=== PATIENT | female | born 1940 ===

== ENCOUNTER 2016-09-21 06:27 | Day surgery (SDC) | payer MEDICARE ==
[2016-09-20 13:59] VITALS: BMI 34.3
--- NOTE | 2016-09-21 07:13 | CP.PCM.PN ---
Subjective - Date & Time of Evaluation Date of Evaluation: 09/21/16 Time of Evaluation: 07:11 - Subjective Subjective: 75 year old female patient was seen and evaluated at bedside in [facility] this morning for left foot buion and hammertoe repair. She admits to a callus under her 2nd metatarsal head. Patient has been having a lot of pain on her left foot and has exhausted conservative treatment and now opts for surgical intervention She reports no other complaints at this time. NPO status confirmed. She admits she is allergic to shrimp. She denies any F/C/N/V/SOB at this time. Objective - Vital Signs/Intake and Output Vital Signs (last 24 hours): Temp Pulse Resp BP Pulse Ox 98.1 F 66 20 152/72 H 97 09/21/16 06:53 09/21/16 06:59 09/21/16 06:53 09/21/16 06:53 09/21/16 06:53 - Constitutional Appears: Well, Non-toxic, No Acute Distress - Respiratory Exam Respiratory Exam: NORMAL BREATHING PATTERN. absent: Rales, Rhonchi, Wheezes - Cardiovascular Exam Cardiovascular Exam: REGULAR RHYTHM, +S1, +S2 - GI/Abdominal Exam GI & Abdominal Exam: Soft, Normal Bowel Sounds. absent: Tenderness - Extremities Exam Additional comments: Vasc: DP and PT pulses palpable 2/4 b/l. Skin temperature warm to warm from proximal to distal b/l. Varicosites noted to the dorsum of foot and ankle b/l. Neuro:Gross sensation intact b/l. Derm:No open lesions noted. Webspaces clean, dry, intact. Toenails 1-5 b/l are WNL with thickness and length. Ortho/Biomech:Ankle dorsiflexion range of motion to 90 degrees on the left and right. Plantarflexion ROM to 30 degrees bilaterally. Negative crepitus with ROM b/l. Prominent metatarsal heads on the left foot, specifically the plantar second metatarsal head. STJ ROM is limited b/l, right: 12 degrees inversion, 7 degrees eversion, left 10 degrees inversion, 8 degrees eversion. First MTPJ ROM on the left is to 10 degrees of dorsiflexion, 10 degrees of plantarflexion. There is severe hammering of the lesser digits 2-5 b/l with rigid deformity. There is b/l hallux abductovalugs deformity with tracking hallux. Upon gait examination, she is noted to have extensor substitution, early heel off, and antalgic gait on the left due hyperkeratotic lesion sub 2nd metatarsal head, and increased angle and base of gait. Plan: Conservative treatment was attempted-offloading pad and wider toe box. Patient for surgery for painful left bunion-chevron osteotomy with screw fixation, hammertoes arthroplasties PIPJ 2-5 left - Neurological Exam Neurological Exam: Alert, Awake, Oriented x3 - Psychiatric Exam Psychiatric exam: Normal Affect, Normal Mood Assessment and Plan - Assessment and Plan (Free Text) Assessment: 75 year old female who presents to [facility] for left foot pain due to left foot- bunion, elongated second metatarsal and hammertoes 2-5 Plan: Pt was seen and examined in [facility] Pt NPO status was confirmed All Pre-op testing and clearance was in the chart Pt has exhausted all conservative treatment at this time and is opting for surgical intervention Pt was explained procedure and post-operative course All pt's questions were answered to satisfaction No guarantees were made Pt understands all risks, benefits and complications of procedure Pt will follow-up with Dr. Alberts
--- NOTE | 2016-09-21 07:15 | CP.SDSHP ---
Same Day Surgery H & P - History Proposed Procedure: left foot buionectomy, second metatarsal osteotomy, and hammer toe correction 2-5 Pre-Op Diagnosis: left foot bunion deformity, left foot elongated second metatarsals, left foot hammertoe digits 2-5 - Previous Medical/Surgical History Pain: 8.Very Severe Previous Surgical History: appendectomy, breast reduction, right leg vein stripping, hemorrhoidectomy, cyst removal on head - Allergies Allergies: Allergies shrimp Allergy (Verified 03/18/16 18:33) RASH - Physical Exam Vital Signs: Vital Signs 09/21/16 09/21/16 09/21/16 06:52 06:53 06:59 Temperature 98.1 F 98.1 F Pulse Rate 66 66 66 Respiratory 18 20 Rate Blood Pressure 152/72 H 152/72 H O2 Sat by Pulse 97 97 Oximetry Mental Status: Alert & Oriented x3 Neuro: WNL Heart: WNL Lungs: WNL - {Optional Preform as Required} Integument: WNL Ortho: Other (pain on palpation to left 2nd plantar metatarsal head, contracted digits 2-4 on the left) - Impression Impression: Pt was seen and examined in [facility]. Pt NPO status was confirmed. All Pre-op testing and clearance was in the chart. Pt has exhausted all conservative treatment at this time and is opting for surgical intervention. Pt was explained procedure and post-operative course. All pt's questions were answered to satisfaction. No guarantees were made. Pt understands all risks, benefits and complications of procedure. Pt will follow-up with Dr. Alberts Pt. Evaluated Today:Candidate for Anesthesia & Procedure: Yes - Date & Time Date: 09/21/16 Time: 07:15 Short Stay Discharge - Short Stay Discharge Admitting Diagnosis/Reason for Visit: M20.12 M21.6 Q66.89 M20.42 Disposition: HOME/ ROUTINE Referrals: Aric Cazares MD [Primary Care Provider] - Additional Instructions (Diet, Activity): Please keep dressing clean, dry, & intact to surgical site, do not get dressing wet. use plastic bag over bandage for showering, wear post op shoe at all times when ambulating, call office if you see signs of infection (redness, swelling, malodor), please make an appointment to see Dr. Alberts in office within 1 week for post-op check. Take medication as prescribed by Dr. Alberts Progress Note/Discharge Note with Instructions: - Patient evaluated bedside at bedside in [facility] s/p surgical procedure. - After surgical procedure patient in NAD - (+) Void, (+) Appetite - Capillary refill time <3s and NVSI intact. - Patient denies complaints at this time - Post operative instructions and plan of care explained to patient at length. - Pt. acknowledges understanding. - Patient stable for DC per podiatric surgery
[2016-09-21] MEDS ORDERED: Bupivacaine 0.5% 50 ML IJ ONE (07:16)
[2016-09-21] MEDS ORDERED: ceFAZolin 1 GM in Sodium Chloride 0.9% 100 ML IVPB STA (07:16)
[2016-09-21] MEDS ORDERED: Lidocaine 1% Inj (20ml) IJ ONE ×2 (07:16→08:10)
[2016-09-21] MEDS ORDERED: Midazolam 2 MG/2 ML VIAL ONE (07:40)
[2016-09-21] MEDS ORDERED: Propofol 10 mg/ml Inj (20 ML) ONE (07:40)
[2016-09-21] MEDS ORDERED: Lactated Ringer's 1,000 ML IV ONE (07:45)
[2016-09-21] MEDS ORDERED: Dexamethasone 4 mg/1 ml ONE (07:54)
[2016-09-21] MEDS ORDERED: Lidocaine 1% Inj (20ml) ONE (07:55)
[2016-09-21] MEDS ORDERED: Bupivacaine 0.5% Inj(30mL) ONE (07:55)
[2016-09-21] MEDS ORDERED: Bupivacaine 0.5% Inj(30mL) IJ ONE ×2 (08:10→10:47)
[2016-09-21] MEDS ORDERED: Lactated Ringer's 500 ML IV ONE (09:30)
[2016-09-21] MEDS ORDERED: Liquid Adhesive TOP ONE (10:39)
[2016-09-21] MEDS ORDERED: Dexamethasone 4 mg/1 ml IM ONE ×2 (10:53)
[2016-09-21] MEDS ORDERED: Oxycodone/Acetaminophen 5/325 mg Tab PO PRN ×2 (11:11)
--- NOTE | 2016-09-21 11:12 | PCM.SURG1 ---
Surgeon's Initial Post Op Note - Surgeon's Notes Surgeon: Dr. Alberts [employer] Craftsman: Sonal Iglesias PGY-2, Raiza Martinez PGY-1 Type of Anesthesia: General LMA Anesthesia Administered By: Dr. Candelaria Pre-Operative Diagnosis: Left foot bunion, elongated second metatarsal, hammertoes digits 2-5 Operative Findings: See dictation Post-Operative Diagnosis: Same Operation Performed: Left foot bunionectomy, second metatarsal head resection, PIPJ arthroplasty 3,4,5, extensor tenotomy 2,3,4,5 Specimen/Specimens Removed: bone left shoe Estimated Blood Loss: EBL {In ML}: 10 Blood Products Given: N/A Drains Used: No Drains Post-Op Condition: Good Date of Surgery/Procedure: 09/21/16 Time of Surgery/Procedure: 08:00
[2016-09-21] MEDS ORDERED: DiphenhydrAMINE 50 mg/ml Inj IVP PRN (11:17)
[2016-09-21] MEDS: HYDROmorphone 0.5 mg/0.5 ml ISec IVP PRN ×3 (12:06→12:50)
[2016-09-21 14:00] VITALS: RESP 18
[2016-09-21 17:45] VITALS: BP 120/80; PULSE 68; TEMP 98.6; O2SAT 96
--- NOTE | 2016-09-23 08:06 | OP ---
PROCEDURE DATE: 09/21/2016 SURGEON: Dr. My Alberts. PHYSICIAN/INTERNIST: Sonal Iglesias, PGY-2. POSTOPERATIVE DIAGNOSES: 1. Left foot bunion deformity. 2. Plantarflexed second metatarsal. 3. Hammertoe deformity with metatarsophalangeal joint contracture of the left foot third digit 4. Hammertoe deformity with metatarsophalangeal joint contracture of fourth digit. 5. Hammertoe deformity with metatarsophalangeal joint contracture of fifth digit. POSTOPERATIVE DIAGNOSES: 1. Left foot bunion deformity. 2. Plantarflexed second metatarsal with dislocated MTPJ 3. Hammertoe deformity with metatarsophalangeal joint contracture of the left foot third digit 4. Hammertoe deformity with metatarsophalangeal joint contracture of fourth digit. 5. Hammertoe deformity with metatarsophalangeal joint contracture of fifth digit. NAME OF PROCEDURES: 1. Left foot bunionectomy. 2. Left foot second partial metatarsal head resection 3. Proximal interphalangeal joint arthroplasty with extensor tenotomy of the third digit, left foot. 4. Proximal interphalangeal joint arthroplasty with extensor tenotomy of the fourth digit, left foot. 5. Proximal interphalangeal joint arthroplasty with extensor tenotomy of fifth digit, left foot. ANESTHESIA: IV sedation with local anesthesia. ANESTHESIOLOGIST: Dr. Candelaria. INDICATIONS: The patient is a 75-year-old female with the above-mentioned diagnoses. The patient has exhausted conservative treatment at this time and is now requesting surgical intervention. The patient signed a consent after careful explanation of risks, benefits, complications and alternatives for surgical procedure. No guarantees were given nor implied. 2 g of Ancef IV were given to patient prior to the procedure. NPO status was confirmed prior to taking the patient to the operating room. PREPARATION: The patient was brought into the operating room and placed on the operating room table in supine position. A well-padded pneumatic ankle tourniquet was placed to the patient's left ankle in a supramalleolar position. After induction of IV sedation, a total of 20 mL of a 1:1 mixture of 0.5% Marcaine and 1% lidocaine plain were injected in local block fashion to the left foot. The foot was then prepped and draped in the usual sterile manner and the procedure began. PROCEDURE #1: LEFT FOOT BUNIONECTOMY: Attention was directed to the dorsal aspect of the first metatarsal head of the left foot where an approximately 6 cm linear longitudinal incision was made medial and parallel to the tendon of the extensor hallucis longus and involving the contour of the deformity. The incision was deepened through the subcutaneous tissue using sharp and blunt dissection. Care was taken to identify and retract all vital neurovascular structures. All bleeders were cauterized and ligated as necessary. Attention was then directed to the first interspace via the original incision where the tendon of the extensor hallucis brevis was identified and tenectomized. Dissection was continued deep using blunt dissection down to the level of the fibular sesamoid which was freed of its soft tissue attachments proximally, laterally, and distally. The conjoined tendon of the adductor hallucis muscle was then identified and transected at its attachment to the base of the proximal phalanx of the hallux. At this time, the lateral contracture present on the hallux was noted to reduce and the sesamoid apparatus was noted to float in a more corrected medial position. At this time, an inverted L-type capsulotomy was performed over the dorsal aspect of the first metatarsophalangeal joint. The periosteal and capsular structures were then carefully dissected free of their osseous attachments and reflected medially and laterally, thus exposing the head of the first metatarsal into the operative site. Next, utilizing a sagittal bone saw, the dorsal and medial prominences were resected and passed from the operative field. All rough edges were smoothed down. At this time, the hip was externally rotated and the knee was flexed to bring the medial surface of the foot superior to allow for better visualization of the medial aspect of the first metatarsal head for the osteotomy cuts. Attention was then redirected to the medial aspect of the first metatarsal head where a through and through V-type osteotomy was created in the metaphyseal region of the bone utilizing an oscillating bone saw. The apex of the osteotomy pointed distally with the arms pointing proximal plantarly and proximal dorsal. The dorsal arm was made longer to accommodate internal fixation. Upon completion of the osteotomy, the capital fragment was distracted and shifted laterally into a more corrected position and impacted upon the first metatarsal shaft. At this time, two 0.045 inch K-wires were driven from dorsal to plantar across the osteotomy site to serve as temporary fixation. An additional K-wire was then driven from dorsal to plantar as a guide hole. Following sequential removal of the K-wires and following standard AO principles and techniques, one 2.0 x 16 mm and one 2.0 x 18 mm cortical screw were inserted across the osteotomy site with excellent compression noted. Attention was then directed to the remaining medial bone shelf which was resected utilizing the sagittal bone saw and was passed from the operative site. The correction of the deformity was assessed at this time and noted to be excellent. It was noted that the extensor tendon was still contracted and in a lateral position, therefore a tendon lengthening was performed and the tendon was repaired with 3-0 vicryl. The wound was then flushed with copious amounts of normal sterile saline. Periosteal and capsular structures were reapproximated and coapted using 2-0 and 3-0 Vicryl. Redundant capsular tissues were resected as necessary. The subcuticular tissues were reapproximated and coapted using 4-0 Vicryl. The skin was reapproximated and coapted using 4-0 Monocryl in running subcuticular fashion. PROCEDURE #2: PARTIAL METATARSAL HEAD RESECTION OF LEFT FOOT SECOND DIGIT. Attention was directed to the dorsal aspect of the second metatarsophalangeal joint where an approximately 3 cm linear longitudinal incision was created overlying the metatarsophalangeal joint. Dissection was carried down to the subcutaneous tissues with care being taken to identify and retract all vital neurovascular structures. All bleeders were cauterized and ligated as necessary. The extensor tendon was identified and was retracted laterally. At this time, it was noted that the second digit was severely dislocated dorsally with the base of the proximal phalanx resting completely dorsal to the second metatarsal head. The toe was not reducible. The proximal phalanx was unable to the distracted over the end of the metatarsal head. Therefore, a partial metatarsal head resection was necessary. At this time, a linear longitudinal periosteal incision was created over the head of the metatarsal. The periosteal and capsular structures were reflected medially and laterally, thus exposing the head of the second metatarsal into the operative site. Utilizing the sagittal bone saw, the distal portion of the metatarsal head was resected from dorsal to plantar. A phalangeal clamp was used to remove the metatarsal head from the operative field. The bone quality was noted to be very poor and the bone was very soft. The bone at the base of the proximal phalanx was also noted to be of poor quality. The wound was copiously irrigated with normal sterile saline. Following the osteotomy, the extensor tendon was noted to be very contracted and pulling the toe dorsally. Therefore, an extensor tenotomy was performed. The wound was copiously irrigated with normal sterile saline. The periosteal and capsular tissues were reapproximated and coapted using 4-0 Vicryl. Subcuticular closure was done using 4-0 Vicryl, and skin was closed using 4-0 Monocryl in running subcuticular fashion. PROCEDURE #3: PROXIMAL INTERPHALANGEAL JOINT ARTHROPLASTY OF THE LEFT FOOT THIRD DIGIT: Attention was directed to the third digit of the left foot where a horizontal elliptical incision was created overlying the apex of the deformity at the proximal interphalangeal joint. The central portion of the skin was ellipsed out using a #15 blade. The incision was carried down through the subcutaneous tissues with care being taken to identify and retract all vital neurovascular structures. All bleeders were cauterized and ligated as necessary. At this time, a transverse tenotomy and capsulotomy was performed to the proximal interphalangeal joint of the third digit right foot. The head of the proximal phalanx was then freed of its capsular and ligamentous attachments. The bone was noted to be of very poor quality and was very soft. Utilizing the sagittal bone saw, the head of the proximal phalanx was resected and passed from the operative site. Next, the cartilage on the base of the middle phalanx was removed. Next, a 0.045 inch K-wire was drive from the base of the middle phalanx exiting the distal aspect of the second digit. The K- wire was then retrograded proximally into the remaining aspect of the proximal phalanx. The K-wire was unable to be retrograded into the metatarsal head because of the poor bone stock which would not allow the K-wire to hold. The wound was copiously irrigated with normal sterile saline. The subcuticular closure was done using 4-0 Vicryl and skin was closed using 4-0 nylon. PROCEDURE #4: PROXIMAL INTERPHALANGEAL JOINT ARTHROPLASTY OF THE FOURTH DIGIT, LEFT FOOT: Attention was directed to the dorsal aspect of the fourth digit of the left foot where a horizontal elliptical incision was made overlying the apex of the deformity at the proximal interphalangeal joint. The incision was deepened through the subcutaneous tissue with care being taken to identify and retract all vital neurovascular structures. All bleeders were cauterized and ligated as necessary. At this time, a transverse tenotomy and capsulotomy was performed to the proximal interphalangeal joint of the fourth digit left foot. The head of the proximal phalanx was freed of its capsular and ligamentous attachments. Once again, the bone was noted to be of poor quality. Utilizing the sagittal bone saw, the head of the proximal phalanx was resected and passed from the operative site. The cartilage on the base of the middle phalanx was also removed. The wound was flushed with copious amounts of normal sterile saline. Next, a 0.045 inch K-wire was driven from the base of the middle phalanx exiting the distal aspect of the fourth digit. The K-wire was then retrograded proximally into the remaining aspect of the proximal phalanx. The wound was copiously irrigated with normal sterile saline. Subcuticular closure was done using 4-0 Vicryl and skin was closed using 4-0 nylon. PROCEDURE #5: LEFT FOOT PROXIMAL INTERPHALANGEAL JOINT ARTHROPLASTY OF THE FIFTH DIGIT: Attention was directed to the dorsal aspect of the fifth digit of the left foot where an elliptical incision was made overlying the apex of the deformity at the interphalangeal joint of the fifth digit. The incision was deepened through the subcutaneous tissues with care being taken to identify and retract all vital neurovascular structures. All bleeders were cauterized and ligated as necessary. At this time, a transverse tenotomy and capsulotomy was performed to the proximal interphalangeal joint of the fifth digit. The head of the proximal phalanx was then freed of its capsular and ligamentous attachments. Again the bone quality was noted to be poor. Utilizing a sagittal bone saw, the head of the proximal phalanx was resected and passed from the operative site. The wound was flushed with copious amounts of normal sterile saline and the cartilage was removed from the base of the middle phalanx. Next, a 0.045 inch K-wire was driven from the base of the middle phalanx, exiting the distal aspect of the digit. The wound was copiously irrigated with normal sterile saline. Subcuticular closure was done using 4-0 Vicryl. The skin was closed using 4-0 nylon. POSTOPERATIVE CONDITION: The patient tolerated the anesthesia and procedure well and was escorted to the recovery room with vital signs stable and neurovascular status intact to the left foot. The patient will follow up with Dr. Alberts in her office next week. Sonal Iglesias DPM My Alberts DPM cc: [id number] TT: 09/23/2016 07:42:21 mn 09/23/2016 07:05:43 MTDD
== END 2016-09-21 18:00 | disposition home or self-care (01) ==
LOC: H.OPSURG 06:27
PROVIDERS: ATTEND Podiatrist Foot & Ankle Surgery
DX: M20.12 Hallux valgus (acquired), left foot (principal); Q66.89 Other specified congenital deformities of feet; M20.42 Other hammer toe(s) (acquired), left foot; K21.9 Gastro-esophageal reflux disease without esophagitis; E78.5 Hyperlipidemia, unspecified
CPT/HCPCS: 28296; 88307; 97161; C1713; G8978; G8979; G8980; J0690; J1100; J1170; J2001; J2250; J2704; J2765; J3010; J7030; J7120

== ENCOUNTER 2016-12-05 13:26 | Observation (INO) | payer MEDICARE ==
[2016-12-05 13:27] VITALS: BMI 34.3
[2016-12-05] MEDS ORDERED: Sodium Chloride 0.9% 1,000 ML IV STA (14:09)
--- NOTE | 2016-12-05 14:13 | ED PDOC ---
HPI:Nausea, Vomiting, Diarrhea Time Seen by Provider: 12/05/16 13:41 Chief Complaint (Nursing): Dizziness/Lightheaded Chief Complaint (Provider): nausea and vomiting History Per: Patient History/Exam Limitations: no limitations Onset/Duration Of Symptoms: Days (5), Intermittent Episodes Current Symptoms Are (Timing): Still Present Quality Of Discomfort: Aching, "Pain", Other (epigastric to chest) Associated Symptoms: Nausea, Vomiting, Loss Of Appetite, Chest Pain (burning), Urinary Symptoms (dysuria and frequency), Other (Headache). denies: Diarrhea, Constipation Exacerbating Factors: Food, Walking Alleviating Factors: None Additional Complaint(s): Also reports vertiginous dizziness. Leona like she would fall down today when she walked. Reports similar pain in the past in her stomach but milder Reports similar headache in the past, but not as severe Past Medical History Reviewed: Historical Data, Nursing Documentation, Vital Signs Vital Signs: Last Vital Signs Temp 98.6 F 12/05/16 13:30 Pulse 98 H 12/05/16 13:30 Resp 20 12/05/16 13:30 BP 158/99 H 12/05/16 13:30 Pulse Ox 98 12/05/16 13:30 - Medical History PMH: Arthritis, Bronchitis, HTN (no meds), Hypercholesterolemia, Pancreatitis Denies: Chronic Kidney Disease - Surgical History Surgical History: Appendectomy Other surgeries: LEFT foot 5 digit reconstruction - Family History Family History: States: Hypertension - Social History Current smoker - smoking cessation education provided: No Alcohol: None - Home Medications Home Medications: Ambulatory Orders Medication Instructions Recorded Omeprazole [Prilosec] 40 mg PO DAILY 11/20/15 Oxycodone HCl/Acetaminophen 1 tab PO Q6H PRN 11/20/15 [Percocet 5-325 mg Tablet] Ibuprofen [Motrin Tab] 200 mg PO Q6H PRN 12/05/16 Promethazine HCl/Codeine 10 ml PO Q4H PRN 12/05/16 [Prometh-Codein 6.25-10 mg/5 ml] - Allergies Allergies/Adverse Reactions: Allergies Allergy/AdvReac Type Severity Reaction Status Date / Time shrimp Allergy RASH Verified 03/18/16 18:33 Review of Systems ROS Statement: Except As Marked, All Systems Reviewed And Found Negative Constitutional: Positive for: Chills, Weakness, Malaise Cardiovascular: Positive for: Chest Pain, Light Headedness Respiratory: Negative for: Cough, Shortness of Breath Gastrointestinal: Positive for: Nausea, Vomiting, Abdominal Pain. Negative for : Diarrhea, Constipation, Melena, Hematochezia, Hematemesis Genitourinary Female: Positive for: Dysuria, Frequency. Negative for: Hematuria Musculoskeletal: Positive for: Neck Pain, Foot Pain (LEFT foot (surgery 3 months ago, chronic)) Neurological: Positive for: Headache, Dizziness. Negative for: Weakness, Numbness, Confusion, Seizures Physical Exam - Reviewed Nursing Documentation Reviewed: Yes Vital Signs Reviewed: Yes - Physical Exam Appears: Positive for: Non-toxic, In Acute Distress Head Exam: Positive for: ATRAUMATIC, NORMOCEPHALIC Skin: Positive for: Warm, Dry Eye Exam: Positive for: EOMI, PERRL ENT: Positive for: Other (tacky mucus membranes). Negative for: Pharyngeal Erythema, Tonsillar Exudate Neck: Positive for: Painless ROM, Supple Cardiovascular/Chest: Positive for: Regular Rate, Rhythm. Negative for: Murmur Respiratory: Positive for: Normal Breath Sounds. Negative for: Respiratory Distress Gastrointestinal/Abdominal: Positive for: Bowel Sounds, Soft, Tenderness ( epigastric mild). Negative for: Mass, Distended, Guarding, Rebound Back: Positive for: Normal Inspection. Negative for: Vertebral Tenderness Extremity: Positive for: Normal ROM, Other (LEFT foot: well-healed post surgical wound dorsum forefoot). 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 Negative for: Motor/Sensory Deficits, Aphasia, Facial Droop - Laboratory Results Result Diagrams: 12/05/16 14:00 12/05/16 14:00 - ECG O2 Sat by Pulse Oximetry: 98 - Progress ED Course And Treament: Accession No. : [id number] Patient Name / ID : FEDERICA CASTAÑEDA / [id number] Exam Date : 12/05/2016 15:24:27 ( Approved ) Study Comment : Sex / Age : F / 75Y Creator : Charles Austin MD Dictator : Charles Austin MD Temporary Receptionist : Software Development Analyst : Charles Austin MD Approver2 : Report Date : 12/05/2016 15:46:56 My Comment : PROCEDURE: CT HEAD WITHOUT CONTRAST. HISTORY: nausea dizziness COMPARISON: None available. TECHNIQUE: Axial computed tomography images were obtained through the head/brain without intravenous contrast. Radiation dose: Total exam DLP = 766.83 mGy-cm. This CT exam was performed using one or more of the following dose reduction techniques: Automated exposure control, adjustment of the mA and/or kV according to patient size, and/or use of iterative reconstruction technique. FINDINGS: HEMORRHAGE: No acute parenchymal, subarachnoid or extra-axial hemorrhage. BRAIN: Mild chronic periventricular white matter ischemic changes on. There also appear to be a few scattered chronic bilateral basal nuclei lacunar type infarcts. Note that the possibility of a hyperacute infarct may not be seen on initial CT imaging. Clinical correlation recommended. Mild generalized volume loss. VENTRICLES: No obstructive type hydrocephalus CALVARIUM: There are no acute calvarial fractures. PARANASAL SINUSES: Visualized paranasal sinuses are well-developed and currently well-aerated. No fluid levels seen to suggest acute sinusitis. MASTOID AIR CELLS: Unremarkable as visualized. No inflammatory changes. OTHER FINDINGS: None. IMPRESSION: No evidence of acute intracranial hemorrhage. Mild chronic white matter ischemic changes with a few scattered chronic bilateral basal nuclei lacunar type infarcts. ED OBSERVATION - Observation admission statement Patient is being placed in observation because:: Time intensive ER workup and need for serial abdominal exams over prolonged course of time - Goals of Observation Goals of observation are:: Completion of diagnostics, improve symptoms, and start definitive treatment for final impression - Progress Note Progress Note: 1600 Pt stable. Tolerated PO Omnipaque. Comfortable. Accession No. : [id number] Patient Name / ID : FEDERICA CASTAÑEDA / [id number] Exam Date : 12/05/2016 16:32:12 ( Approved ) Study Comment : Sex / Age : F / 75Y Creator : Carmen Julian MD Dictator : Carmen Julian MD Temporary Receptionist : Software Development Analyst : DR. Maxwell, Carmen Sandoval MD Approver2 : Report Date : 12/05/2016 17:04:40 My Comment : This report is currently processing and HAS NOT BEEN OFFICIALLY SIGNED BY THE PHYSICIAN - ESTIMATED TIME OF APPROVAL IS 12/05/2016 17:09. PROCEDURE: CT Abdomen and Pelvis with oral and IV contrast. HISTORY: LUQ/LLQ abd pain and vomiting COMPARISON: CT abdomen and pelvis performed 01/20/15 TECHNIQUE: Contiguous axial images of the abdomen and pelvis. Oral and IV contrast was administered. Coronal and Sagittal reformats generated and reviewed. Contrast dose: 90 mL Omnipaque 300 Radiation dose: Total exam DLP = 993.02 mGy-cm. This CT exam was performed using one or more of the following dose reduction techniques: Automated exposure control, adjustment of the mA and/or kV according to patient size, and/or use of iterative reconstruction technique. FINDINGS: LOWER THORAX: No visible consolidation, pleural effusion, or pneumothorax. Small hiatal hernia and evidence of gastroesophageal reflux. LIVER: Hypoattenuation of the liver compatible with hepatic steatosis. GALLBLADDER AND BILE DUCTS: Unremarkable. PANCREAS: Unremarkable. SPLEEN: Unremarkable. ADRENALS: Unremarkable. KIDNEYS AND URETERS: The kidneys enhance symmetrically. No hydronephrosis or obstructing renal calculus. Tiny too small to characterize left renal hypodensity; statistically likely a cyst. BLADDER: The urinary bladder appears unremarkable. REPRODUCTIVE: Uterus is not identified, presumably due to hysterectomy. APPENDIX: No secondary signs of acute appendicitis. BOWEL: The stomach is nondistended. The bowel loops appear within normal limits of caliber without evidence of intestinal obstruction. Segmental regions of marked wall thickening involving a relatively short segment of the right colon (approximately 6.3 cm), portions of the transverse colon and lesser involvement of the left colon. Correlate clinically for colitis (i.e. Infectious, inflammatory, ischemic). Scattered diverticulosis without definite CT evidence for acute diverticulitis. PERITONEUM: No significant free fluid. No definite free air. LYMPH NODES: No bulky lymphadenopathy identified. VASCULATURE: Atherosclerotic calcifications of the aorta. No aortic aneurysm. BONES: No acute osseous abnormality is detected. OTHER FINDINGS: 1.7 cm (transverse) fat containing ventral hernia. IMPRESSION: Findings as above concerning for colitis (i.e. Infectious, inflammatory, ischemic). Underlying neoplasm cannot be excluded. Correlate clinically. If clinically indicated, suggest follow-up with colonoscopy. Scattered diverticulosis without CT evidence of acute diverticulitis. Additional findings as above. On reeval, pt still comfortable. Labs unremarkable. DW pt findings. DW Dr Cazares PMD. Pt will be given trial of PO antibiotics in ER and if tolerates can be discharge to f/u in office. 1900 Pt feels nauseaous w abdominal pain. Hospitalize for colitis and intractable pain. Disposition - Clinical Impression Clinical Impression: Colitis, Abdominal pain Counseled Patient/Family Regarding: Studies Performed, Diagnosis - Disposition Disposition Time: 14:00 Condition: STABLE - Pt Status Changed To: Hospital Disposition Of: Observation - POA Present On Arrival: None
[2016-12-05 14:21] LABS: ALB/GLOB RATIO 1.3 (1.0-2.1); ALBUMIN 4.6 g/dL (3.5-5.0); ALT/SGPT 31 U/L (9-52); AST/SGOT 30 U/L (14-36); BLOOD UREA NITROGEN 11 mg/dl (7-17); CALCIUM 9.3 mg/dL (8.4-10.2); GFR AFRICAN-AMERICAN > 60; GFR NON-AFRICAN AMERICAN > 60
[2016-12-05] MEDS ORDERED: Iohexol 240 (50 ml) PO ONE (14:21)
[2016-12-05 14:23] LABS: BASO % 0.6 % (0.0-2.0); EOS # 0.2 K/uL (0.0-0.7); LYMPH # 1.6 K/uL (1.0-4.3); LYMPH % 24.9 % (20.0-40.0); MEAN CELL VOLUME 90.4 fl (81.0-99.0); MEAN CORPUSCULAR HEMOGLOBIN 29.7 pg (27.0-31.0); MEAN CORPUSCULAR HGB CONC 32.8 g/dL (33.0-37.0); MEAN PLATELET VOLUME 8.8 fl (7.2-11.7); MONO # 0.4 K/uL (0.0-0.8); MONO % 6.4 % (0.0-10.0); NEUT # 4.1 K/uL (1.8-7.0); NEUT % 65.1 % (50.0-75.0); NRBC % 0.1 % (0.0-0.0); RBC 5.07 Mil/uL (3.80-5.20); RED CELL DISTRIBUTION WIDTH 14.9 % (11.5-14.5); WHITE BLOOD COUNT 6.3 K/uL (4.8-10.8)
[2016-12-05 15:00] LABS: LIPASE 64 U/L (23-300)
[2016-12-05] MEDS ORDERED: DiphenhydrAMINE 50 mg/ml Inj IVP ONE (15:00)
[2016-12-05 15:09] LABS: PARTIAL THROMBOPLASTIN TIME 35.7 Seconds (25.6-37.1); PROTHROMBIN TIME 10.8 Seconds (9.8-13.1)
[2016-12-05] MEDS ORDERED: DiphenhydrAMINE 50 mg/ml Inj ONE (15:45)
--- NOTE | 2016-12-05 15:48 | CT ---
PROCEDURE: CT HEAD WITHOUT CONTRAST. HISTORY: nausea dizziness COMPARISON: None available. TECHNIQUE: Axial computed tomography images were obtained through the head/brain without intravenous contrast. Radiation dose: Total exam DLP = 766.83 mGy-cm. This CT exam was performed using one or more of the following dose reduction techniques: Automated exposure control, adjustment of the mA and/or kV according to patient size, and/or use of iterative reconstruction technique. FINDINGS: HEMORRHAGE: No acute parenchymal, subarachnoid or extra-axial hemorrhage. BRAIN: Mild chronic periventricular white matter ischemic changes on. There also appear to be a few scattered chronic bilateral basal nuclei lacunar type infarcts. Note that the possibility of a hyperacute infarct may not be seen on initial CT imaging. Clinical correlation recommended. Mild generalized volume loss. VENTRICLES: No obstructive type hydrocephalus CALVARIUM: There are no acute calvarial fractures. PARANASAL SINUSES: Visualized paranasal sinuses are well-developed and currently well-aerated. No fluid levels seen to suggest acute sinusitis. MASTOID AIR CELLS: Unremarkable as visualized. No inflammatory changes. OTHER FINDINGS: None. IMPRESSION: No evidence of acute intracranial hemorrhage. Mild chronic white matter ischemic changes with a few scattered chronic bilateral basal nuclei lacunar type infarcts.
[2016-12-05] MEDS ORDERED: Iohexol 300 100 ML IJ ONE (16:07)
[2016-12-05] MEDS ORDERED: Sodium Chloride 0.9% 50 ML IV ONE (16:07)
[2016-12-05 16:13] LABS: SQUAMOUS EPITHIAL 5 /hpf (0-5); URINE BILIRUBIN NEGATIVE (NEGATIVE); URINE BLOOD NEGATIVE (NEGATIVE); URINE CLARITY SLIGHTY-CLOUDY (Clear); URINE COLOR YELLOW (YELLOW); URINE GLUCOSE (UA) NEG (Normal); URINE LEUKOCYTE ESTERASE NEG Leu/uL (Negative); URINE NITRATE NEGATIVE (NEGATIVE); URINE PROTEIN 30 mg/dL (NEGATIVE); URINE UROBILINOGEN 0.2-1.0 mg/dL (0.2-1.0)
--- NOTE | 2016-12-05 17:06 | CT ---
PROCEDURE: CT Abdomen and Pelvis with oral and IV contrast. HISTORY: LUQ/LLQ abd pain and vomiting COMPARISON: CT abdomen and pelvis performed 01/20/15 TECHNIQUE: Contiguous axial images of the abdomen and pelvis. Oral and IV contrast was administered. Coronal and Sagittal reformats generated and reviewed. Contrast dose: 90 mL Omnipaque 300 Radiation dose: Total exam DLP = 993.02 mGy-cm. This CT exam was performed using one or more of the following dose reduction techniques: Automated exposure control, adjustment of the mA and/or kV according to patient size, and/or use of iterative reconstruction technique. FINDINGS: LOWER THORAX: No visible consolidation, pleural effusion, or pneumothorax. Small hiatal hernia and evidence of gastroesophageal reflux. LIVER: Hypoattenuation of the liver compatible with hepatic steatosis. GALLBLADDER AND BILE DUCTS: Unremarkable. PANCREAS: Unremarkable. SPLEEN: Unremarkable. ADRENALS: Unremarkable. KIDNEYS AND URETERS: The kidneys enhance symmetrically. No hydronephrosis or obstructing renal calculus. Tiny too small to characterize left renal hypodensity; statistically likely a cyst. BLADDER: The urinary bladder appears unremarkable. REPRODUCTIVE: Uterus is not identified, presumably due to hysterectomy. APPENDIX: No secondary signs of acute appendicitis. BOWEL: The stomach is nondistended. The bowel loops appear within normal limits of caliber without evidence of intestinal obstruction. Segmental regions of marked wall thickening involving a relatively short segment of the right colon (approximately 6.3 cm), portions of the transverse colon and lesser involvement of the left colon. Correlate clinically for colitis (i.e. Infectious, inflammatory, ischemic). Scattered diverticulosis without definite CT evidence for acute diverticulitis. PERITONEUM: No significant free fluid. No definite free air. LYMPH NODES: No bulky lymphadenopathy identified. VASCULATURE: Atherosclerotic calcifications of the aorta. No aortic aneurysm. BONES: No acute osseous abnormality is detected. OTHER FINDINGS: 1.7 cm (transverse) fat containing ventral hernia. IMPRESSION: Findings as above concerning for colitis (i.e. Infectious, inflammatory, ischemic). Underlying neoplasm cannot be excluded. Correlate clinically. If clinically indicated, suggest follow-up with colonoscopy. Scattered diverticulosis without CT evidence of acute diverticulitis. Additional findings as above.
[2016-12-05] MEDS ORDERED: metroNIDAZOLE 500mg/100ml NS 100 ML IV STA (17:10)
[2016-12-05] MEDS ORDERED: Ciprofloxacin 400mg/200ml D5W 200 ML IV STA (17:10)
[2016-12-05] MEDS ORDERED: Ciprofloxacin 400mg/200ml D5W 400 MG/200 ML BAG IVPB ONE (18:45)
[2016-12-05] MEDS: Ciprofloxacin 400mg/200ml D5W 400 MG/200 ML BAG IV SCH (18:56)
--- NOTE | 2016-12-05 23:42 | CARD ---
APPROVED REPORT EKG Measurement Heart [id number] <Conclusion> Normal sinus rhythm Low voltage QRS Cannot rule out Inferior infarct, age undetermined Cannot rule out Anterior infarct, age undetermined Abnormal ECG
[2016-12-06] MEDS: metroNIDAZOLE 500mg/100ml NS 100 ML IV SCH ×3 (01:13→16:46)
[2016-12-06] MEDS ORDERED: Dextrose 5%/0.45% NS 1,000 ML IV SCH (02:30)
[2016-12-06 04:13] LABS: SQUAMOUS EPITHIAL 2 /hpf (0-5); URINE BILIRUBIN NEGATIVE (NEGATIVE); URINE BLOOD NEGATIVE (NEGATIVE); URINE CLARITY CLEAR (Clear); URINE COLOR YELLOW (YELLOW); URINE GLUCOSE (UA) NEG (Normal); URINE LEUKOCYTE ESTERASE NEG Leu/uL (Negative); URINE NITRATE NEGATIVE (NEGATIVE); URINE PROTEIN NEGATIVE (NEGATIVE); URINE UROBILINOGEN 0.2-1.0 mg/dL (0.2-1.0)
[2016-12-06 08:00] LABS: HEMOGLOBIN 14.1 g/dL (12.0-16.0); MEAN CELL VOLUME 90.3 fl (81.0-99.0); MEAN CORPUSCULAR HEMOGLOBIN 29.6 pg (27.0-31.0); MEAN CORPUSCULAR HGB CONC 32.7 g/dL (33.0-37.0); RBC 4.76 Mil/uL (3.80-5.20); RED CELL DISTRIBUTION WIDTH 14.9 % (11.5-14.5); WHITE BLOOD COUNT 5.7 K/uL (4.8-10.8)
[2016-12-06 08:07] LABS: ALB/GLOB RATIO 1.3 (1.0-2.1); ALBUMIN 3.9 g/dL (3.5-5.0); ALT/SGPT 35 U/L (9-52); AST/SGOT 25 U/L (14-36); BLOOD UREA NITROGEN 9 mg/dl (7-17); CALCIUM 9.1 mg/dL (8.4-10.2); GFR AFRICAN-AMERICAN > 60; GFR NON-AFRICAN AMERICAN 54; HDL CHOLESTEROL 36 MG/DL (30-70)
[2016-12-06 08:18] LABS: LDL CHOLESTEROL 144 mg/dL (0-129)
[2016-12-06 08:23] LABS: T4 5.78 ug/dl (5.5-11.0)
[2016-12-06] MEDS ORDERED: Pneumococcal 23-Valent Vaccine IM ONE (09:00)
[2016-12-06] MEDS ORDERED: Ciprofloxacin 400mg/200ml D5W 200 ML IV SCH (09:00)
[2016-12-06] MEDS: Ciprofloxacin 400mg/200ml D5W 400 MG/200 ML BAG IV SCH ×2 (09:33→16:45)
--- NOTE | 2016-12-06 16:36 | CP.PCM.HP ---
History of Present Illness - History of Present Illness History of Present Illness: CC: Abdominal pain. 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 Pt c/o of abdominal pain epigastric are, moderate intensity 4-5:10 for 4 days, aching pain, associated to nausea, vomiting, dysuria with burning sensation. Pt denied diarrhea. Worsening symptoms; Malaise, weaknesses, dizziness, vertigo, lightheadedness, urinary frequency. Aggravated factor: Loss of appetite. 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 PMHx: HTN (no taking medications), Hypercholesterolemia, O/A, Bronchitis, Pancreatitis. EKG shows: Normal sinus rhythm, cannot rule out anterior and inferior infarct, ages undetermined. Head CT: No evidence of acute intracranial hemorrhage. Abdomen/Pelvis CT: Colitis. Scattered Diverticulosis, no CT evidence for Diverticulitis. Underlying neoplasm cannot be excluded. Present on Admission - Present on Admission Any Indicators Present on Admission: No Review of Systems - Constitutional Constitutional: Malaise, Weakness - EENT Eyes: Requires Corrective Lenses Ears: Other (negative) Nose/Mouth/Throat: Other (negative) - Cardiovascular Cardiovascular: Lightheadedness - Respiratory Respiratory: Other (negative) - Gastrointestinal Gastrointestinal: Abdominal Pain, Nausea, Vomiting - Genitourinary Genitourinary: Dysuria, Urinary Frequency, Other - Musculoskeletal Musculoskeletal: Arthralgias - Integumentary Integumentary: Other (negative) - Neurological Neurological: Dizziness, Vertigo, Weakness - Psychiatric Psychiatric: Other (negative) - Endocrine Endocrine: Other (negative) - Hematologic/Lymphatic Hematologic: Other (negative) Past Patient History - Infectious Disease Hx of Infectious Diseases: None - Past Medical History & Family History Past Medical History?: Yes Pertinent Family History: HTN - Past Social History Smoking Status: Never Smoked Alcohol: None Drugs: Denies Home Situation {Lives}: With Family - CARDIAC Hx Cardiac Disorders: Yes Hx Hypercholesterolemia: Yes Hx Hypertension: Yes (no meds) - PULMONARY Hx Respiratory Disorders: Yes Hx Bronchitis: Yes - NEUROLOGICAL Hx Neurological Disorder: No - HEENT Hx HEENT Problems: No - RENAL Hx Chronic Kidney Disease: No - ENDOCRINE/METABOLIC Hx Endocrine Disorders: No - HEMATOLOGICAL/ONCOLOGICAL Hx Blood Disorders: No - INTEGUMENTARY Hx Dermatological Problems: No - MUSCULOSKELETAL/RHEUMATOLOGICAL Hx Falls: Yes - GASTROINTESTINAL Hx Gastrointestinal Disorders: Yes Hx Pancreatitis: Yes - GENITOURINARY/GYNECOLOGICAL Hx Genitourinary Disorders: No - PSYCHIATRIC Hx Anxiety: No Hx Substance Use: No - SURGICAL HISTORY Hx Surgeries: Yes Hx Appendectomy: Yes - ANESTHESIA Hx Anesthesia: Yes Hx Anesthesia Reactions: No Hx Malignant Hyperthermia: No Meds Allergies/Adverse Reactions: Allergies Allergy/AdvReac Type Severity Reaction Status Date / Time shrimp Allergy RASH Verified 03/18/16 18:33 Physical Exam - Constitutional Appears: No Acute Distress - Head Exam Head Exam: NORMAL INSPECTION - Eye Exam Eye Exam: PERRL - ENT Exam ENT Exam: Normal Oropharynx - Neck Exam Neck exam: Positive for: Normal Inspection - Respiratory Exam Respiratory Exam: NORMAL BREATHING PATTERN - Cardiovascular Exam Cardiovascular Exam: REGULAR RHYTHM - GI/Abdominal Exam GI & Abdominal Exam: Normal Bowel Sounds, Soft, Tenderness (Epigastric area) - Extremities Exam Extremities exam: Positive for: normal inspection - Back Exam Back exam: NORMAL INSPECTION - Neurological Exam Neurological exam: Alert, Oriented x3 Additional comments: No motor sensory deficit. - Psychiatric Exam Psychiatric exam: Normal Affect, Normal Mood - Skin Skin Exam: Warm Results - Vital Signs Recent Vital Signs: Last Vital Signs Temp 98.3 F 12/06/16 16:32 Pulse 71 12/06/16 16:32 Resp 18 12/06/16 16:32 BP 117/69 12/06/16 16:32 Pulse Ox 94 L 12/06/16 16:32 reviewed J.P. - Labs Result Diagrams: 12/06/16 07:25 12/06/16 07:25 Labs: reviewed J.P. - EKG Data EKG comments: reviewed J.P. - Imaging and Cardiology CT scan - head Status: Report reviewed by me (Cindy) CT scan - abdomen Status: Report reviewed by me (Cindy) CT scan - pelvis Status: Report reviewed by me (Cindy) Assessment & Plan (1) Colitis Status: Acute Priority: High (2) Abdominal pain Status: Acute Priority: High (3) HTN (hypertension) Status: Chronic Priority: Medium - Assessment and Plan (Free Text) Plan: Blood C-S, Urine C-S. Continue with clear fluid, Cipro, Flagyl, f/u GI consult. - Date & Time Date: 12/06/16 Time: 10:10
--- NOTE | 2016-12-06 20:27 | CON ---
DATE: 12/06/2016 REFERRING PHYSICIAN: Dr. Cazares. REASON FOR CONSULTATION: Abdominal pain, diarrhea. HISTORY OF PRESENT ILLNESS: This is a sierra 75-year-old female who essentially had abdominal pain a nd discomfort and some fullness. She had some diarrhea as well. She has a history of arthritis, bro nchitis, hypertension, hypercholesterolemia, who feels at this point the pain is moderately imp roved with . PAST MEDICAL HISTORY: As above. PAST SURGICAL HISTORY: As above. MEDICATIONS: Have been reviewed. REVIEW OF SYSTEMS: All systems have been reviewed and are negative except for those positive in the HPI. PHYSICAL EXAMINATION: VITAL SIGNS: Here in the hospital are grossly unremarkable. GENERAL: This is a pleasant, elderly-appearing female lying in bed, comfortable, in no apparent dist ress. HEAD: Normocephalic, atraumatic. EYES: Pupils equally reactive to light bilaterally. No conjunctival pallor or icterus. NECK: Supple, normal range of motion. No lymphadenopathy appreciated. LUNGS: Coarse breath sounds bilaterally. HEART: S1, S2. Regular rate and rhythm. No murmurs appreciated. ABDOMEN: Soft, nontender. Bowel sounds present. Some discomfort in all quadrants. No rebound, no guarding. RECTAL: Deferred. EXTREMITIES: Pulses present bilaterally. SKIN: Warm, dry and intact. NEUROLOGIC: Alert and oriented x 3. LABORATORY DATA: Labs reviewed. WBC is 5.7, hemoglobin of 14.1. CAT scan essentially shows pancoli tis primarily in the right colon as well as the transverse and less involvement in the left colon. ASSESSMENT AND PLAN: This is a 75-year-old female with rectal bleeding, abdominal pain, diarrhea and colitis. Antibiotics for now. Will need a colonoscopy as an outpatient no later than 4 weeks from now to rule out pathology. Stool C. difficile is pending. Thank you for the consult. Tha Sharp MD, PhD cc: [id number] TT: 12/06/2016 20:26:27 Confirmation # [id number] Dictation # [id number] casi
[2016-12-07] MEDS: metroNIDAZOLE 500mg/100ml NS 100 ML IV SCH ×3 (09:37→17:08)
[2016-12-07] MEDS: Ciprofloxacin 400mg/200ml D5W 400 MG/200 ML BAG IV SCH ×2 (09:37→17:08)
--- NOTE | 2016-12-07 16:17 | CP.PCM.PN ---
Subjective - Date & Time of Evaluation Date of Evaluation: 12/07/16 Time of Evaluation: 12:20 - Subjective Subjective: F/U Colitis. Pt c/o of abdominal pain, epigastric, had nausea, vomited clear fluid. Objective - Vital Signs/Intake and Output Vital Signs (last 24 hours): Temp Pulse Resp BP Pulse Ox 98.3 F 65 18 125/74 97 12/07/16 07:45 12/07/16 07:45 12/07/16 07:45 12/07/16 07:45 12/07/16 07:45 - Medications Medications: Current Medications Metronidazole (Flagyl 500mg/100ml Ns) 100 mls @ 100 mls/hr IV Q8 [facility] Last Admin: 12/07/16 09:37 Dose: 100 mls/hr Ciprofloxacin (Cipro 400mg/200ml Dsw) 400 mg in 200 mls @ 200 mls/hr IV BID [facility] Last Admin: 12/07/16 09:37 Dose: 200 mls/hr Morphine Sulfate (Morphine) 2 mg IVP Q4 PRN PRN Reason: Pain, severe (8-10) Ondansetron HCl (Zofran Inj) 4 mg IVP Q4 PRN PRN Reason: Nausea/Vomiting Last Admin: 12/07/16 07:14 Dose: 4 mg Pantoprazole Sodium (Protonix Inj) 40 mg IVP DAILY [facility] Last Admin: 12/07/16 09:37 Dose: 40 mg - Labs Labs: PT 10.8 Seconds (9.8-13.1) 12/05/16 14:20 INR 1.0 (0.9-1.2) 12/05/16 14:20 APTT 35.7 Seconds (25.6-37.1) 12/05/16 14:20 - Constitutional Appears: No Acute Distress - Head Exam Head Exam: NORMAL INSPECTION - Eye Exam Eye Exam: PERRL - ENT Exam ENT Exam: Normal Oropharynx - Neck Exam Neck Exam: Normal Inspection - Respiratory Exam Respiratory Exam: Decreased Breath Sounds - Cardiovascular Exam Cardiovascular Exam: REGULAR RHYTHM - GI/Abdominal Exam GI & Abdominal Exam: Soft, Tenderness (Epigastric and supraumbilical.), Normal Bowel Sounds - Extremities Exam Extremities Exam: Normal Inspection - Back Exam Back Exam: NORMAL INSPECTION - Neurological Exam Neurological Exam: Alert, Oriented x3. absent: Motor Sensory Deficit - Psychiatric Exam Psychiatric exam: Normal Affect, Normal Mood - Skin Skin Exam: Warm Assessment and Plan (1) Colitis Status: Acute (2) Abdominal pain Status: Acute (3) HTN (hypertension) Status: Chronic - Assessment and Plan (Free Text) Plan: Continue Dilaudid for pain, Cipro, Flagyl and rest of Tx.
--- NOTE | 2016-12-07 16:43 | RAD ---
HISTORY: dr echavarria COMPARISON: CT abdomen and pelvis 12/05/2016. That exam did reported findings concerning for a colitis. Scattered diverticulosis without CT evidence of diverticulitis was also reported FINDINGS: BOWEL: There is left and right colonic contrast from the preceding CT . No dilated small bowel loops are noted. The transverse colon is redundant. Most of the descending and sigmoid colonic loops are nearly collapse with minimal residual contrast here. BONES: Lumbar spondylosis and facet arthrosis OTHER FINDINGS: Psoas margins are intact IMPRESSION: Residual colonic contrast with transverse and splenic flexure redundancy. No progressive colonic distension seen on these views. . Arthrosis inferior lumbar spine
--- NOTE | 2016-12-07 21:36 | CP.PCM.PN ---
Subjective - Date & Time of Evaluation Date of Evaluation: 12/07/16 Time of Evaluation: 15:30 - Subjective Subjective: c/o nausea Objective - Vital Signs/Intake and Output Vital Signs (last 24 hours): Temp Pulse Resp BP Pulse Ox 97.9 F 77 20 158/82 H 95 12/07/16 16:18 12/07/16 16:18 12/07/16 16:18 12/07/16 16:18 12/07/16 16:18 - Medications Medications: Current Medications Metronidazole (Flagyl 500mg/100ml Ns) 100 mls @ 100 mls/hr IV Q8 [facility] Last Admin: 12/07/16 17:08 Dose: 100 mls/hr Ciprofloxacin (Cipro 400mg/200ml Dsw) 400 mg in 200 mls @ 200 mls/hr IV BID [facility] Last Admin: 12/07/16 17:08 Dose: 200 mls/hr Morphine Sulfate (Morphine) 2 mg IVP Q4 PRN PRN Reason: Pain, severe (8-10) Ondansetron HCl (Zofran Inj) 4 mg IVP Q4 PRN PRN Reason: Nausea/Vomiting Last Admin: 12/07/16 16:30 Dose: 4 mg Pantoprazole Sodium (Protonix Inj) 40 mg IVP DAILY [facility] Last Admin: 12/07/16 09:37 Dose: 40 mg - Labs Labs: PT 10.8 Seconds (9.8-13.1) 12/05/16 14:20 INR 1.0 (0.9-1.2) 12/05/16 14:20 APTT 35.7 Seconds (25.6-37.1) 12/05/16 14:20 - GI/Abdominal Exam GI & Abdominal Exam: Soft, Tenderness, Normal Bowel Sounds Assessment and Plan - Assessment and Plan (Free Text) Assessment: 76 yo female with pancolitis abx dc dilaudid add bentyl
[2016-12-08] MEDS: metroNIDAZOLE 500mg/100ml NS 100 ML IV SCH ×3 (00:58→18:13)
[2016-12-08] MEDS: Enoxaparin 40 mg Syringe SC SCH (09:00)
[2016-12-08] MEDS: Ciprofloxacin 400mg/200ml D5W 400 MG/200 ML BAG IV SCH ×2 (09:12→18:13)
[2016-12-08] MEDS: Dextrose 5%/0.45% NS 1,000 ML IV SCH ×2 (09:16→20:35)
--- NOTE | 2016-12-08 10:04 | CP.PCM.PN ---
Subjective - Date & Time of Evaluation Date of Evaluation: 12/08/16 Time of Evaluation: 10:00 - Subjective Subjective: feels better Objective - Vital Signs/Intake and Output Vital Signs (last 24 hours): Temp Pulse Resp BP Pulse Ox 98.2 F 74 18 135/82 97 12/08/16 07:37 12/08/16 07:37 12/08/16 07:37 12/08/16 07:37 12/08/16 07:37 - Medications Medications: Current Medications Enoxaparin Sodium (Lovenox) 40 mg SC DAILY [facility] PRN Reason: Protocol Metronidazole (Flagyl 500mg/100ml Ns) 100 mls @ 100 mls/hr IV Q8 [facility] Last Admin: 12/08/16 09:12 Dose: 100 mls/hr Ciprofloxacin (Cipro 400mg/200ml Dsw) 400 mg in 200 mls @ 200 mls/hr IV BID [facility] Last Admin: 12/08/16 09:12 Dose: 200 mls/hr Dextrose/Sodium Chloride (Dextrose 5%/0.45% Ns 1000 Ml) 1,000 mls @ 90 mls/hr IV .Q11H7M [facility] Stop: 12/09/16 09:02 Last Admin: 12/08/16 09:16 Dose: 90 mls/hr Morphine Sulfate (Morphine) 2 mg IVP Q4 PRN PRN Reason: Pain, severe (8-10) Ondansetron HCl (Zofran Inj) 4 mg IVP Q4 PRN PRN Reason: Nausea/Vomiting Last Admin: 12/07/16 16:30 Dose: 4 mg Pantoprazole Sodium (Protonix Inj) 40 mg IVP DAILY [facility] Last Admin: 12/07/16 09:37 Dose: 40 mg - Labs Labs: PT 10.8 Seconds (9.8-13.1) 12/05/16 14:20 INR 1.0 (0.9-1.2) 12/05/16 14:20 APTT 35.7 Seconds (25.6-37.1) 12/05/16 14:20 - GI/Abdominal Exam GI & Abdominal Exam: Soft, Normal Bowel Sounds Assessment and Plan - Assessment and Plan (Free Text) Assessment: 76 yo female with colitis doing better abx advance diet dc planning
[2016-12-08 10:19] LABS: HEMOGLOBIN 13.8 g/dL (12.0-16.0); MEAN CELL VOLUME 89.7 fl (81.0-99.0); MEAN CORPUSCULAR HEMOGLOBIN 30.1 pg (27.0-31.0); MEAN CORPUSCULAR HGB CONC 33.5 g/dL (33.0-37.0); RBC 4.6 Mil/uL (3.80-5.20); WHITE BLOOD COUNT 6.7 K/uL (4.8-10.8)
[2016-12-08 10:35] LABS: BLOOD UREA NITROGEN 7 mg/dl (7-17); CALCIUM 9.2 mg/dL (8.4-10.2); GFR AFRICAN-AMERICAN > 60; GFR NON-AFRICAN AMERICAN > 60
[2016-12-08] MEDS ORDERED: Albuterol-Ipratrop 3 mg / 0.5 (3 ml) UD INH PRN (17:02)
--- NOTE | 2016-12-08 18:30 | CP.PCM.PN ---
Subjective - Date & Time of Evaluation Date of Evaluation: 12/08/16 Time of Evaluation: 16:30 - Subjective Subjective: F/U Colitis. Pt c/o of epigastric discomfort, with sensation of reflux, occasional productive cough. Objective - Vital Signs/Intake and Output Vital Signs (last 24 hours): Temp Pulse Resp BP Pulse Ox 98.4 F 75 18 102/67 96 12/08/16 16:03 12/08/16 16:03 12/08/16 16:03 12/08/16 16:03 12/08/16 16:03 - Medications Medications: Current Medications Albuterol/Ipratropium (Duoneb 3 Mg/0.5 Mg (3 Ml) Ud) 3 ml INH RQ6 PRN PRN Reason: Shortness of Breath Enoxaparin Sodium (Lovenox) 40 mg SC DAILY [facility] PRN Reason: Protocol Last Admin: 12/08/16 09:00 Dose: 40 mg Metronidazole (Flagyl 500mg/100ml Ns) 100 mls @ 100 mls/hr IV Q8 [facility] Last Admin: 12/08/16 18:13 Dose: 100 mls/hr Ciprofloxacin (Cipro 400mg/200ml Dsw) 400 mg in 200 mls @ 200 mls/hr IV BID [facility] Last Admin: 12/08/16 18:13 Dose: 200 mls/hr Dextrose/Sodium Chloride (Dextrose 5%/0.45% Ns 1000 Ml) 1,000 mls @ 90 mls/hr IV .Q11H7M [facility] Stop: 12/09/16 09:02 Last Admin: 12/08/16 09:16 Dose: 90 mls/hr Morphine Sulfate (Morphine) 2 mg IVP Q4 PRN PRN Reason: Pain, severe (8-10) Ondansetron HCl (Zofran Inj) 4 mg IVP Q4 PRN PRN Reason: Nausea/Vomiting Last Admin: 12/07/16 16:30 Dose: 4 mg Pantoprazole Sodium (Protonix Inj) 40 mg IVP DAILY [facility] Last Admin: 12/08/16 09:00 Dose: 40 mg - Labs Labs: 12/08/16 09:55 12/08/16 09:55 PT 10.8 Seconds (9.8-13.1) 12/05/16 14:20 INR 1.0 (0.9-1.2) 12/05/16 14:20 APTT 35.7 Seconds (25.6-37.1) 12/05/16 14:20 - Constitutional Appears: No Acute Distress - Head Exam Head Exam: NORMAL INSPECTION - Eye Exam Eye Exam: PERRL - ENT Exam ENT Exam: Normal Oropharynx - Neck Exam Neck Exam: Normal Inspection - Respiratory Exam Respiratory Exam: Decreased Breath Sounds, Rhonchi (scattered) - Cardiovascular Exam Cardiovascular Exam: REGULAR RHYTHM - GI/Abdominal Exam GI & Abdominal Exam: Soft, Tenderness (mild epigastric), Normal Bowel Sounds - Extremities Exam Extremities Exam: Normal Inspection - Back Exam Back Exam: NORMAL INSPECTION - Neurological Exam Neurological Exam: Alert, Oriented x3. absent: Motor Sensory Deficit - Psychiatric Exam Psychiatric exam: Normal Affect, Normal Mood - Skin Skin Exam: Warm Assessment and Plan (1) Colitis Status: Acute (2) Abdominal pain Status: Acute (3) HTN (hypertension) Status: Chronic - Assessment and Plan (Free Text) Plan: Add Duoneb, f/u tolerance to bland diet, continue Cipro, Flagyl and rest of tx.
[2016-12-09 00:17] VITALS: O2SAT 95
[2016-12-09] MEDS: metroNIDAZOLE 500mg/100ml NS 100 ML IV SCH ×2 (01:04→08:56)
[2016-12-09] MEDS: Ciprofloxacin 400mg/200ml D5W 400 MG/200 ML BAG IV SCH (08:56)
[2016-12-09] MEDS: Dextrose 5%/0.45% NS 1,000 ML IV SCH (08:59)
[2016-12-09 09:42] VITALS: BP 135/80; PULSE 67; RESP 20; TEMP 98.8
[2016-12-09] MEDS: Enoxaparin 40 mg Syringe SC SCH (09:50)
--- NOTE | 2016-12-09 15:01 | CP.PCM.PN ---
Subjective - Date & Time of Evaluation Date of Evaluation: 12/09/16 - Subjective Subjective: F/U Colitis. Pt eating well, no abdominal pain. Objective - Vital Signs/Intake and Output Vital Signs (last 24 hours): Temp Pulse Resp BP Pulse Ox 98.8 F 67 20 135/80 95 12/09/16 09:00 12/09/16 09:00 12/09/16 09:00 12/09/16 09:00 12/09/16 09:00 - Medications Medications: Current Medications Albuterol/Ipratropium (Duoneb 3 Mg/0.5 Mg (3 Ml) Ud) 3 ml INH RQ6 PRN PRN Reason: Shortness of Breath Enoxaparin Sodium (Lovenox) 40 mg SC DAILY [facility] PRN Reason: Protocol Last Admin: 12/09/16 09:50 Dose: 40 mg Metronidazole (Flagyl 500mg/100ml Ns) 100 mls @ 100 mls/hr IV Q8 [facility] Last Admin: 12/09/16 08:56 Dose: 100 mls/hr Ciprofloxacin (Cipro 400mg/200ml Dsw) 400 mg in 200 mls @ 200 mls/hr IV BID [facility] Last Admin: 12/09/16 08:56 Dose: 200 mls/hr Morphine Sulfate (Morphine) 2 mg IVP Q4 PRN PRN Reason: Pain, severe (8-10) Ondansetron HCl (Zofran Inj) 4 mg IVP Q4 PRN PRN Reason: Nausea/Vomiting Last Admin: 12/07/16 16:30 Dose: 4 mg Pantoprazole Sodium (Protonix Inj) 40 mg IVP DAILY [facility] Last Admin: 12/09/16 08:58 Dose: 40 mg - Labs Labs: 12/08/16 09:55 12/08/16 09:55 PT 10.8 Seconds (9.8-13.1) 12/05/16 14:20 INR 1.0 (0.9-1.2) 12/05/16 14:20 APTT 35.7 Seconds (25.6-37.1) 12/05/16 14:20 - Constitutional Appears: No Acute Distress - Head Exam Head Exam: NORMAL INSPECTION - Eye Exam Eye Exam: PERRL - ENT Exam ENT Exam: Normal Oropharynx - Neck Exam Neck Exam: Normal Inspection - Respiratory Exam Respiratory Exam: Decreased Breath Sounds, Rhonchi (scattered) - Cardiovascular Exam Cardiovascular Exam: REGULAR RHYTHM - GI/Abdominal Exam GI & Abdominal Exam: Soft, Normal Bowel Sounds. absent: Guarding, Tenderness - Extremities Exam Extremities Exam: Normal Inspection - Back Exam Back Exam: NORMAL INSPECTION - Neurological Exam Neurological Exam: Alert, Oriented x3. absent: Motor Sensory Deficit - Psychiatric Exam Psychiatric exam: Normal Affect, Normal Mood - Skin Skin Exam: Warm Assessment and Plan (1) Colitis Status: Resolved (2) Abdominal pain Status: Resolved (3) HTN (hypertension) Status: Chronic - Assessment and Plan (Free Text) Plan: Pt improved and stable to be discharged, see instruction medication sheet, f/u in my office in a week.
== END 2016-12-09 15:10 | disposition home or self-care (01) ==
LOC: H.ER 13:26 → H.EROBSV 14:21 → H.ERHOLD 18:05 → H.MEDSURG1 21:27 → OBSVTOIN 12-06 13:53 → INTOOBSV 12-06 13:53
PROVIDERS: ADMIT Internal Medicine Pulmonary Disease; ATTEND Internal Medicine Pulmonary Disease
DX: K52.9 Noninfective gastroenteritis and colitis, unspecified (principal); I10 Essential (primary) hypertension; E78.00 Pure hypercholesterolemia, unspecified; M19.90 Unspecified osteoarthritis, unspecified site; Z23 Encounter for immunization; Z91.013 Allergy to seafood
CPT/HCPCS: 36415; 70450; 74000; 74177; 80048; 80053; 80061; 81003; 82550; 83690; 84436; 84443; 84484; 85025; 85027; 85610; 85730; 87045; 87086; 87177; 87209; 87230; 89055; 90732; 93005; 96365; 96366; 96372; 96375; 96376; 99284; C9113; G0009; G0328; G0378; J0744; J1170; J1200; J1650; J2405; J7040; J7042; Q9966; Q9967

== ENCOUNTER 2016-12-27 20:25 | Observation (INO) | payer MEDICARE ==
[2016-12-27 20:25] VITALS: BMI 34.3
[2016-12-27 21:04] VITALS: RESP 16
[2016-12-27] MEDS ORDERED: Iohexol 240 (50 ml) PO ONE (21:54)
[2016-12-27] MEDS ORDERED: Iohexol 240 (50 ml) ONE (22:10)
--- NOTE | 2016-12-27 22:22 | ED PDOC ---
HPI: General Adult Time Seen by Provider: 12/27/16 21:11 Chief Complaint (Nursing): Abdominal Pain History Per: Patient, Family History/Exam Limitations: no limitations Onset/Duration Of Symptoms: Days Have you had recent travel within the past 21 days to any of the following countries: [place], [place], [place] or [place]?: No Current Symptoms Are (Timing): Still Present Additional Complaint(s): Patient brought in by son for evaluation of sore throat, abdominal pain, headache. Symptoms started 3 days ago with fever and sore throat, progressed to generalized throbbing headache, abdominal pain, and nausea but no vomiting. MENA is nonthunderclap, gradual onset, no neck stiffness, visual changes, numbness , tingling, lateralizing weakness. Abd pain is cramping and patient and son relate this is chronic but recently worsened due to concomitant illness. Pt. was prescribed azithromycin by Dr. Cazares today. PMD: Dr. Cazares Past Medical History Reviewed: Nursing Documentation, Vital Signs Vital Signs: Last Vital Signs Temp 99.8 F H 12/27/16 20:54 Pulse 110 H 12/27/16 21:52 Resp 16 12/27/16 21:52 BP 163/79 H 12/27/16 20:54 Pulse Ox 96 12/27/16 22:23 - Medical History PMH: Arthritis, Bronchitis, HTN (no meds), Hypercholesterolemia, Pancreatitis Denies: Anxiety, Chronic Kidney Disease - Surgical History Surgical History: Appendectomy - Family History Family History: States: Unknown Family Hx, Hypertension - Home Medications Home Medications: Ambulatory Orders Medication Instructions Recorded Omeprazole [Prilosec] 40 mg PO DAILY 11/20/15 Oxycodone HCl/Acetaminophen 1 tab PO Q6H PRN 11/20/15 [Percocet 5-325 mg Tablet] Ibuprofen [Motrin Tab] 200 mg PO Q6H PRN 12/05/16 Promethazine HCl/Codeine 10 ml PO Q4H PRN 12/05/16 [Prometh-Codein 6.25-10 mg/5 ml] Ciprofloxacin [Cipro] 500 mg PO BID #14 tab 12/08/16 Metronidazole [Flagyl] 500 mg PO TID #21 tablet 12/08/16 Ibuprofen [Motrin Tab] 600 mg PO Q6 #30 tab 07/12/17 Ondansetron [Zofran] 4 mg PO Q8H #12 tab 12/28/16 - Allergies Allergies/Adverse Reactions: Allergies Allergy/AdvReac Type Severity Reaction Status Date / Time shrimp Allergy RASH Verified 03/18/16 18:33 Review of Systems ROS Statement: Except As Marked, All Systems Reviewed And Found Negative Constitutional: Positive for: Fever ENT: Positive for: Throat Pain Gastrointestinal: Positive for: Nausea, Abdominal Pain Physical Exam - Reviewed Nursing Documentation Reviewed: Yes Vital Signs Reviewed: Yes - Physical Exam Appears: Positive for: Well, Non-toxic, No Acute Distress Head Exam: Positive for: ATRAUMATIC, NORMAL INSPECTION, NORMOCEPHALIC Skin: Positive for: Normal Color, Warm, DRY Eye Exam: Positive for: EOMI, Normal appearance, PERRL ENT: Positive for: Normal ENT Inspection Neck: Positive for: Normal, Painless ROM Cardiovascular/Chest: Positive for: Regular Rate, Rhythm Respiratory: Positive for: CNT, Normal Breath Sounds Gastrointestinal/Abdominal: Positive for: Bowel Sounds, Soft. Negative for: Tenderness (minimal TTP of L mid/ LLQ) Back: Positive for: Normal Inspection Extremity: Positive for: Normal ROM Neurologic/Psych: Positive for: Alert, Oriented - Laboratory Results Result Diagrams: 12/27/16 22:28 12/27/16 22:28 - ECG O2 Sat by Pulse Oximetry: 96 Medical Decision Making Medical Decision Making: Pt. c/o of MENA, fever, abd pain. 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 CT abd/pelvis to r/o diverticulitis/colitis/other intra abdominal pathology. Fluids, toradol, reglan Pt. feeling much better, tolerating PO. Informed of diagnosis, referred patinet to Dr. Cazares, copies of CT given, return precautions given including worsening pain, fevers, chills, or other concerning symptoms. Disposition - Clinical Impression Clinical Impression: Abdominal pain, Headache - Disposition Disposition: Routine/Home Disposition Time: 03:29 Condition: STABLE
[2016-12-27 22:32] LABS: BASO % 0.3 % (0.0-2.0); EOS % 0.1 % (0.0-4.0); HEMOGLOBIN 14.8 g/dL (12.0-16.0); LYMPH # 0.7 K/uL (1.0-4.3); LYMPH % 6.8 % (20.0-40.0); MEAN CELL VOLUME 89.2 fl (81.0-99.0); MEAN CORPUSCULAR HEMOGLOBIN 29.8 pg (27.0-31.0); MEAN CORPUSCULAR HGB CONC 33.4 g/dL (33.0-37.0); MEAN PLATELET VOLUME 8.4 fl (7.2-11.7); MONO # 0.7 K/uL (0.0-0.8); MONO % 6.9 % (0.0-10.0); NEUT # 8.8 K/uL (1.8-7.0); NEUT % 85.9 % (50.0-75.0); PLATELET COUNT 199 K/uL (130-400); RBC 4.98 Mil/uL (3.80-5.20); RED CELL DISTRIBUTION WIDTH 14.6 % (11.5-14.5); WHITE BLOOD COUNT 10.2 K/uL (4.8-10.8)
[2016-12-27 22:43] LABS: ALB/GLOB RATIO 1.3 (1.0-2.1); ALBUMIN 4.5 g/dL (3.5-5.0); ALT/SGPT 36 U/L (9-52); AST/SGOT 27 U/L (14-36); BLOOD UREA NITROGEN 6 mg/dl (7-17); CALCIUM 9.2 mg/dL (8.4-10.2); GFR AFRICAN-AMERICAN > 60; GFR NON-AFRICAN AMERICAN > 60; LIPASE 57 U/L (23-300)
[2016-12-27 22:44] LABS: SQUAMOUS EPITHIAL 8 /hpf (0-5); URINE BACTERIA RARE (<OCC); URINE BILIRUBIN NEGATIVE (NEGATIVE); URINE BLOOD MODERATE (NEGATIVE); URINE CLARITY SLIGHTY-CLOUDY (Clear); URINE COLOR YELLOW (YELLOW); URINE GLUCOSE (UA) NEG (Normal); URINE LEUKOCYTE ESTERASE TRACE Leu/uL (Negative); URINE NITRATE NEGATIVE (NEGATIVE); URINE PROTEIN 30 mg/dL (NEGATIVE); URINE UROBILINOGEN 0.2-1.0 mg/dL (0.2-1.0)
[2016-12-27] MEDS ORDERED: DiphenhydrAMINE 50 mg/ml Inj ONE (23:14)
[2016-12-27 23:46] LABS: BANDS 3 % (0-2); LYMPHOCYTE 1 % (20-50); MONOCYTE 6 % (0-10); NEUTROPHIL 86 % (42-75); PLATELET ESTIMATE NORMAL (NORMAL); REACTIVE LYMPHOCYTES 4 % (0-0); TOTAL CELLS COUNTED 100
[2016-12-27] MEDS ORDERED: DiphenhydrAMINE 50 mg/ml Inj IVP STA (23:50)
[2016-12-27] MEDS ORDERED: Promethazine 25 MG in Sodium Chloride 0.9% 50 ML IVPB ONE (23:50)
[2016-12-27 23:54] LABS: ACANTHOCYTES SLIGHT; ANISOCYTOSIS SLIGHT; HYPOCHROMIC SLIGHT
[2016-12-27 23:55] LABS: LARGE PLATELETS PRESENT
[2016-12-28] MEDS ORDERED: Iohexol 300 100 ML IJ ONE (00:27)
[2016-12-28] MEDS ORDERED: Sodium Chloride 0.9% 50 ML IV ONE (00:27)
--- NOTE | 2016-12-28 01:29 | CT ---
EXAM: CT Head Without Intravenous Contrast CLINICAL HISTORY: 76 years old, female; Pain; Headache; Additional info: HX of "tumor" C/O of MENA TECHNIQUE: Axial computed tomography images of the head/brain without intravenous contrast. This CT exam was performed using one or more of the following dose reduction techniques: automated exposure control, adjustment of the mA and/or kV according to patient size, and/or use of iterative reconstruction technique. Coronal and sagittal reformatted images were created and reviewed. COMPARISON: CT - HEAD W/O CONTRAST 12/05/2016 3:24:27 PM FINDINGS: Brain: No acute intracranial hemorrhage. Age-appropriate periventricular white matter disease. No edema. Ventricles: Age-appropriate ventriculomegaly. Bones: No acute displaced fracture. Sinuses: Unremarkable as visualized. No acute sinusitis. Mastoid air cells: Unremarkable as visualized. No mastoid effusion. IMPRESSION: No acute intracranial hemorrhage, or suspicious mass effect.
--- NOTE | 2016-12-28 01:34 | CT ---
EXAM: CT Abdomen and Pelvis With Intravenous Contrast CLINICAL HISTORY: 76 years old, female; Pain; Abdominal pain; Localized; Left; Prior surgery; Surgery date: 6+ months; Surgery type: Appendectomy; Additional info: L sided abd pain TECHNIQUE: Axial computed tomography images of the abdomen and pelvis with intravenous contrast. This CT exam was performed using one or more of the following dose reduction techniques: automated exposure control, adjustment of the mA and/or kV according to patient size, and/or use of iterative reconstruction technique. Coronal and sagittal reformatted images were created and reviewed. CONTRAST: 90 mL of [id number] administered intravenously. COMPARISON: CT - ABD PELVIS PO IV CONTRAST 12/05/2016 4:32:12 PM FINDINGS: Lower thorax: The bilateral lung bases are clear. ABDOMEN: Liver: No acute findings. Gallbladder and bile ducts: The gallbladder is decompressed. No calcified stones. No significant intra- or extrahepatic biliary ductal dilation. Pancreas: Enhances homogeneously. No ductal dilation. No discrete mass. Spleen: No acute findings. Adrenals: No acute findings. Kidneys and ureters: No acute findings. No hydronephrosis or renal calculi. No discrete solid mass. PELVIS: Bladder: No acute findings. Reproductive: No acute findings. Appendix: The appendix is surgically absent. ABDOMEN and PELVIS: Stomach and bowel: A large fat (and likely omentum) umbilical hernia is identified, extending to the left of midline. Oral contrast extends to the level of the colon, without obstruction. No mucosal thickening. Peritoneum: No significant fluid collection. No free air. Lymph nodes: No pathologically enlarged lymph nodes. Vasculature: Calcified atherosclerotic disease. Bones: No acute fracture. IMPRESSION: A large fat and likely omentum containing umbilical hernia extending to the left of midline, as detailed above.
[2016-12-28 03:35] VITALS: BP 135/80; PULSE 85; TEMP 98.5; O2SAT 98
--- NOTE | 2016-12-28 07:27 | CARD ---
APPROVED REPORT EKG Measurement Heart [id number] <Conclusion> Sinus tachycardia Inferior infarct, age undetermined Abnormal ECG
== END 2016-12-28 02:50 | disposition home or self-care (01) ==
LOC: H.ER 20:25 → H.EROBSV 21:56
PROVIDERS: ADMIT Emergency Medicine; ATTEND Emergency Medicine
DX: R10.9 Unspecified abdominal pain (principal); I10 Essential (primary) hypertension; M19.90 Unspecified osteoarthritis, unspecified site; K42.9 Umbilical hernia without obstruction or gangrene; D49.6 Neoplasm of unspecified behavior of brain; J02.9 Acute pharyngitis, unspecified; R11.0 Nausea; R51 Headache
CPT/HCPCS: 36415; 70450; 74177; 80053; 81003; 83690; 85025; 87040; 87086; 93005; 96374; 99283; G0378; J1200; J1885; J2550; J2765; Q9966; Q9967

== ENCOUNTER 2017-04-30 01:46 | Inpatient (IN) | payer MEDICARE ==
[2017-04-30 02:04] VITALS: BMI 27.4
[2017-04-30] MEDS ORDERED: Sodium Chloride 0.9% 1,000 ML IV STA (02:11)
[2017-04-30 02:55] LABS: BASO % 0.5 % (0.0-2.0); EOS # 0.2 K/uL (0.0-0.7); EOS % 2.5 % (0.0-4.0); HEMATOCRIT 42.7 % (34.0-47.0); LYMPH % 12.8 % (20.0-40.0); MEAN CELL VOLUME 88.8 fl (81.0-99.0); MEAN CORPUSCULAR HGB CONC 33.8 g/dL (33.0-37.0); MEAN PLATELET VOLUME 8.9 fl (7.2-11.7); MONO # 0.5 K/uL (0.0-0.8); MONO % 5.8 % (0.0-10.0); NEUT # 6.2 K/uL (1.8-7.0); NEUT % 78.4 % (50.0-75.0); NRBC % 0.1 % (0.0-0.0); RED CELL DISTRIBUTION WIDTH 14.4 % (11.5-14.5); WHITE BLOOD COUNT 7.9 K/uL (4.8-10.8)
--- NOTE | 2017-04-30 03:04 | ED PDOC ---
HPI:Nausea, Vomiting, Diarrhea Time Seen by Provider: 04/30/17 02:11 Chief Complaint (Nursing): Abdominal Pain Chief Complaint (Provider): Nausea, Vomiting, Diarrhea History Per: Patient History/Exam Limitations: no limitations Onset/Duration Of Symptoms: Hrs Associated Symptoms: Nausea, Vomiting, Diarrhea Additional Complaint(s): Rhonda is a 76 y/o female with a history of hypertension and gastritis who presents to the ED with acute onset nausea, vomiting, and diarrhea after her evening meal. She reports vomiting multiple times and 2-3 episodes of loose , watery diarrhea, as well as dizziness and abdominal cramps. Patient states she had similar symptoms in November 2016 and was admitted with gastritis. PMD: Aric Cazares Past Medical History Reviewed: Historical Data, Nursing Documentation, Vital Signs Vital Signs: Last Vital Signs Temp 97.8 F 04/30/17 02:05 Pulse 89 04/30/17 02:05 Resp 18 04/30/17 02:05 BP 147/78 04/30/17 02:05 Pulse Ox 98 04/30/17 02:05 - Medical History PMH: Arthritis, Bronchitis, Gastritis, HTN (no meds), Hypercholesterolemia, Pancreatitis Denies: Anxiety, Chronic Kidney Disease - Surgical History Surgical History: Appendectomy Other surgeries: Left foot surgery - Family History Family History: States: Unknown Family Hx, Hypertension - Social History Current smoker - smoking cessation education provided: No Ex-Smoker (has not smoked in the last 12 months): No Alcohol: None Drugs: Denies - Home Medications Home Medications: Ambulatory Orders Medication Instructions Recorded No Known Home Med 04/30/17 - Allergies Allergies/Adverse Reactions: Allergies Allergy/AdvReac Type Severity Reaction Status Date / Time shrimp Allergy RASH Verified 04/30/17 02:04 Review of Systems ROS Statement: Except As Marked, All Systems Reviewed And Found Negative Gastrointestinal: Positive for: Nausea, Vomiting, Abdominal Pain, Diarrhea Neurological: Positive for: Dizziness Physical Exam - Reviewed Nursing Documentation Reviewed: Yes Vital Signs Reviewed: Yes - Physical Exam Appears: Positive for: Non-toxic, No Acute Distress, Uncomfortable Head Exam: Positive for: ATRAUMATIC, NORMAL INSPECTION, NORMOCEPHALIC Skin: Positive for: Normal Color, Warm, Dry Eye Exam: Positive for: Normal appearance, EOMI, PERRL. Negative for: Nystagmus ENT: Positive for: Other (dry mucous membranes) Neck: Positive for: Normal, Painless ROM, Supple Cardiovascular/Chest: Positive for: Regular Rate, Rhythm. Negative for: Murmur Respiratory: Positive for: Normal Breath Sounds. Negative for: Respiratory Distress Gastrointestinal/Abdominal: Positive for: Normal Exam, Bowel Sounds, Soft, Tenderness (epigastric) Back: Positive for: Normal Inspection Extremity: Positive for: Normal ROM. Negative for: Pedal Edema, Deformity Neurologic/Psych: Positive for: Alert, Oriented. Negative for: Motor/Sensory Deficits - Laboratory Results Result Diagrams: 04/30/17 02:49 04/30/17 02:49 - ECG ECG: Positive for: Interpreted By Me, Viewed By Me ECG Rhythm: Positive for: Atrial Fibrillation Interpretation Of Abn EKG: AFIB with rapid ventricular response Rate: 114 (bpm) O2 Sat by Pulse Oximetry: 98 (RA) Pulse Ox Interpretation: Normal - Critical Care Total Time (In Min): 30 Medical Decision Making Medical Decision Making: Time: 2:11 Initial Impression: 76 y/o female with abdominal pain nausea, vomiting, diarrhea after eating meal Initial Plan: --EKG --CMP --Lipase --Urine Dipstick --CBC --Bentyl --Pepcid --Zofran --Urinalysis Time: 2:41 EKG AFIB with rapid ventricular response 114 bpm Time: 3:58 --Labs were viewed and show no clinically significant abnormalities --Patient will be admitted for further treatment of AFIB with rapid ventricular rate --Dr. Cazares was referred --TSH --Troponin I --CXr --Cardene --Cardizem --Lovenox --Pepcid --Zofran Condition: Fair Scribe Attestation: Documented by Rickey Almanza, acting as a scribe for Elbert Benton MD Provider Scribe Attestation: All medical record entries made by the Scribe were at my direction and personally dictated by me. I have reviewed the chart and agree that the record accurately reflects my personal performance of the history, physical exam, medical decision making, and the department course for this patient. I have also personally directed, reviewed, and agree with the discharge instructions and disposition. Disposition - Clinical Impression Clinical Impression: Gastroenteritis, Atrial fibrillation with rapid ventricular response - Patient ED Disposition Is Patient to be Admitted: Yes Discussed With : Aric Cazares Doctor Will See Patient In The: Hospital Counseled Patient/Family Regarding: Studies Performed, Diagnosis, Need For Followup, Rx Given - Disposition Disposition Time: 03:58 Condition: FAIR - Pt Status Changed To: Hospital Disposition Of: Inpatient - Admit Certification Admit to Inpatient:: After my assessment, the patient will require hospitalization for at least two midnights. This is because of the severity of symptoms shown, intensity of services needed, and/or the medical risk in this patient being treated as an outpatient.
[2017-04-30 03:07] LABS: ALB/GLOB RATIO 1.3 (1.0-2.1); ALKALINE PHOSPHATASE 112 U/L (38-126); ALT/SGPT 43 U/L (9-52); AST/SGOT 31 U/L (14-36); BILIRUBIN,TOTAL 0.6 mg/dl (0.2-1.3); BLOOD UREA NITROGEN 16 mg/dl (7-17); CALCIUM 9.1 mg/dL (8.4-10.2); CARBON DIOXIDE 24 mmol/L (22-30); CHLORIDE 104 mmol/L (98-107); GFR AFRICAN-AMERICAN > 60; GLUCOSE,RANDOM 165 mg/dL (65-105); LIPASE 108 U/L (23-300); POTASSIUM 4.1 MMOL/L (3.6-5.0); SODIUM 143 mmol/l (132-148); TOTAL PROTEIN 7.9 G/DL (6.3-8.2)
[2017-04-30] MEDS ORDERED: Enoxaparin 80 mg Syringe SC STA (03:57)
[2017-04-30] MEDS: Sodium Chloride 0.9% 1,000 ML IV SCH ×3 (04:14→21:51)
[2017-04-30 04:49] LABS: THYROID STIMULATING HORMONE 3.01 mIU/ML (0.46-4.68)
[2017-04-30] MEDS ORDERED: Enoxaparin 80 mg Syringe SC SCH (09:00)
--- NOTE | 2017-04-30 10:58 | RAD ---
HISTORY: admit COMPARISON: Comparison chest 08/03/2016 FINDINGS: LUNGS: No active pulmonary disease. PLEURA: No significant pleural effusion identified, no pneumothorax apparent. CARDIOVASCULAR: Normal. OSSEOUS STRUCTURES: Minor multilevel degenerative spondylosis of the thoracic spine. Mild degenerative changes both shoulder girdles. VISUALIZED UPPER ABDOMEN: Normal. OTHER FINDINGS: None. IMPRESSION: No focal consolidation.
[2017-04-30 11:00] LABS: BASO % 0.6 % (0.0-2.0); EOS # 0.1 K/uL (0.0-0.7); LYMPH # 1.6 K/uL (1.0-4.3); LYMPH % 23.7 % (20.0-40.0); MEAN CELL VOLUME 88.4 fl (81.0-99.0); MEAN CORPUSCULAR HEMOGLOBIN 29.8 pg (27.0-31.0); MEAN CORPUSCULAR HGB CONC 33.7 g/dL (33.0-37.0); MEAN PLATELET VOLUME 8.4 fl (7.2-11.7); MONO # 0.5 K/uL (0.0-0.8); MONO % 7.5 % (0.0-10.0); NEUT # 4.5 K/uL (1.8-7.0); NEUT % 66.2 % (50.0-75.0); NRBC % 0.1 % (0.0-0.0); RED CELL DISTRIBUTION WIDTH 14.2 % (11.5-14.5); WHITE BLOOD COUNT 6.8 K/uL (4.8-10.8)
[2017-04-30 11:20] LABS: ALB/GLOB RATIO 1.3 (1.0-2.1); ALKALINE PHOSPHATASE 82 U/L (38-126); ALT/SGPT 34 U/L (9-52); AST/SGOT 27 U/L (14-36); BILIRUBIN,TOTAL 0.5 mg/dl (0.2-1.3); BLOOD UREA NITROGEN 12 mg/dl (7-17); CALCIUM 8.6 mg/dL (8.4-10.2); CARBON DIOXIDE 28 mmol/L (22-30); CHLORIDE 105 mmol/L (98-107); GFR AFRICAN-AMERICAN > 60; GLUCOSE,RANDOM 109 mg/dL (65-105); POTASSIUM 4.1 MMOL/L (3.6-5.0); SODIUM 142 mmol/l (132-148); TOTAL PROTEIN 7.3 G/DL (6.3-8.2)
[2017-04-30] MEDS ORDERED: Iohexol 240 (50 ml) PO ONE (11:27)
[2017-04-30 11:52] LABS: RBC URINE 4 /hpf (0-3); URINE BACTERIA RARE (<OCC); URINE BILIRUBIN NEGATIVE (NEGATIVE); URINE BLOOD SMALL (NEGATIVE); URINE COLOR YELLOW (YELLOW); URINE GLUCOSE (UA) NEG (Normal); URINE KETONE TRACE mg/dL (NEGATIVE); URINE LEUKOCYTE ESTERASE NEG Leu/uL (Negative); URINE PROTEIN 30 mg/dL (NEGATIVE); URINE UROBILINOGEN 0.2-1.0 mg/dL (0.2-1.0); WBC URINE 2 /hpf (0-5)
[2017-04-30 11:55] LABS: THYROID STIMULATING HORMONE 2.51 mIU/ML (0.46-4.68)
--- NOTE | 2017-04-30 14:55 | CP.PCM.HP ---
History of Present Illness - History of Present Illness History of Present Illness: CC: Abdominal pain. 76 y/o F, brought to ER [facility] by family to be evaluated for abdominal pain epigastric area, that began last Monday04/26/17 after having dinner with no relief. Pain gradually increased up to 6 pm day [employer], moderate to severe intensity 7:10, intermittent, cramping, associated to marked nausea, vomiting and watery diarrhea. Worsening symptoms: Marked Dizziness, found with A Fib with RVR. ( In ER PT had Cardizem with relief), Hx Pancreatitis. Aggravated factor: Worsening pain when eating, Hx of HTN not taking medications. Pt denied: Fever, chills, urinary symptoms, CP, SOB, hematuria, rectal bleeding , syncope, numbness, sick contact, recent travel out of [facility]. Present on Admission - Present on Admission Any Indicators Present on Admission: No Review of Systems - Constitutional Constitutional: Weakness - EENT Eyes: Other (negative) Ears: Other (negative) Nose/Mouth/Throat: Other (negative) - Cardiovascular Cardiovascular: Irregular Heart Rhythm - Respiratory Respiratory: Other (negative) - Gastrointestinal Gastrointestinal: Abdominal Pain, Diarrhea, Nausea, Vomiting - Genitourinary Genitourinary: Other (negative) - Musculoskeletal Musculoskeletal: Arthralgias, Other (knees pain, L foot pain from previous surgery.) - Integumentary Integumentary: Other (negative) - Neurological Neurological: Dizziness - Psychiatric Psychiatric: Other (negative) - Endocrine Endocrine: Other (negative) - Hematologic/Lymphatic Hematologic: Other (negative) Past Patient History - Infectious Disease Hx of Infectious Diseases: None - Past Medical History & Family History Past Medical History?: Yes Pertinent Family History: Unknown - Past Social History Smoking Status: Never Smoked Alcohol: None Drugs: Denies Home Situation {Lives}: With Family - CARDIAC Hx Cardiac Disorders: Yes (HTN, hypercholesterolemia) Hx Hypercholesterolemia: Yes Hx Hypertension: Yes - PULMONARY Hx Respiratory Disorders: Yes (Bronchitis) Hx Bronchitis: Yes - NEUROLOGICAL Hx Neurological Disorder: No - HEENT Hx HEENT Problems: No - RENAL Hx Chronic Kidney Disease: No - ENDOCRINE/METABOLIC Hx Endocrine Disorders: No - HEMATOLOGICAL/ONCOLOGICAL Hx Blood Disorders: No Hx AIDS: No Hx Human Immunodeficiency Virus (HIV): No - INTEGUMENTARY Hx Dermatological Problems: No - MUSCULOSKELETAL/RHEUMATOLOGICAL Hx Musculoskeletal Disorders: Yes (Arthritis) Hx Arthritis: Yes Hx Falls: No - GASTROINTESTINAL Hx Gastrointestinal Disorders: Yes Hx Gastritis: Yes Hx Pancreatitis: Yes - GENITOURINARY/GYNECOLOGICAL Hx Genitourinary Disorders: (Gastritis, Pancreatitis) - PSYCHIATRIC Hx Psychophysiologic Disorder: Yes Hx Anxiety: Yes Hx Substance Use: No - SURGICAL HISTORY Hx Surgeries: Yes Hx Appendectomy: Yes Hx Orthopedic Surgery: Yes (L Foot.) - ANESTHESIA Hx Anesthesia: Yes Hx Anesthesia Reactions: No Hx Malignant Hyperthermia: No Has any member of the family had a problem w/ anesthesia?: No Meds Allergies/Adverse Reactions: Allergies Allergy/AdvReac Type Severity Reaction Status Date / Time shrimp Allergy RASH Verified 04/30/17 02:04 Physical Exam - Constitutional Appears: No Acute Distress - Head Exam Head Exam: NORMAL INSPECTION - Eye Exam Eye Exam: PERRL - ENT Exam ENT Exam: Normal Exam - Neck Exam Neck exam: Positive for: Normal Inspection - Respiratory Exam Respiratory Exam: NORMAL BREATHING PATTERN - Cardiovascular Exam Cardiovascular Exam: REGULAR RHYTHM - GI/Abdominal Exam GI & Abdominal Exam: Normal Bowel Sounds, Soft, Tenderness (mild epigastric area ). absent: Distended, Guarding, Rebound - Extremities Exam Extremities exam: Positive for: tenderness (R-L knee, L foot) - Back Exam Back exam: NORMAL INSPECTION - Neurological Exam Neurological exam: Alert, Oriented x3 Additional comments: No motor sensory deficit. - Psychiatric Exam Psychiatric exam: Normal Mood - Skin Skin Exam: Normal Color, Warm Results - Vital Signs Recent Vital Signs: Last Vital Signs Temp 97.9 F 04/30/17 12:47 Pulse 64 04/30/17 12:47 Resp 18 04/30/17 12:47 BP 128/64 04/30/17 12:47 Pulse Ox 96 04/30/17 12:47 reviewed Cindy - Labs Result Diagrams: 05/01/17 05:00 05/01/17 05:00 Labs: Laboratory Results - last 24 hr 04/30/17 04/30/17 04/30/17 02:49 02:49 04:04 WBC 7.9 RBC 4.82 Hgb 14.4 Hct 42.7 MCV 88.8 MCH 30.0 MCHC 33.8 RDW 14.4 Plt Count 212 MPV 8.9 Neut % (Auto) 78.4 H Lymph % (Auto) 12.8 L [place] % (Auto) 5.8 Eos % (Auto) 2.5 Baso % (Auto) 0.5 Neut # 6.2 Lymph # 1.0 [place] # 0.5 Eos # 0.2 Baso # 0.0 Sodium 143 Potassium 4.1 Chloride 104 Carbon Dioxide 24 Anion Gap 18 BUN 16 Creatinine 0.8 Est GFR ( Amer) > 60 Est GFR (Non-Af Amer) > 60 Random Glucose 165 H Calcium 9.1 Total Bilirubin 0.6 AST 31 ALT 43 Alkaline Phosphatase 112 Troponin I < 0.0120 Total Protein 7.9 Albumin 4.5 Globulin 3.5 Albumin/Globulin Ratio 1.3 Lipase 108 TSH 3rd Generation 3.01 Urine Color Urine Clarity Urine pH Ur Specific [place] Urine Protein Urine Glucose (UA) Urine Ketones Urine Blood Urine Nitrate Urine Bilirubin Urine Urobilinogen Ur Leukocyte Esterase Urine RBC (Auto) Urine Microscopic WBC Ur Squamous Epith Cells Urine Bacteria 04/30/17 04/30/17 04/30/17 10:50 10:50 11:00 WBC 6.8 RBC 4.75 Hgb 14.2 Hct 42.0 MCV 88.4 MCH 29.8 MCHC 33.7 RDW 14.2 Plt Count 227 MPV 8.4 Neut % (Auto) 66.2 Lymph % (Auto) 23.7 [place] % (Auto) 7.5 Eos % (Auto) 2.0 Baso % (Auto) 0.6 Neut # 4.5 Lymph # 1.6 [place] # 0.5 Eos # 0.1 Baso # 0.0 Sodium 142 Potassium 4.1 Chloride 105 Carbon Dioxide 28 Anion Gap 14 BUN 12 Creatinine 0.8 Est GFR ( Amer) > 60 Est GFR (Non-Af Amer) > 60 Random Glucose 109 H Calcium 8.6 Total Bilirubin 0.5 AST 27 ALT 34 Alkaline Phosphatase 82 Troponin I Total Protein 7.3 Albumin 4.1 Globulin 3.2 Albumin/Globulin Ratio 1.3 Lipase TSH 3rd Generation 2.51 Urine Color Yellow Urine Clarity Slighty-cloudy Urine pH 6.0 Ur Specific [place] 1.016 Urine Protein 30 Urine Glucose (UA) Neg Urine Ketones Trace Urine Blood Small Urine Nitrate Negative Urine Bilirubin Negative Urine Urobilinogen 0.2-1.0 Ur Leukocyte Esterase Neg Urine RBC (Auto) 4 H Urine Microscopic WBC 2 Ur Squamous Epith Cells 4 Urine Bacteria Rare reviewed J.P. - EKG Data EKG comments: reviewed J.P. - Imaging and Cardiology Chest x-ray Status: Report reviewed by me (Cindy) Assessment & Plan (1) Abdominal pain Status: Resolved Priority: High (2) Atrial fibrillation with rapid ventricular response Status: Acute Priority: High Comment: New onset (3) History of hypertension Status: Acute (4) OA (osteoarthritis) Status: Chronic Priority: Medium - Assessment and Plan (Free Text) Plan: Carotid U-S, Abd/Pelv CT, Echo, Bentyl, Pepcid, Lovenox, Zofran, liquid diet, Cardiology, GI consult, PT, OT eval. - Date & Time Date: 04/30/17 Time: 13:10
[2017-04-30] MEDS: Enoxaparin 80 mg Syringe SC SCH (17:51)
--- NOTE | 2017-04-30 18:04 | US ---
PROCEDURE: Duplex ultrasound of the carotid and vertebral arteries. HISTORY: Atrial fibrillation COMPARISON: No prior TECHNIQUE: Grayscale and duplex Doppler evaluation of the cervical carotid and vertebral arteries were performed. The common carotid, carotid bifurcations and cervical ICA and proximal ECA were evaluated. The vertebral arteries were evaluated for gross patency and direction. . FINDINGS: RIGHT CAROTID ARTERIES: Significant atherosclerotic plaque seen in the right carotid bifurcation extending proximally into the right internal carotid artery. The there is mild intimal thickening in the right common carotid artery Maximal right ICA velocity = 86.0 cm/S Maximal right CCA velocity = 50.7 cm/S ICA/CCA Ratio: 1.8. Findings suggest between 60-70 % diameter stenosis LEFT CAROTID ARTERIES: There is mild intimal thickening seen within the proximal left common carotid artery which becomes somewhat more prominent distally. Maximal left ICA velocity = 73.7 cm/S Maximal left CCA velocity = 74.2 cm/S ICA/CCA Ratio: 1.0 VERTEBRAL ARTERIES: Right Vertebral Artery: Patent. Antegrade flow. Left Vertebral Artery: Patent. Antegrade flow. OTHER FINDINGS: None. IMPRESSION: Significant atherosclerotic plaque seen in the right carotid bifurcation and proximal internal carotid artery. Based on velocity ratio findings suggest severe between 60-79 % diameter stenosis
--- NOTE | 2017-04-30 20:12 | CP.PCM.CON ---
History of Present Illness - History of Present Illness History of Present Illness: Consultation for chest pain and afib HPI: Past Patient History - Infectious Disease Hx of Infectious Diseases: None - Past Medical History & Family History Past Medical History?: Yes - Past Social History Smoking Status: Never Smoked - CARDIAC Hx Cardiac Disorders: Yes (HTN, hypercholesterolemia) Hx Hypercholesterolemia: Yes Hx Hypertension: Yes - PULMONARY Hx Respiratory Disorders: Yes (Bronchitis) Hx Bronchitis: Yes - NEUROLOGICAL Hx Neurological Disorder: No - HEENT Hx HEENT Problems: No - RENAL Hx Chronic Kidney Disease: No - ENDOCRINE/METABOLIC Hx Endocrine Disorders: No - HEMATOLOGICAL/ONCOLOGICAL Hx Blood Disorders: No Hx AIDS: No Hx Human Immunodeficiency Virus (HIV): No - INTEGUMENTARY Hx Dermatological Problems: No - MUSCULOSKELETAL/RHEUMATOLOGICAL Hx Musculoskeletal Disorders: Yes (Arthritis) Hx Arthritis: Yes Hx Falls: No - GASTROINTESTINAL Hx Gastrointestinal Disorders: Yes Hx Gastritis: Yes Hx Pancreatitis: Yes - GENITOURINARY/GYNECOLOGICAL Hx Genitourinary Disorders: (Gastritis, Pancreatitis) - PSYCHIATRIC Hx Psychophysiologic Disorder: Yes Hx Anxiety: Yes Hx Substance Use: No - SURGICAL HISTORY Hx Surgeries: Yes Hx Appendectomy: Yes - ANESTHESIA Hx Anesthesia: Yes Hx Anesthesia Reactions: No Hx Malignant Hyperthermia: No Has any member of the family had a problem w/ anesthesia?: No Meds Allergies/Adverse Reactions: Allergies Allergy/AdvReac Type Severity Reaction Status Date / Time shrimp Allergy RASH Verified 04/30/17 02:04 - Medications Medications: Current Medications Dicyclomine HCl (Bentyl) 20 mg PO QID PRN PRN Reason: Pain, moderate (4-7) Enoxaparin Sodium (Lovenox) 70 mg SC Q12@0600,1800 [facility] PRN Reason: Protocol Last Admin: 04/30/17 17:51 Dose: 70 mg Famotidine (Pepcid) 20 mg IV Q12 [facility] Last Admin: 04/30/17 09:28 Dose: 20 mg Sodium Chloride (Sodium Chloride 0.9%) 1,000 mls @ 125 mls/hr IV .Q8H [facility] Stop: 05/01/17 03:55 Last Admin: 04/30/17 12:47 Dose: 125 mls/hr Ondansetron HCl (Zofran Inj) 4 mg IV Q6 PRN PRN Reason: Nausea/Vomiting Results - Vital Signs Recent Vital Signs: Last Vital Signs Temp 97.8 F 04/30/17 20:00 Pulse 64 04/30/17 20:00 Resp 19 04/30/17 20:00 BP 134/77 04/30/17 20:00 Pulse Ox 96 04/30/17 20:00 - Labs Result Diagrams: 04/30/17 10:50 04/30/17 10:50 Labs: Laboratory Results - last 24 hr 04/30/17 04/30/17 04/30/17 02:49 02:49 04:04 WBC 7.9 RBC 4.82 Hgb 14.4 Hct 42.7 MCV 88.8 MCH 30.0 MCHC 33.8 RDW 14.4 Plt Count 212 MPV 8.9 Neut % (Auto) 78.4 H Lymph % (Auto) 12.8 L [place] % (Auto) 5.8 Eos % (Auto) 2.5 Baso % (Auto) 0.5 Neut # 6.2 Lymph # 1.0 [place] # 0.5 Eos # 0.2 Baso # 0.0 Sodium 143 Potassium 4.1 Chloride 104 Carbon Dioxide 24 Anion Gap 18 BUN 16 Creatinine 0.8 Est GFR ( Amer) > 60 Est GFR (Non-Af Amer) > 60 Random Glucose 165 H Calcium 9.1 Total Bilirubin 0.6 AST 31 ALT 43 Alkaline Phosphatase 112 Troponin I < 0.0120 Total Protein 7.9 Albumin 4.5 Globulin 3.5 Albumin/Globulin Ratio 1.3 Lipase 108 TSH 3rd Generation 3.01 Urine Color Urine Clarity Urine pH Ur Specific [place] Urine Protein Urine Glucose (UA) Urine Ketones Urine Blood Urine Nitrate Urine Bilirubin Urine Urobilinogen Ur Leukocyte Esterase Urine RBC (Auto) Urine Microscopic WBC Ur Squamous Epith Cells Urine Bacteria 04/30/17 04/30/17 04/30/17 10:50 10:50 11:00 WBC 6.8 RBC 4.75 Hgb 14.2 Hct 42.0 MCV 88.4 MCH 29.8 MCHC 33.7 RDW 14.2 Plt Count 227 MPV 8.4 Neut % (Auto) 66.2 Lymph % (Auto) 23.7 [place] % (Auto) 7.5 Eos % (Auto) 2.0 Baso % (Auto) 0.6 Neut # 4.5 Lymph # 1.6 [place] # 0.5 Eos # 0.1 Baso # 0.0 Sodium 142 Potassium 4.1 Chloride 105 Carbon Dioxide 28 Anion Gap 14 BUN 12 Creatinine 0.8 Est GFR ( Amer) > 60 Est GFR (Non-Af Amer) > 60 Random Glucose 109 H Calcium 8.6 Total Bilirubin 0.5 AST 27 ALT 34 Alkaline Phosphatase 82 Troponin I Total Protein 7.3 Albumin 4.1 Globulin 3.2 Albumin/Globulin Ratio 1.3 Lipase TSH 3rd Generation 2.51 Urine Color Yellow Urine Clarity Slighty-cloudy Urine pH 6.0 Ur Specific [place] 1.016 Urine Protein 30 Urine Glucose (UA) Neg Urine Ketones Trace Urine Blood Small Urine Nitrate Negative Urine Bilirubin Negative Urine Urobilinogen 0.2-1.0 Ur Leukocyte Esterase Neg Urine RBC (Auto) 4 H Urine Microscopic WBC 2 Ur Squamous Epith Cells 4 Urine Bacteria Rare 04/30/17 17:00 WBC RBC Hgb Hct MCV MCH MCHC RDW Plt Count MPV Neut % (Auto) Lymph % (Auto) [place] % (Auto) Eos % (Auto) Baso % (Auto) Neut # Lymph # [place] # Eos # Baso # Sodium Potassium Chloride Carbon Dioxide Anion Gap BUN Creatinine Est GFR ( Amer) Est GFR (Non-Af Amer) Random Glucose Calcium Total Bilirubin AST ALT Alkaline Phosphatase Troponin I 0.0180 Total Protein Albumin Globulin Albumin/Globulin Ratio Lipase TSH 3rd Generation Urine Color Urine Clarity Urine pH Ur Specific [place] Urine Protein Urine Glucose (UA) Urine Ketones Urine Blood Urine Nitrate Urine Bilirubin Urine Urobilinogen Ur Leukocyte Esterase Urine RBC (Auto) Urine Microscopic WBC Ur Squamous Epith Cells Urine Bacteria Assessment & Plan (1) Atrial fibrillation with rapid ventricular response Status: Acute (2) Abdominal pain Status: Acute
--- NOTE | 2017-04-30 21:11 | CARD ---
APPROVED REPORT EKG Measurement Heart [id number] <Conclusion> Atrial fibrillation with rapid ventricular response PVCs vs aberrancy Inferior infarct, age undetermined Abnormal ECG
--- NOTE | 2017-04-30 23:38 | CON ---
DATE: 04/30/2017 REFERRING PHYSICIAN: Dr. Cazares. REASON FOR CONSULTATION: Diarrhea and abdominal pain. HISTORY OF PRESENT ILLNESS: This is a 76 years old female with history of hypertension, diarrhea and gastritis, who basically had the same issues in November when she was sent home with now comes in with some diarrhea after eating salami and eggs and rice and meats, and all kinds of other foods. The diarrhea has improved. The nausea and vomiting has improved. She tolerated full liquids at this point. The patient is lying in bed comfortably, in no apparent distress. PAST MEDICAL HISTORY: As above. PAST SURGICAL HISTORY: As above. MEDICATIONS: Has been reviewed. REVIEW OF SYSTEMS: All other systems have been reviewed and negative apart from the HPI. PHYSICAL EXAMINATION: VITAL SIGNS: Here in the hospital, grossly unremarkable. GENERAL: This is a pleasant elderly-appearing female lying in bed comfortably, in no apparent distress. HEENT: Head: Normocephalic, atraumatic. Eyes: Pupils equal, round and reactive to light bilaterally. No conjunctival pallor or icterus. NECK: Supple. Normal range of motion. No lymphadenopathy appreciated. LUNGS: Coarse breath sounds bilaterally. HEART: S1, S2, regular rate and rhythm. No murmurs appreciated. ABDOMEN: Soft, nontender. Bowel sounds present. No rebound. No guarding. RECTAL: Deferred. EXTREMITIES: Pulses felt bilaterally. SKIN: Warm, dry and intact. NEUROLOGIC: A and O x3. LABORATORY DATA: All labs and relevant radiology have been reviewed. Labs are all essentially unremarkable. ASSESSMENT AND PLAN: This is a 76-year-old female with what appears to be gastritis plus/minus irritable bowel syndrome. From Gastrointestinal standpoint, proton pump inhibitor once a day. Advance diet as tolerated. Thank you for the consult. We will follow up as an outpatient endoscopy and colonoscopy. Tha Sharp MD/ PhD cc: Aric Cazares MD
[2017-05-01 06:02] LABS: HEMATOCRIT 40.7 % (34.0-47.0); MEAN CELL VOLUME 89.8 fl (81.0-99.0); MEAN CORPUSCULAR HEMOGLOBIN 29.5 pg (27.0-31.0); MEAN CORPUSCULAR HGB CONC 32.9 g/dL (33.0-37.0); RED CELL DISTRIBUTION WIDTH 14.3 % (11.5-14.5)
[2017-05-01] MEDS: Enoxaparin 80 mg Syringe SC SCH ×2 (06:08→17:48)
[2017-05-01 06:11] LABS: ALB/GLOB RATIO 1.1 (1.0-2.1); ALKALINE PHOSPHATASE 73 U/L (38-126); ALT/SGPT 37 U/L (9-52); AMYLASE 68 U/L (30-110); AST/SGOT 24 U/L (14-36); BILIRUBIN,TOTAL 0.4 mg/dl (0.2-1.3); BLOOD UREA NITROGEN 8 mg/dl (7-17); CALCIUM 8.5 mg/dL (8.4-10.2); CARBON DIOXIDE 24 mmol/L (22-30); CHLORIDE 110 mmol/L (98-107); GFR AFRICAN-AMERICAN > 60; GLUCOSE,RANDOM 100 mg/dL (65-105); LIPASE 56 U/L (23-300); POTASSIUM 3.9 MMOL/L (3.6-5.0); SODIUM 142 mmol/l (132-148); TOTAL PROTEIN 6.5 G/DL (6.3-8.2)
[2017-05-01 06:26] LABS: T4 5.26 ug/dl (5.5-11.0)
[2017-05-01 06:40] LABS: THYROID STIMULATING HORMONE 2.06 mIU/ML (0.46-4.68)
--- NOTE | 2017-05-01 08:43 | CT ---
PROCEDURE: CT Abdomen and Pelvis with contrast HISTORY: Abdominal pain COMPARISON: None. TECHNIQUE: Helical CT of the abdomen and pelvis was performed following oral contrast administration. Intravenous contrast was not administered as per referring physician request. Contrast dose: None Radiation dose: Total exam DLP = 965.65 mGy-cm. This CT exam was performed using one or more of the following dose reduction techniques: Automated exposure control, adjustment of the mA and/or kV according to patient size, and/or use of iterative reconstruction technique. FINDINGS: LOWER THORAX: Cardiomegaly is noted. There is no pleural or pericardial effusion or definite infiltrate. LIVER: Unremarkable. No gross lesion or ductal dilatation. GALLBLADDER AND BILE DUCTS: Unremarkable. PANCREAS: Unremarkable. No gross lesion or ductal dilatation. SPLEEN: Unremarkable. ADRENALS: Unremarkable. No mass. KIDNEYS AND URETERS: Unremarkable. No hydronephrosis. No solid mass. VASCULATURE: Unremarkable. No aortic aneurysm. BOWEL: No bowel obstruction measure edema or gross mural thickening is appreciable. Sigmoid diverticulosis is moderate above without acute reactive changes related. Limited retained fecal material scattered throughout various large-bowel segments. Small likely umbilical hernia is again appreciate with the neck measuring 1.7 cm containing a small amount of Mesentery but no bowel. APPENDIX: Not identified. No CT evidence of appendicitis. PERITONEUM: Unremarkable. No free fluid. No free air. LYMPH NODES: Unremarkable. No enlarged lymph nodes. BLADDER: Unremarkable. REPRODUCTIVE: Prior hysterectomy again suggested. BONES: No acute fracture. OTHER FINDINGS: None. IMPRESSION: 1. No acute abdominal or pelvic findings. 2. Stable nonacute sigmoid diverticulosis. 3. Stable small ventral abdominal hernia likely umbilical containing only Mesentery and no bowel at this time once again. 4. Stable CT abdomen pelvis without contrast compared to 04/30/2017.
[2017-05-01] MEDS ORDERED: Perflutren Lipid Microsphere 1.5 ML SUS IV ONE (11:33)
[2017-05-01] MEDS ORDERED: Aminophylline 25 mg/ml Inj ONE (12:57)
--- NOTE | 2017-05-01 16:29 | CP.PCM.PN ---
Subjective - Date & Time of Evaluation Date of Evaluation: 05/01/17 Time of Evaluation: 13:20 - Subjective Subjective: F/U Abdominal pain. Pt with no A/D, no abdominal pain, no n/v/d, no c/o. Objective - Vital Signs/Intake and Output Vital Signs (last 24 hours): Temp Pulse Resp BP Pulse Ox 98.3 F 79 20 145/76 94 L 05/01/17 15:54 05/01/17 15:54 05/01/17 15:54 05/01/17 15:54 05/01/17 15:54 - Medications Medications: Current Medications Dicyclomine HCl (Bentyl) 20 mg PO QID PRN PRN Reason: Pain, moderate (4-7) Last Admin: 04/30/17 21:51 Dose: 20 mg Enoxaparin Sodium (Lovenox) 70 mg SC Q12@0600,1800 [facility] PRN Reason: Protocol Last Admin: 05/01/17 06:08 Dose: 70 mg Famotidine (Pepcid) 20 mg IV Q12 [facility] Last Admin: 05/01/17 09:40 Dose: 20 mg Ondansetron HCl (Zofran Inj) 4 mg IV Q6 PRN PRN Reason: Nausea/Vomiting - Labs Labs: 05/01/17 05:00 05/01/17 05:00 PT 11.7 Seconds (9.8-13.1) 05/01/17 05:00 INR 1.0 (0.9-1.2) 05/01/17 05:00 - Constitutional Appears: No Acute Distress - Head Exam Head Exam: NORMAL INSPECTION - Eye Exam Eye Exam: PERRL - ENT Exam ENT Exam: Normal Exam - Neck Exam Neck Exam: Normal Inspection - Respiratory Exam Respiratory Exam: NORMAL BREATHING PATTERN - Cardiovascular Exam Cardiovascular Exam: REGULAR RHYTHM - GI/Abdominal Exam GI & Abdominal Exam: Soft, Tenderness (mild epigastric area), Normal Bowel Sounds. absent: Guarding, Rebound - Extremities Exam Extremities Exam: Tenderness (R-L knee, L foot.) - Back Exam Back Exam: NORMAL INSPECTION - Neurological Exam Neurological Exam: Alert, Oriented x3. absent: Motor Sensory Deficit - Psychiatric Exam Psychiatric exam: Normal Mood - Skin Skin Exam: Warm Assessment and Plan (1) Abdominal pain Status: Resolved (2) Atrial fibrillation with rapid ventricular response Status: Acute (3) History of hypertension Status: Acute (4) OA (osteoarthritis) Status: Chronic - Assessment and Plan (Free Text) Plan: For STT today. Continue Rohan Griffin Pepcid. Cardiology consult appreciated
[2017-05-02] MEDS: Enoxaparin 80 mg Syringe SC SCH (05:59)
[2017-05-02 08:06] VITALS: RESP 18
--- NOTE | 2017-05-02 10:59 | CARD ---
APPROVED REPORT EXAM: Two-dimensional and M-mode echocardiogram with Doppler, color Doppler with contrast. Other Information Quality : AverageRhythm : NSR INDICATION Abnormal EKG/Arrhythmia Atrial Fibrillation Echo Enhancing Agent Indication: Endocardial border delineation Agent/Amount Used: Definity 2D DIMENSIONS IVSd0.87 (0.7-1.1cm)LVDd3.57 (3.9-5.9cm) LVOT Diameter2.71 (1.8-2.4cm)PWd0.69 (0.7-1.1cm) IVSs1.32 (0.8-1.2cm)LVDs2.05 (2.5-4.0cm) FS (%) 42.5 %PWs1.02 (0.8-1.2cm) M-Mode DIMENSIONS Left Atrium (MM)4.44 (2.5-4.0cm)IVSd0.50 (0.7-1.1cm) Aortic Root3.06 (2.2-3.7cm)LVDd6.50 (4.0-5.6cm) Aortic Cusp Exc.1.91 (1.5-2.0cm)PWd0.81 (0.7-1.1cm) IVSs1.00 cmFS (%) 25 % LVDs4.88 (2.0-3.8cm)PWs1.06 cm Mitral Valve MV E Rrvdswwu71.7cm/sMV DECEL [id number] A Hkytusnz614.7cm/s MV BCV64snI/A ratio0.8MVA (PHT)2.95cm2 TDI Lateral E' Peak V9.37cm/sMedial E' Peak V6.27cm/sE/Lateral E'8.3 E/Medial E'12.4 Pulmonary Valve PV Peak Tynqnnom00.5cm/s Tricuspid Valve TR Peak Sekhdtie161ja/sRAP [id number] Peak Gr.16mmHg [id number] LEFT VENTRICLE The left ventricle is normal size. There is normal left ventricular wall thickness. The left ventricular function is normal. The left ventricular ejection fraction is 60-65% There is normal LV segmental wall motion. Transmitral Doppler flow pattern is Grade I-abnormal relaxation pattern. No left ventricle thrombus noted on this study. There is no ventricular septal defect visualized. There is no left ventricular aneurysm. There is no mass noted in the left ventricle. RIGHT VENTRICLE The right ventricle is normal size. There is normal right ventricular wall thickness. The right ventricular systolic function is normal. ATRIA The left atrium size is normal. The right atrium size is normal. The interatrial septum is intact with no evidence for an atrial septal defect. AORTIC VALVE The aortic valve is mildly to moderately sclerotic. There is mild aortic regurgitation. There is no aortic valvular stenosis. There is no aortic valvular vegetation. MITRAL VALVE The mitral valve is normal in structure. There is no evidence of mitral valve prolapse. There is no mitral valve stenosis. Mitral regurgitation is trace to mild. TRICUSPID VALVE The tricuspid valve is normal in structure. There is no tricuspid valve regurgitation noted. There is no tricuspid valve prolapse or vegetation. There is no tricuspid valve stenosis. PULMONIC VALVE The pulmonary valve is normal in structure. There is no pulmonic valvular regurgitation. There is no pulmonic valvular stenosis. GREAT VESSELS The aortic root is normal in size. The ascending aorta is normal in size. The IVC is normal in size and collapses >50% with inspiration. PERICARDIAL EFFUSION The pericardium appears normal. There is no pleural effusion. <Conclusion> Normal LV Systolic Function Aortic Valve Sclerosis Trace to Mild Mitral Regurgitation Mild Aortic Insufficiency Impaired Diastolic Relaxation
--- NOTE | 2017-05-02 16:03 | CP.PCM.PN ---
Subjective - Date & Time of Evaluation Date of Evaluation: 05/02/17 Time of Evaluation: 09:20 - Subjective Subjective: F/U Abdominal pain. Pt with no A/D, eating regular diet, no SOB, no CP. Objective - Vital Signs/Intake and Output Vital Signs (last 24 hours): Temp Pulse Resp BP Pulse Ox 98.3 F 62 18 137/80 94 L 05/02/17 13:00 05/02/17 13:00 05/02/17 13:00 05/02/17 13:00 05/02/17 13:00 - Medications Medications: Current Medications Dicyclomine HCl (Bentyl) 20 mg PO QID PRN PRN Reason: Pain, moderate (4-7) Last Admin: 04/30/17 21:51 Dose: 20 mg Enoxaparin Sodium (Lovenox) 70 mg SC Q12@0600,1800 YOJANA PRN Reason: Protocol Last Admin: 05/02/17 05:59 Dose: 70 mg Famotidine (Pepcid) 20 mg IV Q12 [facility] Last Admin: 05/02/17 09:10 Dose: 20 mg Ondansetron HCl (Zofran Inj) 4 mg IV Q6 PRN PRN Reason: Nausea/Vomiting - Labs Labs: 05/01/17 05:00 05/01/17 05:00 PT 11.7 Seconds (9.8-13.1) 05/01/17 05:00 INR 1.0 (0.9-1.2) 05/01/17 05:00 - Constitutional Appears: No Acute Distress - Head Exam Head Exam: NORMAL INSPECTION - Eye Exam Eye Exam: PERRL - ENT Exam ENT Exam: Normal Exam - Neck Exam Neck Exam: Normal Inspection - Respiratory Exam Respiratory Exam: NORMAL BREATHING PATTERN - Cardiovascular Exam Cardiovascular Exam: REGULAR RHYTHM - GI/Abdominal Exam GI & Abdominal Exam: Soft, Normal Bowel Sounds. absent: Guarding, Rebound Additional comments: Mild discomfort epigastric area. - Extremities Exam Extremities Exam: Tenderness (R-L knee, L foot.) - Back Exam Back Exam: NORMAL INSPECTION - Neurological Exam Neurological Exam: Alert, Oriented x3. absent: Motor Sensory Deficit - Psychiatric Exam Psychiatric exam: Normal Mood - Skin Skin Exam: Normal Color, Warm Assessment and Plan (1) Abdominal pain Status: Resolved (2) Atrial fibrillation with rapid ventricular response Status: Acute (3) History of hypertension Status: Acute (4) OA (osteoarthritis) Status: Chronic - Assessment and Plan (Free Text) Plan: Awaiting for Stress test reading of Cardiology Dr Duncan, also Pt to be referred to a GI as out Pt.
[2017-05-02 16:10] VITALS: BP 165/84; PULSE 73; TEMP 98.2; O2SAT 96
--- NOTE | 2017-05-02 16:37 | CP.PCM.PN ---
Subjective - Date & Time of Evaluation Date of Evaluation: 05/02/17 Time of Evaluation: 13:00 - Subjective Subjective: doing well Objective - Vital Signs/Intake and Output Vital Signs (last 24 hours): Temp Pulse Resp BP Pulse Ox 98.2 F 73 18 165/84 H 96 05/02/17 16:09 05/02/17 16:09 05/02/17 16:09 05/02/17 16:09 05/02/17 16:09 - Medications Medications: Current Medications Dicyclomine HCl (Bentyl) 20 mg PO QID PRN PRN Reason: Pain, moderate (4-7) Last Admin: 04/30/17 21:51 Dose: 20 mg Enoxaparin Sodium (Lovenox) 70 mg SC Q12@0600,1800 YOJANA PRN Reason: Protocol Last Admin: 05/02/17 05:59 Dose: 70 mg Famotidine (Pepcid) 20 mg IV Q12 [facility] Last Admin: 05/02/17 09:10 Dose: 20 mg Ondansetron HCl (Zofran Inj) 4 mg IV Q6 PRN PRN Reason: Nausea/Vomiting - Labs Labs: 05/01/17 05:00 05/01/17 05:00 PT 11.7 Seconds (9.8-13.1) 05/01/17 05:00 INR 1.0 (0.9-1.2) 05/01/17 05:00 - Head Exam Head Exam: NORMAL INSPECTION - Eye Exam Pupil Exam: NORMAL ACCOMODATION - Cardiovascular Exam Cardiovascular Exam: REGULAR RHYTHM - GI/Abdominal Exam GI & Abdominal Exam: Soft, Normal Bowel Sounds
--- NOTE | 2017-05-10 15:18 | CARD ---
APPROVED REPORT Protocol: LEXISCAN Test Type: Stress Nuclear Medications: Enoxaparin 70 mg, Pepcid 20mg, Ondansetron 4mg, Medical History: Hypercholesterolemia, Hypertension, Brochitis, Arthritis, Gastritis, Pancreatitis, Anxiety, Appendectomy, Afib Target HR: 145 bpm Resting ECG: normal Resting Heart Rate: 69 bpm Resting Blood Pressure: 149/104mmHg submaximum (85%): 123 bpm PROCEDURE Pharmacologic stress testing was performed using 0.4mg per 5ml of regadenoson given intravenously over 7-10 seconds. POST EXERCISE Reason for Termination: protocol completed Target HR: No Max HR: 84 bpm 69% of Maximum Predicted HR: 145 bpm Exercise duration: 00:47 min:sec, 0 Stage Exercise capacity: 1.0METs Max Blood Pressure: 187/93mmHg Blood Pressure response to exercise: normal resting BP - appropriate response Heart Rate response to exercise: appropriate Chest Pain: Yes, non-limiting Angina index: 0 Arrhythmia: No, none ST Change: No, none Deviation: 0 mm EXAM: Myocardial Perfusion REST/STRESS Image QualityGood Imaging Protocol The imaging protocol used to acquire images was Stress Tc-99m/rest Tc-99m 1 day Rest Spect myocardial perfusion imaging was performed in supine position 70 minutes following the injection of 10 mCi of Tc-99 Myoview. Time of rest injection: 14:10 Time of rest imagin:15 At peak stress, the patient was injected intravenously with 10mCi of Tc-99 tetrofosmin after an infusion time of minutes and seconds. Time of stress injection: 9:41 Time of stress imagin:45 Gated Rest Spect was performed 70 minutes after intravenous Tc-99 Myoview injection. The images were gated to evaluate regional wall motion and calculate ventricular ejection fraction. NUCLEAR IMAGE INTERPRETATION Study quality was good. Left Ventricular size was Normal at Rest and Stress. Lung uptake was Normal. Left Ventricular ejection fraction is 77%. The rest and stress images show normal perfusion, normal contraction and thickening. LV Perfusion 1 Perfusion Defect Location: apex Perfusion Defect Size: Small (1-2 segments) Perfusion Defect Severity: Mild Type of Perfusion Defect: Mixed CONCLUSION 1. - Small sized mild intensity apical defect 2. - Low probability for significant obstructive coronary artery diseaese 3. - Normal LVEF Recommendation - Aggressive medical management and risk factor modification
--- NOTE | 2017-05-23 13:02 | CP.PCM.DIS ---
Provider - Provider Date of Admission: 04/30/17 03:55 Attending physician: Aric Cazares MD Consults: Gastroenterology and Cardiology. Time Spent in preparation of Discharge (in minutes): 25 Diagnosis - Discharge Diagnosis (1) Abdominal pain Status: Resolved Priority: High (2) Atrial fibrillation with rapid ventricular response Status: Acute Priority: High (3) History of hypertension Status: Acute (4) OA (osteoarthritis) Status: Chronic Priority: Medium Hospital Course - Lab Results Lab Results: Most Recent Lab Values WBC 5.0 K/uL (4.8-10.8) 05/01/17 05:00 RBC 4.53 Mil/uL (3.80-5.20) 05/01/17 05:00 Hgb 13.4 g/dL (12.0-16.0) 05/01/17 05:00 Hct 40.7 % (34.0-47.0) 05/01/17 05:00 MCV 89.8 fl (81.0-99.0) 05/01/17 05:00 MCH 29.5 pg (27.0-31.0) 05/01/17 05:00 MCHC 32.9 g/dL (33.0-37.0) L 05/01/17 05:00 RDW 14.3 % (11.5-14.5) 05/01/17 05:00 Plt Count 206 K/uL (130-400) 05/01/17 05:00 MPV 8.4 fl (7.2-11.7) 04/30/17 10:50 Neut % (Auto) 66.2 % (50.0-75.0) 04/30/17 10:50 Lymph % (Auto) 23.7 % (20.0-40.0) 04/30/17 10:50 [place] % (Auto) 7.5 % (0.0-10.0) 04/30/17 10:50 Eos % (Auto) 2.0 % (0.0-4.0) 04/30/17 10:50 Baso % (Auto) 0.6 % (0.0-2.0) 04/30/17 10:50 Neut # 4.5 K/uL (1.8-7.0) 04/30/17 10:50 Lymph # 1.6 K/uL (1.0-4.3) 04/30/17 10:50 [place] # 0.5 K/uL (0.0-0.8) 04/30/17 10:50 Eos # 0.1 K/uL (0.0-0.7) 04/30/17 10:50 Baso # 0.0 K/uL (0.0-0.2) 04/30/17 10:50 PT 11.7 Seconds (9.8-13.1) 05/01/17 05:00 INR 1.0 (0.9-1.2) 05/01/17 05:00 Sodium 142 mmol/l (132-148) 05/01/17 05:00 Potassium 3.9 MMOL/L (3.6-5.0) 05/01/17 05:00 Chloride 110 mmol/L (98-107) H 05/01/17 05:00 Carbon Dioxide 24 mmol/L (22-30) 05/01/17 05:00 Anion Gap 12 (10-20) 05/01/17 05:00 BUN 8 mg/dl (7-17) 05/01/17 05:00 Creatinine 0.8 mg/dL (0.7-1.2) 05/01/17 05:00 Est GFR ( Amer) > 60 05/01/17 05:00 Est GFR (Non-Af Amer) > 60 05/01/17 05:00 Random Glucose 100 mg/dL (65-105) 05/01/17 05:00 Calcium 8.5 mg/dL (8.4-10.2) 05/01/17 05:00 Total Bilirubin 0.4 mg/dl (0.2-1.3) 05/01/17 05:00 AST 24 U/L (14-36) 05/01/17 05:00 ALT 37 U/L (9-52) 05/01/17 05:00 Alkaline Phosphatase 73 U/L (38-126) 05/01/17 05:00 Troponin I 0.0140 ng/mL (0.00-0.120) 05/01/17 01:00 Total Protein 6.5 G/DL (6.3-8.2) 05/01/17 05:00 Albumin 3.5 g/dL (3.5-5.0) 05/01/17 05:00 Globulin 3.0 gm/dL (2.2-3.9) 05/01/17 05:00 Albumin/Globulin Ratio 1.1 (1.0-2.1) 05/01/17 05:00 Amylase 68 U/L (30-110) 05/01/17 05:00 Lipase 56 U/L (23-300) 05/01/17 05:00 Thyroxine (T4) 5.26 ug/dl (5.5-11.0) L 05/01/17 05:00 TSH 3rd Generation 2.06 mIU/ML (0.46-4.68) 05/01/17 05:00 Urine Color Yellow (YELLOW) 04/30/17 11:00 Urine Clarity Slighty-cloudy (Clear) 04/30/17 11:00 Urine pH 6.0 (5.0-8.0) 04/30/17 11:00 Ur Specific [place] 1.016 (1.003-1.030) 04/30/17 11:00 Urine Protein 30 mg/dL (NEGATIVE) 04/30/17 11:00 Urine Glucose (UA) Neg mg/dL (Normal) 04/30/17 11:00 Urine Ketones Trace mg/dL (NEGATIVE) 04/30/17 11:00 Urine Blood Small (NEGATIVE) 04/30/17 11:00 Urine Nitrate Negative (NEGATIVE) 04/30/17 11:00 Urine Bilirubin Negative (NEGATIVE) 04/30/17 11:00 Urine Urobilinogen 0.2-1.0 mg/dL (0.2-1.0) 04/30/17 11:00 Ur Leukocyte Esterase Neg Shiela/uL (Negative) 04/30/17 11:00 Urine RBC (Auto) 4 /hpf (0-3) H 04/30/17 11:00 Urine Microscopic WBC 2 /hpf (0-5) 04/30/17 11:00 Ur Squamous Epith Cells 4 /hpf (0-5) 04/30/17 11:00 Urine Bacteria Rare (<OCC) 04/30/17 11:00 - Date & Time of H&P Date of H&P: 04/30/17 Time of H&P: 13:10 Discharge Exam - Head Exam Head Exam: NORMAL INSPECTION Discharge Plan - Discharge Medications Prescriptions: Aspirin 325 mg PO DAILY #30 tab Rosuvastatin Calcium [Crestor] 40 mg PO DAILY #30 Isosorbide Mononitrate [Imdur] 30 mg PO DAILY #30 tab Famotidine [Pepcid] 40 mg PO DAILY #30 tablet Metoprolol Succinate [Toprol XL] 50 mg PO DAILY #30 tab - Follow Up Plan Condition: FAIR Disposition: HOME/ ROUTINE Patient education suggested?: Yes Additional Instructions: Follow up the PMD in one week.
== END 2017-05-02 17:18 | disposition home or self-care (01) | DRG 310 ==
LOC: H.ER 01:46 → H.ERHOLD 03:55 → H.TEL 10:42
PROVIDERS: ADMIT Internal Medicine Pulmonary Disease; ATTEND Internal Medicine Pulmonary Disease
DX: I48.91 Unspecified atrial fibrillation (principal); E78.00 Pure hypercholesterolemia, unspecified; I10 Essential (primary) hypertension; R10.9 Unspecified abdominal pain; Z91.013 Allergy to seafood; K29.70 Gastritis, unspecified, without bleeding; M19.90 Unspecified osteoarthritis, unspecified site; R19.7 Diarrhea, unspecified

== ENCOUNTER 2017-05-28 15:56 | Inpatient (IN) | payer MEDICARE ==
[2017-05-28 15:56] VITALS: BMI 27.4
--- NOTE | 2017-05-28 16:10 | ED PDOC ---
HPI: CCC, URI, Sore Throat Time Seen by Provider: 05/28/17 16:09 Chief Complaint (Nursing): Cough, Cold, Congestion Chief Complaint (Provider): cough History Per: Patient Additional Complaint(s): 76-year-old female presents with persistent cough for the past 5 days. Patient was seen last week by primary doctor and started on prednisone and Levaquin. She states the cough is only slightly better prompting ED visit today. Patient has chest pain secondary to excessive coughing. She denies any fever or chills. Patient has been taking a cough syrup but she does not know the name of the med. Past Medical History Reviewed: Historical Data, Nursing Documentation, Vital Signs Vital Signs: Last Vital Signs Temp 98.0 F 05/28/17 16:00 Pulse 89 05/28/17 16:00 Resp 16 05/28/17 16:00 BP 156/84 H 05/28/17 16:00 Pulse Ox 98 05/28/17 17:27 - Medical History PMH: Anxiety, Arthritis, COPD, Gastritis, HTN, Hypercholesterolemia - Surgical History Surgical History: Appendectomy Other surgeries: left leg surgery - Family History Family History: States: Hypertension - Living Arrangements Living Arrangements: With Family - Social History Current smoker - smoking cessation education provided: No Alcohol: None Drugs: Denies - Home Medications Home Medications: Ambulatory Orders Medication Instructions Recorded Aspirin 325 mg PO DAILY #30 tab 05/02/17 Famotidine [Pepcid] 40 mg PO DAILY #30 tablet 05/02/17 Isosorbide Mononitrate [Imdur] 30 mg PO DAILY #30 tab 05/02/17 Metoprolol Succinate [Toprol XL] 50 mg PO DAILY #30 tab 05/02/17 Rosuvastatin Calcium [Crestor] 40 mg PO DAILY #30 05/02/17 - Allergies Allergies/Adverse Reactions: Allergies Allergy/AdvReac Type Severity Reaction Status Date / Time shrimp Allergy RASH Verified 04/30/17 02:04 Curb-65 Severity Score - CURB-65 Severity Score Confusion: No Respiratory Rate greater than/equal to 30: No Systolic BP <90 or Diastolic BP less than/equal 60mmHg: No Age >64: No Curb-65 Score: 0 Percentage 30-day mortality: 0.6% Review of Systems ROS Statement: Except As Marked, All Systems Reviewed And Found Negative Constitutional: Negative for: Fever Cardiovascular: Positive for: Chest Pain (from cough) Respiratory: Positive for: Cough Gastrointestinal: Negative for: Vomiting Physical Exam - Reviewed Nursing Documentation Reviewed: Yes Vital Signs Reviewed: Yes - Physical Exam Appears: Positive for: Well, Non-toxic, No Acute Distress Skin: Negative for: Rash Eye Exam: Positive for: Normal appearance Cardiovascular/Chest: Positive for: Regular Rate, Rhythm Respiratory: Positive for: Decreased Breath Sounds, Rhonchi. Negative for: Accessory Muscle Use, Wheezing Back: Positive for: Normal Inspection Extremity: Positive for: Normal ROM Neurologic/Psych: Positive for: Alert, Oriented - Laboratory Results Result Diagrams: 05/28/17 16:45 05/28/17 16:45 - ECG Interpretation Of ECG: NSR 80 bpm, no acute finding, reviewed by PA and ED attending O2 Sat by Pulse Oximetry: 98 Pulse Ox Interpretation: Normal - Other Rad CXR X-Ray: Interpreted by Me, Viewed By Me X-Ray Interpretation: no consolidation Nebulizer Treatments/Peak Flow - Duonebs Number of Bronchodilator Doses given?: 1 (duoneb) - Steroid Treatment Steroid: IV (solumedrol) - Clinical Response Clinical Response: Unchanged Medical Decision Making Medical Decision Makin76 year old with cough Plan: CBC CMP Flu swab EKG CXR IV solumedrol Duoneb x 1 Case was d/w PMD Dr. Cazares. Patient has persistent cough and chest congestion despite taking Levaquin and prednisone for the past few days at home. As per Dr. Cazares, patient will be admitted for COPD exacerbation. Patient is aware of and agrees with admission. Disposition - Clinical Impression Clinical Impression: COPD exacerbation - Patient ED Disposition Is Patient to be Admitted: Yes - Disposition Disposition Time: 17:41 Condition: FAIR Forms: [employer] (Vietnamese) - Pt Status Changed To: Hospital Disposition Of: Observation - POA Present On Arrival: None Results - Lab Results Lab Results: 05/28/17 05/28/17 05/28/17 16:45 16:45 16:45 WBC 10.6 D RBC 4.93 Hgb 14.8 Hct 43.7 MCV 88.6 MCH 30.0 MCHC 33.9 RDW 13.9 Plt Count 254 MPV 8.6 Neut % (Auto) 79.5 H Lymph % (Auto) 12.1 L [place] % (Auto) 7.5 Eos % (Auto) 0.4 Baso % (Auto) 0.5 Neut # 8.4 H Lymph # 1.3 [place] # 0.8 Eos # 0.0 Baso # 0.1 Sodium 140 Potassium 3.9 Chloride 105 Carbon Dioxide 22 Anion Gap 17 BUN 16 Creatinine 0.8 Est GFR ( Amer) > 60 Est GFR (Non-Af Amer) > 60 Random Glucose 158 H Calcium 9.3 Total Bilirubin 0.4 AST 27 ALT 40 Alkaline Phosphatase 80 Troponin I < 0.0120 Total Protein 7.7 Albumin 4.3 Globulin 3.4 Albumin/Globulin Ratio 1.3 Influenza Typ A,B (EIA) Negative for flu a/b
[2017-05-28] MEDS ORDERED: Albuterol-Ipratrop 3 mg / 0.5 (3 ml) UD INH STA (16:29)
[2017-05-28] MEDS ORDERED: Albuterol-Ipratrop 3 mg / 0.5 (3 ml) UD ONE (16:46)
[2017-05-28 17:02] LABS: BASO # 0.1 K/uL (0.0-0.2); BASO % 0.5 % (0.0-2.0); EOS % 0.4 % (0.0-4.0); HEMATOCRIT 43.7 % (34.0-47.0); LYMPH # 1.3 K/uL (1.0-4.3); LYMPH % 12.1 % (20.0-40.0); MEAN CELL VOLUME 88.6 fl (81.0-99.0); MEAN CORPUSCULAR HGB CONC 33.9 g/dL (33.0-37.0); MEAN PLATELET VOLUME 8.6 fl (7.2-11.7); MONO # 0.8 K/uL (0.0-0.8); MONO % 7.5 % (0.0-10.0); NEUT # 8.4 K/uL (1.8-7.0); NEUT % 79.5 % (50.0-75.0); NRBC % 0.1 % (0.0-0.0); RED CELL DISTRIBUTION WIDTH 13.9 % (11.5-14.5); WHITE BLOOD COUNT 10.6 K/uL (4.8-10.8)
[2017-05-28 17:22] LABS: ALB/GLOB RATIO 1.3 (1.0-2.1); ALKALINE PHOSPHATASE 80 U/L (38-126); ALT/SGPT 40 U/L (9-52); AST/SGOT 27 U/L (14-36); BILIRUBIN,TOTAL 0.4 mg/dl (0.2-1.3); BLOOD UREA NITROGEN 16 mg/dl (7-17); CALCIUM 9.3 mg/dL (8.4-10.2); CARBON DIOXIDE 22 mmol/L (22-30); CHLORIDE 105 mmol/L (98-107); GFR AFRICAN-AMERICAN > 60; GLUCOSE,RANDOM 158 mg/dL (65-105); POTASSIUM 3.9 MMOL/L (3.6-5.0); SODIUM 140 mmol/l (132-148); TOTAL PROTEIN 7.7 G/DL (6.3-8.2)
--- NOTE | 2017-05-28 17:32 | RAD ---
HISTORY: cough COMPARISON: No prior. FINDINGS: LUNGS: No active pulmonary disease. PLEURA: No significant pleural effusion identified, no pneumothorax apparent. CARDIOVASCULAR: Normal. OSSEOUS STRUCTURES: No significant abnormalities. VISUALIZED UPPER ABDOMEN: Normal. OTHER FINDINGS: None. IMPRESSION: No active disease.
[2017-05-28] MEDS: Albuterol-Ipratrop 3 mg / 0.5 (3 ml) UD INH SCH (19:45)
[2017-05-28] MEDS: Promethazine/Cod 6.25mg-10mg/5ml Syr UD PO PRN (20:44)
[2017-05-29] MEDS: MethylPREDNISolone 40 mg Vial IVP SCH ×3 (00:19→16:48)
[2017-05-29] MEDS ORDERED: methylPREDNISolone 40 MG in Sodium Chloride 0.9% 50 ML IVPB SCH (01:00)
[2017-05-29] MEDS: Albuterol-Ipratrop 3 mg / 0.5 (3 ml) UD INH SCH ×4 (01:09→19:49)
[2017-05-29 05:56] LABS: HEMATOCRIT 46.6 % (34.0-47.0); MEAN CELL VOLUME 89.7 fl (81.0-99.0); MEAN CORPUSCULAR HEMOGLOBIN 29.4 pg (27.0-31.0); MEAN CORPUSCULAR HGB CONC 32.8 g/dL (33.0-37.0); WHITE BLOOD COUNT 6.9 K/uL (4.8-10.8)
[2017-05-29 06:09] LABS: ALB/GLOB RATIO 1.3 (1.0-2.1); ALKALINE PHOSPHATASE 83 U/L (38-126); ALT/SGPT 36 U/L (9-52); AST/SGOT 24 U/L (14-36); BILIRUBIN,TOTAL 0.4 mg/dl (0.2-1.3); BLOOD UREA NITROGEN 16 mg/dl (7-17); CALCIUM 9.4 mg/dL (8.4-10.2); CARBON DIOXIDE 26 mmol/L (22-30); CHLORIDE 103 mmol/L (98-107); CHOLESTEROL 229 mg/dL (0-199); GFR AFRICAN-AMERICAN > 60; GLUCOSE,RANDOM 190 mg/dL (65-105); PARTIAL THROMBOPLASTIN TIME 32.2 Seconds (25.6-37.1); POTASSIUM 4.3 MMOL/L (3.6-5.0); SODIUM 141 mmol/l (132-148); TOTAL PROTEIN 7.7 G/DL (6.3-8.2)
[2017-05-29 06:25] LABS: T4 6.09 ug/dl (5.5-11.0)
[2017-05-29 06:38] LABS: THYROID STIMULATING HORMONE 0.77 mIU/ML (0.46-4.68)
[2017-05-29] MEDS: Metoprolol Succinate 50 mg XL Tab PO SCH (08:34)
[2017-05-29] MEDS: Promethazine/Cod 6.25mg-10mg/5ml Syr UD PO PRN ×2 (08:41→15:16)
[2017-05-29 12:23] LABS: URINE BILIRUBIN NEGATIVE (NEGATIVE); URINE BLOOD SMALL (NEGATIVE); URINE COLOR YELLOW (YELLOW); URINE GLUCOSE (UA) >=500 mg/dL (Normal); URINE KETONE NEGATIVE (NEGATIVE); URINE LEUKOCYTE ESTERASE NEG Leu/uL (Negative); URINE PROTEIN NEGATIVE (NEGATIVE); URINE UROBILINOGEN 0.2-1.0 mg/dL (0.2-1.0); WBC URINE < 1 /hpf (0-5)
[2017-05-29 12:32] LABS: RBC URINE 5 /hpf (0-3)
[2017-05-29] MEDS: Enoxaparin 40 mg Syringe SC SCH (16:08)
--- NOTE | 2017-05-29 17:38 | CP.PCM.HP ---
History of Present Illness - History of Present Illness History of Present Illness: CC: Intractable Cough. 76 y/o F, came into the ER [facility] to be evaluated for intractable cough, onset 2 weeks [employer]. Pt appear c/o of continue moderate cough, at times with productive whitish thin phlegms associated to chest congestion, Pt was seen by me in my office on 05/24 and was Rx Levaquin and Prednisone po with mild relief of symptoms but there after, they gradually increased again 5 days [employer]. Worsening symptoms: Hx COPD. Aggravated factor: Pain when coughing. Pt denied: Fever, chills, bloody cough, n/v/d, abdominal pain, urinary symptoms , CP, dizziness, syncope, weakness, sick contact, recent travel out of [place]. CXR shows no active disease. Present on Admission - Present on Admission Any Indicators Present on Admission: No Review of Systems - Constitutional Constitutional: Other (negative) - EENT Eyes: Requires Corrective Lenses Ears: Other (negative) Nose/Mouth/Throat: Other (negative) - Cardiovascular Cardiovascular: Other (negative) - Respiratory Respiratory: Cough, Chest Congestion, Pain with Coughing - Gastrointestinal Gastrointestinal: Other (negative) - Genitourinary Genitourinary: Other (negative) - Musculoskeletal Musculoskeletal: Arthralgias, Other (Knees pain) - Integumentary Integumentary: Other (negative) - Neurological Neurological: Other (negative) - Psychiatric Psychiatric: Other (negative) - Endocrine Endocrine: Other (negative) - Hematologic/Lymphatic Hematologic: Other (negative) Past Patient History - Infectious Disease Hx of Infectious Diseases: None - Past Medical History & Family History Past Medical History?: Yes Pertinent Family History: Unknown - Past Social History Smoking Status: Never Smoked Alcohol: None Drugs: Denies Home Situation {Lives}: With Family - CARDIAC Hx Cardiac Disorders: Yes Hx Hypercholesterolemia: Yes Hx Hypertension: Yes - PULMONARY Hx Respiratory Disorders: Yes Hx Chronic Obstructive Pulmonary Disease (COPD): Yes - NEUROLOGICAL Hx Neurological Disorder: No - HEENT Hx HEENT Problems: No - RENAL Hx Chronic Kidney Disease: No - ENDOCRINE/METABOLIC Hx Endocrine Disorders: No - HEMATOLOGICAL/ONCOLOGICAL Hx Blood Disorders: No Hx Human Immunodeficiency Virus (HIV): No - INTEGUMENTARY Hx Dermatological Problems: No - MUSCULOSKELETAL/RHEUMATOLOGICAL Hx Musculoskeletal Disorders: Yes Hx Arthritis: Yes Hx Back Pain: Yes Hx Falls: Yes - GASTROINTESTINAL Hx Gastrointestinal Disorders: Yes Hx Gastritis: Yes Hx Hemorrhoids: Yes Hx Pancreatitis: Yes - GENITOURINARY/GYNECOLOGICAL Hx Genitourinary Disorders: Yes - PSYCHIATRIC Hx Psychophysiologic Disorder: No Hx Substance Use: No - SURGICAL HISTORY Hx Surgeries: Yes Hx Appendectomy: Yes Other/Comment: Left foot sx September 2016. Sx to scalp/head - cyst- 2015. Hemorrhoid sx 21 years ago. Breast reduction 5 yrs ago - ANESTHESIA Hx Anesthesia: Yes Hx Anesthesia Reactions: No Hx Malignant Hyperthermia: No Has any member of the family had a problem w/ anesthesia?: No Meds Allergies/Adverse Reactions: Allergies Allergy/AdvReac Type Severity Reaction Status Date / Time shrimp Allergy RASH Verified 04/30/17 02:04 Physical Exam - Constitutional Appears: No Acute Distress - Head Exam Head Exam: NORMAL INSPECTION - Eye Exam Eye Exam: PERRL - ENT Exam ENT Exam: Normal Exam - Neck Exam Neck exam: Positive for: Normal Inspection - Respiratory Exam Respiratory Exam: Decreased Breath Sounds (b/l) - Cardiovascular Exam Cardiovascular Exam: REGULAR RHYTHM - GI/Abdominal Exam GI & Abdominal Exam: Normal Bowel Sounds, Soft - Extremities Exam Extremities exam: Positive for: normal inspection - Back Exam Back exam: NORMAL INSPECTION - Neurological Exam Neurological exam: Alert, Oriented x3 Additional comments: No motor sensory deficit. - Psychiatric Exam Psychiatric exam: Normal Mood - Skin Skin Exam: Warm Results - Vital Signs Recent Vital Signs: Last Vital Signs Temp 98.6 F 05/29/17 16:03 Pulse 87 05/29/17 16:03 Resp 20 05/29/17 16:03 BP 117/66 05/29/17 16:03 Pulse Ox 94 L 05/29/17 16:03 reviewed Cindy - Labs Result Diagrams: 05/29/17 05:45 05/29/17 05:45 Labs: Laboratory Results - last 24 hr 05/29/17 05/29/17 05/29/17 05:45 05:45 05:45 WBC 6.9 RBC 5.20 Hgb 15.3 Hct 46.6 MCV 89.7 MCH 29.4 MCHC 32.8 L RDW 14.0 Plt Count 256 PT 11.2 INR 1.0 APTT 32.2 Sodium 141 Potassium 4.3 Chloride 103 Carbon Dioxide 26 Anion Gap 16 BUN 16 Creatinine 0.9 Est GFR ( Amer) > 60 Est GFR (Non-Af Amer) > 60 Random Glucose 190 H Calcium 9.4 Total Bilirubin 0.4 AST 24 ALT 36 Alkaline Phosphatase 83 Total Protein 7.7 Albumin 4.3 Globulin 3.4 Albumin/Globulin Ratio 1.3 Triglycerides 99 D Cholesterol 229 H LDL Cholesterol Direct 148 H HDL Cholesterol 60 Thyroxine (T4) 6.09 TSH 3rd Generation 0.77 Urine Color Urine Clarity Urine pH Ur Specific [place] Urine Protein Urine Glucose (UA) Urine Ketones Urine Blood Urine Nitrate Urine Bilirubin Urine Urobilinogen Ur Leukocyte Esterase Urine RBC (Auto) Urine Microscopic WBC Ur Squamous Epith Cells 05/29/17 12:10 WBC RBC Hgb Hct MCV MCH MCHC RDW Plt Count PT INR APTT Sodium Potassium Chloride Carbon Dioxide Anion Gap BUN Creatinine Est GFR ( Amer) Est GFR (Non-Af Amer) Random Glucose Calcium Total Bilirubin AST ALT Alkaline Phosphatase Total Protein Albumin Globulin Albumin/Globulin Ratio Triglycerides Cholesterol LDL Cholesterol Direct HDL Cholesterol Thyroxine (T4) TSH 3rd Generation Urine Color Yellow Urine Clarity Clear Urine pH 6.0 Ur Specific [place] 1.030 Urine Protein Negative Urine Glucose (UA) >=500 Urine Ketones Negative Urine Blood Small Urine Nitrate Negative Urine Bilirubin Negative Urine Urobilinogen 0.2-1.0 Ur Leukocyte Esterase Neg Urine RBC (Auto) 5 H Urine Microscopic WBC < 1 Ur Squamous Epith Cells 1 reviewed J.P. - Imaging and Cardiology Chest x-ray Status: Report reviewed by me (J.P.) Assessment & Plan (1) COPD exacerbation Status: Acute Priority: High (2) History of hypertension Status: Acute Priority: Medium (3) OA (osteoarthritis) Status: Chronic Priority: Medium (4) History of atrial fibrillation Status: Chronic Priority: Medium - Assessment and Plan (Free Text) Plan: Sputum C-S, f/u EKG, Metropolol, Duoneb, Prednisone IV, Phenergan with Co, ASA and rest of Tx, PT, OT. - Date & Time Date: 05/29/17 Time: 09:00
--- NOTE | 2017-05-30 00:35 | CARD ---
APPROVED REPORT EKG Measurement Heart [id number] <Conclusion> Normal sinus rhythm Possible Inferior infarct, age undetermined Cannot rule out Anterior infarct, age undetermined Abnormal ECG
[2017-05-30] MEDS: MethylPREDNISolone 40 mg Vial IVP SCH ×3 (00:50→16:04)
[2017-05-30] MEDS: Albuterol-Ipratrop 3 mg / 0.5 (3 ml) UD INH SCH ×4 (01:03→19:20)
[2017-05-30] MEDS: Enoxaparin 40 mg Syringe SC SCH (08:19)
[2017-05-30] MEDS: Metoprolol Succinate 50 mg XL Tab PO SCH (08:23)
[2017-05-30] MEDS: Azithromycin 500 MG in Sodium Chloride 0.9% 250 ML IVPB SCH (11:58)
[2017-05-30] MEDS: guaiFENesin-DM 600-30 mg ER Tab PO SCH ×2 (11:58→21:16)
--- NOTE | 2017-05-30 15:24 | CP.PCM.PN ---
Subjective - Date & Time of Evaluation Date of Evaluation: 05/30/17 Time of Evaluation: 13:00 - Subjective Subjective: F/U COPD Exacerbation. Pt awake, no A/D, no SOB, less chest congestion. Objective - Vital Signs/Intake and Output Vital Signs (last 24 hours): Temp Pulse Resp BP Pulse Ox 98.2 F 64 20 149/76 96 05/30/17 07:42 05/30/17 07:42 05/30/17 07:42 05/30/17 07:42 05/30/17 07:42 - Medications Medications: Current Medications Acetaminophen (Tylenol 325mg Tab) 650 mg PO Q6 PRN PRN Reason: Pain, moderate (4-7) Last Admin: 05/30/17 10:13 Dose: 650 mg Acetaminophen (Tylenol 325mg Tab) 325 mg PO Q6 PRN PRN Reason: Fever >100.4 F Albuterol/Ipratropium (Duoneb 3 Mg/0.5 Mg (3 Ml) Ud) 3 ml INH RQ6 [facility] Last Admin: 05/30/17 13:55 Dose: 3 ml Aspirin (Aspirin) 325 mg PO DAILY [facility] Last Admin: 05/30/17 08:22 Dose: 325 mg Enoxaparin Sodium (Lovenox) 40 mg SC DAILY [facility] PRN Reason: Protocol Last Admin: 05/30/17 08:19 Dose: 40 mg Famotidine (Pepcid) 40 mg PO DAILY [facility] Last Admin: 05/30/17 08:23 Dose: 40 mg Guaifenesin/Dextromethorphan (Mucinex-Dm 600-30 Mg) 1 tab PO Q12 [facility] Last Admin: 05/30/17 11:58 Dose: 1 tab Azithromycin 500 mg/ Sodium (Chloride) 250 mls @ 250 mls/hr IVPB DAILY [facility] PRN Reason: Protocol Last Admin: 05/30/17 11:58 Dose: 250 mls/hr Isosorbide Mononitrate (Imdur Er) 30 mg PO DAILY [facility] Last Admin: 05/30/17 08:23 Dose: 30 mg Methylprednisolone (Solu-Medrol) 40 mg IVP Q8 [facility] Last Admin: 05/30/17 08:18 Dose: 40 mg Metoprolol Succinate (Toprol Xl) 50 mg PO DAILY [facility] Last Admin: 05/30/17 08:23 Dose: 50 mg Promethazine HCl/Codeine (Phenergan/Codeine Oral Syrup) 10 ml PO Q6 PRN PRN Reason: Cough Last Admin: 05/29/17 15:16 Dose: 10 ml - Labs Labs: 05/29/17 05:45 05/29/17 05:45 PT 11.2 Seconds (9.8-13.1) 05/29/17 05:45 INR 1.0 (0.9-1.2) 05/29/17 05:45 APTT 32.2 Seconds (25.6-37.1) 05/29/17 05:45 - Constitutional Appears: No Acute Distress - Head Exam Head Exam: NORMAL INSPECTION - Eye Exam Eye Exam: PERRL - ENT Exam ENT Exam: Normal Exam - Neck Exam Neck Exam: Normal Inspection - Respiratory Exam Respiratory Exam: Decreased Breath Sounds (b/) - Cardiovascular Exam Cardiovascular Exam: REGULAR RHYTHM - GI/Abdominal Exam GI & Abdominal Exam: Soft, Normal Bowel Sounds - Extremities Exam Extremities Exam: Normal Inspection - Back Exam Back Exam: NORMAL INSPECTION - Neurological Exam Neurological Exam: Alert, Oriented x3. absent: Motor Sensory Deficit - Psychiatric Exam Psychiatric exam: Normal Mood - Skin Skin Exam: Warm Assessment and Plan (1) COPD exacerbation Status: Acute (2) History of hypertension Status: Acute (3) OA (osteoarthritis) Status: Chronic (4) History of atrial fibrillation Status: Chronic - Assessment and Plan (Free Text) Plan: Continue Zithromax, Duoneb, Prednisone and rest of tx.
[2017-05-30] MEDS: Promethazine/Cod 6.25mg-10mg/5ml Syr UD PO PRN ×2 (16:07→22:39)
[2017-05-31] MEDS: Albuterol-Ipratrop 3 mg / 0.5 (3 ml) UD INH SCH ×4 (01:02→19:46)
[2017-05-31] MEDS: MethylPREDNISolone 40 mg Vial IVP SCH ×2 (01:32→08:26)
[2017-05-31] MEDS: guaiFENesin-DM 600-30 mg ER Tab PO SCH ×2 (08:26→21:42)
[2017-05-31] MEDS: Metoprolol Succinate 50 mg XL Tab PO SCH (08:26)
[2017-05-31] MEDS: Enoxaparin 40 mg Syringe SC SCH (08:27)
[2017-05-31] MEDS ORDERED: methylPREDNISolone 75 MG in Sodium Chloride 0.9% 50 ML IVPB ONE (13:31)
--- NOTE | 2017-05-31 16:09 | CP.PCM.PN ---
Subjective - Date & Time of Evaluation Date of Evaluation: 05/31/17 Time of Evaluation: 09:35 - Subjective Subjective: F/U COPD Exacerbation. Pt c/o of dry cough, chest congestion improved, difficulty to bring up phlegms. Objective - Vital Signs/Intake and Output Vital Signs (last 24 hours): Temp Pulse Resp BP Pulse Ox 97.7 F 77 20 153/71 H 94 L 05/31/17 07:41 05/31/17 07:41 05/31/17 07:41 05/31/17 08:26 05/31/17 07:41 - Medications Medications: Current Medications Acetaminophen (Tylenol 325mg Tab) 650 mg PO Q6 PRN PRN Reason: Pain, moderate (4-7) Last Admin: 05/30/17 10:13 Dose: 650 mg Acetaminophen (Tylenol 325mg Tab) 325 mg PO Q6 PRN PRN Reason: Fever >100.4 F Albuterol/Ipratropium (Duoneb 3 Mg/0.5 Mg (3 Ml) Ud) 3 ml INH RQ6 [facility] Last Admin: 05/31/17 14:00 Dose: 3 ml Aspirin (Aspirin) 325 mg PO DAILY [facility] Last Admin: 05/31/17 08:26 Dose: 325 mg Azithromycin (Zithromax) 500 mg PO DAILY [facility] PRN Reason: Protocol Last Admin: 05/31/17 14:11 Dose: 500 mg Enoxaparin Sodium (Lovenox) 40 mg SC DAILY [facility] PRN Reason: Protocol Last Admin: 05/31/17 08:27 Dose: 40 mg Famotidine (Pepcid) 40 mg PO DAILY [facility] Last Admin: 05/31/17 08:26 Dose: 40 mg Guaifenesin/Dextromethorphan (Mucinex-Dm 600-30 Mg) 1 tab PO Q12 [facility] Last Admin: 05/31/17 08:26 Dose: 1 tab Isosorbide Mononitrate (Imdur Er) 30 mg PO DAILY [facility] Last Admin: 05/31/17 08:26 Dose: 30 mg Metoprolol Succinate (Toprol Xl) 50 mg PO DAILY [facility] Last Admin: 05/31/17 08:26 Dose: 50 mg Prednisone (Prednisone Tab) 30 mg PO DAILY [facility] Last Admin: 05/31/17 11:22 Dose: 30 mg Promethazine HCl/Codeine (Phenergan/Codeine Oral Syrup) 10 ml PO Q6 PRN PRN Reason: Cough Last Admin: 05/30/17 22:39 Dose: 10 ml - Labs Labs: 05/29/17 05:45 05/29/17 05:45 PT 11.2 Seconds (9.8-13.1) 05/29/17 05:45 INR 1.0 (0.9-1.2) 05/29/17 05:45 APTT 32.2 Seconds (25.6-37.1) 05/29/17 05:45 - Constitutional Appears: No Acute Distress - Head Exam Head Exam: NORMAL INSPECTION - Eye Exam Eye Exam: PERRL - ENT Exam ENT Exam: Normal Exam - Neck Exam Neck Exam: Normal Inspection - Respiratory Exam Respiratory Exam: Decreased Breath Sounds (b/l) - Cardiovascular Exam Cardiovascular Exam: REGULAR RHYTHM - GI/Abdominal Exam GI & Abdominal Exam: Soft, Normal Bowel Sounds - Extremities Exam Extremities Exam: Normal Inspection - Back Exam Back Exam: NORMAL INSPECTION - Neurological Exam Neurological Exam: Alert, Oriented x3. absent: Motor Sensory Deficit - Psychiatric Exam Psychiatric exam: Normal Mood - Skin Skin Exam: Warm Assessment and Plan (1) COPD exacerbation Status: Acute (2) History of hypertension Status: Acute (3) OA (osteoarthritis) Status: Chronic (4) History of atrial fibrillation Status: Chronic - Assessment and Plan (Free Text) Plan: Continue Zithromax, Prednisone, Duoneb, Phenergan with Co and rest of Tx.
[2017-05-31] MEDS: Azithromycin 500 MG in Sodium Chloride 0.9% 250 ML IVPB SCH (17:45)
[2017-05-31] MEDS ORDERED: MethylPREDNISolone 40 mg Vial IVP SCH (20:00)
[2017-05-31] MEDS: Promethazine/Cod 6.25mg-10mg/5ml Syr UD PO PRN (21:45)
[2017-06-01] MEDS: Albuterol-Ipratrop 3 mg / 0.5 (3 ml) UD INH SCH ×3 (01:03→13:27)
[2017-06-01 07:31] VITALS: RESP 17
[2017-06-01] MEDS: guaiFENesin-DM 600-30 mg ER Tab PO SCH (08:26)
[2017-06-01] MEDS: Metoprolol Succinate 50 mg XL Tab PO SCH (08:26)
[2017-06-01] MEDS: Enoxaparin 40 mg Syringe SC SCH (08:28)
--- NOTE | 2017-06-01 14:59 | CP.PCM.PN ---
Subjective - Date & Time of Evaluation Date of Evaluation: 06/01/17 Time of Evaluation: 13:00 - Subjective Subjective: F/U COPD Exacerbation. No A/D, no SOB, no chest congestion, occasional cough. Objective - Vital Signs/Intake and Output Vital Signs (last 24 hours): Temp Pulse Resp BP Pulse Ox 97.8 F 78 17 144/67 96 06/01/17 07:31 06/01/17 07:31 06/01/17 07:31 06/01/17 07:31 06/01/17 07:31 - Medications Medications: Current Medications Acetaminophen (Tylenol 325mg Tab) 650 mg PO Q6 PRN PRN Reason: Pain, moderate (4-7) Last Admin: 05/30/17 10:13 Dose: 650 mg Acetaminophen (Tylenol 325mg Tab) 325 mg PO Q6 PRN PRN Reason: Fever >100.4 F Albuterol/Ipratropium (Duoneb 3 Mg/0.5 Mg (3 Ml) Ud) 3 ml INH RQ6 [facility] Last Admin: 06/01/17 13:27 Dose: 3 ml Aspirin (Aspirin) 325 mg PO DAILY [facility] Last Admin: 06/01/17 08:30 Dose: 325 mg Azithromycin (Zithromax) 500 mg PO DAILY [facility] PRN Reason: Protocol Last Admin: 06/01/17 08:27 Dose: 500 mg Enoxaparin Sodium (Lovenox) 40 mg SC DAILY [facility] PRN Reason: Protocol Last Admin: 06/01/17 08:28 Dose: 40 mg Famotidine (Pepcid) 40 mg PO DAILY [facility] Last Admin: 06/01/17 08:27 Dose: 40 mg Guaifenesin/Dextromethorphan (Mucinex-Dm 600-30 Mg) 1 tab PO Q12 [facility] Last Admin: 06/01/17 08:26 Dose: 1 tab Isosorbide Mononitrate (Imdur Er) 30 mg PO DAILY [facility] Last Admin: 06/01/17 08:28 Dose: 30 mg Metoprolol Succinate (Toprol Xl) 50 mg PO DAILY [facility] Last Admin: 06/01/17 08:26 Dose: 50 mg Prednisone (Prednisone Tab) 30 mg PO DAILY [facility] Last Admin: 06/01/17 08:27 Dose: 30 mg Promethazine HCl/Codeine (Phenergan/Codeine Oral Syrup) 10 ml PO Q6 PR[facility] PRN Reason: Cough Last Admin: 05/31/17 21:45 Dose: 10 ml - Labs Labs: 05/29/17 05:45 05/29/17 05:45 PT 11.2 Seconds (9.8-13.1) 05/29/17 05:45 INR 1.0 (0.9-1.2) 05/29/17 05:45 APTT 32.2 Seconds (25.6-37.1) 05/29/17 05:45 - Constitutional Appears: No Acute Distress - Head Exam Head Exam: NORMAL INSPECTION - Eye Exam Eye Exam: PERRL - ENT Exam ENT Exam: Normal Exam - Neck Exam Neck Exam: Normal Inspection - Respiratory Exam Respiratory Exam: Decreased Breath Sounds (b/l) - Cardiovascular Exam Cardiovascular Exam: REGULAR RHYTHM - GI/Abdominal Exam GI & Abdominal Exam: Soft, Normal Bowel Sounds - Extremities Exam Extremities Exam: Normal Inspection - Back Exam Back Exam: NORMAL INSPECTION - Neurological Exam Neurological Exam: Alert, Oriented x3. absent: Motor Sensory Deficit - Psychiatric Exam Psychiatric exam: Normal Mood - Skin Skin Exam: Warm Assessment and Plan (1) COPD exacerbation Status: Acute (2) History of hypertension Status: Acute (3) OA (osteoarthritis) Status: Chronic (4) History of atrial fibrillation Status: Chronic - Assessment and Plan (Free Text) Plan: Pt improved and stable to be discharged home, see instruction medication list, f /u in my office in a week.
[2017-06-01 15:29] VITALS: BP 128/64; PULSE 89; TEMP 99; O2SAT 95
== END 2017-06-01 18:32 | disposition home or self-care (01) | DRG 192 ==
LOC: H.ER 15:56 → H.ERHOLD 17:40 → H.MEDSURG1 18:37
PROVIDERS: ADMIT Internal Medicine Pulmonary Disease; ATTEND Internal Medicine Pulmonary Disease
DX: J44.1 Chronic obstructive pulmonary disease with (acute) exacerbation (principal); I48.2 Chronic atrial fibrillation; E78.00 Pure hypercholesterolemia, unspecified; K29.70 Gastritis, unspecified, without bleeding; I10 Essential (primary) hypertension; M19.90 Unspecified osteoarthritis, unspecified site; F41.9 Anxiety disorder, unspecified; Z91.013 Allergy to seafood

== ENCOUNTER 2017-07-29 16:57 | Emergency (ER) | payer MEDICARE ==
[2017-07-29 16:57] VITALS: BMI 27.4
[2017-07-29 17:36] VITALS: BP 133/82; PULSE 104; RESP 16; O2SAT 100
[2017-07-29] MEDS ORDERED: Oseltamivir 6 MG/ML PO STA (19:00)
[2017-07-29 19:24] VITALS: TEMP 99.5
[2017-07-29 19:26] LABS: BASO % 0.5 % (0.0-2.0); EOS # 0.2 K/uL (0.0-0.7); EOS % 3.2 % (0.0-4.0); HEMOGLOBIN 14.2 g/dL (12.0-16.0); LYMPH # 0.7 K/uL (1.0-4.3); MEAN CELL VOLUME 87.8 fl (81.0-99.0); MEAN CORPUSCULAR HEMOGLOBIN 29.2 pg (27.0-31.0); MEAN CORPUSCULAR HGB CONC 33.3 g/dL (33.0-37.0); MEAN PLATELET VOLUME 8.4 fl (7.2-11.7); MONO # 0.6 K/uL (0.0-0.8); MONO % 9.7 % (0.0-10.0); NEUT # 4.2 K/uL (1.8-7.0); NEUT % 73.6 % (50.0-75.0); NRBC % 0.2 % (0.0-0.0); RBC 4.87 Mil/uL (3.80-5.20); RED CELL DISTRIBUTION WIDTH 14.5 % (11.5-14.5); WHITE BLOOD COUNT 5.8 K/uL (4.8-10.8)
[2017-07-29 19:42] LABS: PROTHROMBIN TIME 10.8 Seconds (9.8-13.1)
[2017-07-29 19:43] LABS: PARTIAL THROMBOPLASTIN TIME 39.9 Seconds (25.6-37.1)
[2017-07-29 19:49] LABS: B-TYPE NATRIURETIC PEPTIDE 104 pg/ml (0-900)
[2017-07-29 19:56] LABS: ALB/GLOB RATIO 1.4 (1.0-2.1); ALBUMIN 4.1 g/dL (3.5-5.0); ALT/SGPT 32 U/L (9-52); AST/SGOT 38 U/L (14-36); BLOOD UREA NITROGEN 10 mg/dl (7-17); CALCIUM 8.8 mg/dL (8.4-10.2); GFR AFRICAN-AMERICAN > 60; GFR NON-AFRICAN AMERICAN > 60; MAGNESIUM 2.1 MG/DL (1.6-2.3)
--- NOTE | 2017-07-29 20:38 | ED PDOC ---
HPI: CCC, URI, Sore Throat Time Seen by Provider: 07/29/17 18:20 Chief Complaint (Nursing): Flu-like Symptoms Chief Complaint (Provider): Fever, Body Aches and Cough History Per: Patient History/Exam Limitations: no limitations Onset/Duration Of Symptoms: Days (x4) Location Of Pain: None Associated Symptoms: Fever, Cough, Vomiting, Diarrhea Ear Symptoms: Bilateral: None Pain Scale Rating Of: 8 Additional Complaint(s): 76 year old female with a past medical history of hypertension, COPD and diabetes presents to the ED complaining of subjective fever, cough productive of white sputum, body aches x4 days. She reports that yesterday she developed vomiting (non bloody; non bilious) and diarrhea (watery; non bloody). Patient also notes some abdominal discomfort. Patient has had known sick contacts stating that her also has flu like symptoms as well as several of her grandchildren. PMD: Aric Bolton Past Medical History Reviewed: Historical Data, Nursing Documentation, Vital Signs Vital Signs: Last Vital Signs Temp 99.5 F 07/29/17 19:24 Pulse 104 H 07/29/17 17:31 Resp 16 07/29/17 17:31 BP 133/82 07/29/17 17:31 Pulse Ox 100 07/29/17 20:47 - Medical History PMH: Anxiety, Arthritis, Bronchitis, COPD, Gastritis, HTN, Hypercholesterolemia , Pancreatitis Denies: HIV, Chronic Kidney Disease - Surgical History Surgical History: Appendectomy - Family History Family History: States: Hypertension - Social History Current smoker - smoking cessation education provided: No Ex-Smoker (has not smoked in the last 12 months): No Alcohol: None Drugs: Denies - Home Medications Home Medications: Ambulatory Orders Medication Instructions Recorded Aspirin 325 mg PO DAILY #30 tab 05/02/17 Famotidine [Pepcid] 40 mg PO DAILY #30 tablet 05/02/17 Isosorbide Mononitrate [Imdur] 30 mg PO DAILY #30 tab 05/02/17 Metoprolol Succinate [Toprol XL] 50 mg PO DAILY #30 tab 05/02/17 Rosuvastatin Calcium [Crestor] 40 mg PO DAILY #30 05/02/17 Azithromycin [Zithromax] 500 mg PO DAILY #5 tab 06/01/17 guaiFENesin/Dextromethorphan 1 tab PO Q12 #10 tab 06/01/17 [Mucinex-DM 600-30 mg] guaiFENesin/Dextromethorphan 5 ml PO Q6 PRN #1 ml 06/01/17 [Q-Tussin Dm 10 MG/5 Ml-100 MG/5 Ml 120 Ml] predniSONE [predniSONE Tab] 30 mg PO DAILY tab 06/01/17 Azithromycin [Zithromax] 250 mg PO DAILY #6 dose 07/29/17 Oseltamivir [Tamiflu] 75 mg PO BID #10 cap 07/29/17 Promethazine HCl/Codeine 10 ml PO Q6 PRN #120 ml 07/29/17 [Prometh-Codein 6.25-10 mg/5 ml] - Allergies Allergies/Adverse Reactions: Allergies Allergy/AdvReac Type Severity Reaction Status Date / Time shrimp Allergy RASH Verified 07/29/17 17:31 seafood Allergy RASH Uncoded 07/29/17 17:31 Review of Systems ROS Statement: Except As Marked, All Systems Reviewed And Found Negative Constitutional: Positive for: Fever (subjective), Other (body aches) Respiratory: Positive for: Cough (productive of white sputum) Gastrointestinal: Positive for: Vomiting (non bloody; non bilious), Diarrhea ( watery; non bloody). Negative for: Abdominal Pain (abdominal discomfort) Physical Exam - Reviewed Nursing Documentation Reviewed: Yes Vital Signs Reviewed: Yes - Laboratory Results Result Diagrams: 07/29/17 19:19 07/29/17 19:19 - ECG O2 Sat by Pulse Oximetry: 100 (RA) Pulse Ox Interpretation: Normal Medical Decision Making Medical Decision Makin Initial Impression 76 y/o female presenting with viral illness Differential: Influenza, COPD exacerbation, Gastroenteritis, Pneumonia, Dehydration Initial Plan: * B-type Natruretic * CMP * Magnesium * Phosphorous t * Troponin * Udip * CBC * Partial thromboplastin * Prothrombin Time * CXR * Tamiflu Cap 75mg PO * Toradol 15mg IVP * Tylenol 975mg PO * Zofran 8mg IV * Blood Culture * Influenza A B * Reevaluation ____ Documented by Adriana Soto acting as a scribe for Gela Bobby MD. All medical record entries made by the Scribe were at my direction and personally dictated by me. I have reviewed the chart and agree that the record accurately reflects my personal performance of the history, physical exam, medical decision making, and the department course for this patient. I have also personally directed, reviewed, and agree with the discharge instructions and disposition. Disposition - Clinical Impression Clinical Impression: Influenza-like symptoms, Bronchitis Counseled Patient/Family Regarding: Studies Performed, Diagnosis - Disposition Referrals: Aric Cazares MD [Family Provider] - 07/30/17 Disposition: Routine/Home Disposition Time: 21:23 Condition: GOOD Prescriptions: Azithromycin [Zithromax] 250 mg PO DAILY #6 dose Oseltamivir [Tamiflu] 75 mg PO BID #10 cap Promethazine HCl/Codeine [Prometh-Codein 6.25-10 mg/5 ml] 10 ml PO Q6 PRN #120 ml PRN Reason: SEVERE COUGH ONLY Instructions: Acute Bronchitis (ED) Print Language: SYRIAN
[2017-07-29] MEDS ORDERED: Albuterol-Ipratrop 3 mg / 0.5 (3 ml) UD INH STA (21:22)
--- NOTE | 2017-07-30 15:03 | RAD ---
HISTORY: cough fever COMPARISON: 05/28/2017 TECHNIQUE: Chest PA and lateral FINDINGS: LUNGS: No active pulmonary disease. PLEURA: No significant pleural effusion identified. No pneumothorax apparent. CARDIOVASCULAR: Normal. OSSEOUS STRUCTURES: No significant abnormalities. VISUALIZED UPPER ABDOMEN: Normal. OTHER FINDINGS: None. IMPRESSION: No active disease.
== END 2017-07-29 21:38 | disposition home or self-care (01) ==
LOC: H.ER 16:57
DX: J20.9 Acute bronchitis, unspecified (principal); E78.00 Pure hypercholesterolemia, unspecified; F41.9 Anxiety disorder, unspecified; I10 Essential (primary) hypertension
CPT/HCPCS: 71046; 80053; 83735; 83880; 84100; 84484; 85025; 85610; 85730; 87040; 87804; 96374; 99282; J1885; J2405

== ENCOUNTER 2017-09-04 13:54 | Inpatient (IN) | payer MEDICARE ==
[2017-09-04 13:54] VITALS: BMI 27.4
[2017-09-04] MEDS ORDERED: Morphine 4 MG/ML VIAL IVP STA (14:55)
[2017-09-04] MEDS ORDERED: Sodium Chloride 0.9% 1,000 ML IV STA (14:56)
[2017-09-04 15:11] LABS: BASO % 0.3 % (0.0-2.0); EOS % 0.2 % (0.0-4.0); HEMOGLOBIN 14.8 g/dL (12.0-16.0); LYMPH # 0.3 K/uL (1.0-4.3); LYMPH % 3.9 % (20.0-40.0); MEAN CELL VOLUME 89.2 fl (81.0-99.0); MEAN CORPUSCULAR HEMOGLOBIN 30.3 pg (27.0-31.0); MEAN PLATELET VOLUME 8.3 fl (7.2-11.7); MONO # 0.3 K/uL (0.0-0.8); MONO % 3.4 % (0.0-10.0); NEUT # 7.6 K/uL (1.8-7.0); NEUT % 92.2 % (50.0-75.0); NRBC % 0.4 % (0.0-0.0); PLATELET COUNT 258 K/uL (130-400); RED CELL DISTRIBUTION WIDTH 14.4 % (11.5-14.5); WHITE BLOOD COUNT 8.3 K/uL (4.8-10.8)
[2017-09-04] MEDS ORDERED: Morphine 4 MG/ML VIAL ONE (15:27)
[2017-09-04 15:29] LABS: VENOUS BLOOD GAS BASE EXCESS 0.8 mmol/L (0.0-2.0); VENOUS BLOOD GAS PCO2 39 mmHg (40-60); VENOUS BLOOD GAS PO2 30 mm/Hg (30-55); VENOUS BLOOD PH 7.42 (7.32-7.43)
--- NOTE | 2017-09-04 15:34 | ED PDOC ---
HPI: Abdomen Time Seen by Provider: 09/04/17 14:36 Chief Complaint (Nursing): Abdominal Pain Chief Complaint (Provider): Abdominal Pain History Per: Patient History/Exam Limitations: no limitations Onset/Duration Of Symptoms: Days (x3) Current Symptoms Are (Timing): Still Present Additional Complaint(s): 76 year old female with medical history of hypertension and peptic ulcers, presents to the emergency department with a complaint of continous, severe upper abdominal pain associate with nonbloody, nonbilious vomiting, watery diarrhea, fever and a mild cough ongoing for 3 days. She denied any radiation of pain, bloody vomiting, bloody stools, chest pain, shortness of breath or taking medication for relief. PMD: Aric Cazares MD Past Medical History Reviewed: Historical Data, Nursing Documentation, Vital Signs Vital Signs: Last Vital Signs Temp 98.2 F 09/05/17 15:54 Pulse 76 09/05/17 15:54 Resp 18 09/05/17 15:54 BP 144/72 09/05/17 15:54 Pulse Ox 95 09/05/17 15:54 - Medical History PMH: Anxiety, Arthritis, Bronchitis, COPD, Gastritis, Gastrointestinal Ulcer, HTN, Hypercholesterolemia, Pancreatitis Denies: HIV, Chronic Kidney Disease - Surgical History Surgical History: Appendectomy, Hernia Repair - Family History Family History: States: Unknown Family Hx, Hypertension - Social History Current smoker - smoking cessation education provided: No Alcohol: None Drugs: Denies - Home Medications Home Medications: Ambulatory Orders Medication Instructions Recorded Aspirin 325 mg PO DAILY #30 tab 05/02/17 Isosorbide Mononitrate [Imdur] 30 mg PO DAILY #30 tab 05/02/17 Metoprolol Succinate [Toprol XL] 50 mg PO DAILY #30 tab 05/02/17 Rosuvastatin Calcium [Crestor] 40 mg PO DAILY #30 05/02/17 guaiFENesin/Dextromethorphan 5 ml PO Q6 PRN #1 ml 06/01/17 [Q-Tussin Dm 10 MG/5 Ml-100 MG/5 Ml 120 Ml] predniSONE [predniSONE Tab] 30 mg PO DAILY tab 06/01/17 Promethazine HCl/Codeine 10 ml PO Q6 PRN #120 ml 07/29/17 [Prometh-Codein 6.25-10 mg/5 ml] - Allergies Allergies/Adverse Reactions: Allergies Allergy/AdvReac Type Severity Reaction Status Date / Time Iodinated Contrast- Oral and Allergy SHORTNESS Verified 09/04/17 20:44 IV Dye OF BREATH shrimp Allergy RASH Verified 09/04/17 13:58 seafood Allergy RASH Uncoded 07/29/17 17:31 Review of Systems ROS Statement: Except As Marked, All Systems Reviewed And Found Negative Constitutional: Positive for: Fever Cardiovascular: Negative for: Chest Pain Respiratory: Positive for: Cough (mild). Negative for: Shortness of Breath Gastrointestinal: Positive for: Vomiting (NBNB), Abdominal Pain (upper), Diarrhea (watery). Negative for: Hematochezia, Hematemesis Physical Exam - Reviewed Nursing Documentation Reviewed: Yes Vital Signs Reviewed: Yes - Physical Exam Appears: Positive for: Non-toxic, Uncomfortable Head Exam: Positive for: ATRAUMATIC, NORMAL INSPECTION, NORMOCEPHALIC Skin: Positive for: Normal Color Eye Exam: Positive for: Normal appearance, EOMI, PERRL ENT: Positive for: Normal ENT Inspection, Pharynx Is (within normal limits), TM Is/Are (clear bilaterally). Negative for: Pharyngeal Erythema Neck: Positive for: Normal, Supple Cardiovascular/Chest: Positive for: Chest Non Tender, Tachycardia, Other ( regular rate). Negative for: Regular Rate, Rhythm, Murmur Respiratory: Positive for: Normal Breath Sounds. Negative for: Decreased Breath Sounds, Respiratory Distress Gastrointestinal/Abdominal: Positive for: Soft, Tenderness (epigastric). Negative for: Distended Back: Positive for: Normal Inspection. Negative for: L CVA Tenderness, R CVA Tenderness Extremity: Positive for: Normal ROM (upper/lower). Negative for: Pedal Edema ( bilateral) Neurologic/Psych: Positive for: Alert (x3), Oriented - Laboratory Results Result Diagrams: 09/05/17 05:25 09/05/17 05:25 - ECG O2 Sat by Pulse Oximetry: 95 (RA) Pulse Ox Interpretation: Normal Medical Decision Making Medical Decision Making: Initial Impression: Abdominal pain with vomiting and diarrhea Differential Diagnosis: Acute gastroenteritis; Peptic ulcer disease; Pancreatitis; Colitis; Diverticulitis; Sepsis; Biliary disease Initial Plan: * VBG shock panel * CT ABD/pelvis with IV contrast * CMP * Lipase * Urine dipstick * CBC * CXR * Morphine 4mg IVP * NS 1,000ml IV per 1,000mls/hr * Pepcid 20mg IVP * Tylenol 650mg PO * Zofran 8mg PO * Blood culture * Influenza A B * US ABD Time: 1700 Patient to be signed out to Dr. Gandara pending labs, US abdomen, and CT studies. Scribe Attestation: Documented by Maru Jones, acting as a scribe for Sierra Taylor MD Provider Scribe Attestation: All medical record entries made by the Scribe were at my direction and personally dictated by me. I have reviewed the chart and agree that the record accurately reflects my personal performance of the history, physical exam, medical decision making, and the department course for this patient. I have also personally directed, reviewed, and agree with the discharge instructions and disposition. Disposition - Clinical Impression Clinical Impression: Abdominal pain in female, Vomiting and diarrhea - Patient ED Disposition Is Patient to be Admitted: Transfer of Care - Disposition Disposition: Transfer of Care Disposition Time: 17:00 Condition: STABLE Patient Signed Over To: Tha Gandara III Handoff Comments: pending labs, US abdomen, and CT studies.
--- NOTE | 2017-09-04 16:01 | RAD ---
HISTORY: Fever and cough. COMPARISON: Comparison made with chest radiograph 07/29/2017 FINDINGS: LUNGS: Suspect minor bibasilar atelectasis PLEURA: No significant pleural effusion identified, no pneumothorax apparent. CARDIOVASCULAR: Heart size is upper limits of normal/ borderline enlarged. OSSEOUS STRUCTURES: No significant abnormalities. VISUALIZED UPPER ABDOMEN: Normal. OTHER FINDINGS: None. IMPRESSION: Suspect minor bibasilar atelectasis.
[2017-09-04 16:14] LABS: LYMPHOCYTE 2 % (20-50); MONOCYTE 6 % (0-10); NEUTROPHIL 92 % (42-75); PLATELET ESTIMATE NORMAL (NORMAL); TOTAL CELLS COUNTED 100
[2017-09-04] MEDS ORDERED: Iohexol 300 100 ML IJ ONE (16:17)
[2017-09-04 16:22] LABS: ALB/GLOB RATIO 1.2 (1.0-2.1); ALBUMIN 4.1 g/dL (3.5-5.0); ALT/SGPT 28 U/L (9-52); AST/SGOT 35 U/L (14-36); BLOOD UREA NITROGEN 9 mg/dl (7-17); CALCIUM 9.2 mg/dL (8.4-10.2); GFR AFRICAN-AMERICAN > 60; GFR NON-AFRICAN AMERICAN > 60; LIPASE 61 U/L (23-300)
--- NOTE | 2017-09-04 17:26 | CT ---
PROCEDURE: CT scan abdomen 09/04/2017 HISTORY: Epigastric pain vomiting fever COMPARISON: Comparison made with CT scan abdomen pelvis dated 04/30/2017 TECHNIQUE: Contiguous axial images of the abdomen and pelvis performed of following intravenous injection of approximately 90 cc Omnipaque 300 contrast material. Jarocho. Coronal and Sagittal reformats generated. Radiation dose: Total exam DLP = . This CT exam was performed using one or more of the following dose reduction techniques: Automated exposure control, adjustment of the mA and/or kV according to patient size, and/or use of iterative reconstruction technique. FINDINGS: LOWER THORAX: Mild passive atelectasis both lower lung zones. No focal consolidation. No effusion or basilar pneumothorax. There is a small hiatal hernia. Heart size is within range of normal. No significant pericardial effusion. LIVER: Liver is upper limits of normal also measuring nearly 19 cm in CC dimension. Very minor diffuse fatty hepatic infiltration. No obvious hepatic mass collection or calcification. . GALLBLADDER AND BILE DUCTS: The gallbladder is physiologically distended. No obvious intraluminal gallbladder calculi. PANCREAS: The pancreas appears somewhat atrophic and fatty replaced. No obvious pancreatic mass collection calcification or significant ductal dilatation. SPLEEN: The spleen exhibits normal size and attenuation pattern without mass collection or calcification. ADRENALS: There are no adrenal lesions KIDNEYS AND URETERS: . Kidneys demonstrate symmetric nephrograms. No evidence of nephrolithiasis or hydronephrosis. There are several small low-attenuation foci seen scattered about the upper, mid and lower pole of the left kidney too small to characterize though the statistically likely representing small cysts. Followup renal ultrasound could be performed for further evaluation and confirmation if necessary. BLADDER: Urinary bladder is incompletely which in part account for thick-walled appearance REPRODUCTIVE: Resected changes of hysterectomy again noted. APPENDIX: Unremarkable. BOWEL: Evaluation of the bowel is limited due to the lack of oral contrast material. Stomach is incompletely distended which in part accounts for thick-walled appearance. Possibility of a gastritis not excluded. Visualized loops of small bowel exhibit normal contour and caliber. No evidence of acute mechanical small bowel obstruction. There appears to be liquid stool throughout most of the colon. Rule out diarrheal illness. No definitive abnormal mural wall thickening. There does appear to be scattered colonic diverticula the bulk of which arise from the sigmoid and distal descending colon. No radiographic evidence of acute diverticulitis. PERITONEUM: Unremarkable. No fluid collection. No free air. Medium sized fat containing umbilical hernia. There are also small fat containing bilateral inguinal hernias. LYMPH NODES: Unremarkable. No enlarged lymph nodes. VASCULATURE: Unremarkable. No aortic aneurysm. BONES: Mild multilevel degenerative spondylosis of the lower thoracic and lumbar spine. Degenerative osteoarthritis both hip joints OTHER FINDINGS: None. IMPRESSION: Liquid stool seen throughout most of the colon suggesting at ascending some of the transverse and proximal descending colon suggesting a diarrheal illness. Clinical correlation recommended. Diverticulosis without radiographic evidence of acute diverticulitis. There are fat containing inguinal and umbilical hernias as outlined above. Multiple low-attenuation foci left kidney too small to characterize though likely representing small left renal cyst. Mild fatty hepatic infiltration. See above discussion for additional findings and details.
[2017-09-04] MEDS ORDERED: DiphenhydrAMINE 50 mg/ml Inj IV STA (17:44)
[2017-09-04] MEDS ORDERED: MethylPREDNISolone 40 mg Vial ONE (17:46)
--- NOTE | 2017-09-04 19:02 | ED PDOC ---
- Laboratory Results Result Diagrams: 09/06/17 05:40 09/06/17 05:40 - ECG O2 Sat by Pulse Oximetry: 96 Medical Decision Making Medical Decision Making: recd 5pm pending imaging approx 20min following CT scan w IV contrast patient became pruritic with some sensation of throat closing and chest tightness. Benadryl and Solumedrol ordered On exam airway patent, lungs clear, minimal diffuse erythematous rash Accession No. : [id number] Patient Name / ID : FEDERICA CASTAÑEDA / [id number] Exam Date : 09/04/2017 16:42:17 ( Approved ) Study Comment : Sex / Age : F / 76Y Creator : Charles Aggarwal MD Dictator : Wood Hacker : Field Machinist : Charles Aggarwal MD Approver2 : Report Date : 09/04/2017 17:25:20 My Comment : PROCEDURE: CT scan abdomen 09/04/2017 HISTORY: Epigastric pain vomiting fever COMPARISON: Comparison made with CT scan abdomen pelvis dated 04/30/2017 TECHNIQUE: Contiguous axial images of the abdomen and pelvis performed of following intravenous injection of approximately 90 cc Omnipaque 300 contrast material. Jarocho. Coronal and Sagittal reformats generated. Radiation dose: Total exam DLP = . This CT exam was performed using one or more of the following dose reduction techniques: Automated exposure control, adjustment of the mA and/or kV according to patient size, and/or use of iterative reconstruction technique. FINDINGS: LOWER THORAX: Mild passive atelectasis both lower lung zones. No focal consolidation. No effusion or basilar pneumothorax. There is a small hiatal hernia. Heart size is within range of normal. No significant pericardial effusion. LIVER: Liver is upper limits of normal also measuring nearly 19 cm in CC dimension. Very minor diffuse fatty hepatic infiltration. No obvious hepatic mass collection or calcification. . GALLBLADDER AND BILE DUCTS: The gallbladder is physiologically distended. No obvious intraluminal gallbladder calculi. PANCREAS: The pancreas appears somewhat atrophic and fatty replaced. No obvious pancreatic mass collection calcification or significant ductal dilatation. SPLEEN: The spleen exhibits normal size and attenuation pattern without mass collection or calcification. ADRENALS: There are no adrenal lesions KIDNEYS AND URETERS: . Kidneys demonstrate symmetric nephrograms. No evidence of nephrolithiasis or hydronephrosis. There are several small low-attenuation foci seen scattered about the upper, mid and lower pole of the left kidney too small to characterize though the statistically likely representing small cysts. Followup renal ultrasound could be performed for further evaluation and confirmation if necessary. BLADDER: Urinary bladder is incompletely which in part account for thick-walled appearance REPRODUCTIVE: Resected changes of hysterectomy again noted. APPENDIX: Unremarkable. BOWEL: Evaluation of the bowel is limited due to the lack of oral contrast material. Stomach is incompletely distended which in part accounts for thick-walled appearance. Possibility of a gastritis not excluded. Visualized loops of small bowel exhibit normal contour and caliber. No evidence of acute mechanical small bowel obstruction. There appears to be liquid stool throughout most of the colon. Rule out diarrheal illness. No definitive abnormal mural wall thickening. There does appear to be scattered colonic diverticula the bulk of which arise from the sigmoid and distal descending colon. No radiographic evidence of acute diverticulitis. PERITONEUM: Unremarkable. No fluid collection. No free air. Medium sized fat containing umbilical hernia. There are also small fat containing bilateral inguinal hernias. LYMPH NODES: Unremarkable. No enlarged lymph nodes. VASCULATURE: Unremarkable. No aortic aneurysm. BONES: Mild multilevel degenerative spondylosis of the lower thoracic and lumbar spine. Degenerative osteoarthritis both hip joints OTHER FINDINGS: None. IMPRESSION: Liquid stool seen throughout most of the colon suggesting at ascending some of the transverse and proximal descending colon suggesting a diarrheal illness. Clinical correlation recommended. Diverticulosis without radiographic evidence of acute diverticulitis. There are fat containing inguinal and umbilical hernias as outlined above. Multiple low-attenuation foci left kidney too small to characterize though likely representing small left renal cyst. Mild fatty hepatic infiltration. See above discussion for additional findings and details. awaiting US abdomen, admit Obs Dr Cazares given fever, GI symptoms, elderly, and reaction to IV contrast dye endorse US abdomen to Dr Benton Disposition - Clinical Impression Clinical Impression: Abdominal pain in female, Vomiting and diarrhea - POA Present On Arrival: None - Disposition Disposition: Transfer of Care Disposition Time: 19:10 Condition: STABLE
[2017-09-04] MEDS ORDERED: methylPREDNISolone 20 MG in Sodium Chloride 0.9% 50 ML IV SCH (23:30)
[2017-09-04] MEDS ORDERED: MethylPREDNISolone 40 mg Vial IVP ONE (23:30)
[2017-09-04] MEDS: Dextrose 5%/0.45% NS 1,000 ML IV SCH (23:31)
[2017-09-04] MEDS: Ciprofloxacin 400mg/200ml D5W 400 MG/200 ML BAG IVPB SCH (23:50)
[2017-09-05] MEDS ORDERED: Nitroglycerin 2% Ointment Foilpak UD TOP SCH
[2017-09-05] MEDS ORDERED: PROMETHAZINE HCL PO PRN (00:17)
[2017-09-05] MEDS ORDERED: CODEINE PO PRN (00:17)
[2017-09-05] MEDS: Nitroglycerin 2% Ointment Foilpak UD TOP SCH ×3 (00:53→12:30)
[2017-09-05] MEDS: metroNIDAZOLE 500mg/100ml NS 100 ML IVPB SCH ×3 (01:49→18:28)
[2017-09-05 06:47] LABS: HEMOGLOBIN 13.8 g/dL (12.0-16.0); MEAN CELL VOLUME 87.9 fl (81.0-99.0); MEAN CORPUSCULAR HEMOGLOBIN 29.8 pg (27.0-31.0); MEAN CORPUSCULAR HGB CONC 33.9 g/dL (33.0-37.0); RBC 4.64 Mil/uL (3.80-5.20); RED CELL DISTRIBUTION WIDTH 14.3 % (11.5-14.5); WHITE BLOOD COUNT 4.9 K/uL (4.8-10.8)
[2017-09-05 06:56] LABS: LDL CHOLESTEROL 126 mg/dL (0-129)
[2017-09-05 06:58] LABS: ALB/GLOB RATIO 1.1 (1.0-2.1); ALBUMIN 3.6 g/dL (3.5-5.0); ALT/SGPT 24 U/L (9-52); AST/SGOT 23 U/L (14-36); BLOOD UREA NITROGEN 9 mg/dl (7-17); CALCIUM 8.9 mg/dL (8.4-10.2); GFR AFRICAN-AMERICAN > 60; GFR NON-AFRICAN AMERICAN > 60; HDL CHOLESTEROL 35 MG/DL (30-70)
[2017-09-05 06:59] LABS: T4 5.56 ug/dl (5.5-11.0)
[2017-09-05 07:00] LABS: PROTHROMBIN TIME 11.6 Seconds (9.8-13.1)
[2017-09-05] MEDS: Metoprolol Succinate 50 mg XL Tab PO SCH (08:50)
[2017-09-05] MEDS: Ciprofloxacin 400mg/200ml D5W 400 MG/200 ML BAG IVPB SCH ×2 (08:52→21:28)
[2017-09-05] MEDS ORDERED: methylPREDNISolone 20 MG in Sodium Chloride 0.9% 50 ML IV SCH (09:00)
--- NOTE | 2017-09-05 09:49 | CARD ---
APPROVED REPORT EKG Measurement Heart [id number] <Conclusion> Normal sinus rhythm Low voltage QRS Inferior infarct, age undetermined Abnormal ECG
--- NOTE | 2017-09-05 09:56 | CARD ---
APPROVED REPORT EKG Measurement Heart [id number] <Conclusion> Sinus tachycardia Left anterior fascicular block Possible inferior infarct, age undetermined Possible Anterolateral infarct, age undetermined Abnormal ECG
--- NOTE | 2017-09-05 10:20 | US ---
HISTORY: epigastric pain COMPARISON: Limited abdomen ultrasound exam 01/20/2015 and abdomen and pelvis [address] exam 09/04/2017. TECHNIQUE: Sonographic evaluation of the right upper quadrant of the abdomen. FINDINGS: LIVER: Measures 14.5 cm in length. Normal echogenicity of the liver parenchyma. Subtle fatty liver pattern is more appreciated in the CT noted above from 09/04/2017 and current ultrasound images No mass. No intrahepatic bile duct dilatation. GALLBLADDER: Unremarkable. No gallstones. COMMON BILE DUCT: Measures 4.7 mm. No stones. No dilatation. PANCREAS: The body of pancreas appears unremarkable with the remainder obscured by overlying bowel. RIGHT KIDNEY: Measures 10.0 cm in length. Normal echogenicity. No calculus, mass, or hydronephrosis. AORTA: The visualized abdominal aorta appears normal in caliber and is patent. IVC: The visualized inferior vena cava appears patent OTHER FINDINGS: None . IMPRESSION: Partial imaging of the pancreas. Otherwise, unremarkable limited abdomen ultrasound examination as discussed above. Possible diminished hepatic steatosis compared prior abdomen ultrasound exam 01/20/2015.
[2017-09-05] MEDS: MethylPREDNISolone 40 mg Vial IVP SCH (10:33)
[2017-09-05] MEDS: Enoxaparin 40 mg Syringe SC SCH (10:35)
--- NOTE | 2017-09-05 14:14 | CP.PCM.HP ---
History of Present Illness - History of Present Illness History of Present Illness: CC: Abdominal pain. 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 Pt c/o of abdominal pain, epigastric area, pain is constant, severe intensity 10 :10, non radiated, associated to vomiting, non bloody, non bilious, watery diarrhea and and fever, in ER 100.4F. Worsening symptoms: Weaknesses, dry cough, back pain, Hx Peptic Ulcer Disease, Pancreatitis. Aggravated factor: Food. Pt denied: SOB, bloody cough, CP, palpitations, syncope, dizziness, numbness, urinary symptoms, bloody stool, sick contact, recent travel out of [facility]. CXR: Suspected minor bibasilar atelectasis. EKG on 09/05/17: NSR, inferior infarct, age undetermined. Abb/Pelv. CT: Liquid stool seen thought most of the colon suggesting at ascending some of the transverse and proximal descending colon suggesting a diarrheal illness. Diverticulosis without evidence of acute Diverticulitis. There are fat containing inguinal and umbilical hernia. Mild fatty hepatic infiltration Present on Admission - Present on Admission Any Indicators Present on Admission: No Review of Systems - Constitutional Constitutional: Weakness - EENT Eyes: Requires Corrective Lenses Ears: Other (negative) Nose/Mouth/Throat: Other (negative) - Cardiovascular Cardiovascular: Other (negative) - Respiratory Respiratory: Cough - Gastrointestinal Gastrointestinal: Abdominal Pain, Diarrhea, Vomiting - Genitourinary Genitourinary: Other (negative) - Musculoskeletal Musculoskeletal: Arthralgias, Back Pain - Integumentary Integumentary: Other (negative) - Neurological Neurological: Other (negative) - Psychiatric Psychiatric: Other (negative) - Endocrine Endocrine: Other (negative) - Hematologic/Lymphatic Hematologic: Other (negative) Past Patient History - Infectious Disease Hx of Infectious Diseases: None - Past Medical History & Family History Past Medical History?: Yes Pertinent Family History: Unknown - Past Social History Smoking Status: Never Smoked Alcohol: None Drugs: Denies Home Situation {Lives}: With Family - CARDIAC Hx Cardiac Disorders: Yes Hx Hypercholesterolemia: Yes Hx Hypertension: Yes - PULMONARY Hx Respiratory Disorders: Yes Hx Bronchitis: Yes Hx Chronic Obstructive Pulmonary Disease (COPD): Yes - NEUROLOGICAL Hx Neurological Disorder: No - HEENT Hx HEENT Problems: Yes Other/Comment: Use Eyeglasses - RENAL Hx Chronic Kidney Disease: No - ENDOCRINE/METABOLIC Hx Endocrine Disorders: No - HEMATOLOGICAL/ONCOLOGICAL Hx Blood Disorders: No Hx Human Immunodeficiency Virus (HIV): No - INTEGUMENTARY Hx Dermatological Problems: No - MUSCULOSKELETAL/RHEUMATOLOGICAL Hx Musculoskeletal Disorders: Yes Hx Arthritis: Yes Hx Falls: Yes - GASTROINTESTINAL Hx Gastrointestinal Disorders: Yes Hx Gastritis: Yes Hx Pancreatitis: Yes - GENITOURINARY/GYNECOLOGICAL Hx Genitourinary Disorders: Yes - PSYCHIATRIC Hx Psychophysiologic Disorder: Yes Hx Anxiety: Yes Hx Substance Use: No - SURGICAL HISTORY Hx Surgeries: Yes Hx Appendectomy: Yes - ANESTHESIA Hx Anesthesia: Yes Hx Anesthesia Reactions: No Hx Malignant Hyperthermia: No Has any member of the family had a problem w/ anesthesia?: No Meds Allergies/Adverse Reactions: Allergies Allergy/AdvReac Type Severity Reaction Status Date / Time Iodinated Contrast- Oral and Allergy SHORTNESS Verified 09/04/17 20:44 IV Dye OF BREATH shrimp Allergy RASH Verified 09/04/17 13:58 seafood Allergy RASH Uncoded 07/29/17 17:31 Physical Exam - Constitutional Appears: No Acute Distress - Head Exam Head Exam: NORMAL INSPECTION - Eye Exam Eye Exam: PERRL - ENT Exam ENT Exam: Normal Exam - Neck Exam Neck exam: Positive for: Normal Inspection - Respiratory Exam Respiratory Exam: Decreased Breath Sounds (at bases) - Cardiovascular Exam Cardiovascular Exam: REGULAR RHYTHM - GI/Abdominal Exam GI & Abdominal Exam: Normal Bowel Sounds, Soft, Tenderness (epigastric area). absent: Distended, Guarding, Rebound - Extremities Exam Extremities exam: Positive for: normal inspection - Back Exam Back exam: NORMAL INSPECTION - Neurological Exam Neurological exam: Alert, Oriented x3 Additional comments: No motor sensory deficit. - Psychiatric Exam Psychiatric exam: Normal Mood - Skin Skin Exam: Warm Results - Vital Signs Recent Vital Signs: Last Vital Signs Temp 98.0 F 09/05/17 07:38 Pulse 96 H 09/05/17 08:50 Resp 18 09/05/17 07:38 BP 133/76 09/05/17 08:50 Pulse Ox 98 09/05/17 07:38 reviewed Cindy - Labs Result Diagrams: 09/06/17 05:40 09/06/17 05:40 Labs: Laboratory Results - last 24 hr 09/04/17 09/04/17 09/04/17 15:03 15:03 15:26 WBC 8.3 RBC 4.90 Hgb 14.8 Hct 43.7 MCV 89.2 MCH 30.3 MCHC 34.0 RDW 14.4 Plt Count 258 MPV 8.3 Neut % (Auto) 92.2 H Lymph % (Auto) 3.9 L [place] % (Auto) 3.4 Eos % (Auto) 0.2 Baso % (Auto) 0.3 Neut # (Auto) 7.6 H Lymph # (Auto) 0.3 L [place] # (Auto) 0.3 Eos # (Auto) 0.0 Baso # (Auto) 0.0 Neutrophils % (Manual) 92 H Lymphocytes % (Manual) 2 L Monocytes % (Manual) 6 Platelet Estimate Normal RBC Morphology Normal PT INR APTT pO2 30 VBG pH 7.42 VBG pCO2 39 L VBG HCO3 24.5 VBG Total CO2 26.5 VBG O2 Sat (Calc) 66.6 H VBG Base Excess 0.8 VBG Potassium 4.0 Glucose 122 H Lactate 1.2 FiO2 21.0 Sodium 139 136.0 Potassium 4.0 Chloride 102 102.0 Carbon Dioxide 24 Anion Gap 17 BUN 9 Creatinine 0.7 Est GFR ( Amer) > 60 Est GFR (Non-Af Amer) > 60 Random Glucose 123 H Calcium 9.2 Total Bilirubin 0.5 AST 35 ALT 28 Alkaline Phosphatase 91 Troponin I Total Protein 7.7 Albumin 4.1 Globulin 3.6 Albumin/Globulin Ratio 1.2 Triglycerides Cholesterol LDL Cholesterol Direct HDL Cholesterol Lipase 61 Thyroxine (T4) TSH 3rd Generation Venous Blood Potassium 4.0 Influenza Typ A,B (EIA) 09/04/17 09/05/17 09/05/17 15:45 00:04 05:25 WBC 4.9 RBC 4.64 Hgb 13.8 Hct 40.8 MCV 87.9 MCH 29.8 MCHC 33.9 RDW 14.3 Plt Count 276 MPV Neut % (Auto) Lymph % (Auto) [place] % (Auto) Eos % (Auto) Baso % (Auto) Neut # (Auto) Lymph # (Auto) [place] # (Auto) Eos # (Auto) Baso # (Auto) Neutrophils % (Manual) Lymphocytes % (Manual) Monocytes % (Manual) Platelet Estimate RBC Morphology PT INR APTT pO2 VBG pH VBG pCO2 VBG HCO3 VBG Total CO2 VBG O2 Sat (Calc) VBG Base Excess VBG Potassium Glucose Lactate FiO2 Sodium Potassium Chloride Carbon Dioxide Anion Gap BUN Creatinine Est GFR ( Amer) Est GFR (Non-Af Amer) Random Glucose Calcium Total Bilirubin AST ALT Alkaline Phosphatase Troponin I < 0.0120 Total Protein Albumin Globulin Albumin/Globulin Ratio Triglycerides Cholesterol LDL Cholesterol Direct HDL Cholesterol Lipase Thyroxine (T4) TSH 3rd Generation Venous Blood Potassium Influenza Typ A,B (EIA) Negative for flu a/b 09/05/17 09/05/17 09/05/17 05:25 05:25 10:36 WBC RBC Hgb Hct MCV MCH MCHC RDW Plt Count MPV Neut % (Auto) Lymph % (Auto) [place] % (Auto) Eos % (Auto) Baso % (Auto) Neut # (Auto) Lymph # (Auto) [place] # (Auto) Eos # (Auto) Baso # (Auto) Neutrophils % (Manual) Lymphocytes % (Manual) Monocytes % (Manual) Platelet Estimate RBC Morphology PT 11.6 INR 1.0 APTT 38.0 H pO2 VBG pH VBG pCO2 VBG HCO3 VBG Total CO2 VBG O2 Sat (Calc) VBG Base Excess VBG Potassium Glucose Lactate FiO2 Sodium 140 Potassium 3.9 Chloride 104 Carbon Dioxide 25 Anion Gap 15 BUN 9 Creatinine 0.7 Est GFR ( Amer) > 60 Est GFR (Non-Af Amer) > 60 Random Glucose 212 H Calcium 8.9 Total Bilirubin 0.3 AST 23 ALT 24 Alkaline Phosphatase 79 Troponin I < 0.0120 Total Protein 6.9 Albumin 3.6 Globulin 3.2 Albumin/Globulin Ratio 1.1 Triglycerides 60 D Cholesterol 178 LDL Cholesterol Direct 126 HDL Cholesterol 35 Lipase Thyroxine (T4) 5.56 TSH 3rd Generation 0.77 Venous Blood Potassium Influenza Typ A,B (EIA) reviewed J.P. - EKG Data EKG comments: reviewed J.P. - Imaging and Cardiology Chest x-ray Status: Report reviewed by me (J.P.) CT scan - abdomen Status: Report reviewed by me (J.P.) CT scan - pelvis Status: Report reviewed by me (J.P.) US - abdomen Status: Report reviewed by me (J.P.) Assessment & Plan (1) Abdominal pain Status: Acute Priority: High (2) HTN (hypertension) Status: Chronic Priority: Medium (3) COPD (chronic obstructive pulmonary disease) Status: Chronic Priority: Medium (4) Allergic to IV contrast Priority: High - Assessment and Plan (Free Text) Plan: Continue with Cipro, Flagyl, Protonix IV, Duoneb,Solumedrol, Phenergan with Co. , Lovenox, Metropolol, NPO diet, GI consult. with Co, - Date & Time Date: 09/05/17 Time: 12:00
[2017-09-05] MEDS: Albuterol-Ipratrop 3 mg / 0.5 (3 ml) UD INH SCH ×2 (15:29→19:26)
[2017-09-05] MEDS: Promethazine/Cod 6.25mg-10mg/5ml Syr UD PO PRN (18:28)
[2017-09-06] MEDS: metroNIDAZOLE 500mg/100ml NS 100 ML IVPB SCH ×3 (00:14→17:33)
[2017-09-06] MEDS: Promethazine/Cod 6.25mg-10mg/5ml Syr UD PO PRN ×4 (00:14→23:32)
[2017-09-06 06:32] LABS: HEMOGLOBIN 13.3 g/dL (12.0-16.0); MEAN CELL VOLUME 88.5 fl (81.0-99.0); MEAN CORPUSCULAR HEMOGLOBIN 29.8 pg (27.0-31.0); MEAN CORPUSCULAR HGB CONC 33.6 g/dL (33.0-37.0); RBC 4.45 Mil/uL (3.80-5.20); RED CELL DISTRIBUTION WIDTH 14.5 % (11.5-14.5); WHITE BLOOD COUNT 6.4 K/uL (4.8-10.8)
[2017-09-06 07:09] LABS: BLOOD UREA NITROGEN 9 mg/dl (7-17); CALCIUM 9.1 mg/dL (8.4-10.2); GFR AFRICAN-AMERICAN > 60; GFR NON-AFRICAN AMERICAN > 60
[2017-09-06] MEDS: Albuterol-Ipratrop 3 mg / 0.5 (3 ml) UD INH SCH ×4 (07:47→19:02)
[2017-09-06] MEDS: Dextrose 5%/0.45% NS 1,000 ML IV SCH (09:06)
[2017-09-06] MEDS: Metoprolol Succinate 50 mg XL Tab PO SCH (09:08)
[2017-09-06] MEDS: Enoxaparin 40 mg Syringe SC SCH (09:08)
[2017-09-06] MEDS: Ciprofloxacin 400mg/200ml D5W 400 MG/200 ML BAG IVPB SCH ×2 (09:09→21:03)
[2017-09-06] MEDS: MethylPREDNISolone 40 mg Vial IVP SCH (09:18)
--- NOTE | 2017-09-06 12:48 | CON ---
DATE: 09/05/2017 REFERRING DOCTOR: Aric Cazares MD REASON FOR CONSULTATION: Diarrhea. HISTORY OF PRESENT ILLNESS: This is a 76-year-old female with a history of hypertension who also comes in for abdominal pain, discomfort and vomiting and watery diarrhea experienced for the past 2 to 3 days. Diarrhea is slightly improved, but still persists, the pain is there but improving, the nausea is gone. Currently, the patient is lying in bed comfortable, in no apparent distress. PAST MEDICAL HISTORY: As above. PAST SURGICAL HISTORY: As above. MEDICATIONS: Reviewed. REVIEW OF SYSTEMS: All other systems have been reviewed, negative apart from the HPI. PHYSICAL EXAMINATION: VITAL SIGNS: During the hospital, grossly unremarkable. GENERAL: This is a pleasant elderly-appearing female, lying comfortably in bed. HEENT: Head is normocephalic and atraumatic. Eyes: Pupils are equally round and reactive to light bilaterally. No conjunctival pallor or icterus. NECK: Supple. Normal range of motion. No lymphadenopathy appreciated. LUNGS: Coarse breath sounds bilaterally. HEART: S1 and S2, regular rate and rhythm. No murmurs appreciated. ABDOMEN: Soft, some discomfort. No rebound. No guarding. RECTAL: Deferred. EXTREMITIES: Pulses present bilaterally. SKIN: Warm, dry and intact NEUROLOGIC: A&O x3. LABORATORY DATA: Labs have been reviewed. WBC is 4.9, hemoglobin 13.9, and hematocrit 40.8. LFTs are essentially remarkable. CAT scan of the abdomen and pelvis demonstrates colon suggesting diarrheal illness, inguinal hernia is present. ASSESSMENT AND PLAN: This is a 76-year-old female with colitis/gastroenteritis. Advance diet as tolerated. Stool studies pending. We will follow up the patient with you. Thank you for this consult. Tha Sharp MD/ PhD cc: Aric Cazares MD
--- NOTE | 2017-09-06 15:18 | CP.PCM.PN ---
Subjective - Date & Time of Evaluation Date of Evaluation: 09/06/17 Time of Evaluation: 11:00 - Subjective Subjective: F/U Abdominal pain. Pt with no diarrhea from yesterday, no BM today, having dry cough, requesting cough medication. Objective - Vital Signs/Intake and Output Vital Signs (last 24 hours): Temp Pulse Resp BP Pulse Ox 98.0 F 64 18 132/77 96 09/06/17 07:44 09/06/17 09:08 09/06/17 07:44 09/06/17 09:08 09/06/17 14:43 - Medications Medications: Current Medications Acetaminophen (Tylenol 325mg Tab) 650 mg PO Q6 PRN PRN Reason: Headache Last Admin: 09/05/17 09:35 Dose: 650 mg Albuterol/Ipratropium (Duoneb 3 Mg/0.5 Mg (3 Ml) Ud) 3 ml INH RQID [facility] Last Admin: 09/06/17 11:33 Dose: 3 ml Enoxaparin Sodium (Lovenox) 40 mg SC DAILY YOJANA PRN Reason: Protocol Last Admin: 09/06/17 09:08 Dose: 40 mg Ciprofloxacin (Cipro 400mg/200ml Dsw) 400 mg in 200 mls @ 200 mls/hr IVPB Q12 YOJANA PRN Reason: Protocol Last Admin: 09/06/17 09:09 Dose: 200 mls/hr Metronidazole (Flagyl 500mg/100ml Ns) 100 mls @ 100 mls/hr IVPB Q8 [facility]OJANA PRN Reason: Protocol Last Admin: 09/06/17 09:07 Dose: 100 mls/hr Methylprednisolone (Solu-Medrol) 20 mg IVP DAILY [facility] Last Admin: 09/06/17 09:18 Dose: 20 mg Metoprolol Succinate (Toprol Xl) 50 mg PO DAILY [facility] Last Admin: 09/06/17 09:08 Dose: 50 mg Pantoprazole Sodium (Protonix Inj) 40 mg IVP DAILY [facility] Last Admin: 09/06/17 09:08 Dose: 40 mg Promethazine HCl/Codeine (Phenergan/Codeine Oral Syrup) 10 ml PO Q6 PRN PRN Reason: SEVERE COUGH ONLY Last Admin: 09/06/17 09:06 Dose: 10 ml - Labs Labs: 09/06/17 05:40 09/06/17 05:40 PT 11.6 Seconds (9.8-13.1) 09/05/17 05:25 INR 1.0 (0.9-1.2) 09/05/17 05:25 APTT 38.0 Seconds (25.6-37.1) H 09/05/17 05:25 - Constitutional Appears: No Acute Distress - Head Exam Head Exam: NORMAL INSPECTION - Eye Exam Eye Exam: PERRL - ENT Exam ENT Exam: Normal Exam - Neck Exam Neck Exam: Normal Inspection - Respiratory Exam Respiratory Exam: Decreased Breath Sounds (at bases), Rhonchi (few) - Cardiovascular Exam Cardiovascular Exam: REGULAR RHYTHM - GI/Abdominal Exam GI & Abdominal Exam: Soft, Normal Bowel Sounds. absent: Tenderness - Extremities Exam Extremities Exam: Normal Inspection - Back Exam Back Exam: NORMAL INSPECTION - Neurological Exam Neurological Exam: Alert, Oriented x3. absent: Motor Sensory Deficit - Psychiatric Exam Psychiatric exam: Normal Mood - Skin Skin Exam: Warm Assessment and Plan (1) Abdominal pain Status: Acute (2) HTN (hypertension) Status: Chronic (3) COPD (chronic obstructive pulmonary disease) Status: Chronic - Assessment and Plan (Free Text) Plan: Trial of regular diet today, continue current Tx.
[2017-09-07] MEDS: metroNIDAZOLE 500mg/100ml NS 100 ML IVPB SCH ×3 (00:24→16:54)
[2017-09-07] MEDS: Albuterol-Ipratrop 3 mg / 0.5 (3 ml) UD INH SCH ×4 (07:26→19:36)
[2017-09-07 08:12] VITALS: RESP 20
[2017-09-07] MEDS: Ciprofloxacin 400mg/200ml D5W 400 MG/200 ML BAG IVPB SCH ×2 (08:49→21:21)
[2017-09-07] MEDS: Enoxaparin 40 mg Syringe SC SCH (08:50)
[2017-09-07] MEDS: MethylPREDNISolone 40 mg Vial IVP SCH (09:04)
[2017-09-07] MEDS: Metoprolol Succinate 50 mg XL Tab PO SCH (09:08)
[2017-09-07 16:03] VITALS: BP 141/77; PULSE 88; TEMP 97.7; O2SAT 98
--- NOTE | 2017-09-07 17:22 | CP.PCM.PN ---
Subjective - Date & Time of Evaluation Date of Evaluation: 09/07/17 Time of Evaluation: 10:00 - Subjective Subjective: pt reports constipation Objective - Vital Signs/Intake and Output Vital Signs (last 24 hours): Temp Pulse Resp BP Pulse Ox 97.7 F 88 20 141/77 98 09/07/17 16:03 09/07/17 16:03 09/07/17 16:03 09/07/17 16:03 09/07/17 16:03 - Medications Medications: Current Medications Acetaminophen (Tylenol 325mg Tab) 650 mg PO Q6 PRN PRN Reason: Headache Last Admin: 09/05/17 09:35 Dose: 650 mg Albuterol/Ipratropium (Duoneb 3 Mg/0.5 Mg (3 Ml) Ud) 3 ml INH RQID [facility] Last Admin: 09/07/17 15:26 Dose: 3 ml Enoxaparin Sodium (Lovenox) 40 mg SC DAILY YOJANA PRN Reason: Protocol Last Admin: 09/07/17 08:50 Dose: 40 mg Ciprofloxacin (Cipro 400mg/200ml Dsw) 400 mg in 200 mls @ 200 mls/hr IVPB Q12 [facility] PRN Reason: Protocol Last Admin: 09/07/17 08:49 Dose: 200 mls/hr Metronidazole (Flagyl 500mg/100ml Ns) 100 mls @ 100 mls/hr IVPB Q8 [facility] PRN Reason: Protocol Last Admin: 09/07/17 16:54 Dose: 100 mls/hr Lactulose (Enulose) 20 gm PO DAILY [facility] Last Admin: 09/07/17 10:56 Dose: 20 gm Methylprednisolone (Solu-Medrol) 20 mg IVP DAILY [facility] Last Admin: 09/07/17 09:04 Dose: 20 mg Metoprolol Succinate (Toprol Xl) 50 mg PO DAILY [facility] Last Admin: 09/07/17 09:08 Dose: 50 mg Pantoprazole Sodium (Protonix Inj) 40 mg IVP DAILY [facility] Last Admin: 09/07/17 09:03 Dose: 40 mg Promethazine HCl/Codeine (Phenergan/Codeine Oral Syrup) 10 ml PO Q6 PRN PRN Reason: SEVERE COUGH ONLY Last Admin: 09/06/17 23:32 Dose: 10 ml - Labs Labs: 09/06/17 05:40 09/06/17 05:40 PT 11.6 Seconds (9.8-13.1) 09/05/17 05:25 INR 1.0 (0.9-1.2) 09/05/17 05:25 APTT 38.0 Seconds (25.6-37.1) H 09/05/17 05:25 - Head Exam Head Exam: NORMOCEPHALIC - Neck Exam Neck Exam: Normal Inspection - Respiratory Exam Respiratory Exam: Clear to Ausculation Bilateral, NORMAL BREATHING PATTERN - Cardiovascular Exam Cardiovascular Exam: REGULAR RHYTHM - GI/Abdominal Exam GI & Abdominal Exam: Soft, Normal Bowel Sounds Assessment and Plan - Assessment and Plan (Free Text) Assessment: 76 yo female with colitis doing well now constipated, trial of laxatives dc planning outpt f/u
--- NOTE | 2017-09-07 17:49 | CP.PCM.DIS ---
Provider - Provider Date of Admission: 09/06/17 11:24 Attending physician: Aric Cazares MD Consults: Gastroenterology. Time Spent in preparation of Discharge (in minutes): 35 Diagnosis - Discharge Diagnosis (1) Abdominal pain Status: Acute Priority: High (2) HTN (hypertension) Status: Chronic Priority: Medium (3) COPD (chronic obstructive pulmonary disease) Status: Chronic Priority: Medium (4) Allergic to IV contrast Priority: High Hospital Course - Lab Results Lab Results: Micro Results 09/06/17 18:00 Sputum Gram Stain - Final 09/06/17 18:00 Sputum Sputum Culture - Final 09/04/17 15:05 Blood-Venous Blood Culture - Preliminary NO GROWTH AFTER 48 HOURS Most Recent Lab Values WBC 6.4 K/uL (4.8-10.8) 09/06/17 05:40 RBC 4.45 Mil/uL (3.80-5.20) 09/06/17 05:40 Hgb 13.3 g/dL (12.0-16.0) 09/06/17 05:40 Hct 39.4 % (34.0-47.0) 09/06/17 05:40 MCV 88.5 fl (81.0-99.0) 09/06/17 05:40 MCH 29.8 pg (27.0-31.0) 09/06/17 05:40 MCHC 33.6 g/dL (33.0-37.0) 09/06/17 05:40 RDW 14.5 % (11.5-14.5) 09/06/17 05:40 Plt Count 259 K/uL (130-400) 09/06/17 05:40 MPV 8.3 fl (7.2-11.7) 09/04/17 15:03 Neut % (Auto) 92.2 % (50.0-75.0) H 09/04/17 15:03 Lymph % (Auto) 3.9 % (20.0-40.0) L 09/04/17 15:03 Boyd % (Auto) 3.4 % (0.0-10.0) 09/04/17 15:03 Eos % (Auto) 0.2 % (0.0-4.0) 09/04/17 15:03 Baso % (Auto) 0.3 % (0.0-2.0) 09/04/17 15:03 Neut # (Auto) 7.6 K/uL (1.8-7.0) H 09/04/17 15:03 Lymph # (Auto) 0.3 K/uL (1.0-4.3) L 09/04/17 15:03 Boyd # (Auto) 0.3 K/uL (0.0-0.8) 09/04/17 15:03 Eos # (Auto) 0.0 K/uL (0.0-0.7) 09/04/17 15:03 Baso # (Auto) 0.0 K/uL (0.0-0.2) 09/04/17 15:03 Neutrophils % (Manual) 92 % (42-75) H 09/04/17 15:03 Lymphocytes % (Manual) 2 % (20-50) L 09/04/17 15:03 Monocytes % (Manual) 6 % (0-10) 09/04/17 15:03 Platelet Estimate Normal (NORMAL) 09/04/17 15:03 RBC Morphology Normal (NORMAL) 09/04/17 15:03 PT 11.6 Seconds (9.8-13.1) 09/05/17 05:25 INR 1.0 (0.9-1.2) 09/05/17 05:25 APTT 38.0 Seconds (25.6-37.1) H 09/05/17 05:25 pO2 30 mm/Hg (30-55) 09/04/17 15:26 VBG pH 7.42 (7.32-7.43) 09/04/17 15:26 VBG pCO2 39 mmHg (40-60) L 09/04/17 15:26 VBG HCO3 24.5 mmol/L 09/04/17 15:26 VBG Total CO2 26.5 mmol/L (22-28) 09/04/17 15:26 VBG O2 Sat (Calc) 66.6 % (40-65) H 09/04/17 15:26 VBG Base Excess 0.8 mmol/L (0.0-2.0) 09/04/17 15:26 VBG Potassium 4.0 mmol/L (3.6-5.2) 09/04/17 15:26 Sodium 136.0 mmol/L (132-148) 09/04/17 15:26 Chloride 102.0 mmol/L (98-107) 09/04/17 15:26 Glucose 122 mg/dL (65-105) H 09/04/17 15:26 Lactate 1.2 mmol/L (0.7-2.1) 09/04/17 15:26 FiO2 21.0 % 09/04/17 15:26 Sodium 144 mmol/l (132-148) 09/06/17 05:40 Potassium 3.8 MMOL/L (3.6-5.0) 09/06/17 05:40 Chloride 107 mmol/L (98-107) 09/06/17 05:40 Carbon Dioxide 24 mmol/L (22-30) 09/06/17 05:40 Anion Gap 17 (10-20) 09/06/17 05:40 BUN 9 mg/dl (7-17) 09/06/17 05:40 Creatinine 0.8 mg/dl (0.7-1.2) 09/06/17 05:40 Est GFR ( Amer) > 60 09/06/17 05:40 Est GFR (Non-Af Amer) > 60 09/06/17 05:40 Random Glucose 118 mg/dL (65-105) H 09/06/17 05:40 Calcium 9.1 mg/dL (8.4-10.2) 09/06/17 05:40 Total Bilirubin 0.3 mg/dl (0.2-1.3) 09/05/17 05:25 AST 23 U/L (14-36) 09/05/17 05:25 ALT 24 U/L (9-52) 09/05/17 05:25 Alkaline Phosphatase 79 U/L (38-126) 09/05/17 05:25 Troponin I < 0.0120 ng/mL (0.00-0.120) 09/05/17 16:10 Total Protein 6.9 G/DL (6.3-8.2) 09/05/17 05:25 Albumin 3.6 g/dL (3.5-5.0) 09/05/17 05:25 Globulin 3.2 gm/dL (2.2-3.9) 09/05/17 05:25 Albumin/Globulin Ratio 1.1 (1.0-2.1) 09/05/17 05:25 Triglycerides 60 mg/DL (0-149) D 09/05/17 05:25 Cholesterol 178 mg/dL (0-199) 09/05/17 05:25 LDL Cholesterol Direct 126 mg/dL (0-129) 09/05/17 05:25 HDL Cholesterol 35 MG/DL (30-70) 09/05/17 05:25 Lipase 61 U/L (23-300) 09/04/17 15:03 Thyroxine (T4) 5.56 ug/dl (5.5-11.0) 09/05/17 05:25 TSH 3rd Generation 0.77 mIU/ML (0.46-4.68) 09/05/17 05:25 Venous Blood Potassium 4.0 mmol/L (3.6-5.2) 09/04/17 15:26 Influenza Typ A,B (EIA) Negative for flu a/b (NEGATIVE) 09/04/17 15:45 - Date & Time of H&P Date of H&P: 09/05/17 Time of H&P: 12:00 Discharge Exam - Head Exam Head Exam: NORMOCEPHALIC - Eye Exam Eye Exam: PERRL - ENT Exam ENT Exam: Normal Exam - Neck Exam Neck exam: Normal Inspection - Respiratory Exam Respiratory Exam: Decreased Breath Sounds (at bases), Rhonchi (few) - Cardiovascular Exam Cardiovascular Exam: REGULAR RHYTHM - GI/Abdominal Exam GI & Abdominal Exam: Normal Bowel Sounds, Soft. absent: Tenderness - Extremities Exam Extremities exam: normal inspection - Back Exam Back exam: NORMAL INSPECTION - Neurological Exam Neurological exam: Alert, Oriented x3 Additional comments: No motor sensory deficit. - Psychiatric Exam Psychiatric exam: Normal Mood - Skin Skin Exam: Warm Discharge Plan - Discharge Medications Prescriptions: Lactulose [Enulose] 20 gm PO DAILY #5 udc - Follow Up Plan Condition: STABLE Disposition: HOME/ ROUTINE Patient education suggested?: Yes Instructions: Acute Abdomen (Belly Pain), Adult (DC), Nausea and Vomiting, Adult (DC), Viral Gastroenteritis, Adult (DC) Additional Instructions: hacer nixon con dobbins dr Cazares en 1 semana Referrals: Aric Cazares MD [Staff Provider] -
== END 2017-09-07 22:15 | disposition home or self-care (01) | DRG 392 ==
LOC: H.ER 13:54 → H.ERHOLD 19:18 → H.MEDSURG1 20:58 → OBSVTOIN 09-06 11:24
PROVIDERS: ADMIT Internal Medicine Pulmonary Disease; ATTEND Internal Medicine Pulmonary Disease
DX: K52.9 Noninfective gastroenteritis and colitis, unspecified (principal); J44.9 Chronic obstructive pulmonary disease, unspecified; E78.00 Pure hypercholesterolemia, unspecified; K59.00 Constipation, unspecified; I10 Essential (primary) hypertension; K29.70 Gastritis, unspecified, without bleeding; F41.9 Anxiety disorder, unspecified; Z91.041 Radiographic dye allergy status; Z91.013 Allergy to seafood

== ENCOUNTER 2017-10-02 09:01 | Emergency (ER) | payer MEDICARE ==
[2017-10-02 09:01] VITALS: BMI 27.4
--- NOTE | 2017-10-02 10:30 | ED PDOC ---
HPI: General Adult Time Seen by Provider: 10/02/17 10:21 Chief Complaint (Nursing): Chest Pain Chief Complaint (Provider): Throat Pain History Per: Patient History/Exam Limitations: no limitations Onset/Duration Of Symptoms: Days (x 5) Current Symptoms Are (Timing): Still Present Additional Complaint(s): 76-year-old female presents to ED complaining of throat pain for 5 days. Reports white phlegm production. Patient reports subjective fever 2 days ago. Denies any allergies to medications. PMD: Aric Cazares Past Medical History Reviewed: Historical Data, Nursing Documentation, Vital Signs Vital Signs: Last Vital Signs Temp 98 F 10/02/17 14:26 Pulse 78 10/02/17 14:26 Resp 19 10/02/17 14:26 BP 128/78 10/02/17 14:26 Pulse Ox 98 10/02/17 14:26 - Medical History PMH: Anxiety, Arthritis, Bronchitis, COPD, Gastritis, Gastrointestinal Ulcer, HTN, Hypercholesterolemia, Pancreatitis Denies: HIV, Chronic Kidney Disease - Surgical History Surgical History: Appendectomy, Hernia Repair - Family History Family History: States: Unknown Family Hx, Hypertension - Social History Current smoker - smoking cessation education provided: No Alcohol: None Drugs: Denies - Home Medications Home Medications: Ambulatory Orders Medication Instructions Recorded Aspirin 325 mg PO DAILY #30 tab 05/02/17 Isosorbide Mononitrate [Imdur] 30 mg PO DAILY #30 tab 05/02/17 Metoprolol Succinate [Toprol XL] 50 mg PO DAILY #30 tab 05/02/17 Rosuvastatin Calcium [Crestor] 40 mg PO DAILY #30 05/02/17 guaiFENesin/Dextromethorphan 5 ml PO Q6 PRN #1 ml 06/01/17 [Robitussin DM] predniSONE [predniSONE Tab] 30 mg PO DAILY tab 06/01/17 Promethazine HCl/Codeine 10 ml PO Q6 PRN #120 ml 07/29/17 [Prometh-Codein 6.25-10 mg/5 ml] Lactulose [Enulose] 20 gm PO DAILY #5 udc 09/07/17 Azithromycin [Zithromax] 250 mg PO DAILY #4 tab 10/02/17 Ibuprofen [Motrin] 600 mg PO Q6H PRN #20 tab 10/02/17 - Allergies Allergies/Adverse Reactions: Allergies Allergy/AdvReac Type Severity Reaction Status Date / Time Iodinated Contrast- Oral and Allergy SHORTNESS Verified 09/04/17 20:44 IV Dye OF BREATH shrimp Allergy RASH Verified 09/04/17 13:58 seafood Allergy RASH Uncoded 07/29/17 17:31 Review of Systems ROS Statement: Except As Marked, All Systems Reviewed And Found Negative Constitutional: Positive for: Fever (Subjective) Respiratory: Positive for: Sputum (White) Physical Exam - Reviewed Nursing Documentation Reviewed: Yes Vital Signs Reviewed: Yes - Physical Exam Appears: Positive for: No Acute Distress Skin: Positive for: Normal Color, Warm, Dry Eye Exam: Positive for: Normal appearance ENT: Positive for: Pharynx Is (Clear, no drooling), Other (Uvula is midline). Negative for: Sinus Pain/Drainage, Nasal Congestion, Pharyngeal Erythema, Tonsillar Exudate, Tonsillar Swelling Neck: Positive for: Normal, Painless ROM Cardiovascular/Chest: Positive for: Regular Rate, Rhythm Respiratory: Positive for: Normal Breath Sounds. Negative for: Respiratory Distress Back: Positive for: Other (1 left cerivcal lymphadenopathy noted) Lymphatic: Positive for: Adenopathy (L cervical) Neurologic/Psych: Positive for: Alert, Oriented (x 3), Other (Speaking full sentences) - Laboratory Results Result Diagrams: 10/02/17 10:37 10/02/17 10:37 - ECG O2 Sat by Pulse Oximetry: 96 (RA) Pulse Ox Interpretation: Normal Medical Decision Making Medical Decision Making: Time: 10:27 Plan: - CMP - CBC - Chest x-ray - Influenza A/B - Rapid Strep Group A Antigen (-) influenza a/b (-) Group A Beta Strep Ag Time: 10:52 - EKG - Troponin I Time: 12:07 Chest X-Ray FINDINGS: LUNGS: Hyperinflation, manifestations of COPD. No active pulmonary disease. PLEURA: No significant pleural effusion identified. No pneumothorax apparent. CARDIOVASCULAR: No radiographic findings to suggest acute or significant cardiovascular disease. OSSEOUS STRUCTURES: No significant abnormalities. VISUALIZED UPPER ABDOMEN: Normal. OTHER FINDINGS: None. IMPRESSION: No active disease. No significant interval change compared to the prior examination(s). Time: 12:43 Plan: - Zithromax 500 mg PO Time: 13:15 Percocet 5/325 mg tab 13:[address] Cazares, agrees with discharge home. Upon provider evaluation patient is medically stable, and requires no further treatment in the ED at this time. Patient will be discharged with Rx for Zithromax and Motrin. Counseling was provided and all questions were answered regarding diagnosis and need for follow up with PMD. There is agreement to discharge plan. Return if symptoms persist or worsen. Scribe Attestation: Documented by Jonathan Marr, acting as a scribe for Karrie Menjivar MD Provider Scribe Attestation: All medical record entries made by the Scribe were at my direction and personally dictated by me. I have reviewed the chart and agree that the record accurately reflects my personal performance of the history, physical exam, medical decision making, and the department course for this patient. I have also personally directed, reviewed, and agree with the discharge instructions and disposition. Disposition - Clinical Impression Clinical Impression: URI (upper respiratory infection) - Patient ED Disposition Is Patient to be Admitted: No - Disposition Referrals: Carolyn Barrera [Outside] Aric Cazares MD [Family Provider] - Disposition: Routine/Home Disposition Time: 13:15 Condition: STABLE Prescriptions: Azithromycin [Zithromax] 250 mg PO DAILY #4 tab Ibuprofen [Motrin] 600 mg PO Q6H PRN #20 tab PRN Reason: Pain, Moderate (4-7) Instructions: Bacterial Upper Respiratory Infection, Adult Forms: [employer] (Tajik) Print Language: CROATIAN
[2017-10-02 10:59] LABS: ALB/GLOB RATIO 1.1 (1.0-2.1); ALT/SGPT 36 U/L (9-52); AST/SGOT 30 U/L (14-36); BLOOD UREA NITROGEN 7 mg/dl (7-17); CALCIUM 9.1 mg/dL (8.4-10.2); GFR AFRICAN-AMERICAN > 60; GFR NON-AFRICAN AMERICAN > 60
[2017-10-02 11:01] LABS: BASO # 0.1 K/uL (0.0-0.2); BASO % 0.5 % (0.0-2.0); EOS # 0.2 K/uL (0.0-0.7); EOS % 1.9 % (0.0-4.0); HEMOGLOBIN 13.3 g/dL (12.0-16.0); LYMPH # 1.1 K/uL (1.0-4.3); LYMPH % 9.7 % (20.0-40.0); MEAN CELL VOLUME 89.1 fl (81.0-99.0); MEAN CORPUSCULAR HEMOGLOBIN 29.3 pg (27.0-31.0); MEAN CORPUSCULAR HGB CONC 32.9 g/dL (33.0-37.0); MEAN PLATELET VOLUME 8.9 fl (7.2-11.7); MONO # 0.8 K/uL (0.0-0.8); MONO % 7.1 % (0.0-10.0); NEUT # 8.8 K/uL (1.8-7.0); NEUT % 80.8 % (50.0-75.0); NRBC % 0.1 % (0.0-0.0); PLATELET COUNT 302 K/uL (130-400); RBC 4.55 Mil/uL (3.80-5.20); RED CELL DISTRIBUTION WIDTH 14.2 % (11.5-14.5); WHITE BLOOD COUNT 10.9 K/uL (4.8-10.8)
--- NOTE | 2017-10-02 11:36 | CARD ---
APPROVED REPORT EKG Measurement Heart [id number] <Conclusion> Normal sinus rhythm Inferior infarct, age undetermined Abnormal ECG
[2017-10-02 12:02] LABS: EOSINOPHIL 4 % (0-7); LYMPHOCYTE 9 % (20-50); MONOCYTE 4 % (0-10); NEUTROPHIL 83 % (42-75); TOTAL CELLS COUNTED 100
[2017-10-02 12:03] LABS: PLATELET ESTIMATE NORMAL (NORMAL)
--- NOTE | 2017-10-02 12:09 | RAD ---
HISTORY: Cough. COMPARISON: 09/04/2017 TECHNIQUE: Chest PA and lateral FINDINGS: LUNGS: Hyperinflation, manifestations of COPD. No active pulmonary disease. PLEURA: No significant pleural effusion identified. No pneumothorax apparent. CARDIOVASCULAR: No radiographic findings to suggest acute or significant cardiovascular disease. OSSEOUS STRUCTURES: No significant abnormalities. VISUALIZED UPPER ABDOMEN: Normal. OTHER FINDINGS: None. IMPRESSION: No active disease. No significant interval change compared to the prior examination(s).
[2017-10-02] MEDS ORDERED: Oxycodone/Acetaminophen 5/325 mg Tab PO STA (13:15)
[2017-10-02] MEDS ORDERED: Oxycodone/Acetaminophen 5/325 mg Tab ONE (13:45)
[2017-10-02 14:27] VITALS: BP 128/78; PULSE 78; RESP 19; TEMP 98
[2017-10-04 14:42] VITALS: O2SAT 96
== END 2017-10-02 14:27 | disposition home or self-care (01) ==
LOC: H.ER 09:01
DX: J06.9 Acute upper respiratory infection, unspecified (principal); E78.00 Pure hypercholesterolemia, unspecified; F41.9 Anxiety disorder, unspecified; I10 Essential (primary) hypertension; J44.9 Chronic obstructive pulmonary disease, unspecified; K85.90 Acute pancreatitis without necrosis or infection, unspecified; Z79.82 Long term (current) use of aspirin

== ENCOUNTER 2017-10-28 18:22 | Inpatient (IN) | payer MEDICARE ==
[2017-10-28 18:23] VITALS: BMI 27.4
[2017-10-28] MEDS ORDERED: Albuterol-Ipratrop 3 mg / 0.5 (3 ml) UD INH STA (19:00)
--- NOTE | 2017-10-28 19:13 | ED PDOC ---
HPI: CCC, URI, Sore Throat Time Seen by Provider: 10/28/17 18:45 Chief Complaint (Nursing): Flu-like Symptoms Chief Complaint (Provider): Cough History Per: Patient History/Exam Limitations: no limitations Onset/Duration Of Symptoms: Other (2 weeks) Current Symptoms Are (Timing): Still Present Associated Symptoms: denies: Fever Additional Complaint(s): 76 year old female, with past medical history of COPD, presented to ED with ongoing cough with onset of 2 weeks. Patient reports body aches, some rhinorrhea, throat irritation, chills, SOB, chest tightness and productive clear sputum similar to previous exacerbated copd episodes but no hemoptysis. Patient went to PCP and was prescribed levaquin and felt better but symptoms eventually came back. She also took COPD medications but to no relief. She indicates associated symptoms of right sided headache which was described as throbbing and pressure-like which was worse when coughing. Denied fever like symptoms. PCP: Aric Bolton Past Medical History Reviewed: Historical Data, Nursing Documentation, Vital Signs Vital Signs: Last Vital Signs Temp 97.9 F 10/29/17 09:00 Pulse 75 10/29/17 09:00 Resp 18 10/29/17 09:00 BP 136/75 10/29/17 09:00 Pulse Ox 97 10/29/17 09:00 - Medical History PMH: Anxiety, Arthritis, Bronchitis, COPD, Gastritis, Gastrointestinal Ulcer, HTN, Hypercholesterolemia, Pancreatitis Denies: HIV, Chronic Kidney Disease - Surgical History Surgical History: Appendectomy, Hernia Repair - Family History Family History: States: Unknown Family Hx, Hypertension - Home Medications Home Medications: Ambulatory Orders Medication Instructions Recorded Ibuprofen [Motrin] 600 mg PO Q6H PRN #20 tab 10/02/17 - Allergies Allergies/Adverse Reactions: Allergies Allergy/AdvReac Type Severity Reaction Status Date / Time Iodinated Contrast- Oral and Allergy SHORTNESS Verified 09/04/17 20:44 IV Dye OF BREATH shrimp Allergy RASH Verified 09/04/17 13:58 seafood Allergy RASH Uncoded 07/29/17 17:31 Review of Systems ROS Statement: Except As Marked, All Systems Reviewed And Found Negative Constitutional: Positive for: Chills. Negative for: Fever ENT: Positive for: Throat Pain (irritation), Other (some rhinorrhea) Cardiovascular: Positive for: Other (Chest tightness) Respiratory: Positive for: Shortness of Breath. Negative for: Hemoptysis Neurological: Positive for: Headache (right sided) Physical Exam - Reviewed Nursing Documentation Reviewed: Yes Vital Signs Reviewed: Yes - Physical Exam Appears: Positive for: Non-toxic. Negative for: No Acute Distress (mild respiratory distress), Uncomfortable Head Exam: Positive for: ATRAUMATIC, NORMOCEPHALIC Skin: Positive for: Warm, Dry Eye Exam: Positive for: EOMI, PERRL ENT: Negative for: Pharyngeal Erythema, Tonsillar Exudate Neck: Positive for: Painless ROM, Supple Cardiovascular/Chest: Positive for: Regular Rate, Rhythm. Negative for: JVD, Murmur Respiratory: Positive for: Rhonchi (faint ronchi), Other (good air movement). Negative for: Wheezing, Respiratory Distress Gastrointestinal/Abdominal: Positive for: Soft. Negative for: Tenderness Back: Positive for: Normal Inspection. Negative for: Decreased ROM Extremity: Positive for: Other (no accessory musle use) Lymphatic: Negative for: Adenopathy Neurologic/Psych: Positive for: Alert. Negative for: Motor/Sensory Deficits - Laboratory Results Result Diagrams: 10/28/17 19:34 10/28/17 19:34 - ECG ECG Rhythm: Positive for: Sinus Rhythm, Nonspecific Changes O2 Sat by Pulse Oximetry: 96 (RA) Pulse Ox Interpretation: Normal - Radiology X-Ray: Interpreted by Tx X-Ray Interpretation: No Acute Disease Medical Decision Making Medical Decision Making: Initial Impression: COPD exacerbation Differentials include but not limited to allergic bronchitis, viral bronchitis, pneumonia Initial Plan: Head CT ECG B-type natriuretic CMP Lact Acid Troponin CBC Chest x-ray Glucose Albuterol 9mL INH Methylprednisolon 125mg IV Blood culture Peak flow pre/post treatment Influenza A B stat 21:[address] x ray showed no infiltrate or effusion. Upon reevaluation, patient continues to feel SOB and chest tightness. Patient will be hospitalized with COPD exacerbation. Discussed case with Dr. Cazares. Patient will be placed in his service. Scribe Attestation: Documented by Rosendo Mane acting as a scribe for Gela Bobby MD. Provider Scribe Attestation: All medical record entries made by the Scribe were at my direction and personally dictated by me. I have reviewed the chart and agree that the record accurately reflects my personal performance of the history, physical exam, medical decision making, and the department course for this patient. I have also personally directed, reviewed, and agree with the discharge instructions and disposition. Disposition - Clinical Impression Clinical Impression: COPD exacerbation Counseled Patient/Family Regarding: Studies Performed, Diagnosis - Disposition Disposition Time: 21:00 Condition: FAIR - Pt Status Changed To: Hospital Disposition Of: Observation - POA Present On Arrival: None
[2017-10-28] MEDS ORDERED: Albuterol-Ipratrop 3 mg / 0.5 (3 ml) UD ONE (19:20)
[2017-10-28 19:52] LABS: BASO # 0.1 K/uL (0.0-0.2); BASO % 0.7 % (0.0-2.0); EOS # 0.5 K/uL (0.0-0.7); HEMOGLOBIN 13.9 g/dL (12.0-16.0); LYMPH # 1.3 K/uL (1.0-4.3); LYMPH % 13.2 % (20.0-40.0); MEAN CELL VOLUME 86.6 fl (81.0-99.0); MEAN CORPUSCULAR HEMOGLOBIN 28.9 pg (27.0-31.0); MEAN CORPUSCULAR HGB CONC 33.4 g/dL (33.0-37.0); MEAN PLATELET VOLUME 8.4 fl (7.2-11.7); MONO # 0.8 K/uL (0.0-0.8); MONO % 7.6 % (0.0-10.0); NEUT # 7.3 K/uL (1.8-7.0); NEUT % 73.5 % (50.0-75.0); RBC 4.8 Mil/uL (3.80-5.20); RED CELL DISTRIBUTION WIDTH 13.8 % (11.5-14.5); WHITE BLOOD COUNT 9.9 K/uL (4.8-10.8)
[2017-10-28 19:57] LABS: ALT/SGPT 30 U/L (9-52); AST/SGOT 30 U/L (14-36); BLOOD UREA NITROGEN 8 mg/dl (7-17); CALCIUM 9.4 mg/dL (8.4-10.2); GFR AFRICAN-AMERICAN > 60; GFR NON-AFRICAN AMERICAN > 60
--- NOTE | 2017-10-28 21:02 | CT ---
EXAM: CT Head Without Intravenous Contrast CLINICAL HISTORY: 76 years old, female; Pain; Headache and other: Cough TECHNIQUE: Axial computed tomography images of the head/brain without intravenous contrast. All CT scans at this facility use one or more dose reduction techniques, viz.: automated exposure control; ma/kV adjustment per patient size (including targeted exams where dose is matched to indication; i.e. head); or iterative reconstruction technique. Coronal and sagittal reformatted images were created and reviewed. COMPARISON: CT - HEAD W/O CONTRAST 2016-12-28 00:36 FINDINGS: Brain: Mild atrophy. No intracranial hemorrhage. No mass. Minimal decreased attenuation within periventricular white matter. No definite edema. Ventricles: No hydrocephalus. Bones/joints: No acute fracture. Soft tissues: Unremarkable. Sinuses: Scattered minimal mucosal thickening of ethmoid sinuses. Mastoid air cells: No mastoid effusion. Orbits: Unremarkable as visualized. IMPRESSION: 1. Nonspecific white matter changes. Acute infarction may be CT occult within first 24 hours. If a focal deficit persists, consider followup CT or MRI for further evaluation. 2. Incidental/non-acute findings are described above.
[2017-10-28] MEDS ORDERED: Promethazine DM 12.5 mg-30 mg/10 ml Syrup PO STA (21:53)
[2017-10-28] MEDS ORDERED: Promethazine DM 6.25 mg-15 mg/5 ml Syrup PO STA (22:06)
[2017-10-29] MEDS ORDERED: Iohexol 240 (50 ml) ONE (00:54)
[2017-10-29] MEDS ORDERED: Albuterol-Ipratrop 3 mg / 0.5 (3 ml) UD INH PRN (01:35)
[2017-10-29] MEDS ORDERED: Sodium Chloride 3% for Inhalation 4 ML VIAL.NEB IH PRN (01:41)
[2017-10-29] MEDS ORDERED: methylPREDNISolone 30 MG in Sodium Chloride 0.9% 50 ML IV SCH (01:45)
[2017-10-29] MEDS: MethylPREDNISolone 40 mg Vial IVP SCH ×3 (02:21→16:17)
[2017-10-29] MEDS: Albuterol-Ipratrop 3 mg / 0.5 (3 ml) UD INH SCH ×4 (03:19→18:59)
[2017-10-29] MEDS: Acetaminophen/Codeine elixir 120-12mg/5ml PO PRN ×4 (07:45→23:24)
--- NOTE | 2017-10-29 07:54 | RAD ---
HISTORY: sob COMPARISON: No prior. FINDINGS: LUNGS: No active pulmonary disease. PLEURA: No significant pleural effusion identified, no pneumothorax apparent. CARDIOVASCULAR: Normal. OSSEOUS STRUCTURES: No significant abnormalities. VISUALIZED UPPER ABDOMEN: Normal. OTHER FINDINGS: None. IMPRESSION: No active disease.
[2017-10-29] MEDS: Pantoprazole 40 mg EC Tab PO SCH (08:15)
--- NOTE | 2017-10-29 16:24 | CP.PCM.HP ---
Past Patient History - Infectious Disease Hx of Infectious Diseases: None - Past Medical History & Family History Past Medical History?: Yes - Past Social History Smoking Status: Never Smoked - CARDIAC Hx Hypercholesterolemia: Yes Hx Hypertension: Yes - PULMONARY Hx Bronchitis: Yes Hx Chronic Obstructive Pulmonary Disease (COPD): Yes - NEUROLOGICAL Hx Neurological Disorder: No - HEENT Hx HEENT Problems: Yes Other/Comment: Use Eyeglasses - RENAL Hx Chronic Kidney Disease: No - ENDOCRINE/METABOLIC Hx Endocrine Disorders: No - HEMATOLOGICAL/ONCOLOGICAL Hx Human Immunodeficiency Virus (HIV): No - INTEGUMENTARY Hx Dermatological Problems: No - MUSCULOSKELETAL/RHEUMATOLOGICAL Hx Arthritis: Yes - GASTROINTESTINAL Hx Gastritis: Yes Hx Pancreatitis: Yes - GENITOURINARY/GYNECOLOGICAL Hx Genitourinary Disorders: Yes - PSYCHIATRIC Hx Anxiety: Yes - SURGICAL HISTORY Hx Appendectomy: Yes - ANESTHESIA Hx Anesthesia: Yes Hx Anesthesia Reactions: No Hx Malignant Hyperthermia: No Has any member of the family had a problem w/ anesthesia?: No Meds Allergies/Adverse Reactions: Allergies Allergy/AdvReac Type Severity Reaction Status Date / Time Iodinated Contrast- Oral and Allergy SHORTNESS Verified 09/04/17 20:44 IV Dye OF BREATH shrimp Allergy RASH Verified 09/04/17 13:58 seafood Allergy RASH Uncoded 07/29/17 17:31 Results - Vital Signs Recent Vital Signs: Last Vital Signs Temp 98.3 F 10/29/17 16:20 Pulse 103 H 10/29/17 16:20 Resp 20 10/29/17 16:20 BP 150/76 10/29/17 16:20 Pulse Ox 95 10/29/17 16:20 - Labs Result Diagrams: 10/28/17 19:34 10/28/17 19:34 Labs: Laboratory Results - last 24 hr 10/28/17 10/28/17 10/28/17 19:27 19:34 19:34 WBC 9.9 RBC 4.80 Hgb 13.9 Hct 41.6 MCV 86.6 D MCH 28.9 MCHC 33.4 RDW 13.8 Plt Count 329 MPV 8.4 Neut % (Auto) 73.5 Lymph % (Auto) 13.2 L Bent % (Auto) 7.6 Eos % (Auto) 5.0 H Baso % (Auto) 0.7 Neut # (Auto) 7.3 H Lymph # (Auto) 1.3 Bent # (Auto) 0.8 Eos # (Auto) 0.5 Baso # (Auto) 0.1 Sodium 143 Potassium 3.9 Chloride 101 Carbon Dioxide 28 Anion Gap 18 BUN 8 Creatinine 0.9 Est GFR ( Amer) > 60 Est GFR (Non-Af Amer) > 60 POC Glucose (mg/dL) 108 Random Glucose 113 H Lactic Acid Calcium 9.4 Total Bilirubin 0.4 AST 30 ALT 30 Alkaline Phosphatase 90 Troponin I < 0.0120 NT-Pro-B Natriuret Pep 86.0 Total Protein 7.8 Albumin 4.0 Globulin 3.8 Albumin/Globulin Ratio 1.0 Influenza Typ A,B (EIA) 10/28/17 10/28/17 19:34 19:34 WBC RBC Hgb Hct MCV MCH MCHC RDW Plt Count MPV Neut % (Auto) Lymph % (Auto) Bent % (Auto) Eos % (Auto) Baso % (Auto) Neut # (Auto) Lymph # (Auto) Bent # (Auto) Eos # (Auto) Baso # (Auto) Sodium Potassium Chloride Carbon Dioxide Anion Gap BUN Creatinine Est GFR ( Amer) Est GFR (Non-Af Amer) POC Glucose (mg/dL) Random Glucose Lactic Acid 1.2 Calcium Total Bilirubin AST ALT Alkaline Phosphatase Troponin I NT-Pro-B Natriuret Pep Total Protein Albumin Globulin Albumin/Globulin Ratio Influenza Typ A,B (EIA) Negative for flu a/b
[2017-10-30] MEDS: MethylPREDNISolone 40 mg Vial IVP SCH ×3 (00:32→17:03)
[2017-10-30] MEDS: Albuterol-Ipratrop 3 mg / 0.5 (3 ml) UD INH SCH ×4 (01:09→20:10)
[2017-10-30] MEDS: Acetaminophen/Codeine elixir 120-12mg/5ml PO PRN ×2 (03:10→21:17)
[2017-10-30 07:56] VITALS: TEMP 98.2
--- NOTE | 2017-10-30 09:02 | CT ---
PROCEDURE: CT HEAD WITHOUT CONTRAST. HISTORY: headache COMPARISON: CT head dated 10/28/2017 TECHNIQUE: Axial computed tomography images were obtained through the head/brain without intravenous contrast. Radiation dose: Total exam DLP = 792 mGy-cm. This CT exam was performed using one or more of the following dose reduction techniques: Automated exposure control, adjustment of the mA and/or kV according to patient size, and/or use of iterative reconstruction technique. FINDINGS: HEMORRHAGE: No intracranial hemorrhage. BRAIN: Stable age related diffuse cerebral volume loss and chronic microvascular ischemic disease. Punctate bilateral basal ganglia lacunar infarcts. VENTRICLES: Unremarkable. No hydrocephalus. CALVARIUM: Unremarkable. PARANASAL SINUSES: Unremarkable as visualized. No significant inflammatory changes. MASTOID AIR CELLS: Unremarkable as visualized. No inflammatory changes. OTHER FINDINGS: None. IMPRESSION: Stable age related diffuse cerebral volume loss and chronic microvascular ischemic disease. If there is persistent concern for acute ischemic change, consider further evaluation with MRI. These findings were preliminarily reported at 6:36 p.m. on 10/29/[address] Tha Dunn from [facility].
[2017-10-30] MEDS: Pantoprazole 40 mg EC Tab PO SCH (10:12)
[2017-10-30] MEDS: guaiFENesin DM 200 mg-20 mg/10 ml UD PO PRN ×2 (13:44→19:51)
--- NOTE | 2017-10-30 14:18 | CP.PCM.PN ---
Subjective - Date & Time of Evaluation Date of Evaluation: 10/30/17 Time of Evaluation: 11:55 - Subjective Subjective: F/U COPD Exacerbation. Occasional productive cough, no SOB, no MARION. Objective - Vital Signs/Intake and Output Vital Signs (last 24 hours): Temp Pulse Resp BP Pulse Ox 98.2 F 63 20 104/54 L 91 L 10/30/17 07:56 10/30/17 07:56 10/30/17 07:56 10/30/17 07:56 10/30/17 07:56 - Medications Medications: Current Medications Acetaminophen (Tylenol 325mg Tab) 650 mg PO Q4 PRN PRN Reason: Pain, Mild (1-3) Acetaminophen/Codeine Phosphate (Tylenol/Codeine Elixir) 10 ml PO Q4 PRN PRN Reason: cough Stop: 11/05/17 01:36 Last Admin: 10/30/17 03:10 Dose: 10 ml Albuterol/Ipratropium (Duoneb 3 Mg/0.5 Mg (3 Ml) Ud) 3 ml INH RQ6 [facility] Last Admin: 10/30/17 13:41 Dose: 3 ml Guaifenesin/Dextromethorphan (Robitussin Dm) 10 ml PO Q6 PRN PRN Reason: Cough Last Admin: 10/30/17 13:44 Dose: 10 ml Methylprednisolone (Solu-Medrol) 30 mg IVP Q8 [facility] Last Admin: 10/30/17 10:19 Dose: 30 mg Pantoprazole Sodium (Protonix Ec Tab) 40 mg PO DAILY [facility] Last Admin: 10/30/17 10:12 Dose: 40 mg - Labs Labs: 10/28/17 19:34 10/28/17 19:34 - Constitutional Appears: No Acute Distress - Head Exam Head Exam: NORMAL INSPECTION - Eye Exam Eye Exam: PERRL - ENT Exam ENT Exam: Normal Exam - Neck Exam Neck Exam: Normal Inspection - Respiratory Exam Respiratory Exam: Decreased Breath Sounds (at bases) - Cardiovascular Exam Cardiovascular Exam: REGULAR RHYTHM - GI/Abdominal Exam GI & Abdominal Exam: Soft, Normal Bowel Sounds - Extremities Exam Extremities Exam: Normal Inspection - Back Exam Back Exam: NORMAL INSPECTION - Neurological Exam Neurological Exam: Alert, Oriented x3. absent: Motor Sensory Deficit - Psychiatric Exam Psychiatric exam: Normal Mood - Skin Skin Exam: Warm Assessment and Plan (1) COPD exacerbation Assessment & Plan: Improved Status: Acute (2) Headache Status: Acute (3) Sore throat Status: Acute (4) OA (osteoarthritis) Status: Chronic (5) History of hypertension Status: Chronic - Assessment and Plan (Free Text) Plan: CT head negative continue Janeth Baez and rst of Tx.
--- NOTE | 2017-10-30 16:48 | CARD ---
APPROVED REPORT EKG Measurement Heart [id number] <Conclusion> Normal sinus rhythm Inferior infarct, age undetermined Poor R wave progression in the chest leads Abnormal ECG
--- NOTE | 2017-10-30 21:01 | CP.PCM.HP ---
History of Present Illness - History of Present Illness History of Present Illness: This HPI was done on 10/29/17 and accidentally deleted. 76 y/o F, multiple chronic medical conditions, including COPD, HTN, came to [facility], to be evaluated for persistent productive cough with clear thick phlegms for 2 weeks associated to chest tightness with moderate SOB, throat pain, Pt using Zithromax, Prednisone at home with no relief. Worsening symptoms: Body aches, chills, chest tightness with moderate intensity 5:10 when coughing. R sided headache that worsening with cough. Aggravated factor: Movements/exercise. Pt denied: Fever, n/v/d, abdominal pain, urinary symptoms, CP, palpitations, dizziness, syncope, sick contact, recent travel out of [facility]. CXR: No active disease. Head CT: Nonspecific white matter changes. Present on Admission - Present on Admission Any Indicators Present on Admission: No Review of Systems - Constitutional Constitutional: Chills, Headache - EENT Eyes: Requires Corrective Lenses Ears: Other (negative) Nose/Mouth/Throat: Throat Swelling - Cardiovascular Cardiovascular: Other (negative) - Respiratory Respiratory: Cough, Dyspnea, Wheezing, Pain with Coughing - Gastrointestinal Gastrointestinal: Other (negative) - Genitourinary Genitourinary: Other (negative) - Musculoskeletal Musculoskeletal: Arthralgias, Other (knees pain) - Integumentary Integumentary: Other (negative) - Neurological Neurological: Headaches, Other (negative) - Psychiatric Psychiatric: Other (negative) - Endocrine Endocrine: Other (negative) - Hematologic/Lymphatic Hematologic: Other (negative) Past Patient History - Infectious Disease Hx of Infectious Diseases: None - Past Medical History & Family History Past Medical History?: Yes Pertinent Family History: Unknown - Past Social History Smoking Status: Never Smoked Alcohol: None Drugs: Denies Home Situation {Lives}: With Family - CARDIAC Hx Cardiac Disorders: Yes Hx Hypercholesterolemia: Yes Hx Hypertension: Yes - PULMONARY Hx Respiratory Disorders: Yes Hx Bronchitis: Yes Hx Chronic Obstructive Pulmonary Disease (COPD): Yes - NEUROLOGICAL Hx Neurological Disorder: No - HEENT Hx HEENT Problems: Yes Other/Comment: Use Eyeglasses - RENAL Hx Chronic Kidney Disease: No - ENDOCRINE/METABOLIC Hx Endocrine Disorders: No - HEMATOLOGICAL/ONCOLOGICAL Hx Blood Disorders: No Hx Human Immunodeficiency Virus (HIV): No - INTEGUMENTARY Hx Dermatological Problems: No - MUSCULOSKELETAL/RHEUMATOLOGICAL Hx Musculoskeletal Disorders: Yes Hx Arthritis: Yes - GASTROINTESTINAL Hx Gastrointestinal Disorders: Yes Hx Gastritis: Yes Hx Pancreatitis: Yes - GENITOURINARY/GYNECOLOGICAL Hx Genitourinary Disorders: Yes - PSYCHIATRIC Hx Psychophysiologic Disorder: No - SURGICAL HISTORY Hx Surgeries: Yes Hx Appendectomy: Yes - ANESTHESIA Hx Anesthesia: Yes Hx Anesthesia Reactions: No Hx Malignant Hyperthermia: No Has any member of the family had a problem w/ anesthesia?: No Meds Home Medications: Home Medication List Medication Instructions Recorded Confirmed Type Azithromycin [Z-Jayy] 250 mg PO DAILY #6 tab 10/30/17 Rx Prednisone [Prednisone Intensol] 5 mg PO DAILY #42 oral.conc 10/30/17 Rx Promethazine DM [Phenergan DM 10 ml PO Q6 #120 ml 10/30/17 Rx Syrup] Allergies/Adverse Reactions: Allergies Allergy/AdvReac Type Severity Reaction Status Date / Time Iodinated Contrast- Oral and Allergy SHORTNESS Verified 09/04/17 20:44 IV Dye OF BREATH shrimp Allergy RASH Verified 09/04/17 13:58 seafood Allergy RASH Uncoded 07/29/17 17:31 Physical Exam - Constitutional Appears: No Acute Distress - Head Exam Head Exam: NORMAL INSPECTION - Eye Exam Eye Exam: PERRL - ENT Exam ENT Exam: Normal Exam - Neck Exam Neck exam: Positive for: Normal Inspection - Respiratory Exam Respiratory Exam: Decreased Breath Sounds, Wheezes - Cardiovascular Exam Cardiovascular Exam: REGULAR RHYTHM - GI/Abdominal Exam GI & Abdominal Exam: Normal Bowel Sounds, Soft - Extremities Exam Extremities exam: Positive for: normal inspection - Back Exam Back exam: NORMAL INSPECTION - Neurological Exam Neurological exam: Alert, Oriented x3 Additional comments: No motor sensory deficit - Psychiatric Exam Psychiatric exam: Normal Mood - Skin Skin Exam: Warm Results - Vital Signs Recent Vital Signs: Last Vital Signs Temp 98.2 F 10/30/17 16:12 Pulse 76 10/30/17 16:12 Resp 20 10/30/17 16:12 BP 135/69 10/30/17 16:12 Pulse Ox 94 L 10/30/17 16:12 reviewed J.P. - Labs Result Diagrams: 10/28/17 19:34 10/28/17 19:34 Labs: reviewed J.P. - Imaging and Cardiology Chest x-ray Status: Report reviewed by me (Cindy) CT scan - head Status: Report reviewed by me (Cindy) Assessment & Plan (1) COPD exacerbation Status: Acute Priority: High (2) Headache Status: Acute Priority: High (3) Sore throat Status: Acute Priority: High (4) OA (osteoarthritis) Status: Chronic Priority: Medium (5) History of hypertension Status: Chronic Priority: Medium - Assessment and Plan (Free Text) Plan: Continue NC 2 L/M, F/U Sputum C-S, Duoneb, Robitussin DM, Solu-Medrol IV, Tylenol with Co and rest of Tx. F/U EKG, repeat Head CT. - Date & Time Date: 10/29/17 Time: 12:20
[2017-10-31] MEDS: MethylPREDNISolone 40 mg Vial IVP SCH ×2 (00:27→10:41)
[2017-10-31] MEDS: Albuterol-Ipratrop 3 mg / 0.5 (3 ml) UD INH SCH ×3 (00:59→13:20)
[2017-10-31] MEDS: guaiFENesin DM 200 mg-20 mg/10 ml UD PO PRN ×2 (02:33→10:42)
[2017-10-31 08:23] VITALS: BP 142/64; PULSE 75; RESP 20; O2SAT 95
[2017-10-31] MEDS: Pantoprazole 40 mg EC Tab PO SCH (10:41)
--- NOTE | 2017-10-31 13:12 | CP.PCM.DIS ---
Provider - Provider Date of Admission: 10/30/17 16:56 Attending physician: Aric Cazares MD Primary care physician: Aric Cazares MD Diagnosis - Discharge Diagnosis (1) COPD exacerbation Status: Acute Priority: High (2) Headache Status: Acute Priority: High (3) Sore throat Status: Acute Priority: High (4) OA (osteoarthritis) Status: Chronic Priority: Medium (5) History of hypertension Status: Chronic Priority: Medium Hospital Course - Lab Results Lab Results: Micro Results 10/29/17 15:33 Sputum Gram Stain - Final 10/29/17 15:33 Sputum Sputum Culture - Final NORMAL ORAL AUNG 10/28/17 19:34 Blood-Venous Blood Culture - Preliminary NO GROWTH AFTER 48 HOURS 10/28/17 19:34 Blood-Venous Blood Culture - Preliminary NO GROWTH AFTER 48 HOURS Most Recent Lab Values WBC 9.9 K/uL (4.8-10.8) 10/28/17 19:34 RBC 4.80 Mil/uL (3.80-5.20) 10/28/17 19:34 Hgb 13.9 g/dL (12.0-16.0) 10/28/17 19:34 Hct 41.6 % (34.0-47.0) 10/28/17 19:34 MCV 86.6 fl (81.0-99.0) D 10/28/17 19:34 MCH 28.9 pg (27.0-31.0) 10/28/17 19:34 MCHC 33.4 g/dL (33.0-37.0) 10/28/17 19:34 RDW 13.8 % (11.5-14.5) 10/28/17 19:34 Plt Count 329 K/uL (130-400) 10/28/17 19:34 MPV 8.4 fl (7.2-11.7) 10/28/17 19:34 Neut % (Auto) 73.5 % (50.0-75.0) 10/28/17 19:34 Lymph % (Auto) 13.2 % (20.0-40.0) L 10/28/17 19:34 Stephenson % (Auto) 7.6 % (0.0-10.0) 10/28/17 19:34 Eos % (Auto) 5.0 % (0.0-4.0) H 10/28/17 19:34 Baso % (Auto) 0.7 % (0.0-2.0) 10/28/17 19:34 Neut # (Auto) 7.3 K/uL (1.8-7.0) H 10/28/17 19:34 Lymph # (Auto) 1.3 K/uL (1.0-4.3) 10/28/17 19:34 Stephenson # (Auto) 0.8 K/uL (0.0-0.8) 10/28/17 19:34 Eos # (Auto) 0.5 K/uL (0.0-0.7) 10/28/17 19:34 Baso # (Auto) 0.1 K/uL (0.0-0.2) 10/28/17 19:34 Sodium 143 mmol/l (132-148) 10/28/17 19:34 Potassium 3.9 MMOL/L (3.6-5.0) 10/28/17 19:34 Chloride 101 mmol/L (98-107) 10/28/17 19:34 Carbon Dioxide 28 mmol/L (22-30) 10/28/17 19:34 Anion Gap 18 (10-20) 10/28/17 19:34 BUN 8 mg/dl (7-17) 10/28/17 19:34 Creatinine 0.9 mg/dl (0.7-1.2) 10/28/17 19:34 Est GFR ( Amer) > 60 10/28/17 19:34 Est GFR (Non-Af Amer) > 60 10/28/17 19:34 POC Glucose (mg/dL) 108 mg/dL (65-110) 10/28/17 19:27 Random Glucose 113 mg/dL (65-105) H 10/28/17 19:34 Lactic Acid 1.2 MMOL/L (0.7-2.1) 10/28/17 19:34 Calcium 9.4 mg/dL (8.4-10.2) 10/28/17 19:34 Total Bilirubin 0.4 mg/dl (0.2-1.3) 10/28/17 19:34 AST 30 U/L (14-36) 10/28/17 19:34 ALT 30 U/L (9-52) 10/28/17 19:34 Alkaline Phosphatase 90 U/L (38-126) 10/28/17 19:34 Troponin I < 0.0120 ng/mL (0.00-0.120) 10/28/17 19:34 NT-Pro-B Natriuret Pep 86.0 pg/ml (0-900) 10/28/17 19:34 Total Protein 7.8 G/DL (6.3-8.2) 10/28/17 19:34 Albumin 4.0 g/dL (3.5-5.0) 10/28/17 19:34 Globulin 3.8 gm/dL (2.2-3.9) 10/28/17 19:34 Albumin/Globulin Ratio 1.0 (1.0-2.1) 10/28/17 19:34 Influenza Typ A,B (EIA) Negative for flu a/b (NEGATIVE) 10/28/17 19:34 Discharge Exam - Head Exam Head Exam: NORMAL INSPECTION Discharge Plan - Discharge Medications Prescriptions: Promethazine DM [Phenergan DM Syrup] 10 ml PO Q6 #120 ml Prednisone [Prednisone Intensol] 5 mg PO DAILY #42 oral.conc Azithromycin [Z-Jayy] 250 mg PO DAILY #6 tab - Follow Up Plan Condition: FAIR Disposition: HOME/ ROUTINE Instructions: Exacerbation of COPD (DC) Additional Instructions: hacer nixon con Dr. Debora lakhani de 1 semana Referrals: Aric Cazares MD [Primary Care Provider] -
== END 2017-10-31 16:00 | disposition home health service (06) | DRG 192 ==
LOC: H.ER 18:22 → H.ERHOLD 21:11 → INTOOBSV 21:11 → UNDOADMOB 21:11 → H.MEDSURG1 22:50 → H.ERHOLD 22:50 → H.MEDSURG1 10-29 14:31 → INTOOBSV 10-29 14:31 → OBSVTOIN 10-29 14:31 → INTOOBSV 10-30 16:56 → OBSVTOIN 10-30 16:56
PROVIDERS: ADMIT Internal Medicine Pulmonary Disease; ATTEND Internal Medicine Pulmonary Disease
PROC: 3E0F73Z Introduction of Anti-inflammatory into Respiratory Tract, Via Natural or Artificial Opening (ICD-10-PCS; principal; 2017-10-30)
DX: J44.1 Chronic obstructive pulmonary disease with (acute) exacerbation (principal); J02.9 Acute pharyngitis, unspecified; I10 Essential (primary) hypertension; E78.00 Pure hypercholesterolemia, unspecified; F41.9 Anxiety disorder, unspecified; M19.90 Unspecified osteoarthritis, unspecified site; K29.70 Gastritis, unspecified, without bleeding; Z87.11 Personal history of peptic ulcer disease; Z91.041 Radiographic dye allergy status; Z91.013 Allergy to seafood

== ENCOUNTER 2017-12-04 15:34 | Inpatient (IN) | payer MEDICARE ==
[2017-12-04 15:34] VITALS: BMI 27.4
[2017-12-04] MEDS ORDERED: Sodium Chloride 0.9% 1,000 ML IV STA (17:20)
[2017-12-04] MEDS ORDERED: Iohexol 240 (50 ml) PO ONE (17:20)
[2017-12-04] MEDS ORDERED: Iohexol 240 (50 ml) ONE (18:04)
--- NOTE | 2017-12-04 18:07 | ED PDOC ---
HPI: Headache Time Seen by Provider: 12/04/17 17:05 Chief Complaint (Nursing): Headache Chief Complaint (Provider): headache and abdominal pain History Per: Patient History/Exam Limitations: no limitations Onset/Duration Of Symptoms: Days (x1 month), Gradual Current Symptoms Are (Timing): Still Present Preceeding Symptoms: None Associated Symptoms: denies: Blurred Vision, Nausea, Vomiting, Extremity Weakness Additional Complaint(s): Rhonda Randall is a 76 year old female, with a past medical history of arthritis and hypertension, who presents to the emergency department complaining of a headache onset for x1 month associated with a right sided neck pain and a gradual onset pain to the center of the abdomen for the past couple of days. Patient reports she had a cyst removed from her head approximately x1 year ago. Patient states she had a cold about x1 month ago, she developed the headache after the cold resolved. Headache is not the worst in her life and is localized all over her head. Patient states she's had an umbilical hernia for x2 years but developed a worsening pain in the last couple of days. She denies any fever, chills, numbness or tingling, weakness, cough, congestion, chest pain , shortness of breath, dizziness, vision changes, nausea, vomit or diarrhea. No further medical complaints. PMD: Dr. Aric Cazares Past Medical History Reviewed: Historical Data, Nursing Documentation, Vital Signs Vital Signs: Last Vital Signs Temp 99.5 F 12/04/17 16:43 Pulse 102 H 12/04/17 16:43 Resp 20 12/04/17 16:43 BP 133/78 12/04/17 16:43 Pulse Ox 97 12/04/17 16:43 - Medical History PMH: Anxiety, Arthritis, Bronchitis, COPD, Gastritis, Gastrointestinal Ulcer, HTN, Hypercholesterolemia Denies: HIV, Chronic Kidney Disease - Surgical History Surgical History: Appendectomy, Hernia Repair - Family History Family History: States: Unknown Family Hx, Hypertension - Home Medications Home Medications: Ambulatory Orders Medication Instructions Recorded Ibuprofen [Motrin Tab] 600 mg PO Q6H PRN #20 tab 10/02/17 Azithromycin [Z-Jayy] 250 mg PO DAILY #6 tab 10/30/17 Prednisone [Prednisone Intensol] 5 mg PO DAILY #42 oral.conc 10/30/17 Promethazine DM [Phenergan DM 10 ml PO Q6 #120 ml 10/30/17 Syrup] - Allergies Allergies/Adverse Reactions: Allergies Allergy/AdvReac Type Severity Reaction Status Date / Time Iodinated Contrast- Oral and Allergy SHORTNESS Verified 12/04/17 16:43 IV Dye OF BREATH shrimp Allergy RASH Verified 12/04/17 16:43 seafood Allergy RASH Uncoded 12/04/17 16:43 Review of Systems ROS Statement: Except As Marked, All Systems Reviewed And Found Negative Constitutional: Negative for: Fever, Chills Eyes: Negative for: Vision Change ENT: Negative for: Nose Congestion Cardiovascular: Negative for: Chest Pain Respiratory: Negative for: Cough, Shortness of Breath Gastrointestinal: Positive for: Abdominal Pain. Negative for: Nausea, Vomiting , Diarrhea Neurological: Positive for: Headache. Negative for: Weakness, Numbness, Dizziness Physical Exam - Reviewed Nursing Documentation Reviewed: Yes Vital Signs Reviewed: Yes - Physical Exam Appears: Positive for: Non-toxic Head Exam: Positive for: ATRAUMATIC, NORMOCEPHALIC Skin: Positive for: Normal Color, Warm, Dry Eye Exam: Positive for: Normal appearance, EOMI, PERRL ENT: Positive for: Normal ENT Inspection. Negative for: Nasal Congestion, Pharyngeal Erythema Neck: Positive for: Normal, Painless ROM, Supple Cardiovascular/Chest: Positive for: Regular Rate, Rhythm. Negative for: Murmur Respiratory: Positive for: Normal Breath Sounds. Negative for: Respiratory Distress Gastrointestinal/Abdominal: Positive for: Tenderness, Hernia (umbilical hernia tenderness with mild ecchymosis, non-reducible) Back: Positive for: Normal Inspection. Negative for: L CVA Tenderness, R CVA Tenderness, Vertebral Tenderness Extremity: Positive for: Normal ROM (upper and lower extremities). Negative for : Tenderness, Deformity, Swelling Neurologic/Psych: Positive for: Alert, Oriented. Negative for: Motor/Sensory Deficits, Other (negative Kernig's and Brudzinski's sign) - Laboratory Results Result Diagrams: 12/04/17 18:04 12/04/17 18:04 Interpretation Of Abn Labs: no acute - ECG O2 Sat by Pulse Oximetry: 97 (RA) Pulse Ox Interpretation: Normal - Progress ED Course And Treament: 1800: Surgery here to see pt. for hernia. 1900: Dr. Mackenzie to fu on ct head and abd/pelvis. Re-eval. Medical Decision Making Medical Decision Making: Time: 17:05 Initial Impression: Umbilical hernia, headache Initial Plan: --Abd Pelvis PO & IV Contrast [CT] --Head w/o contrast [CT] --CMP --Urine dip --CBC w/ differential --PTT --PT --Omnipaque 240 50 ml PO --Reglan 10 mg IV --Sodium Chloride 1,000 ml IV 1,000 mls/hr --Reevaluation ----- Scribe Attestation: Documented by Damon West, acting as a scribe for Devan Noonan MD. Provider Scribe Attestation: All medical record entries made by the Scribe were at my direction and personally dictated by me. I have reviewed the chart and agree that the record accurately reflects my personal performance of the history, physical exam, medical decision making, and the department course for this patient. I have also personally directed, reviewed, and agree with the discharge instructions and disposition. Disposition - Clinical Impression Clinical Impression: Headache, Abdominal pain - Patient ED Disposition Is Patient to be Admitted: Transfer of Care - Disposition Disposition: Transfer of Care Disposition Time: 19:04 Condition: FAIR Patient Signed Over To: Yue Mackenzie
[2017-12-04 18:08] LABS: BASO # 0.1 K/uL (0.0-0.2); BASO % 0.9 % (0.0-2.0); EOS # 0.1 K/uL (0.0-0.7); EOS % 1.3 % (0.0-4.0); HEMOGLOBIN 12.7 g/dL (12.0-16.0); LYMPH # 1.6 K/uL (1.0-4.3); LYMPH % 14.5 % (20.0-40.0); MEAN CELL VOLUME 85.2 fl (81.0-99.0); MEAN CORPUSCULAR HEMOGLOBIN 27.9 pg (27.0-31.0); MEAN CORPUSCULAR HGB CONC 32.7 g/dL (33.0-37.0); MEAN PLATELET VOLUME 7.9 fl (7.2-11.7); MONO # 1.1 K/uL (0.0-0.8); MONO % 9.8 % (0.0-10.0); NEUT % 73.5 % (50.0-75.0); RBC 4.57 Mil/uL (3.80-5.20); WHITE BLOOD COUNT 10.8 K/uL (4.8-10.8)
[2017-12-04 18:24] LABS: ALBUMIN 3.8 g/dL (3.5-5.0); ALT/SGPT 25 U/L (9-52); AST/SGOT 34 U/L (14-36); BLOOD UREA NITROGEN 11 mg/dl (7-17); CALCIUM 9.4 mg/dL (8.4-10.2); GFR AFRICAN-AMERICAN > 60; GFR NON-AFRICAN AMERICAN > 60
[2017-12-04 18:43] LABS: PARTIAL THROMBOPLASTIN TIME 48.7 Seconds (25.6-37.1); PROTHROMBIN TIME 11.6 Seconds (9.8-13.1)
--- NOTE | 2017-12-04 19:13 | CP.PCM.CON ---
<Bill Argueta - Last Filed: 12/04/17 23:16> History of Present Illness - History of Present Illness History of Present Illness: Surgery Consult note. Dr. Fabian 76yo F with PMHx of Arthritis, HTN, Anxiety, COPD, Gastritis, HLD here with CC of right sided headache. Surgery consulted for abdominal pain. Patient states that she has had an umbilical hernia for the past 2 years. She notes that it has been increasing in pain over the past 2 weeks. She states that the main reason she came to the ER tonight is for her headache and states that the abdominal pain is not severe. She denies having any nausea, or vomiting. She states that the abdominal pain is mild and exacerbated with palpation. Last BM this morning and has been passing flatus regularly. Denies any urinary changes. Denies any CP/SOB. No F/C. PMD: Dr. Cazares PMHx: Arthritis, HTN, Anxiety, COPD, Gastritis, HLD PSHx: Open Appendectomy Family Hx: Non-contributory Social Hx: Denies tobacco, Denies ETOH, Denies illicit drugs Allergy: Iodine, Shrimp Review of Systems - Review of Systems All systems: reviewed and no additional remarkable complaints except - Constitutional Constitutional: Headache. absent: Chills, Fever - Cardiovascular Cardiovascular: absent: Chest Pain, Dyspnea - Respiratory Respiratory: absent: Cough, Dyspnea - Gastrointestinal Gastrointestinal: Abdominal Pain. absent: Constipation, Diarrhea, Hematemesis, Hematochezia, Nausea, Vomiting - Genitourinary Genitourinary: absent: Dysuria Past Patient History - Infectious Disease Hx of Infectious Diseases: None - Past Medical History & Family History Past Medical History?: Yes - Past Social History Smoking Status: Never Smoked Alcohol: None Drugs: Denies - CARDIAC Hx Hypercholesterolemia: Yes Hx Hypertension: Yes - PULMONARY Hx Bronchitis: Yes Hx Chronic Obstructive Pulmonary Disease (COPD): Yes - NEUROLOGICAL Hx Neurological Disorder: No - HEENT Hx HEENT Problems: Yes Other/Comment: Use Eyeglasses - RENAL Hx Chronic Kidney Disease: No - ENDOCRINE/METABOLIC Hx Endocrine Disorders: No - HEMATOLOGICAL/ONCOLOGICAL Hx Human Immunodeficiency Virus (HIV): No - INTEGUMENTARY Hx Dermatological Problems: No - MUSCULOSKELETAL/RHEUMATOLOGICAL Hx Arthritis: Yes - GASTROINTESTINAL Hx Gastritis: Yes - GENITOURINARY/GYNECOLOGICAL Hx Genitourinary Disorders: Yes - PSYCHIATRIC Hx Anxiety: Yes - SURGICAL HISTORY Hx Appendectomy: Yes - ANESTHESIA Hx Anesthesia: Yes Hx Anesthesia Reactions: No Hx Malignant Hyperthermia: No Meds Allergies/Adverse Reactions: Allergies Allergy/AdvReac Type Severity Reaction Status Date / Time Iodinated Contrast- Oral and Allergy SHORTNESS Verified 12/04/17 16:43 IV Dye OF BREATH shrimp Allergy RASH Verified 12/04/17 16:43 seafood Allergy RASH Uncoded 12/04/17 16:43 Physical Exam - Constitutional Appears: Non-toxic, No Acute Distress - Head Exam Head Exam: ATRAUMATIC, NORMAL INSPECTION, NORMOCEPHALIC - Eye Exam Eye Exam: EOMI, Normal appearance. absent: Scleral icterus - ENT Exam ENT Exam: Mucous Membranes Moist - Respiratory Exam Respiratory Exam: NORMAL BREATHING PATTERN. absent: Accessory Muscle Use, Respiratory Distress - Cardiovascular Exam Cardiovascular Exam: RRR. absent: JVD - GI/Abdominal Exam GI & Abdominal Exam: Soft. absent: Distended, Firm, Guarding, Rebound, Rigid Additional comments: small umbilical hernia noted. some skin changes noted at umbilical hernia site, ecchymosis. Tenderness to palpation. soft hernia, non-reducible. - Extremities Exam Extremities exam: Positive for: normal inspection. Negative for: calf tenderness - Back Exam Back exam: NORMAL INSPECTION - Neurological Exam Neurological exam: Alert, Oriented x3 - Skin Skin Exam: Dry, Intact, Warm Results - Vital Signs Recent Vital Signs: Last Vital Signs Temp 99.5 F 12/04/17 16:43 Pulse 102 H 12/04/17 16:43 Resp 20 12/04/17 16:43 BP 133/78 12/04/17 16:43 Pulse Ox 97 12/04/17 19:05 - Labs Result Diagrams: 12/04/17 18:04 12/04/17 18:04 Labs: Laboratory Results - last 24 hr 12/04/17 12/04/17 12/04/17 18:04 18:04 18:04 WBC 10.8 RBC 4.57 Hgb 12.7 Hct 38.9 MCV 85.2 MCH 27.9 MCHC 32.7 L RDW 15.0 H Plt Count 405 H MPV 7.9 Neut % (Auto) 73.5 Lymph % (Auto) 14.5 L Dawes % (Auto) 9.8 Eos % (Auto) 1.3 Baso % (Auto) 0.9 Neut # (Auto) 8.0 H Lymph # (Auto) 1.6 Dawes # (Auto) 1.1 H Eos # (Auto) 0.1 Baso # (Auto) 0.1 PT 11.6 INR 1.0 APTT 48.7 H Sodium 140 Potassium 4.0 Chloride 101 Carbon Dioxide 26 Anion Gap 17 BUN 11 Creatinine 0.8 Est GFR ( Amer) > 60 Est GFR (Non-Af Amer) > 60 Random Glucose 98 Calcium 9.4 Total Bilirubin 0.6 AST 34 ALT 25 Alkaline Phosphatase 91 Total Protein 7.8 Albumin 3.8 Globulin 4.0 H Albumin/Globulin Ratio 1.0 Assessment & Plan - Assessment and Plan (Free Text) Assessment: 76yo F with chronic incarcerated umbilical hernia containing fat. - CT Abd/Pelvis noted: fat containing umbilical hernia; bilateral inguinal hernia containing fat. Stable compared to CT in August 2017. No Signs of obstruction Plan: - NPO - Patient would need Cardiac, Neurology, and medical clearance for consideration for OR - Possible surgery for umbilical hernia, pending clearances - f/u AM labs - Acute medical management as per primary and neurology teams - We will follow Further recs as per Dr. Fabian <Homero Fabian - Last Filed: 12/05/17 16:37> History of Present Illness - History of Present Illness History of Present Illness: Patient was seen and examined at the bedside. Agree with resident's note above. Meds - Medications Medications: Current Medications Dextrose/Sodium Chloride (Dextrose 5%/0.45% Ns 1000 Ml) 1,000 mls @ 100 mls/hr IV .Q10H YOJANA Stop: 12/05/17 22:41 Last Admin: 12/05/17 10:38 Dose: 100 mls/hr Physical Exam - GI/Abdominal Exam Additional comments: soft, very mildly tender at the site of the umbilical hernia, ND, BS+, no rebound, no guarding, incarcerated umbilical hernia Results - Vital Signs Recent Vital Signs: Last Vital Signs Temp 97.9 F 12/05/17 16:09 Pulse 67 12/05/17 16:09 Resp 20 12/05/17 16:09 BP 132/69 12/05/17 16:09 Pulse Ox 98 12/05/17 16:09 - Labs Result Diagrams: 12/05/17 06:00 12/05/17 06:00 Labs: Laboratory Results - last 24 hr 12/04/17 12/04/17 12/04/17 18:04 18:04 18:04 WBC 10.8 RBC 4.57 Hgb 12.7 Hct 38.9 MCV 85.2 MCH 27.9 MCHC 32.7 L RDW 15.0 H Plt Count 405 H MPV 7.9 Neut % (Auto) 73.5 Lymph % (Auto) 14.5 L Dawes % (Auto) 9.8 Eos % (Auto) 1.3 Baso % (Auto) 0.9 Neut # (Auto) 8.0 H Lymph # (Auto) 1.6 Dawes # (Auto) 1.1 H Eos # (Auto) 0.1 Baso # (Auto) 0.1 Neutrophils % (Manual) Lymphocytes % (Manual) Monocytes % (Manual) Platelet Estimate Large Platelets Anisocytosis (manual) ESR PT 11.6 INR 1.0 APTT 48.7 H Sodium 140 Potassium 4.0 Chloride 101 Carbon Dioxide 26 Anion Gap 17 BUN 11 Creatinine 0.8 Est GFR ( Amer) > 60 Est GFR (Non-Af Amer) > 60 Random Glucose 98 Calcium 9.4 Total Bilirubin 0.6 AST 34 ALT 25 Alkaline Phosphatase 91 C-Reactive Protein Total Protein 7.8 Albumin 3.8 Globulin 4.0 H Albumin/Globulin Ratio 1.0 Blood Type Blood Type Confirm Antibody Screen BBK History Checked 12/04/17 12/04/17 12/04/17 21:15 23:16 23:16 WBC RBC Hgb Hct MCV MCH MCHC RDW Plt Count MPV Neut % (Auto) Lymph % (Auto) Dawes % (Auto) Eos % (Auto) Baso % (Auto) Neut # (Auto) Lymph # (Auto) Dawes # (Auto) Eos # (Auto) Baso # (Auto) Neutrophils % (Manual) Lymphocytes % (Manual) Monocytes % (Manual) Platelet Estimate Large Platelets Anisocytosis (manual) ESR 92 H PT 11.6 INR 1.0 APTT 43.5 H D Sodium Potassium Chloride Carbon Dioxide Anion Gap BUN Creatinine Est GFR ( Amer) Est GFR (Non-Af Amer) Random Glucose Calcium Total Bilirubin AST ALT Alkaline Phosphatase C-Reactive Protein 60.80 H Total Protein Albumin Globulin Albumin/Globulin Ratio Blood Type Blood Type Confirm Antibody Screen BBK History Checked 12/04/17 12/05/17 12/05/17 23:16 06:00 06:00 WBC 8.2 RBC 4.71 Hgb 13.4 Hct 39.5 MCV 83.9 MCH 28.5 MCHC 34.0 RDW 15.0 H Plt Count 426 H MPV 8.1 Neut % (Auto) 90.9 H Lymph % (Auto) 7.8 L Dawes % (Auto) 1.0 Eos % (Auto) 0.0 Baso % (Auto) 0.3 Neut # (Auto) 7.4 H Lymph # (Auto) 0.6 L Dawes # (Auto) 0.1 Eos # (Auto) 0.0 Baso # (Auto) 0.0 Neutrophils % (Manual) 88 H Lymphocytes % (Manual) 11 L Monocytes % (Manual) 1 Platelet Estimate Normal Large Platelets Present Anisocytosis (manual) Slight ESR PT 11.8 INR 1.1 APTT 44.6 H Sodium Potassium Chloride Carbon Dioxide Anion Gap BUN Creatinine Est GFR ( Amer) Est GFR (Non-Af Amer) Random Glucose Calcium Total Bilirubin AST ALT Alkaline Phosphatase C-Reactive Protein Total Protein Albumin Globulin Albumin/Globulin Ratio Blood Type O POSITIVE Blood Type Confirm Antibody Screen Negative BBK History Checked No verified bt 12/05/17 12/05/17 06:00 06:00 WBC RBC Hgb Hct MCV MCH MCHC RDW Plt Count MPV Neut % (Auto) Lymph % (Auto) Dawes % (Auto) Eos % (Auto) Baso % (Auto) Neut # (Auto) Lymph # (Auto) Dawes # (Auto) Eos # (Auto) Baso # (Auto) Neutrophils % (Manual) Lymphocytes % (Manual) Monocytes % (Manual) Platelet Estimate Large Platelets Anisocytosis (manual) ESR PT INR APTT Sodium 138 Potassium 4.4 Chloride 105 Carbon Dioxide 23 Anion Gap 14 BUN 11 Creatinine 0.7 Est GFR ( Amer) > 60 Est GFR (Non-Af Amer) > 60 Random Glucose 275 H Calcium 9.2 Total Bilirubin 0.6 AST 23 ALT 20 Alkaline Phosphatase 88 C-Reactive Protein Total Protein 7.6 Albumin 3.8 Globulin 3.8 Albumin/Globulin Ratio 1.0 Blood Type Blood Type Confirm O POSITIVE Antibody Screen BBK History Checked - Imaging and Cardiology CT scan - abdomen Status: Image reviewed by me, Report reviewed by me Assessment & Plan - Assessment and Plan (Free Text) Plan: - Start regular diet - Patient is still c/o headache, taking into account that patient had the hernia for the last [address] last CT scan from August of this year shows same hernia with fat no need for emergent general surgery intervention - Neurology consultation - Patient will follow up with me in the office to schedule elective umbilical hernia repair once her headaches resolve - General surgery will sign off - please re-consult as needed
--- NOTE | 2017-12-04 19:16 | ED PDOC ---
- Laboratory Results Result Diagrams: 12/05/17 06:00 12/05/17 06:00 - ECG O2 Sat by Pulse Oximetry: 97 (RA) Medical Decision Making Medical Decision Makin:00 -Patient endorsed to me by Dr. Noonan, pending work up and surgical evaluation. 20:15 -Discussed case with Dr. Cazares, ordered ESR. 20:[address] FINDINGS: Brain: There is mild diffuse cerebral atrophy present, consistent with this patient's age. Areas of decreased attenuation noted within the periventricular and subcortical white matter likely related to chronic microangiopathic ischemic changes given the patient's stated age. No hemorrhage. Ventricles: Unremarkable. No ventriculomegaly. Bones/joints: Unremarkable. No acute fracture. Soft tissues: Unremarkable. Sinuses: Unremarkable as visualized. No acute sinusitis. Mastoid air cells: Unremarkable as visualized. No mastoid effusion. IMPRESSION: No evidence of acute intracranial hemorrhage. 21:20 Abdomen/Pelvis CT FINDINGS: Lung bases: Unremarkable. No mass. No consolidation. Mediastinum: Small hiatal hernia. ABDOMEN: Liver: Lobular contour of the liver, correlate for chronic hepatic parenchymal disease. Gallbladder and bile ducts: Unremarkable. No calcified stones. No ductal dilation. Pancreas: Unremarkable. No ductal dilation. Spleen: Unremarkable. No splenomegaly. Adrenals: Left adrenal thickening Kidneys and ureters: There are renal hypodensities that cannot be accurately characterized on the current examination. No hydronephrosis. Stomach and bowel: Oral contrast reaches the rectum.Scattered diverticulosis of the colon. No evidence of diverticulitis. PELVIS: Appendix: Appendectomy. Bladder: Partially contracted. Reproductive: Unremarkable as visualized. ABDOMEN and PELVIS: Intraperitoneal space: Unremarkable. No free air. No drainable fluid collection. Bones/joints: Spondylosis. No dislocation. Soft tissues: Moderate fat-containing umbilical hernia. Neck of the hernial sac measures 8 mm. Vasculature: Atherosclerotic calcifications. No abdominal aortic aneurysm. Lymph nodes: Unremarkable. No enlarged lymph nodes. IMPRESSION: 1. Lobular contour of the liver, correlate for chronic hepatic parenchymal disease. 2. Moderate fat-containing umbilical hernia. Neck of the hernial sac measures 8 mm. 22:05 -ESR elevated. Discussed case with Dr. Cazares, he's at bedside as well and wants her to be admitted. Will consult neurologist. Disposition - Clinical Impression Clinical Impression: Headache, Abdominal pain - Disposition Condition: FAIR
[2017-12-04] MEDS ORDERED: Sodium Chloride 0.9% 50 ML IV ONE (20:12)
[2017-12-04] MEDS ORDERED: Iodixanol 320 MG/ML 100 ML BOTTLE IV ONE (20:12)
[2017-12-04] MEDS ORDERED: methylPREDNISolone 100 MG in Sodium Chloride 0.9% 50 ML IV STA (22:26)
[2017-12-04 23:46] LABS: PARTIAL THROMBOPLASTIN TIME 43.5 Seconds (25.6-37.1); PROTHROMBIN TIME 11.6 Seconds (9.8-13.1)
[2017-12-05] MEDS: Dextrose 5%/0.45% NS 1,000 ML IV SCH ×4 (00:44→19:37)
[2017-12-05 06:19] LABS: BASO % 0.3 % (0.0-2.0); HEMOGLOBIN 13.4 g/dL (12.0-16.0); LYMPH # 0.6 K/uL (1.0-4.3); LYMPH % 7.8 % (20.0-40.0); MEAN CELL VOLUME 83.9 fl (81.0-99.0); MEAN CORPUSCULAR HEMOGLOBIN 28.5 pg (27.0-31.0); MEAN PLATELET VOLUME 8.1 fl (7.2-11.7); MONO # 0.1 K/uL (0.0-0.8); NEUT # 7.4 K/uL (1.8-7.0); NEUT % 90.9 % (50.0-75.0); NRBC % 0.1 % (0.0-0.0); PLATELET COUNT 426 K/uL (130-400); RBC 4.71 Mil/uL (3.80-5.20); WHITE BLOOD COUNT 8.2 K/uL (4.8-10.8)
[2017-12-05 06:46] LABS: INR 1.1 (0.9-1.2); PARTIAL THROMBOPLASTIN TIME 44.6 Seconds (25.6-37.1); PROTHROMBIN TIME 11.8 Seconds (9.8-13.1)
[2017-12-05 06:48] LABS: ALBUMIN 3.8 g/dL (3.5-5.0); ALT/SGPT 20 U/L (9-52); AST/SGOT 23 U/L (14-36); BLOOD UREA NITROGEN 11 mg/dl (7-17); CALCIUM 9.2 mg/dL (8.4-10.2); GFR AFRICAN-AMERICAN > 60; GFR NON-AFRICAN AMERICAN > 60
[2017-12-05 09:33] LABS: LYMPHOCYTE 11 % (20-50); MONOCYTE 1 % (0-10); NEUTROPHIL 88 % (42-75); PLATELET ESTIMATE NORMAL (NORMAL); TOTAL CELLS COUNTED 100
[2017-12-05 09:34] LABS: ANISOCYTOSIS SLIGHT; LARGE PLATELETS PRESENT
--- NOTE | 2017-12-05 10:46 | CP.PCM.PN ---
<Acosta Khan - Last Filed: 12/05/17 10:43> Subjective - Date & Time of Evaluation Date of Evaluation: 12/05/17 Time of Evaluation: 07:30 - Subjective Subjective: Patient seen and examined. No acute events. Complaining of pain along umbilical hernia site. Denies n/v. Objective - Vital Signs/Intake and Output Vital Signs (last 24 hours): Temp Pulse Resp BP Pulse Ox 97.9 F 73 18 130/78 95 12/05/17 08:05 12/05/17 08:05 12/05/17 08:05 12/05/17 08:05 12/05/17 08:05 - Medications Medications: Current Medications Dextrose/Sodium Chloride (Dextrose 5%/0.45% Ns 1000 Ml) 1,000 mls @ 100 mls/hr IV .Q10H YOJANA Stop: 12/05/17 22:41 Last Admin: 12/05/17 10:38 Dose: 100 mls/hr - Labs Labs: 12/05/17 06:00 12/05/17 06:00 PT 11.8 Seconds (9.8-13.1) 12/05/17 06:00 INR 1.1 (0.9-1.2) 12/05/17 06:00 APTT 44.6 Seconds (25.6-37.1) H 12/05/17 06:00 - Constitutional Appears: No Acute Distress - Head Exam Head Exam: NORMOCEPHALIC - Eye Exam Eye Exam: Normal appearance - Cardiovascular Exam Cardiovascular Exam: REGULAR RHYTHM - GI/Abdominal Exam GI & Abdominal Exam: Hernia Additional comments: incarcerated umbilical hernia containing incarcerated fat - Neurological Exam Neurological Exam: Alert, Awake, Oriented x3 - Skin Skin Exam: Dry, Intact, Warm Assessment and Plan - Assessment and Plan (Free Text) Assessment: 76yo F with chronic incarcerated fat containing umbilical hernia Plan: - NPO -IVF -Analgesic prn -Need Cardiac, Neurology, and medical clearance prior to surgical intervention - Acute medical management as per primary and neurology teams - Will continue to follow Further recs as per Dr. Caren Bauer PGY2 <Homero Fabian - Last Filed: 12/05/17 16:46> Subjective - Date & Time of Evaluation Time of Evaluation: 16:00 - Subjective Subjective: Patient was seen and examined at the bedside. Agree with resident's note above. Objective - Vital Signs/Intake and Output Vital Signs (last 24 hours): Temp Pulse Resp BP Pulse Ox 97.9 F 67 20 132/69 98 12/05/17 16:09 12/05/17 16:09 12/05/17 16:09 12/05/17 16:09 12/05/17 16:09 - Medications Medications: Current Medications Dextrose/Sodium Chloride (Dextrose 5%/0.45% Ns 1000 Ml) 1,000 mls @ 100 mls/hr IV .Q10H YOJANA Stop: 12/05/17 22:41 Last Admin: 12/05/17 10:38 Dose: 100 mls/hr - Labs Labs: 12/05/17 06:00 12/05/17 06:00 PT 11.8 Seconds (9.8-13.1) 12/05/17 06:00 INR 1.1 (0.9-1.2) 12/05/17 06:00 APTT 44.6 Seconds (25.6-37.1) H 12/05/17 06:00 Assessment and Plan - Assessment and Plan (Free Text) Plan: - Start regular diet - Neurology consultation - Since patient is still having headache and this is the reason why she came to the hospital will hold off on any surgical intervention at present time. - Patient will follow up with me in the office to schedule elective Umbilical hernia repair - General surgery will sign off - Continue care as per medical team - Please re-consult as needed
--- NOTE | 2017-12-05 11:46 | CT ---
PROCEDURE: CT HEAD WITHOUT CONTRAST. HISTORY: headache COMPARISON: 10/29/2017 TECHNIQUE: Axial computed tomography images were obtained through the head/brain without intravenous contrast. Radiation dose: Total exam DLP = 809.68 mGy-cm. This CT exam was performed using one or more of the following dose reduction techniques: Automated exposure control, adjustment of the mA and/or kV according to patient size, and/or use of iterative reconstruction technique. FINDINGS: HEMORRHAGE: No intracranial hemorrhage. BRAIN: No mass effect or edema. Mild chronic periventricular white matter lucency consistent with microvascular ischemic change. 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 No evidence of acute infarct. VENTRICLES: Unremarkable. No hydrocephalus. CALVARIUM: Unremarkable. PARANASAL SINUSES: Unremarkable as visualized. No significant inflammatory changes. MASTOID AIR CELLS: Unremarkable as visualized. No inflammatory changes. OTHER FINDINGS: None. IMPRESSION: No intracranial mass, hemorrhage or evidence of acute infarct. Mild chronic white matter ischemic change. 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 Otherwise unremarkable.
--- NOTE | 2017-12-05 13:24 | CT ---
PROCEDURE: CT Abdomen and Pelvis with contrast HISTORY: abd pain COMPARISON: 09/04/2017. CT abdomen and pelvis. Macro TECHNIQUE: Contrast dose: 90 cc Visipaque 320 Radiation dose: Total exam DLP = mGy-cm. This CT exam was performed using one or more of the following dose reduction techniques: Automated exposure control, adjustment of the mA and/or kV according to patient size, and/or use of iterative reconstruction technique. FINDINGS: LOWER THORAX: Unremarkable. LIVER: Hepatic steatosis. No focal masses. No intrahepatic bile duct dilatation or perihepatic ascites. GALLBLADDER AND BILE DUCTS: Unremarkable. PANCREAS: Unremarkable. No gross lesion or ductal dilatation. SPLEEN: Unremarkable. ADRENALS: Unremarkable. No mass. KIDNEYS AND URETERS: Unremarkable. No hydronephrosis. No solid mass. VASCULATURE: Unremarkable. No aortic aneurysm. BOWEL: Unremarkable. No obstruction. No gross mural thickening. APPENDIX: Prior appendectomy PERITONEUM: Unremarkable. No free fluid. No free air. LYMPH NODES: Unremarkable. No enlarged lymph nodes. BLADDER: Unremarkable. REPRODUCTIVE: Prior hysterectomy BONES: No acute fracture. OTHER FINDINGS: Fat containing periumbilical hernia. IMPRESSION: No acute findings related to/accounting for the clinical presentation. Additional benign and/or incidental findings described above. No significant interval change compared to the prior examination(s).
--- NOTE | 2017-12-05 13:44 | CP.PCM.HP ---
History of Present Illness - History of Present Illness History of Present Illness: CC: Headache. 76 y/o F, Hx of COPD, HTN, O/A, came to [facility] on 12/[facility]/17 to be evaluated for Headache with no relief. Pt was c/o of R side headache increased for the last 2 days [employer], now described as aching, moderate to severe intensity 7:10 associated to dizziness, pain radiating down to back of her R side of neck. Pt states; She had a cyst removed from her head a year ago. Worsening symptoms: Also c/o of mild abdominal pain, umbilical hernia site. Worsening factor: Movements/exercise. Pt denied: Fever, chills, blurred vision, numbness, syncope, n/v/d, urinary symptoms, CP, palpitations, SOB, cough, sick contact, recent travel out of [facility]. Head CT: No intracranial mass, hemorrhage or evidence of acute infarct. 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 Abd/Pelv CT: No acute findings. Fat containing periumbilical hernia. Sed Rate 92 , CRP 60.80 Present on Admission - Present on Admission Any Indicators Present on Admission: No Review of Systems - Constitutional Constitutional: Headache - EENT Eyes: Requires Corrective Lenses Ears: Other (negative) Nose/Mouth/Throat: Other (negative) - Cardiovascular Cardiovascular: Other (negative) - Respiratory Respiratory: Other (negative) - Gastrointestinal Gastrointestinal: Abdominal Pain - Genitourinary Genitourinary: Other (negative) - Musculoskeletal Musculoskeletal: Arthralgias, Neck Pain - Integumentary Integumentary: Other (negative) - Neurological Neurological: Dizziness - Psychiatric Psychiatric: Other (negative) - Endocrine Endocrine: Other (negative) - Hematologic/Lymphatic Hematologic: Other (negative) Past Patient History - Infectious Disease Hx of Infectious Diseases: None - Past Medical History & Family History Past Medical History?: Yes Pertinent Family History: Unknown - Past Social History Smoking Status: Never Smoked Alcohol: None Drugs: Denies Home Situation {Lives}: With Family - CARDIAC Hx Cardiac Disorders: Yes Hx Hypercholesterolemia: Yes Hx Hypertension: Yes - PULMONARY Hx Respiratory Disorders: Yes Hx Bronchitis: Yes Hx Chronic Obstructive Pulmonary Disease (COPD): Yes - NEUROLOGICAL Hx Neurological Disorder: No - HEENT Hx HEENT Problems: Yes (eyeglasses) - RENAL Hx Chronic Kidney Disease: No - ENDOCRINE/METABOLIC Hx Endocrine Disorders: No - HEMATOLOGICAL/ONCOLOGICAL Hx Blood Disorders: No Hx AIDS: No Hx Human Immunodeficiency Virus (HIV): No - INTEGUMENTARY Hx Dermatological Problems: No - MUSCULOSKELETAL/RHEUMATOLOGICAL Hx Musculoskeletal Disorders: Yes Hx Arthritis: Yes Hx Falls: No - GASTROINTESTINAL Hx Gastrointestinal Disorders: Yes (Umbilical hernia-non reducible) Hx Gastritis: Yes - GENITOURINARY/GYNECOLOGICAL Hx Genitourinary Disorders: No - PSYCHIATRIC Hx Psychophysiologic Disorder: Yes Hx Anxiety: Yes Hx Substance Use: No - SURGICAL HISTORY Hx Surgeries: Yes Hx Appendectomy: Yes - ANESTHESIA Hx Anesthesia: Yes Hx Anesthesia Reactions: No Hx Malignant Hyperthermia: No Meds Allergies/Adverse Reactions: Allergies Allergy/AdvReac Type Severity Reaction Status Date / Time Iodinated Contrast- Oral and Allergy SHORTNESS Verified 12/04/17 16:43 IV Dye OF BREATH shrimp Allergy RASH Verified 12/04/17 16:43 seafood Allergy RASH Uncoded 12/04/17 16:43 Physical Exam - Constitutional Appears: No Acute Distress - Head Exam Head Exam: NORMAL INSPECTION Additional comments: tenderness R scalp - Eye Exam Eye Exam: PERRL - ENT Exam ENT Exam: Normal Exam - Neck Exam Neck exam: Positive for: Tenderness - Respiratory Exam Respiratory Exam: Decreased Breath Sounds (at bases) - Cardiovascular Exam Cardiovascular Exam: REGULAR RHYTHM - GI/Abdominal Exam GI & Abdominal Exam: Normal Bowel Sounds, Soft, Tenderness (to palpation umbilical hernia, nonreducible, ecchymosis.) Additional comments: umbilical hernia non reducible , mild tenderness - Extremities Exam Extremities exam: Positive for: normal inspection - Back Exam Back exam: NORMAL INSPECTION - Neurological Exam Neurological exam: Alert, Oriented x3 Additional comments: No motor/sensory deficit. - Psychiatric Exam Psychiatric exam: Normal Mood - Skin Skin Exam: Warm Results - Vital Signs Recent Vital Signs: Last Vital Signs Temp 97.9 F 12/05/17 08:05 Pulse 73 12/05/17 08:05 Resp 18 12/05/17 08:05 BP 130/78 12/05/17 08:05 Pulse Ox 95 12/05/17 08:05 audelia White - Labs Result Diagrams: 12/05/17 06:00 12/05/17 06:00 Labs: Laboratory Results - last 24 hr 12/04/17 12/04/17 12/04/17 18:04 18:04 18:04 WBC 10.8 RBC 4.57 Hgb 12.7 Hct 38.9 MCV 85.2 MCH 27.9 MCHC 32.7 L RDW 15.0 H Plt Count 405 H MPV 7.9 Neut % (Auto) 73.5 Lymph % (Auto) 14.5 L [place] % (Auto) 9.8 Eos % (Auto) 1.3 Baso % (Auto) 0.9 Neut # (Auto) 8.0 H Lymph # (Auto) 1.6 [place] # (Auto) 1.1 H Eos # (Auto) 0.1 Baso # (Auto) 0.1 Neutrophils % (Manual) Lymphocytes % (Manual) Monocytes % (Manual) Platelet Estimate Large Platelets Anisocytosis (manual) ESR PT 11.6 INR 1.0 APTT 48.7 H Sodium 140 Potassium 4.0 Chloride 101 Carbon Dioxide 26 Anion Gap 17 BUN 11 Creatinine 0.8 Est GFR ( Amer) > 60 Est GFR (Non-Af Amer) > 60 Random Glucose 98 Calcium 9.4 Total Bilirubin 0.6 AST 34 ALT 25 Alkaline Phosphatase 91 C-Reactive Protein Total Protein 7.8 Albumin 3.8 Globulin 4.0 H Albumin/Globulin Ratio 1.0 Blood Type Blood Type Confirm Antibody Screen BBK History Checked 12/04/17 12/04/17 12/04/17 21:15 23:16 23:16 WBC RBC Hgb Hct MCV MCH MCHC RDW Plt Count MPV Neut % (Auto) Lymph % (Auto) [place] % (Auto) Eos % (Auto) Baso % (Auto) Neut # (Auto) Lymph # (Auto) [place] # (Auto) Eos # (Auto) Baso # (Auto) Neutrophils % (Manual) Lymphocytes % (Manual) Monocytes % (Manual) Platelet Estimate Large Platelets Anisocytosis (manual) ESR 92 H PT 11.6 INR 1.0 APTT 43.5 H D Sodium Potassium Chloride Carbon Dioxide Anion Gap BUN Creatinine Est GFR ( Amer) Est GFR (Non-Af Amer) Random Glucose Calcium Total Bilirubin AST ALT Alkaline Phosphatase C-Reactive Protein 60.80 H Total Protein Albumin Globulin Albumin/Globulin Ratio Blood Type Blood Type Confirm Antibody Screen BBK History Checked 12/04/17 12/05/17 12/05/17 23:16 06:00 06:00 WBC 8.2 RBC 4.71 Hgb 13.4 Hct 39.5 MCV 83.9 MCH 28.5 MCHC 34.0 RDW 15.0 H Plt Count 426 H MPV 8.1 Neut % (Auto) 90.9 H Lymph % (Auto) 7.8 L [place] % (Auto) 1.0 Eos % (Auto) 0.0 Baso % (Auto) 0.3 Neut # (Auto) 7.4 H Lymph # (Auto) 0.6 L [place] # (Auto) 0.1 Eos # (Auto) 0.0 Baso # (Auto) 0.0 Neutrophils % (Manual) 88 H Lymphocytes % (Manual) 11 L Monocytes % (Manual) 1 Platelet Estimate Normal Large Platelets Present Anisocytosis (manual) Slight ESR PT 11.8 INR 1.1 APTT 44.6 H Sodium Potassium Chloride Carbon Dioxide Anion Gap BUN Creatinine Est GFR ( Amer) Est GFR (Non-Af Amer) Random Glucose Calcium Total Bilirubin AST ALT Alkaline Phosphatase C-Reactive Protein Total Protein Albumin Globulin Albumin/Globulin Ratio Blood Type O POSITIVE Blood Type Confirm Antibody Screen Negative BBK History Checked No verified bt 12/05/17 12/05/17 06:00 06:00 WBC RBC Hgb Hct MCV MCH MCHC RDW Plt Count MPV Neut % (Auto) Lymph % (Auto) [place] % (Auto) Eos % (Auto) Baso % (Auto) Neut # (Auto) Lymph # (Auto) [place] # (Auto) Eos # (Auto) Baso # (Auto) Neutrophils % (Manual) Lymphocytes % (Manual) Monocytes % (Manual) Platelet Estimate Large Platelets Anisocytosis (manual) ESR PT INR APTT Sodium 138 Potassium 4.4 Chloride 105 Carbon Dioxide 23 Anion Gap 14 BUN 11 Creatinine 0.7 Est GFR ( Amer) > 60 Est GFR (Non-Af Amer) > 60 Random Glucose 275 H Calcium 9.2 Total Bilirubin 0.6 AST 23 ALT 20 Alkaline Phosphatase 88 C-Reactive Protein Total Protein 7.6 Albumin 3.8 Globulin 3.8 Albumin/Globulin Ratio 1.0 Blood Type Blood Type Confirm O POSITIVE Antibody Screen BBK History Checked reviewed J.P. - Imaging and Cardiology CT scan - head Status: Report reviewed by me (GabrielP.) CT scan - abdomen Status: Report reviewed by me (JEdwardP.) CT scan - pelvis Status: Report reviewed by me (J.P.) Assessment & Plan (1) Temporal arteritis Status: Acute (2) Headache Status: Acute Priority: High (3) Abdominal pain Status: Acute Priority: High (4) Umbilical hernia Status: Chronic Priority: High Comment: Non-reducible. (5) COPD (chronic obstructive pulmonary disease) Status: Acute - Assessment and Plan (Free Text) Plan: Keep in NPO, f/u Brain MRI w/wo contrast, Echo, Fluid IV, PT,OT eval. Surgery consult appreciated. Patient had Solu Medrol in ER with R scalp temporal tenderness great improvement Neuro and Cardiology consult , Patient evaluated for R temporal artery Bx , and umbilical hernia surgery - Date & Time Date: 12/05/17 Time: 12:30
[2017-12-05 17:54] LABS: T4 6.58 ug/dl (5.5-11.0)
[2017-12-05] MEDS ORDERED: Gadodiamide 287 MG/ML VIAL (15ML) IV ONE (18:05)
[2017-12-05 18:08] LABS: T3 0.683 nmol/L (1.49-2.60)
--- NOTE | 2017-12-05 18:54 | CP.PCM.CON ---
History of Present Illness - History of Present Illness History of Present Illness: Consulation for preop evaluation HPI: Review of Systems - Review of Systems Systems not reviewed;Unavailable: Acuity of Condition - Constitutional Constitutional: As Per HPI - EENT Eyes: As Per HPI Ears: As Per HPI Nose/Mouth/Throat: As Per HPI - Breasts Breasts: As Per HPI - Cardiovascular Cardiovascular: As Per HPI - Respiratory Respiratory: As Per HPI - Gastrointestinal Gastrointestinal: As Per HPI - Genitourinary Genitourinary: As Per HPI - Reproductive: Female Reproductive:Female: As Per HPI - Menstruation Menstruation: As Per HPI - Musculoskeletal Musculoskeletal: As Per HPI - Integumentary Integumentary: As Per HPI - Neurological Neurological: As Per HPI - Psychiatric Psychiatric: As Per HPI - Endocrine Endocrine: As Per HPI - Hematologic/Lymphatic Hematologic: As Per HPI Past Patient History - Infectious Disease Hx of Infectious Diseases: None - Past Medical History & Family History Past Medical History?: Yes - Past Social History Smoking Status: Never Smoked - CARDIAC Hx Cardiac Disorders: Yes Hx Hypercholesterolemia: Yes Hx Hypertension: Yes - PULMONARY Hx Respiratory Disorders: Yes Hx Bronchitis: Yes Hx Chronic Obstructive Pulmonary Disease (COPD): Yes - NEUROLOGICAL Hx Neurological Disorder: No - HEENT Hx HEENT Problems: Yes (eyeglasses) - RENAL Hx Chronic Kidney Disease: No - ENDOCRINE/METABOLIC Hx Endocrine Disorders: No - HEMATOLOGICAL/ONCOLOGICAL Hx Blood Disorders: No Hx AIDS: No Hx Human Immunodeficiency Virus (HIV): No - INTEGUMENTARY Hx Dermatological Problems: No - MUSCULOSKELETAL/RHEUMATOLOGICAL Hx Musculoskeletal Disorders: Yes Hx Arthritis: Yes Hx Falls: No - GASTROINTESTINAL Hx Gastritis: Yes - GENITOURINARY/GYNECOLOGICAL Hx Genitourinary Disorders: No - PSYCHIATRIC Hx Psychophysiologic Disorder: Yes Hx Anxiety: Yes Hx Substance Use: No - SURGICAL HISTORY Hx Appendectomy: Yes - ANESTHESIA Hx Anesthesia: Yes Hx Anesthesia Reactions: No Hx Malignant Hyperthermia: No Meds Allergies/Adverse Reactions: Allergies Allergy/AdvReac Type Severity Reaction Status Date / Time Iodinated Contrast- Oral and Allergy SHORTNESS Verified 12/04/17 16:43 IV Dye OF BREATH shrimp Allergy RASH Verified 12/04/17 16:43 seafood Allergy RASH Uncoded 12/04/17 16:43 - Medications Medications: Current Medications Dextrose/Sodium Chloride (Dextrose 5%/0.45% Ns 1000 Ml) 1,000 mls @ 100 mls/hr IV .Q10H YOJANA Stop: 12/05/17 22:41 Last Admin: 12/05/17 10:38 Dose: 100 mls/hr Physical Exam - Constitutional Appears: Well - Head Exam Head Exam: ATRAUMATIC, NORMAL INSPECTION, NORMOCEPHALIC - Eye Exam Eye Exam: EOMI, Normal appearance, PERRL Pupil Exam: NORMAL ACCOMODATION, PERRL - ENT Exam ENT Exam: Mucous Membranes Moist, Normal Exam - Neck Exam Neck exam: Positive for: Normal Inspection - Respiratory Exam Respiratory Exam: Clear to Auscultation Bilateral, NORMAL BREATHING PATTERN - Cardiovascular Exam Cardiovascular Exam: REGULAR RHYTHM - GI/Abdominal Exam GI & Abdominal Exam: Normal Bowel Sounds, Soft. absent: Tenderness - Extremities Exam Extremities exam: Positive for: normal inspection - Back Exam Back exam: NORMAL INSPECTION - Neurological Exam Neurological exam: Alert, CN II-XII Intact, Normal Gait, Oriented x3, Reflexes Normal - Psychiatric Exam Psychiatric exam: Normal Affect, Normal Mood - Skin Skin Exam: Dry, Intact, Normal Color, Warm Results - Vital Signs Recent Vital Signs: Last Vital Signs Temp 97.9 F 12/05/17 16:09 Pulse 67 12/05/17 16:09 Resp 20 12/05/17 16:09 BP 132/69 12/05/17 16:09 Pulse Ox 98 12/05/17 16:09 - Labs Result Diagrams: 12/05/17 06:00 12/05/17 06:00 Labs: Laboratory Results - last 24 hr 12/04/17 12/04/17 12/04/17 21:15 23:16 23:16 WBC RBC Hgb Hct MCV MCH MCHC RDW Plt Count MPV Neut % (Auto) Lymph % (Auto) [place] % (Auto) Eos % (Auto) Baso % (Auto) Neut # (Auto) Lymph # (Auto) [place] # (Auto) Eos # (Auto) Baso # (Auto) Neutrophils % (Manual) Lymphocytes % (Manual) Monocytes % (Manual) Platelet Estimate Large Platelets Anisocytosis (manual) ESR 92 H PT 11.6 INR 1.0 APTT 43.5 H D Sodium Potassium Chloride Carbon Dioxide Anion Gap BUN Creatinine Est GFR ( Amer) Est GFR (Non-Af Amer) Random Glucose Calcium Total Bilirubin AST ALT Alkaline Phosphatase C-Reactive Protein 60.80 H Total Protein Albumin Globulin Albumin/Globulin Ratio Triglycerides Cholesterol LDL Cholesterol Direct HDL Cholesterol Thyroxine (T4) Total T3 TSH 3rd Generation Blood Type Blood Type Confirm Antibody Screen BBK History Checked 12/04/17 12/05/17 12/05/17 23:16 06:00 06:00 WBC 8.2 RBC 4.71 Hgb 13.4 Hct 39.5 MCV 83.9 MCH 28.5 MCHC 34.0 RDW 15.0 H Plt Count 426 H MPV 8.1 Neut % (Auto) 90.9 H Lymph % (Auto) 7.8 L [place] % (Auto) 1.0 Eos % (Auto) 0.0 Baso % (Auto) 0.3 Neut # (Auto) 7.4 H Lymph # (Auto) 0.6 L [place] # (Auto) 0.1 Eos # (Auto) 0.0 Baso # (Auto) 0.0 Neutrophils % (Manual) 88 H Lymphocytes % (Manual) 11 L Monocytes % (Manual) 1 Platelet Estimate Normal Large Platelets Present Anisocytosis (manual) Slight ESR PT 11.8 INR 1.1 APTT 44.6 H Sodium Potassium Chloride Carbon Dioxide Anion Gap BUN Creatinine Est GFR ( Amer) Est GFR (Non-Af Amer) Random Glucose Calcium Total Bilirubin AST ALT Alkaline Phosphatase C-Reactive Protein Total Protein Albumin Globulin Albumin/Globulin Ratio Triglycerides Cholesterol LDL Cholesterol Direct HDL Cholesterol Thyroxine (T4) Total T3 TSH 3rd Generation Blood Type O POSITIVE Blood Type Confirm Antibody Screen Negative BBK History Checked No verified bt 12/05/17 12/05/17 12/05/17 06:00 06:00 15:57 WBC RBC Hgb Hct MCV MCH MCHC RDW Plt Count MPV Neut % (Auto) Lymph % (Auto) [place] % (Auto) Eos % (Auto) Baso % (Auto) Neut # (Auto) Lymph # (Auto) [place] # (Auto) Eos # (Auto) Baso # (Auto) Neutrophils % (Manual) Lymphocytes % (Manual) Monocytes % (Manual) Platelet Estimate Large Platelets Anisocytosis (manual) ESR PT INR APTT Sodium 138 Potassium 4.4 Chloride 105 Carbon Dioxide 23 Anion Gap 14 BUN 11 Creatinine 0.7 Est GFR ( Amer) > 60 Est GFR (Non-Af Amer) > 60 Random Glucose 275 H Calcium 9.2 Total Bilirubin 0.6 AST 23 ALT 20 Alkaline Phosphatase 88 C-Reactive Protein Total Protein 7.6 Albumin 3.8 Globulin 3.8 Albumin/Globulin Ratio 1.0 Triglycerides 66 Cholesterol 169 LDL Cholesterol Direct 110 HDL Cholesterol 34 Thyroxine (T4) 6.58 Total T3 0.683 L TSH 3rd Generation 0.82 Blood Type Blood Type Confirm O POSITIVE Antibody Screen BBK History Checked Assessment & Plan (1) Preop cardiovascular exam Status: Acute (2) History of atrial fibrillation Status: Chronic Priority: Medium (3) History of hypertension Status: Chronic Priority: Medium (4) Abdominal pain Status: Resolved Priority: High
--- NOTE | 2017-12-05 19:16 | CP.PCM.CON ---
History of Present Illness - History of Present Illness History of Present Illness: 76 yr old male with pmh of htn, and arthritis, presenting to the ER for a one month duration headache with right side neck pain. Patient reports she had a cyst removed from her head approximately x1 year ago. Patient states she had a cold about x1 month ago, she developed the headache after the cold resolved. Headache is not the worst in her life and is localized all over her head. She denies any fever, chills, numbness or tingling, weakness, cough, congestion, chest pain, shortness of breath, dizziness, vision changes, nausea, vomit or diarrhea. No further medical complaints. PMD: Dr. Aric Cazares PMH/PSH: as above FH/SH : as per chart All: nkda: On exam: Normal neurological examination. Past Patient History - Infectious Disease Hx of Infectious Diseases: None - Past Medical History & Family History Past Medical History?: Yes - Past Social History Smoking Status: Never Smoked - CARDIAC Hx Cardiac Disorders: Yes Hx Hypercholesterolemia: Yes Hx Hypertension: Yes - PULMONARY Hx Respiratory Disorders: Yes Hx Bronchitis: Yes Hx Chronic Obstructive Pulmonary Disease (COPD): Yes - NEUROLOGICAL Hx Neurological Disorder: No - HEENT Hx HEENT Problems: Yes (eyeglasses) - RENAL Hx Chronic Kidney Disease: No - ENDOCRINE/METABOLIC Hx Endocrine Disorders: No - HEMATOLOGICAL/ONCOLOGICAL Hx Blood Disorders: No Hx AIDS: No Hx Human Immunodeficiency Virus (HIV): No - INTEGUMENTARY Hx Dermatological Problems: No - MUSCULOSKELETAL/RHEUMATOLOGICAL Hx Musculoskeletal Disorders: Yes Hx Arthritis: Yes Hx Falls: No - GASTROINTESTINAL Hx Gastritis: Yes - GENITOURINARY/GYNECOLOGICAL Hx Genitourinary Disorders: No - PSYCHIATRIC Hx Psychophysiologic Disorder: Yes Hx Anxiety: Yes Hx Substance Use: No - SURGICAL HISTORY Hx Appendectomy: Yes - ANESTHESIA Hx Anesthesia: Yes Hx Anesthesia Reactions: No Hx Malignant Hyperthermia: No Meds Allergies/Adverse Reactions: Allergies Allergy/AdvReac Type Severity Reaction Status Date / Time Iodinated Contrast- Oral and Allergy SHORTNESS Verified 12/04/17 16:43 IV Dye OF BREATH shrimp Allergy RASH Verified 12/04/17 16:43 seafood Allergy RASH Uncoded 12/04/17 16:43 - Medications Medications: Current Medications Dextrose/Sodium Chloride (Dextrose 5%/0.45% Ns 1000 Ml) 1,000 mls @ 100 mls/hr IV .Q10H YOJANA Stop: 12/05/17 22:41 Last Admin: 12/05/17 10:38 Dose: 100 mls/hr Results - Vital Signs Recent Vital Signs: Last Vital Signs Temp 97.9 F 12/05/17 16:09 Pulse 67 12/05/17 16:09 Resp 20 12/05/17 16:09 BP 132/69 12/05/17 16:09 Pulse Ox 98 12/05/17 16:09 - Labs Result Diagrams: 12/05/17 06:00 12/05/17 06:00 Labs: Laboratory Results - last 24 hr 12/04/17 12/04/17 12/04/17 21:15 23:16 23:16 WBC RBC Hgb Hct MCV MCH MCHC RDW Plt Count MPV Neut % (Auto) Lymph % (Auto) [place] % (Auto) Eos % (Auto) Baso % (Auto) Neut # (Auto) Lymph # (Auto) [place] # (Auto) Eos # (Auto) Baso # (Auto) Neutrophils % (Manual) Lymphocytes % (Manual) Monocytes % (Manual) Platelet Estimate Large Platelets Anisocytosis (manual) ESR 92 H PT 11.6 INR 1.0 APTT 43.5 H D Sodium Potassium Chloride Carbon Dioxide Anion Gap BUN Creatinine Est GFR ( Amer) Est GFR (Non-Af Amer) Random Glucose Calcium Total Bilirubin AST ALT Alkaline Phosphatase C-Reactive Protein 60.80 H Total Protein Albumin Globulin Albumin/Globulin Ratio Triglycerides Cholesterol LDL Cholesterol Direct HDL Cholesterol Thyroxine (T4) Total T3 TSH 3rd Generation Blood Type Blood Type Confirm Antibody Screen BBK History Checked 12/04/17 12/05/17 12/05/17 23:16 06:00 06:00 WBC 8.2 RBC 4.71 Hgb 13.4 Hct 39.5 MCV 83.9 MCH 28.5 MCHC 34.0 RDW 15.0 H Plt Count 426 H MPV 8.1 Neut % (Auto) 90.9 H Lymph % (Auto) 7.8 L [place] % (Auto) 1.0 Eos % (Auto) 0.0 Baso % (Auto) 0.3 Neut # (Auto) 7.4 H Lymph # (Auto) 0.6 L [place] # (Auto) 0.1 Eos # (Auto) 0.0 Baso # (Auto) 0.0 Neutrophils % (Manual) 88 H Lymphocytes % (Manual) 11 L Monocytes % (Manual) 1 Platelet Estimate Normal Large Platelets Present Anisocytosis (manual) Slight ESR PT 11.8 INR 1.1 APTT 44.6 H Sodium Potassium Chloride Carbon Dioxide Anion Gap BUN Creatinine Est GFR ( Amer) Est GFR (Non-Af Amer) Random Glucose Calcium Total Bilirubin AST ALT Alkaline Phosphatase C-Reactive Protein Total Protein Albumin Globulin Albumin/Globulin Ratio Triglycerides Cholesterol LDL Cholesterol Direct HDL Cholesterol Thyroxine (T4) Total T3 TSH 3rd Generation Blood Type O POSITIVE Blood Type Confirm Antibody Screen Negative BBK History Checked No verified bt 12/05/17 12/05/17 12/05/17 06:00 06:00 15:57 WBC RBC Hgb Hct MCV MCH MCHC RDW Plt Count MPV Neut % (Auto) Lymph % (Auto) [place] % (Auto) Eos % (Auto) Baso % (Auto) Neut # (Auto) Lymph # (Auto) [place] # (Auto) Eos # (Auto) Baso # (Auto) Neutrophils % (Manual) Lymphocytes % (Manual) Monocytes % (Manual) Platelet Estimate Large Platelets Anisocytosis (manual) ESR PT INR APTT Sodium 138 Potassium 4.4 Chloride 105 Carbon Dioxide 23 Anion Gap 14 BUN 11 Creatinine 0.7 Est GFR ( Amer) > 60 Est GFR (Non-Af Amer) > 60 Random Glucose 275 H Calcium 9.2 Total Bilirubin 0.6 AST 23 ALT 20 Alkaline Phosphatase 88 C-Reactive Protein Total Protein 7.6 Albumin 3.8 Globulin 3.8 Albumin/Globulin Ratio 1.0 Triglycerides 66 Cholesterol 169 LDL Cholesterol Direct 110 HDL Cholesterol 34 Thyroxine (T4) 6.58 Total T3 0.683 L TSH 3rd Generation 0.82 Blood Type Blood Type Confirm O POSITIVE Antibody Screen BBK History Checked - Imaging and Cardiology MRI - head Status: Image reviewed by me, Report reviewed by me (MRI brain shows only white matter disease in higher cortical regions. no strokes, no hemorrhages. ) Assessment & Plan - Assessment and Plan (Free Text) Assessment: 76 yr old woman with most likely temporal arteritis. Plan: 1. Continue steroids at 100 mg po daily with gi prophylaxis 2. FS ac and hs 3. Vascular surgery consult for biopsy of temporal artery Dr. Moody
--- NOTE | 2017-12-06 08:46 | CARD ---
APPROVED REPORT EXAM: Two-dimensional and M-mode echocardiogram with Doppler and color Doppler. Other Information Quality : Good[employer]hythm : NSR INDICATION Pre-Op 2D DIMENSIONS IVSd0.74 (0.7-1.1cm)LVDd4.34 (3.9-5.9cm) LVOT Diameter1.81 (1.8-2.4cm)PWd0.88 (0.7-1.1cm) IVSs1.02 (0.8-1.2cm)LVDs3.18 (2.5-4.0cm) FS (%) 26.7 %PWs0.92 (0.8-1.2cm) M-Mode DIMENSIONS Left Atrium (MM)3.59 (2.5-4.0cm)IVSd1.24 (0.7-1.1cm) Aortic Root3.35 (2.2-3.7cm)LVDd5.38 (4.0-5.6cm) Aortic Cusp Exc.2.18 (1.5-2.0cm)PWd1.12 (0.7-1.1cm) IVSs1.97 cmFS (%) 57 % LVDs2.32 (2.0-3.8cm)PWs1.50 cm Mitral Valve MV E Fjvegcze32.0cm/sMV DECEL [id number] A Xcfqmzav087.0cm/s MV NQV92ydK/A ratio0.8MVA (PHT)2.47cm2 TDI Lateral E' Peak V9.78cm/sMedial E' Peak V5.95cm/sE/Lateral E'8.1 E/Medial E'13.3 Tricuspid Valve TR Peak [id number]/sRAP [id number] Peak Gr.16mmHg [id number] LEFT VENTRICLE The left ventricle is normal size. There is normal left ventricular wall thickness. Left ventricle systolic function is normal. The Ejection Fraction is 65-70%. There is normal LV segmental wall motion. Transmitral Doppler flow pattern is Grade I-abnormal relaxation pattern. RIGHT VENTRICLE The right ventricle is normal size. There is normal right ventricular wall thickness. The right ventricular systolic function is normal. ATRIA The left atrium size is normal. The right atrium size is normal. AORTIC VALVE The aortic valve is mildly sclerotic. There is mild aortic regurgitation. There is no aortic valvular stenosis. MITRAL VALVE The mitral valve is normal in structure. There is no evidence of mitral valve prolapse. There is no mitral valve stenosis. There is no mitral valve regurgitation noted. TRICUSPID VALVE The tricuspid valve is normal in structure. There is trace to mild tricuspid regurgitation. Right ventricular systolic pressure is estimated at 26 mmHg. There is no pulmonary hypertension. PULMONIC VALVE The pulmonary valve is normal in structure. There is no pulmonic valvular regurgitation. GREAT VESSELS The aortic root is normal in size. The IVC is normal in size and collapses >50% with inspiration. PERICARDIAL EFFUSION The pericardium appears normal. <Conclusion> The left ventricle is normal size. There is normal left ventricular wall thickness. There is normal LV segmental wall motion. Left ventricle systolic function is normal. The Ejection Fraction is 65-70%. Transmitral Doppler flow pattern is Grade I-abnormal relaxation pattern.
[2017-12-06] MEDS: Pantoprazole 40 mg EC Tab PO SCH (10:38)
[2017-12-06] MEDS ORDERED: Insulin Regular 100 units/ml SC SCH (11:30)
[2017-12-06] MEDS: Albuterol-Ipratrop 3 mg / 0.5 (3 ml) UD INH SCH ×2 (13:45→19:15)
--- NOTE | 2017-12-06 14:32 | CP.PCM.PN ---
Subjective - Date & Time of Evaluation Date of Evaluation: 12/06/17 Time of Evaluation: 14:10 - Subjective Subjective: Patient was seen and examined at the bedside. Still c/o headache. Objective - Vital Signs/Intake and Output Vital Signs (last 24 hours): Temp Pulse Resp BP Pulse Ox 98.2 F 66 20 114/60 97 12/06/17 08:11 12/06/17 13:48 12/06/17 08:11 12/06/17 08:11 12/06/17 10:55 - Medications Medications: Current Medications Albuterol/Ipratropium (Duoneb 3 Mg/0.5 Mg (3 Ml) Ud) 3 ml INH RQ6 [facility] Last Admin: 12/06/17 13:45 Dose: 3 ml Pantoprazole Sodium (Protonix Ec Tab) 40 mg PO DAILY [facility] Last Admin: 12/06/17 10:38 Dose: 40 mg Prednisone (Prednisone Tab) 100 mg PO DAILY [facility] Last Admin: 12/06/17 10:38 Dose: 100 mg - Labs Labs: 12/05/17 06:00 12/05/17 06:00 PT 11.8 Seconds (9.8-13.1) 12/05/17 06:00 INR 1.1 (0.9-1.2) 12/05/17 06:00 APTT 44.6 Seconds (25.6-37.1) H 12/05/17 06:00 - Constitutional Appears: Well, Non-toxic, No Acute Distress - Head Exam Head Exam: ATRAUMATIC, NORMAL INSPECTION, NORMOCEPHALIC - Eye Exam Eye Exam: EOMI, Normal appearance, PERRL Pupil Exam: NORMAL ACCOMODATION, PERRL - ENT Exam ENT Exam: Mucous Membranes Moist, Normal Exam - Neck Exam Neck Exam: Full ROM, Normal Inspection - Respiratory Exam Respiratory Exam: Clear to Ausculation Bilateral, NORMAL BREATHING PATTERN - Cardiovascular Exam Cardiovascular Exam: REGULAR RHYTHM, +S1, +S2 - GI/Abdominal Exam GI & Abdominal Exam: Soft, Normal Bowel Sounds Additional comments: NT, mildly tender around umbilicus, no rebound, no guarding, incarcerated umbilical hernia - Rectal Exam Rectal Exam: Deferred - Extremities Exam Extremities Exam: Full ROM, Normal Inspection - Neurological Exam Neurological Exam: Alert, Awake, Oriented x3 - Psychiatric Exam Psychiatric exam: Normal Affect, Normal Mood - Skin Skin Exam: Dry, Intact, Normal Color, Warm Assessment and Plan - Assessment and Plan (Free Text) Assessment: 76 y.o. female with headache r/o temporal arteritis Plan: - Will plan for b/l temporal artery biopsy on 12/08/17 - Patient needs medical and cardiac clearance prior to surgery - Will follow
--- NOTE | 2017-12-06 15:46 | CP.PCM.PN ---
Subjective - Date & Time of Evaluation Date of Evaluation: 12/06/17 Time of Evaluation: 11:50 - Subjective Subjective: F/U Temporal Arteritis. pain R scalp , R religion less than yesterday Objective - Vital Signs/Intake and Output Vital Signs (last 24 hours): Temp Pulse Resp BP Pulse Ox 98.2 F 66 20 114/60 97 12/06/17 08:11 12/06/17 13:48 12/06/17 08:11 12/06/17 08:11 12/06/17 10:55 - Medications Medications: Current Medications Albuterol/Ipratropium (Duoneb 3 Mg/0.5 Mg (3 Ml) Ud) 3 ml INH RQ6 [facility] Last Admin: 12/06/17 13:45 Dose: 3 ml Pantoprazole Sodium (Protonix Ec Tab) 40 mg PO DAILY [facility] Last Admin: 12/06/17 10:38 Dose: 40 mg Prednisone (Prednisone Tab) 100 mg PO DAILY [facility] Last Admin: 12/06/17 10:38 Dose: 100 mg - Labs Labs: 12/05/17 06:00 12/05/17 06:00 PT 11.8 Seconds (9.8-13.1) 12/05/17 06:00 INR 1.1 (0.9-1.2) 12/05/17 06:00 APTT 44.6 Seconds (25.6-37.1) H 12/05/17 06:00 - Constitutional Appears: No Acute Distress - Head Exam Additional comments: tenderness R scalp , R temporal area - Eye Exam Eye Exam: PERRL - ENT Exam ENT Exam: Normal Exam - Neck Exam Neck Exam: Tenderness - Respiratory Exam Respiratory Exam: Decreased Breath Sounds, Rhonchi (few at bases) - Cardiovascular Exam Cardiovascular Exam: REGULAR RHYTHM - GI/Abdominal Exam GI & Abdominal Exam: Soft, Tenderness (Non-reducible umbilical hernia site on papation.), Normal Bowel Sounds - Extremities Exam Extremities Exam: Normal Inspection - Back Exam Back Exam: NORMAL INSPECTION - Neurological Exam Neurological Exam: Alert, Oriented x3. absent: Motor Sensory Deficit - Psychiatric Exam Psychiatric exam: Normal Mood - Skin Skin Exam: Warm Assessment and Plan (1) Temporal arteritis Status: Acute (2) Headache Assessment & Plan: improved after Solumedrol 100mg IV yesterday, and to start Prednisone 100 mg po today , f/u Surgical consultation for R temporal artery Bx Status: Acute (3) Abdominal pain Assessment & Plan: 2nd to umbilical hernia Status: Acute (4) Umbilical hernia Assessment & Plan: mild tenderness , non reducible , f/u Surgical consult Status: Chronic (5) COPD (chronic obstructive pulmonary disease) Assessment & Plan: stable ,l continue DuoNeb , Prometh with Codeine Status: Acute - Assessment and Plan (Free Text) Plan: as per Dx , ECHO LVEF 65-70 , Martinez MRI age gegenerative changes
--- NOTE | 2017-12-06 19:45 | MRI ---
PROCEDURE: MRI BRAIN WITH AND WITHOUT CONTRAST HISTORY: Headache COMPARISON: Noncontrast head CT 12/04/2017. TECHNIQUE: Multiplanar, multisequence MR images of the brain were obtained with and without intravenous contrast enhancement. FINDINGS: HEMORRHAGE: None DWI: No evidence of an acute or early subacute infarction. BRAIN PARENCHYMA: Good corticomedullary differentiation is seen. Proportional, diffuse expansion of the ventriculosulcal and cisternal spaces is appreciated with white matter signal changes compatible with diffuse cerebral atrophy and chronic microangiopathy. No suspicious extra-axial fluid collection is identified and the midline brain anatomy appears grossly nonfocal as imaged. There is no mass effect throughout.No atrophy or chronic microvascular ischemic changes. ENHANCEMENT: No abnormal intracranial enhancement. VENTRICLES: Unremarkable. No hydrocephalus. CRANIUM: Unremarkable. ORBITS: Grossly unremarkable. PARANASAL SINUSES/MASTOIDS: Clear VASCULAR SYSTEM: Skull base flow voids intact. OTHER FINDINGS: None . IMPRESSION: Age-related age-appropriate neuro degenerative changes are identified without acute intracranial findings or abnormal intracranial enhancement. Concordant preliminary report from [facility], 12/05/2017.
[2017-12-06] MEDS: Promethazine/Cod 6.25mg-10mg/5ml Syr UD PO PRN (21:08)
[2017-12-06] MEDS: Oxycodone/Acetaminophen 5/325 mg Tab PO PRN (23:50)
[2017-12-07] MEDS: Promethazine/Cod 6.25mg-10mg/5ml Syr UD PO PRN ×2 (01:03→21:02)
[2017-12-07] MEDS: Albuterol-Ipratrop 3 mg / 0.5 (3 ml) UD INH SCH ×4 (01:04→19:22)
[2017-12-07 06:50] LABS: BASO % 0.4 % (0.0-2.0); EOS % 0.1 % (0.0-4.0); HEMOGLOBIN 12.1 g/dL (12.0-16.0); LYMPH # 2.1 K/uL (1.0-4.3); LYMPH % 18.2 % (20.0-40.0); MEAN CELL VOLUME 84.1 fl (81.0-99.0); MEAN CORPUSCULAR HEMOGLOBIN 27.9 pg (27.0-31.0); MEAN CORPUSCULAR HGB CONC 33.1 g/dL (33.0-37.0); MEAN PLATELET VOLUME 8.2 fl (7.2-11.7); MONO # 0.6 K/uL (0.0-0.8); MONO % 5.5 % (0.0-10.0); NEUT # 8.5 K/uL (1.8-7.0); NEUT % 75.8 % (50.0-75.0); RBC 4.36 Mil/uL (3.80-5.20); RED CELL DISTRIBUTION WIDTH 14.9 % (11.5-14.5); WHITE BLOOD COUNT 11.3 K/uL (4.8-10.8)
[2017-12-07 07:11] LABS: BLOOD UREA NITROGEN 11 mg/dl (7-17); GFR AFRICAN-AMERICAN > 60; GFR NON-AFRICAN AMERICAN > 60
[2017-12-07] MEDS: Oxycodone/Acetaminophen 5/325 mg Tab PO PRN ×3 (08:15→23:57)
[2017-12-07] MEDS: Pantoprazole 40 mg EC Tab PO SCH (08:16)
--- NOTE | 2017-12-07 10:13 | CP.PCM.PN ---
Subjective - Date & Time of Evaluation Date of Evaluation: 12/07/17 Time of Evaluation: 07:00 - Subjective Subjective: General Surgery Progress Note - Dr. Fabian Patient seen and examined at bedside. No acute events overnight. Headache improving w/pain controlled. Complaining of pain around hernia. Denies N/V/D. No F/C. Objective - Vital Signs/Intake and Output Vital Signs (last 24 hours): Temp Pulse Resp BP Pulse Ox 97.9 F 76 20 118/65 96 12/07/17 07:53 12/07/17 07:53 12/07/17 07:53 12/07/17 07:53 12/07/17 07:53 - Medications Medications: Current Medications Albuterol/Ipratropium (Duoneb 3 Mg/0.5 Mg (3 Ml) Ud) 3 ml INH RQ6 [facility] Last Admin: 12/07/17 07:14 Dose: 3 ml Oxycodone/Acetaminophen (Percocet 5/325 Mg Tab) 1 tab PO Q4 PRN PRN Reason: Headache Stop: 12/09/17 20:13 Last Admin: 12/07/17 08:15 Dose: 1 tab Pantoprazole Sodium (Protonix Ec Tab) 40 mg PO DAILY [facility] Last Admin: 12/07/17 08:16 Dose: 40 mg Prednisone (Prednisone Tab) 100 mg PO DAILY [facility] Last Admin: 12/07/17 08:15 Dose: 100 mg Promethazine HCl/Codeine (Phenergan/Codeine Oral Syrup) 5 ml PO Q4 PRN PRN Reason: Cough Last Admin: 12/07/17 01:03 Dose: 5 ml - Labs Labs: 12/07/17 06:05 12/07/17 06:05 PT 11.8 Seconds (9.8-13.1) 12/05/17 06:00 INR 1.1 (0.9-1.2) 12/05/17 06:00 APTT 44.6 Seconds (25.6-37.1) H 12/05/17 06:00 - Constitutional Appears: Non-toxic, No Acute Distress - Head Exam Head Exam: ATRAUMATIC, NORMAL INSPECTION - Eye Exam Eye Exam: EOMI, Normal appearance Pupil Exam: PERRL - ENT Exam ENT Exam: Mucous Membranes Moist - Neck Exam Neck Exam: Normal Inspection - Respiratory Exam Respiratory Exam: NORMAL BREATHING PATTERN. absent: Respiratory Distress - Cardiovascular Exam Cardiovascular Exam: REGULAR RHYTHM - GI/Abdominal Exam GI & Abdominal Exam: Soft Additional comments: incarcerated umbilical hernia - Extremities Exam Extremities Exam: Full ROM, Normal Inspection - Neurological Exam Neurological Exam: Alert, Awake, Oriented x3 - Psychiatric Exam Psychiatric exam: Normal Affect, Normal Mood - Skin Skin Exam: Dry, Intact, Normal Color, Warm Assessment and Plan - Assessment and Plan (Free Text) Assessment: 76 y.o. female with headache r/o temporal arteritis Plan: - Bilateral temporal artery biopsy tomorrow pending medical and cardiac clx - NPO past mn - Neuro recs appreciated - cleared for surgery tomorrow - Acute medical management as per primary and neurology teams - Will continue to follow Further recs as per Dr. Fabian
--- NOTE | 2017-12-07 10:55 | CP.PCM.PN ---
Subjective - Date & Time of Evaluation Date of Evaluation: 12/07/17 Time of Evaluation: 09:30 - Subjective Subjective: Pt seen and examined this AM. She reports having a generalized MENA and that it has improved since being admitted. (-) N/V. She also c/o urinary frequency and low abdominal pain. PE: Gen: Pt laying in bed in NAD Skin: warm and dry Cardio: s1s2 RRR Lungs: CTA bilaterally Abd: Non reducible umbilical hernia without tenderness. Mild suprapubic tenderness Extr: (-) calf tenderness bilaterally A/P Headache r/o temporal arteritis Pt for biopsy tomorrow pending cardio and medical clearance. Keep NPO after midnight tonight. Low abdominal pain and urinary frequency Will order a urinalysis Objective - Vital Signs/Intake and Output Vital Signs (last 24 hours): Temp Pulse Resp BP Pulse Ox 97.9 F 76 20 118/65 96 12/07/17 07:53 12/07/17 07:53 12/07/17 07:53 12/07/17 07:53 12/07/17 07:53 - Medications Medications: Current Medications Albuterol/Ipratropium (Duoneb 3 Mg/0.5 Mg (3 Ml) Ud) 3 ml INH RQ6 [facility] Last Admin: 12/07/17 07:14 Dose: 3 ml Oxycodone/Acetaminophen (Percocet 5/325 Mg Tab) 1 tab PO Q4 PRN PRN Reason: Headache Stop: 12/09/17 20:13 Last Admin: 12/07/17 08:15 Dose: 1 tab Pantoprazole Sodium (Protonix Ec Tab) 40 mg PO DAILY [facility] Last Admin: 12/07/17 08:16 Dose: 40 mg Prednisone (Prednisone Tab) 100 mg PO DAILY [facility] Last Admin: 12/07/17 08:15 Dose: 100 mg Promethazine HCl/Codeine (Phenergan/Codeine Oral Syrup) 5 ml PO Q4 PRN PRN Reason: Cough Last Admin: 12/07/17 01:03 Dose: 5 ml - Labs Labs: 12/07/17 06:05 12/07/17 06:05 PT 11.8 Seconds (9.8-13.1) 12/05/17 06:00 INR 1.1 (0.9-1.2) 12/05/17 06:00 APTT 44.6 Seconds (25.6-37.1) H 12/05/17 06:00 Assessment and Plan - Assessment and Plan (Free Text) Assessment: .
[2017-12-07 11:51] LABS: SQUAMOUS EPITHIAL 7 /hpf (0-5); URINE BACTERIA RARE (<OCC); URINE BILIRUBIN NEGATIVE (NEGATIVE); URINE BLOOD NEGATIVE (NEGATIVE); URINE CLARITY SLIGHTY-CLOUDY (Clear); URINE COLOR YELLOW (YELLOW); URINE GLUCOSE (UA) NEG (Normal); URINE LEUKOCYTE ESTERASE SMALL Leu/uL (Negative); URINE PROTEIN NEGATIVE (NEGATIVE); URINE UROBILINOGEN 0.2-1.0 mg/dL (0.2-1.0)
--- NOTE | 2017-12-07 12:31 | CP.PCM.PN ---
Subjective - Date & Time of Evaluation Date of Evaluation: 11/26/17 Time of Evaluation: 10:30 - Subjective Subjective: pain R scalp , R temporal area slightly less than yesterday , complains of suprapubic pain Objective - Vital Signs/Intake and Output Vital Signs (last 24 hours): Temp Pulse Resp BP Pulse Ox 97.9 F 76 20 118/65 96 12/07/17 07:53 12/07/17 07:53 12/07/17 07:53 12/07/17 07:53 12/07/17 07:53 - Medications Medications: Current Medications Albuterol/Ipratropium (Duoneb 3 Mg/0.5 Mg (3 Ml) Ud) 3 ml INH RQ6 [facility] Last Admin: 12/07/17 07:14 Dose: 3 ml Oxycodone/Acetaminophen (Percocet 5/325 Mg Tab) 1 tab PO Q4 PRN PRN Reason: Headache Stop: 12/09/17 20:13 Last Admin: 12/07/17 08:15 Dose: 1 tab Pantoprazole Sodium (Protonix Ec Tab) 40 mg PO DAILY [facility] Last Admin: 12/07/17 08:16 Dose: 40 mg Prednisone (Prednisone Tab) 100 mg PO DAILY [facility] Last Admin: 12/07/17 08:15 Dose: 100 mg Promethazine HCl/Codeine (Phenergan/Codeine Oral Syrup) 5 ml PO Q4 PRN PRN Reason: Cough Last Admin: 12/07/17 01:03 Dose: 5 ml - Labs Labs: 12/07/17 06:05 12/07/17 06:05 PT 11.8 Seconds (9.8-13.1) 12/05/17 06:00 INR 1.1 (0.9-1.2) 12/05/17 06:00 APTT 44.6 Seconds (25.6-37.1) H 12/05/17 06:00 - Constitutional Appears: No Acute Distress - Head Exam Additional comments: R scal , R temporal area tenderness - Eye Exam Eye Exam: PERRL - ENT Exam ENT Exam: Normal Exam - Neck Exam Neck Exam: Tenderness - Respiratory Exam Respiratory Exam: Decreased Breath Sounds (at bases) - Cardiovascular Exam Cardiovascular Exam: REGULAR RHYTHM - GI/Abdominal Exam GI & Abdominal Exam: Soft (umbilical hernia , non reducible , no tenderness , tenderness suprapubic area tenderness), Normal Bowel Sounds Additional comments: umbilical hernia non reducible , no tenderness, mild suprapubic tenderness - Back Exam Back Exam: tenderness (mild tenderness) - Neurological Exam Neurological Exam: Alert, CN II-XII Intact, Oriented x3. absent: Motor Sensory Deficit - Psychiatric Exam Psychiatric exam: Normal Affect, Normal Mood - Skin Skin Exam: Warm Assessment and Plan (1) Temporal arteritis Assessment & Plan: f/u CXR , EKG , blood test , Cardiac clearance for Medical clearance for Temporal artery Bx Status: Acute (2) Headache Status: Acute (3) Abdominal pain Status: Acute (4) Umbilical hernia Assessment & Plan: umbilical hernia no tenderness , suprapubic tenderness R/o UTI Status: Chronic (5) COPD (chronic obstructive pulmonary disease) Assessment & Plan: stable Status: Acute - Assessment and Plan (Free Text) Plan: f/u U C-S , ECHO LVEF 65-70 , Neurology , Cardiology , Surgical consult and f/u appreciated
--- NOTE | 2017-12-07 12:42 | CP.PCM.PN ---
Subjective - Date & Time of Evaluation Date of Evaluation: 12/07/17 Time of Evaluation: 12:28 - Subjective Subjective: Ms. Chao was seen and examined at the bedside. She is alert, oriented, but complains of dull temporal headache in her right side radiating to her occipital area, she further describes as 3-4/10. She denies any blurred vision, diplopia, nausea, or vomiting. She is able to do her ADL independently, ambulates within her room in steady gait. She is schedule for a temporal artery biopsy in am. There was no untoward events overnight. Objective - Vital Signs/Intake and Output Vital Signs (last 24 hours): Temp Pulse Resp BP Pulse Ox 97.9 F 76 20 118/65 96 12/07/17 07:53 12/07/17 07:53 12/07/17 07:53 12/07/17 07:53 12/07/17 07:53 - Medications Medications: Current Medications Albuterol/Ipratropium (Duoneb 3 Mg/0.5 Mg (3 Ml) Ud) 3 ml INH RQ6 [facility] Last Admin: 12/07/17 07:14 Dose: 3 ml Oxycodone/Acetaminophen (Percocet 5/325 Mg Tab) 1 tab PO Q4 PRN PRN Reason: Headache Stop: 12/09/17 20:13 Last Admin: 12/07/17 08:15 Dose: 1 tab Pantoprazole Sodium (Protonix Ec Tab) 40 mg PO DAILY [facility] Last Admin: 12/07/17 08:16 Dose: 40 mg Prednisone (Prednisone Tab) 100 mg PO DAILY [facility] Last Admin: 12/07/17 08:15 Dose: 100 mg Promethazine HCl/Codeine (Phenergan/Codeine Oral Syrup) 5 ml PO Q4 PRN PRN Reason: Cough Last Admin: 12/07/17 01:03 Dose: 5 ml - Labs Labs: 12/07/17 06:05 12/07/17 06:05 PT 11.8 Seconds (9.8-13.1) 12/05/17 06:00 INR 1.1 (0.9-1.2) 12/05/17 06:00 APTT 44.6 Seconds (25.6-37.1) H 12/05/17 06:00 - Constitutional Appears: No Acute Distress - Head Exam Head Exam: NORMAL INSPECTION - Eye Exam Pupil Exam: Fixed, PERRL - Neurological Exam Neurological Exam: Alert, Awake, CN II-XII Intact, Oriented x3 Neuro motor strength exam: Left Upper Extremity: 5, Right Upper Extremity: 5, Left Lower Extremity: 4, Right Lower Extremity: 4 Additional comments: alert, oriented, follows commands, sensation is intact. Assessment and Plan - Assessment and Plan (Free Text) Assessment: r/o temporal arteritis Plan: Case discussed with Dr. Moody, continue all current medical regimen. The patient is clear from neurology for temporal artery biopsy in am. Recommend hydration.
--- NOTE | 2017-12-07 18:44 | RAD ---
HISTORY: pre-op COMPARISON: Chest radiograph dated 10/28/2017. FINDINGS: LUNGS: No active pulmonary disease. PLEURA: No significant pleural effusion identified, no pneumothorax apparent. CARDIOVASCULAR: Atherosclerotic aortic calcifications. Cardiomediastinal silhouette stably prominent. OSSEOUS STRUCTURES: Unchanged. VISUALIZED UPPER ABDOMEN: Normal. OTHER FINDINGS: None. IMPRESSION: No active disease.
[2017-12-08] MEDS: Promethazine/Cod 6.25mg-10mg/5ml Syr UD PO PRN ×2 (00:55→23:12)
[2017-12-08] MEDS: Albuterol-Ipratrop 3 mg / 0.5 (3 ml) UD INH SCH ×4 (01:12→19:04)
[2017-12-08 06:56] LABS: HEMOGLOBIN 12.7 g/dL (12.0-16.0); MEAN CELL VOLUME 83.6 fl (81.0-99.0); MEAN CORPUSCULAR HEMOGLOBIN 28.1 pg (27.0-31.0); MEAN CORPUSCULAR HGB CONC 33.6 g/dL (33.0-37.0); RBC 4.52 Mil/uL (3.80-5.20); RED CELL DISTRIBUTION WIDTH 15.1 % (11.5-14.5); WHITE BLOOD COUNT 12.6 K/uL (4.8-10.8)
[2017-12-08 07:02] LABS: BLOOD UREA NITROGEN 12 mg/dl (7-17); CALCIUM 9.2 mg/dL (8.4-10.2); GFR AFRICAN-AMERICAN > 60; GFR NON-AFRICAN AMERICAN > 60
[2017-12-08] MEDS: Pantoprazole 40 mg EC Tab PO SCH (08:10)
--- NOTE | 2017-12-08 08:30 | CARD ---
APPROVED REPORT EKG Measurement Heart [id number] <Conclusion> Normal sinus rhythm Normal ECG
--- NOTE | 2017-12-08 08:58 | CP.PCM.PN ---
Subjective - Date & Time of Evaluation Date of Evaluation: 12/07/17 Time of Evaluation: 08:56 - Subjective Subjective: plan for temporal artery biopsy Objective - Vital Signs/Intake and Output Vital Signs (last 24 hours): Temp Pulse Resp BP Pulse Ox 97.9 F 78 18 150/78 95 12/08/17 07:53 12/08/17 07:53 12/08/17 07:53 12/08/17 07:53 12/08/17 07:53 - Medications Medications: Current Medications Albuterol/Ipratropium (Duoneb 3 Mg/0.5 Mg (3 Ml) Ud) 3 ml INH RQ6 [facility] Last Admin: 12/08/17 07:13 Dose: 3 ml Ceftriaxone Sodium 1 gm/ (Sodium Chloride) 100 mls @ 100 mls/hr IVPB DAILY [facility] PRN Reason: Protocol Last Admin: 12/08/17 08:15 Dose: 100 mls/hr Lactulose (Enulose) 20 gm PO DAILY PRN PRN Reason: Constipation Ondansetron HCl (Zofran Odt) 4 mg PO Q8H PRN PRN Reason: Nausea/Vomiting Last Admin: 12/07/17 17:24 Dose: 4 mg Oxycodone/Acetaminophen (Percocet 5/325 Mg Tab) 1 tab PO Q4 PRN PRN Reason: Headache Stop: 12/09/17 20:13 Last Admin: 12/07/17 23:57 Dose: 1 tab Pantoprazole Sodium (Protonix Ec Tab) 40 mg PO DAILY [facility] Last Admin: 12/08/17 08:10 Dose: Not Given Prednisone (Prednisone Tab) 100 mg PO DAILY [facility] Last Admin: 12/08/17 08:09 Dose: Not Given Promethazine HCl/Codeine (Phenergan/Codeine Oral Syrup) 5 ml PO Q4 PRN PRN Reason: Cough Last Admin: 12/08/17 00:55 Dose: 5 ml - Labs Labs: 12/08/17 06:42 12/08/17 06:42 PT 11.8 Seconds (9.8-13.1) 12/05/17 06:00 INR 1.1 (0.9-1.2) 12/05/17 06:00 APTT 44.6 Seconds (25.6-37.1) H 12/05/17 06:00 - Constitutional Appears: Well - Head Exam Head Exam: ATRAUMATIC, NORMAL INSPECTION, NORMOCEPHALIC - Eye Exam Eye Exam: EOMI, Normal appearance, PERRL Pupil Exam: NORMAL ACCOMODATION, PERRL - ENT Exam ENT Exam: Mucous Membranes Moist, Normal Exam - Neck Exam Neck Exam: Full ROM, Normal Inspection. absent: Lymphadenopathy - Respiratory Exam Respiratory Exam: Clear to Ausculation Bilateral, NORMAL BREATHING PATTERN - Cardiovascular Exam Cardiovascular Exam: REGULAR RHYTHM, +S1, +S2, Murmur - GI/Abdominal Exam GI & Abdominal Exam: Soft, Normal Bowel Sounds. absent: Tenderness - Extremities Exam Extremities Exam: Full ROM, Normal Capillary Refill, Normal Inspection. absent : Joint Swelling, Pedal Edema - Back Exam Back Exam: NORMAL INSPECTION - Neurological Exam Neurological Exam: Alert, Awake, CN II-XII Intact, Normal Gait, Oriented x3 - Psychiatric Exam Psychiatric exam: Normal Affect, Normal Mood - Skin Skin Exam: Dry, Intact, Normal Color, Warm Assessment and Plan (1) Preop cardiovascular exam Assessment & Plan: as per ACC/AHA guidelines can proceed with planned surgery with low risk for perioperative cardiac event Status: Acute (2) History of atrial fibrillation Status: Chronic (3) History of hypertension Status: Chronic (4) Abdominal pain Status: Resolved
--- NOTE | 2017-12-08 08:59 | CT ---
PROCEDURE: CT NECK WITHOUT CONTRAST HISTORY: Neck pain COMPARISON: None. TECHNIQUE: CT of the neck without intravenous contrast. Coronal and sagittal reformats generated. Radiation dose: DLP 400.21 mGy-cm This CT exam was performed using one or more of the following dose reduction techniques: Automated exposure control, adjustment of the mA and/or kV according to patient size, and/or use of iterative reconstruction technique. FINDINGS: No definitive masses appreciated in the supra or infrahyoid neck including oral cavity, pharynx and larynx. The visualized upper aerodigestive tract appears grossly intact as imaged. Lack images contrast limits interpretation. This is particularly true in evaluating the vascular are anatomy. GLANDS: Parotid and submandibular glands unremarkable. Normal size thyroid gland, however, there is a hypodense nodule measuring 1.9 x 1.6 cm at the left lobe for which follow-up ultrasound or nuclear thyroid scan can be performed for further characterization. LYMPH NODES: Normal. No lymphadenopathy. CERVICAL SPINE: No fracture or focal lesion. OTHER FINDINGS: Punctate calcified granuloma left pulmonary apex. IMPRESSION: 1.9 cm left thyroid nodule for which follow-up ultrasound or nuclear thyroid scan can be performed for additional characterization. Concordant preliminary report from [facility], 12/07/2017.
[2017-12-08] MEDS ORDERED: Midazolam 2 MG/2 ML VIAL ONE (09:36)
[2017-12-08] MEDS ORDERED: Bupivacaine HCl 0.5% PF (10 ml) Inj ONE (09:45)
[2017-12-08] MEDS ORDERED: Lidocaine 2% MPF (5 ml) Inj ONE (09:45)
[2017-12-08] MEDS ORDERED: Lactated Ringer's 1,000 ML IV ONE ×2 (10:05→11:24)
[2017-12-08] MEDS ORDERED: Propofol 10 mg/ml Inj (20 ML) ONE (10:06)
[2017-12-08] MEDS ORDERED: Lidocaine 2% Jelly (5 ml) TOP ONE (10:07)
[2017-12-08] MEDS ORDERED: Sodium Chloride 0.9% 1,000 ML IV ONE (12:05)
--- NOTE | 2017-12-08 12:12 | PCM.SURG1 ---
<Kike Ponce - Last Filed: 12/08/17 12:10> Surgeon's Initial Post Op Note - Surgeon's Notes Surgeon: Dr. Fabian [employer] Associate: Jaime Ponce DPM PGY1 Type of Anesthesia: General Endo Anesthesia Administered By: Dr. Xavier Pre-Operative Diagnosis: Temporal arteritis Operative Findings: See operative report Post-Operative Diagnosis: Same Operation Performed: Bilateral temporal artery biopsy Specimen/Specimens Removed: 1) Right temporal artery. 2) Left temporal artery Estimated Blood Loss: EBL {In ML}: 3 Blood Products Given: N/A Drains Used: No Drains Post-Op Condition: Good Date of Surgery/Procedure: 12/08/17 Time of Surgery/Procedure: 12:13 <Homero Fabian - Last Filed: 12/08/17 12:39> Surgeon's Initial Post Op Note - Surgeon's Notes Pre-Operative Diagnosis: R/O temporal arteritis Estimated Blood Loss: EBL {In ML}: 1
[2017-12-08] MEDS ORDERED: Oxycodone/Acetaminophen 5/325 mg Tab PO PRN (12:16)
[2017-12-08] MEDS: Sodium Chloride 0.9% 1,000 ML IV SCH ×2 (15:04→22:15)
[2017-12-08] MEDS: Oxycodone/Acetaminophen 5/325 mg Tab PO PRN (20:25)
[2017-12-09] MEDS: Albuterol-Ipratrop 3 mg / 0.5 (3 ml) UD INH SCH ×4 (01:02→19:17)
[2017-12-09] MEDS: Oxycodone/Acetaminophen 5/325 mg Tab PO PRN ×2 (06:37→12:43)
[2017-12-09] MEDS: Promethazine/Cod 6.25mg-10mg/5ml Syr UD PO PRN (06:37)
[2017-12-09 06:57] VITALS: RESP 18
[2017-12-09] MEDS: Pantoprazole 40 mg EC Tab PO SCH (08:41)
[2017-12-09] MEDS: Sodium Chloride 0.9% 1,000 ML IV SCH (08:42)
--- NOTE | 2017-12-09 09:14 | CP.PCM.PN ---
Subjective - Date & Time of Evaluation Date of Evaluation: 12/09/17 Time of Evaluation: 07:00 - Subjective Subjective: Surgery Progress note. Dr. Fabian Pt seen and examined at bedside. No acute events overnight. No N//V/D. No F/C. Still c/o headache which is similar to prior the temporal artery biopsy yesterday. Denies any new complaints. Objective - Vital Signs/Intake and Output Vital Signs (last 24 hours): Temp Pulse Resp BP Pulse Ox 98 F 79 18 136/75 95 12/09/17 08:44 12/09/17 08:44 12/09/17 08:44 12/09/17 08:44 12/09/17 08:44 - Medications Medications: Current Medications Albuterol/Ipratropium (Duoneb 3 Mg/0.5 Mg (3 Ml) Ud) 3 ml INH RQ6 YOJANA Last Admin: 12/09/17 07:14 Dose: 3 ml Ceftriaxone Sodium 1 gm/ (Sodium Chloride) 100 mls @ 100 mls/hr IVPB DAILY YOJANA PRN Reason: Protocol Last Admin: 12/09/17 08:41 Dose: 100 mls/hr Sodium Chloride (Sodium Chloride 0.9%) 1,000 mls @ 100 mls/hr IV .Q10H YOJANA Last Admin: 12/09/17 08:42 Dose: Not Given Lactulose (Enulose) 20 gm PO DAILY PRN PRN Reason: Constipation Ondansetron HCl (Zofran Odt) 4 mg PO Q8H PRN PRN Reason: Nausea/Vomiting Last Admin: 12/09/17 08:54 Dose: 4 mg Oxycodone/Acetaminophen (Percocet 5/325 Mg Tab) 1 tab PO Q4 PRN PRN Reason: Headache Stop: 12/09/17 20:13 Last Admin: 12/07/17 23:57 Dose: 1 tab Oxycodone/Acetaminophen (Percocet 5/325 Mg Tab) 1 tab PO Q4 PRN PRN Reason: Pain, Mild (1-3) Stop: 12/11/17 12:17 Last Admin: 12/09/17 06:37 Dose: 1 tab Oxycodone/Acetaminophen (Percocet 5/325 Mg Tab) 2 tab PO Q4 PRN PRN Reason: Pain, moderate (4-7) Stop: 12/11/17 12:17 Last Admin: 12/09/17 00:11 Dose: 2 tab Pantoprazole Sodium (Protonix Ec Tab) 40 mg PO DAILY [facility] Last Admin: 12/09/17 08:41 Dose: 40 mg Prednisone (Prednisone Tab) 100 mg PO DAILY [facility] Last Admin: 12/09/17 08:41 Dose: 100 mg Promethazine HCl/Codeine (Phenergan/Codeine Oral Syrup) 5 ml PO Q4 PRN PRN Reason: Cough Last Admin: 12/09/17 06:37 Dose: 5 ml - Labs Labs: 12/08/17 06:42 12/08/17 06:42 PT 11.8 Seconds (9.8-13.1) 12/05/17 06:00 INR 1.1 (0.9-1.2) 12/05/17 06:00 APTT 44.6 Seconds (25.6-37.1) H 12/05/17 06:00 - Constitutional Appears: Well, Non-toxic, No Acute Distress - Head Exam Head Exam: ATRAUMATIC, NORMAL INSPECTION, NORMOCEPHALIC Additional comments: bilateral temporal artery biopsy lesions clean, dry and intact with dermabond. Mild benigno-incisional pain. - Eye Exam Eye Exam: EOMI. absent: Scleral icterus - ENT Exam ENT Exam: Mucous Membranes Moist - Respiratory Exam Respiratory Exam: NORMAL BREATHING PATTERN. absent: Accessory Muscle Use, Respiratory Distress - Cardiovascular Exam Cardiovascular Exam: absent: JVD - GI/Abdominal Exam GI & Abdominal Exam: Soft. absent: Distended, Guarding, Rigid, Tenderness, Rebound - Extremities Exam Extremities Exam: Normal Inspection. absent: Calf Tenderness Assessment and Plan - Assessment and Plan (Free Text) Assessment: 76yo F s/p bilateral temporal artery biopsy. Also with chronic fat containing umbilical hernia. Plan: - Diet as tolerated - Headache management as per Neuro and Primary teams - f/u biopsy results - Patient to follow up with Dr. Fabian in office as outpatient to schedule for possible elective umbilical hernia repair. Call for appointment once discharged and acute medical issues have resolved. - Do not pick at the dermabond, it will come off on its own. Patient may shower. - Surgery team will sign-off, please re-consult as necessary Further recs as per Dr. Caren Argueta PGY1 surgery pager: [phone]
--- NOTE | 2017-12-09 12:37 | CP.PCM.DIS ---
Provider - Provider Date of Admission: 12/04/17 22:27 Attending physician: Aric Cazares MD Consults: Dr Fransisco Duncan Time Spent in preparation of Discharge (in minutes): 25 Diagnosis - Discharge Diagnosis (1) Temporal arteritis Status: Acute Comment: Prednisone 100mg PO daily. biopsy result pending (2) COPD (chronic obstructive pulmonary disease) Status: Inactive Comment: asymptomatic Hospital Course - Lab Results Lab Results: Most Recent Lab Values WBC 12.6 K/uL (4.8-10.8) H 12/08/17 06:42 RBC 4.52 Mil/uL (3.80-5.20) 12/08/17 06:42 Hgb 12.7 g/dL (12.0-16.0) 12/08/17 06:42 Hct 37.8 % (34.0-47.0) 12/08/17 06:42 MCV 83.6 fl (81.0-99.0) 12/08/17 06:42 MCH 28.1 pg (27.0-31.0) 12/08/17 06:42 MCHC 33.6 g/dL (33.0-37.0) 12/08/17 06:42 RDW 15.1 % (11.5-14.5) H 12/08/17 06:42 Plt Count 429 K/uL (130-400) H 12/08/17 06:42 MPV 8.2 fl (7.2-11.7) 12/07/17 06:05 Neut % (Auto) 75.8 % (50.0-75.0) H 12/07/17 06:05 Lymph % (Auto) 18.2 % (20.0-40.0) L 12/07/17 06:05 [place] % (Auto) 5.5 % (0.0-10.0) 12/07/17 06:05 Eos % (Auto) 0.1 % (0.0-4.0) 12/07/17 06:05 Baso % (Auto) 0.4 % (0.0-2.0) 12/07/17 06:05 Neut # (Auto) 8.5 K/uL (1.8-7.0) H 12/07/17 06:05 Lymph # (Auto) 2.1 K/uL (1.0-4.3) 12/07/17 06:05 [place] # (Auto) 0.6 K/uL (0.0-0.8) 12/07/17 06:05 Eos # (Auto) 0.0 K/uL (0.0-0.7) 12/07/17 06:05 Baso # (Auto) 0.0 K/uL (0.0-0.2) 12/07/17 06:05 Neutrophils % (Manual) 88 % (42-75) H 12/05/17 06:00 Lymphocytes % (Manual) 11 % (20-50) L 12/05/17 06:00 Monocytes % (Manual) 1 % (0-10) 12/05/17 06:00 Platelet Estimate Normal (NORMAL) 12/05/17 06:00 Large Platelets Present 12/05/17 06:00 Anisocytosis (manual) Slight 12/05/17 06:00 ESR 92 mm/hr (0-30) H 12/04/17 21:15 PT 11.8 Seconds (9.8-13.1) 12/05/17 06:00 INR 1.1 (0.9-1.2) 12/05/17 06:00 APTT 44.6 Seconds (25.6-37.1) H 12/05/17 06:00 Sodium 144 mmol/l (132-148) 12/08/17 06:42 Potassium 4.0 MMOL/L (3.6-5.0) 12/08/17 06:42 Chloride 106 mmol/L (98-107) 12/08/17 06:42 Carbon Dioxide 29 mmol/L (22-30) 12/08/17 06:42 Anion Gap 13 (10-20) 12/08/17 06:42 BUN 12 mg/dl (7-17) 12/08/17 06:42 Creatinine 0.8 mg/dl (0.7-1.2) 12/08/17 06:42 Est GFR ( Amer) > 60 12/08/17 06:42 Est GFR (Non-Af Amer) > 60 12/08/17 06:42 POC Glucose (mg/dL) 163 mg/dL (65-110) H 12/09/17 10:51 Random Glucose 99 mg/dL (65-105) 12/08/17 06:42 Hemoglobin A1c 7.2 % (4.2-6.5) H 12/05/17 15:57 Calcium 9.2 mg/dL (8.4-10.2) 12/08/17 06:42 Total Bilirubin 0.6 mg/dl (0.2-1.3) 12/05/17 06:00 AST 23 U/L (14-36) 12/05/17 06:00 ALT 20 U/L (9-52) 12/05/17 06:00 Alkaline Phosphatase 88 U/L (38-126) 12/05/17 06:00 C-Reactive Protein 60.80 mg/L (0.0-9.9) H 12/04/17 23:16 Total Protein 7.6 G/DL (6.3-8.2) 12/05/17 06:00 Albumin 3.8 g/dL (3.5-5.0) 12/05/17 06:00 Globulin 3.8 gm/dL (2.2-3.9) 12/05/17 06:00 Albumin/Globulin Ratio 1.0 (1.0-2.1) 12/05/17 06:00 Triglycerides 66 mg/DL (0-149) 12/05/17 15:57 Cholesterol 169 mg/dL (0-199) 12/05/17 15:57 LDL Cholesterol Direct 110 mg/dL (0-129) 12/05/17 15:57 HDL Cholesterol 34 MG/DL (30-70) 12/05/17 15:57 Thyroxine (T4) 6.58 ug/dl (5.5-11.0) 12/05/17 15:57 Total T3 0.683 nmol/L (1.49-2.60) L 12/05/17 15:57 TSH 3rd Generation 0.82 mIU/ML (0.46-4.68) 12/05/17 15:57 Urine Color Yellow (YELLOW) 12/07/17 11:25 Urine Clarity Slighty-cloudy (Clear) 12/07/17 11:25 Urine pH 5.0 (5.0-8.0) 12/07/17 11:25 Ur Specific [place] 1.018 (1.003-1.030) 12/07/17 11:25 Urine Protein Negative mg/dL (NEGATIVE) 12/07/17 11:25 Urine Glucose (UA) Neg mg/dL (Normal) 12/07/17 11:25 Urine Ketones Negative mg/dL (NEGATIVE) 12/07/17 11:25 Urine Blood Negative (NEGATIVE) 12/07/17 11:25 Urine Nitrate Negative (NEGATIVE) 12/07/17 11:25 Urine Bilirubin Negative (NEGATIVE) 12/07/17 11:25 Urine Urobilinogen 0.2-1.0 mg/dL (0.2-1.0) 12/07/17 11:25 Ur Leukocyte Esterase Small [place]/uL (Negative) 12/07/17 11:25 Urine RBC (Auto) 4 /hpf (0-3) H 12/07/17 11:25 Urine Microscopic WBC 5 /hpf (0-5) 12/07/17 11:25 Ur Squamous Epith Cells 7 /hpf (0-5) H 12/07/17 11:25 Urine Bacteria Rare (<OCC) 12/07/17 11:25 ORLY Screen Negative (Negative) 12/05/17 15:57 ORLY Titer TEST NOT PERFORMED 12/05/17 15:57 ORLY Titer 2 TEST NOT PERFORMED 12/05/17 15:57 ORLY Pattern TEST NOT PERFORMED 12/05/17 15:57 ORLY Pattern 2 TEST NOT PERFORMED 12/05/17 15:57 Double Strand DNA Ab <1 IU/mL 12/05/17 15:57 Blood Type O POSITIVE 12/04/17 23:16 Blood Type Confirm O POSITIVE 12/05/17 06:00 Antibody Screen Negative 12/04/17 23:16 BBK History Checked No verified bt 12/04/17 23:16 - Hospital Course Hospital Course: 76 yo female with history of COPD, HTN and OA admitted because of unrelenting temporal headache, mostly on the right. Patient was given an impression of Temporal Arteritis and was started on high dose Prednisone. Bilateral temporal artery biopsy was done. Patient had some relief and was discharged in stable condition. Discharge Exam - Head Exam Head Exam: ATRAUMATIC, NORMAL INSPECTION, NORMOCEPHALIC - Eye Exam Eye Exam: absent: Scleral icterus - ENT Exam ENT Exam: Mucous Membranes Moist - Respiratory Exam Respiratory Exam: absent: Rales, Rhonchi, Wheezes, Respiratory Distress - Cardiovascular Exam Cardiovascular Exam: REGULAR RHYTHM, +S1, +S2 - GI/Abdominal Exam GI & Abdominal Exam: Soft. absent: Tenderness - Rectal Exam Rectal Exam: Deferred - Back Exam Back exam: absent: tenderness - Neurological Exam Neurological exam: Alert, Oriented x3 - Psychiatric Exam Psychiatric exam: Normal Affect - Skin Skin Exam: Dry, Intact Discharge Plan - Discharge Medications Prescriptions: Pantoprazole [Protonix EC Tab] 40 mg PO DAILY #14 ect predniSONE [predniSONE Tab] 100 mg PO DAILY #70 tab - Follow Up Plan Condition: FAIR Disposition: HOME/ ROUTINE Instructions: Polymyalgia Rheumatica and Giant Cell Arteritis Additional Instructions: Please call office of Dr. Cazares for appointment in 1 week for follow-up visit
--- NOTE | 2017-12-09 13:26 | OP ---
PROCEDURE DATE: 12/08/2017 PREOPERATIVE DIAGNOSIS: Headaches, rule out temporal arteritis. POSTOPERATIVE DIAGNOSIS: Headaches, rule out temporal arteritis. PROCEDURE: Bilateral temporal artery biopsy. SURGEON: Homero Fabian M.D. ECOSYSTEM ECOLOGY PROFESSOR: Dr. Ponce. ANESTHESIA: General LMA intubation. IV FLUIDS: Crystalloid. ESTIMATED BLOOD LOSS: 1 mL. INTRAOPERATIVE FINDINGS: Temporal arteritis. SPECIMEN: Bilateral temporal artery biopsies. BRIEF HISTORY: Mrs. Jeremie Randall is a very pleasant 76-year-old female who came to the hospital complaining of headaches that has been going on for a little while, and the patient had elevated ESR, so diagnosis of temporal arteritis was contemplated and surgical consultation was obtained for bilateral temporal artery biopsy. All the risks and benefits of the procedure were explained to the patient and with the patient having a full understanding of all the risks and benefits involved, the informed consent was obtained and the patient was taken to the operating room for above-stated procedure. DESCRIPTION OF PROCEDURE: The patient was brought into the operating room and placed supine on the operating table. Bilateral Flowtron boots were applied to the patient's lower extremities. After successful induction of anesthesia and successful LMA intubation by the anesthesia team, the temporal areas of the patient were shaved and prepped with ChloraPrep stick and draped in a standard surgical fashion. Prior to the beginning of procedure, the patient received prophylactic Ancef antibiotic. Time-out was called in the room and everyone in the room where in agreement. Using a 15-blade scalpel knife, on the right side right next to the ear tragus, approximately 1-cm incision was made in a longitudinal fashion. Subsequent to that, dissection was carried down with electrical cautery, and using blunt dissection and sharp dissection with needle electrical cautery, the temporal artery was dissected out and subsequent to that, 2-0 silk ties were placed on both ends of the dissected out artery and they were tied. At this point in time, using 11-blade scalpel knife, the piece of the artery was cut out and passed off to the [facility] as a specimen. At this point in time, the deeper layer was closed with one interrupted 3-0 Vicryl suture and subsequent to that, skin was closed with 4-0 Monocryl suture in a running subcuticular fashion. The incision was infiltrated with Marcaine anesthetic. The right temporal area was washed and dried and a Dermabond was applied to the site of the incision. Then, attention was turned to the left side of the patient's head. Using 15-blade scalpel knife, approximately 1-cm incision was made anterior to the tragus in a longitudinal fashion and subsequent to that, dissection was carried down with electrical cautery for the subcutaneous tissues, and using blunt dissection as well as sharp dissection with electrical cautery, the temporal artery was dissected out, and two 2-0 silk sutures were placed, one superior and one inferior and tied. At this point in time, the portion of the artery was cut out using the 11-blade scalpel knife and passed off to the [facility] as a specimen as well. At this point in time, hemostasis was confirmed and several deep dermal sutures were placed in interrupted fashion with 3-0 Vicryl suture and subsequent to that, the skin was closed with 4-0 Monocryl suture in a running subcuticular fashion. At the end of the procedure, incision was infiltrated with Marcaine anesthetic. The patient's left temporal area was washed and dried and a Dermabond was applied to the site of the incision. The patient was successfully extubated by the Anesthesia team, transferred to the [place] [facility], and taken to the recovery room in a stable condition. At the end of the procedure, all instrument counts, needles and sponges were correct. Homero Fabian MD
[2017-12-09 15:43] VITALS: BP 134/70; PULSE 82; TEMP 98.2; O2SAT 93
== END 2017-12-09 19:05 | disposition home or self-care (01) | DRG 516 ==
LOC: H.ER 15:34 → H.ERHOLD 22:27 → H.MEDSURG1 12-05 00:14
PROVIDERS: ADMIT Internal Medicine Pulmonary Disease; ATTEND Internal Medicine Pulmonary Disease
PROC: 03BS0ZX Excision of Right Temporal Artery, Open Approach, Diagnostic (ICD-10-PCS; 2017-12-08)
PROC: 03BT0ZX Excision of Left Temporal Artery, Open Approach, Diagnostic (ICD-10-PCS; principal; 2017-12-08 11:30)
DX: M31.6 Other giant cell arteritis (principal); K42.0 Umbilical hernia with obstruction, without gangrene; I10 Essential (primary) hypertension; I48.2 Chronic atrial fibrillation; E78.5 Hyperlipidemia, unspecified; E78.00 Pure hypercholesterolemia, unspecified; J44.9 Chronic obstructive pulmonary disease, unspecified; K29.70 Gastritis, unspecified, without bleeding; F41.9 Anxiety disorder, unspecified; M19.90 Unspecified osteoarthritis, unspecified site; Z86.73 Personal history of transient ischemic attack (TIA), and cerebral infarction without residual deficits; Z87.11 Personal history of peptic ulcer disease; Z90.49 Acquired absence of other specified parts of digestive tract; Z91.041 Radiographic dye allergy status; Z91.013 Allergy to seafood

== ENCOUNTER 2018-01-14 23:53 | Inpatient (IN) | payer MEDICARE ==
[2018-01-15 00:36] VITALS: BMI 30.5
[2018-01-15 01:26] LABS: BASO # 0.1 K/uL (0.0-0.2); BASO % 1.4 % (0.0-2.0); EOS # 0.1 K/uL (0.0-0.7); HEMOGLOBIN 12.6 g/dL (12.0-16.0); LYMPH # 1.5 K/uL (1.0-4.3); MEAN CELL VOLUME 85.4 fl (81.0-99.0); MEAN PLATELET VOLUME 7.7 fl (7.2-11.7); MONO # 0.9 K/uL (0.0-0.8); MONO % 12.3 % (0.0-10.0); NEUT # 4.3 K/uL (1.8-7.0); NEUT % 62.3 % (50.0-75.0); RBC 4.33 Mil/uL (3.80-5.20); RED CELL DISTRIBUTION WIDTH 17.4 % (11.5-14.5)
--- NOTE | 2018-01-15 01:30 | ED PDOC ---
HPI: Abdomen Time Seen by Provider: 01/15/18 00:32 Chief Complaint (Nursing): Abdominal Pain Chief Complaint (Provider): Hernia Pain History Per: Patient History/Exam Limitations: no limitations Onset/Duration Of Symptoms: Other (x1 year) Current Symptoms Are (Timing): Still Present Additional Complaint(s): 77 year old female with hx of copd, htn, and a-fib presents to the ED for slowly increasingly worse umbilical hernia pain for the past year. Patient states she has also been having some nausea lately, and had one episode of vomiting yesterday. She reports that she cannot take the pain anymore and wants an operation. PMD: Aric Cazares Past Medical History Reviewed: Historical Data, Nursing Documentation, Vital Signs Vital Signs: Last Vital Signs Temp 99.4 F 01/16/18 02:00 Pulse 110 H 01/15/18 23:37 Resp 18 01/15/18 23:37 BP 138/80 01/15/18 23:37 Pulse Ox 95 01/15/18 23:37 - Medical History PMH: Anxiety, Arthritis, Atrial Fibrillation, Bronchitis, COPD, Gastritis, Gastrointestinal Ulcer, HTN, Hypercholesterolemia, Pancreatitis Denies: HIV, Chronic Kidney Disease - Surgical History Surgical History: Appendectomy, Hernia Repair - Family History Family History: States: Hypertension - Home Medications Home Medications: Ambulatory Orders Medication Instructions Recorded Ibuprofen [Motrin Tab] 600 mg PO Q6H PRN #20 tab 10/02/17 Pantoprazole [Protonix EC Tab] 40 mg PO DAILY #14 ect 12/09/17 - Allergies Allergies/Adverse Reactions: Allergies Allergy/AdvReac Type Severity Reaction Status Date / Time Iodinated Contrast- Oral and Allergy SHORTNESS Verified 01/15/18 00:36 IV Dye OF BREATH shrimp Allergy RASH Verified 01/15/18 00:36 seafood Allergy RASH Uncoded 01/15/18 00:36 Review of Systems ROS Statement: Except As Marked, All Systems Reviewed And Found Negative Gastrointestinal: Positive for: Nausea, Vomiting (x1 episode), Abdominal Pain ( umbilical hernia pain) Physical Exam - Reviewed Nursing Documentation Reviewed: Yes Vital Signs Reviewed: Yes - Physical Exam Appears: Positive for: No Acute Distress Head Exam: Positive for: ATRAUMATIC, NORMOCEPHALIC Skin: Positive for: Normal Color, Warm, Dry Eye Exam: Positive for: Normal appearance Neck: Positive for: Normal, Painless ROM, Supple Cardiovascular/Chest: Positive for: Regular Rate, Rhythm Respiratory: Positive for: Normal Breath Sounds. Negative for: Accessory Muscle Use, Respiratory Distress Gastrointestinal/Abdominal: Positive for: Hernia (umbilical hernia, soft, tender to palpation, no skin changes) Back: Positive for: Normal Inspection Extremity: Positive for: Normal ROM Neurologic/Psych: Positive for: Alert, Oriented (x3). Negative for: Motor/ Sensory Deficits - Laboratory Results Result Diagrams: 01/16/18 00:40 01/16/18 00:40 - ECG O2 Sat by Pulse Oximetry: 96 (RA) Pulse Ox Interpretation: Normal Medical Decision Making Medical Decision Making: A/P 77 year old female with hx of copd, htn, and a-fib presenting with worsening pain of umbilical hernia --no concern for strangulation or incarceration of hernia at this time but given worsening pain, will get CT --pt allergic to IV and oral contrast, so CT will be done w/o contrast 530AM --Patient still in pain after toradol and morphine --CT shows stable hernia, however patient having intractable pain --Spoke with Dr. Cazares who agrees to admission --Spoke with Dr. Caraballo who is covering for Dr. Fabian who agrees to consult on patient Scribe Attestation: Documented by Zaina Harrison, acting as a scribe for Jonathan Mendoza MD. Provider Scribe Attestation: All medical record entries made by the Scribe were at my direction and personally dictated by me. I have reviewed the chart and agree that the record accurately reflects my personal performance of the history, physical exam, medical decision making, and the department course for this patient. I have also personally directed, reviewed, and agree with the discharge instructions and disposition. Disposition - Clinical Impression Clinical Impression: Umbilical hernia - Patient ED Disposition Is Patient to be Admitted: No - Disposition Disposition: Routine/Home Disposition Time: 05:30 Condition: FAIR
[2018-01-15 01:36] LABS: SQUAMOUS EPITHIAL 5 /hpf (0-5); URINE BACTERIA RARE (<OCC); URINE BILIRUBIN NEGATIVE (NEGATIVE); URINE BLOOD NEGATIVE (NEGATIVE); URINE CLARITY SLIGHTY-CLOUDY (Clear); URINE COLOR YELLOW (YELLOW); URINE GLUCOSE (UA) NEG (Normal); URINE LEUKOCYTE ESTERASE TRACE Leu/uL (Negative); URINE PROTEIN NEGATIVE (NEGATIVE)
[2018-01-15 01:42] LABS: ALB/GLOB RATIO 1.2 (1.0-2.1); ALBUMIN 3.9 g/dL (3.5-5.0); ALT/SGPT 32 U/L (9-52); AST/SGOT 31 U/L (14-36); BLOOD UREA NITROGEN 13 mg/dl (7-17); CALCIUM 9.3 mg/dL (8.4-10.2); GFR AFRICAN-AMERICAN > 60; GFR NON-AFRICAN AMERICAN > 60; LIPASE 72 U/L (23-300)
--- NOTE | 2018-01-15 08:08 | CP.PCM.CON ---
History of Present Illness - History of Present Illness History of Present Illness: General Surgery Dr. Caraballo 77 y/o F w/ PMHx of HTN, HLD, COPD presents to the ED c/o abd pain. Pt reports pain xfew days. Pain localized to umbilical hernia w/o radiation. Pt reports having umbilical hernia for a few years. Pt unsure as to whether hernia was ever reducible. Pain improved w/ morphine given in ED. Pain worsened by pressure to umbilicus. Pt admits to posterior MENA w/ photosentivity but denies auras. Pt denies F/C, N/V, D/C. (+)BM/Flatus. PMHx: see above, gastritis, B/L temporal arteritis, anxiety, arthritis Meds: reviewed in chart ALL: iodine contrast, shrimp PSHx: B/L foot surgery (bunions), open appy, b/l breast reduction, scalp cyst excision, B/L temporal artery Bx SHx: denies tobacco, EtOH, drug use FHx: noncontributory Review of Systems - Review of Systems All systems: reviewed and no additional remarkable complaints except (see HPI) Past Patient History - Infectious Disease Hx of Infectious Diseases: None - Past Medical History & Family History Past Medical History?: Yes - Past Social History Smoking Status: Never Smoked - CARDIAC Hx Atrial Fibrillation: Yes Hx Hypercholesterolemia: Yes Hx Hypertension: Yes - PULMONARY Hx Bronchitis: Yes Hx Chronic Obstructive Pulmonary Disease (COPD): Yes - NEUROLOGICAL Hx Neurological Disorder: No - HEENT Hx HEENT Problems: Yes (eyeglasses) - RENAL Hx Chronic Kidney Disease: No - ENDOCRINE/METABOLIC Hx Endocrine Disorders: No - HEMATOLOGICAL/ONCOLOGICAL Hx Human Immunodeficiency Virus (HIV): No - INTEGUMENTARY Hx Dermatological Problems: No - MUSCULOSKELETAL/RHEUMATOLOGICAL Hx Arthritis: Yes - GASTROINTESTINAL Hx Gastritis: Yes Hx Pancreatitis: Yes - GENITOURINARY/GYNECOLOGICAL Hx Genitourinary Disorders: No - PSYCHIATRIC Hx Anxiety: Yes Hx Substance Use: No - SURGICAL HISTORY Hx Appendectomy: Yes - ANESTHESIA Hx Anesthesia: Yes Hx Anesthesia Reactions: No Hx Malignant Hyperthermia: No Meds Allergies/Adverse Reactions: Allergies Allergy/AdvReac Type Severity Reaction Status Date / Time Iodinated Contrast- Oral and Allergy SHORTNESS Verified 01/15/18 00:36 IV Dye OF BREATH shrimp Allergy RASH Verified 01/15/18 00:36 seafood Allergy RASH Uncoded 01/15/18 00:36 Physical Exam - Constitutional Appears: Non-toxic, No Acute Distress - Head Exam Head Exam: NORMAL INSPECTION - Eye Exam Eye Exam: Normal appearance - ENT Exam ENT Exam: Mucous Membranes Moist - Respiratory Exam Respiratory Exam: NORMAL BREATHING PATTERN. absent: Accessory Muscle Use, Respiratory Distress - Cardiovascular Exam Cardiovascular Exam: REGULAR RHYTHM. absent: Bradycardia, Tachycardia - GI/Abdominal Exam GI & Abdominal Exam: Guarding (voluntary), Hernia (incarcerated umbilical hernia w/ overlying skin changes), Soft, Tenderness (umbilical TTP). absent: Distended, Firm, Rebound, Rigid - Extremities Exam Extremities exam: Positive for: normal inspection - Neurological Exam Neurological exam: Alert, Oriented x3 - Psychiatric Exam Psychiatric exam: Normal Affect, Normal Mood - Skin Skin Exam: Dry, Intact, Normal Color, Warm Results - Vital Signs Recent Vital Signs: Last Vital Signs Temp 97.9 F 01/15/18 06:08 Pulse 72 01/15/18 06:08 Resp 15 01/15/18 06:08 BP 118/75 01/15/18 06:08 Pulse Ox 100 01/15/18 06:08 - Labs Result Diagrams: 01/15/18 01:15 01/15/18 01:15 Labs: Laboratory Results - last 24 hr 01/15/18 01/15/18 01/15/18 01:15 01:15 01:15 WBC 7.0 RBC 4.33 Hgb 12.6 Hct 37.0 MCV 85.4 MCH 29.0 MCHC 34.0 RDW 17.4 H Plt Count 387 MPV 7.7 Neut % (Auto) 62.3 Lymph % (Auto) 22.0 [place] % (Auto) 12.3 H Eos % (Auto) 2.0 Baso % (Auto) 1.4 Neut # (Auto) 4.3 Lymph # (Auto) 1.5 [place] # (Auto) 0.9 H Eos # (Auto) 0.1 Baso # (Auto) 0.1 Sodium 139 Potassium 4.0 Chloride 102 Carbon Dioxide 27 Anion Gap 14 BUN 13 Creatinine 0.8 Est GFR ( Amer) > 60 Est GFR (Non-Af Amer) > 60 Random Glucose 142 H Lactic Acid 1.2 Calcium 9.3 Total Bilirubin 0.4 AST 31 ALT 32 Alkaline Phosphatase 80 Total Protein 6.9 Albumin 3.9 Globulin 3.1 Albumin/Globulin Ratio 1.2 Lipase 72 Urine Color Urine Clarity Urine pH Ur Specific [place] Urine Protein Urine Glucose (UA) Urine Ketones Urine Blood Urine Nitrate Urine Bilirubin Urine Urobilinogen Ur Leukocyte Esterase Urine RBC (Auto) Urine Microscopic WBC Ur Squamous Epith Cells Urine Bacteria 01/15/18 01:20 WBC RBC Hgb Hct MCV MCH MCHC RDW Plt Count MPV Neut % (Auto) Lymph % (Auto) [place] % (Auto) Eos % (Auto) Baso % (Auto) Neut # (Auto) Lymph # (Auto) [place] # (Auto) Eos # (Auto) Baso # (Auto) Sodium Potassium Chloride Carbon Dioxide Anion Gap BUN Creatinine Est GFR ( Amer) Est GFR (Non-Af Amer) Random Glucose Lactic Acid Calcium Total Bilirubin AST ALT Alkaline Phosphatase Total Protein Albumin Globulin Albumin/Globulin Ratio Lipase Urine Color Yellow Urine Clarity Slighty-cloudy Urine pH 5.0 Ur Specific [place] 1.025 Urine Protein Negative Urine Glucose (UA) Neg Urine Ketones Negative Urine Blood Negative Urine Nitrate Negative Urine Bilirubin Negative Urine Urobilinogen 2.0 H Ur Leukocyte Esterase Trace Urine RBC (Auto) 5 H Urine Microscopic WBC 8 H Ur Squamous Epith Cells 5 Urine Bacteria Rare - Imaging and Cardiology CT scan - abdomen Status: Image reviewed by me, Report reviewed by me Assessment & Plan - Assessment and Plan (Free Text) Assessment: 77 y/o F w/ abd pain 2/2 fat-containing incarcerated umbilical hernia - NPO/IVF - pain management - NSAID for MENA - monitor vitals - will need medical optimization for surgery - GI/DVT PPx Further recs per Dr. Ilya Gonzalez DO PGY3
--- NOTE | 2018-01-15 09:20 | CP.PCM.CON ---
History of Present Illness - History of Present Illness History of Present Illness: General Surgery Agree with resident's note, Pt reports her pain started 2 days ago, associated with, nausea, tactile fever and chills. She states the pain was so severe that it made it difficult to walk and her home Percocets were not helping her. She notes that the lump on her belly button became apparent to her 2 days ago. Last PO intake was 14 hours ago (01/14) She states her headaches began when her abdominal pain started 2 days ago. She denies any relief with home medications including percocet. Pt does not take any blood thinners/antiplatelet medications at home. Labs and vitals noted PE Gen: Pt ambulating in mild distress secondary to abdominal pain Skin: warm and dry Cardio: S1S2 RRR Lungs: CTA bilaterally Abd: Soft, Not distended, (+) incarcerated hernia, (+) tender at umbilicus, (+) unable to reduce, (+) bluish hue of umbilicus,(+) guarding. Extr: (-) calf tenderness bilaterally A/P Fat containing umbilical hernia Pt planned for OR on 01/17 Needs medical clearance Pt to start clear liquid diet today Monitor labs Serial abdominal exams Pain management prn Past Patient History - Infectious Disease Hx of Infectious Diseases: None - Past Medical History & Family History Past Medical History?: Yes - Past Social History Smoking Status: Never Smoked - CARDIAC Hx Atrial Fibrillation: Yes Hx Hypercholesterolemia: Yes Hx Hypertension: Yes - PULMONARY Hx Bronchitis: Yes Hx Chronic Obstructive Pulmonary Disease (COPD): Yes - NEUROLOGICAL Hx Neurological Disorder: No - HEENT Hx HEENT Problems: Yes (eyeglasses) - RENAL Hx Chronic Kidney Disease: No - ENDOCRINE/METABOLIC Hx Endocrine Disorders: No - HEMATOLOGICAL/ONCOLOGICAL Hx Human Immunodeficiency Virus (HIV): No - INTEGUMENTARY Hx Dermatological Problems: No - MUSCULOSKELETAL/RHEUMATOLOGICAL Hx Arthritis: Yes - GASTROINTESTINAL Hx Gastritis: Yes Hx Pancreatitis: Yes - GENITOURINARY/GYNECOLOGICAL Hx Genitourinary Disorders: No - PSYCHIATRIC Hx Anxiety: Yes Hx Substance Use: No - SURGICAL HISTORY Hx Appendectomy: Yes - ANESTHESIA Hx Anesthesia: Yes Hx Anesthesia Reactions: No Hx Malignant Hyperthermia: No Meds Allergies/Adverse Reactions: Allergies Allergy/AdvReac Type Severity Reaction Status Date / Time Iodinated Contrast- Oral and Allergy SHORTNESS Verified 01/15/18 00:36 IV Dye OF BREATH shrimp Allergy RASH Verified 01/15/18 00:36 seafood Allergy RASH Uncoded 01/15/18 00:36 - Medications Medications: Current Medications Ibuprofen (Motrin Tab) 400 mg PO Q6 PRN PRN Reason: Headache Morphine Sulfate (Morphine) 4 mg IVP Q4 PRN PRN Reason: Pain, severe (8-10) Oxycodone/Acetaminophen (Percocet 5/325 Mg Tab) 1 tab PO Q4 PRN PRN Reason: Pain, moderate (4-7) Stop: 01/18/18 09:10 Results - Vital Signs Recent Vital Signs: Last Vital Signs Temp 98.5 F 01/15/18 08:18 Pulse 77 01/15/18 08:18 Resp 19 01/15/18 08:18 BP 134/76 01/15/18 08:18 Pulse Ox 97 01/15/18 08:18 - Labs Result Diagrams: 01/15/18 01:15 01/15/18 01:15 Labs: Laboratory Results - last 24 hr 01/15/18 01/15/18 01/15/18 01:15 01:15 01:15 WBC 7.0 RBC 4.33 Hgb 12.6 Hct 37.0 MCV 85.4 MCH 29.0 MCHC 34.0 RDW 17.4 H Plt Count 387 MPV 7.7 Neut % (Auto) 62.3 Lymph % (Auto) 22.0 [place] % (Auto) 12.3 H Eos % (Auto) 2.0 Baso % (Auto) 1.4 Neut # (Auto) 4.3 Lymph # (Auto) 1.5 [place] # (Auto) 0.9 H Eos # (Auto) 0.1 Baso # (Auto) 0.1 Sodium 139 Potassium 4.0 Chloride 102 Carbon Dioxide 27 Anion Gap 14 BUN 13 Creatinine 0.8 Est GFR ( Amer) > 60 Est GFR (Non-Af Amer) > 60 Random Glucose 142 H Lactic Acid 1.2 Calcium 9.3 Total Bilirubin 0.4 AST 31 ALT 32 Alkaline Phosphatase 80 Total Protein 6.9 Albumin 3.9 Globulin 3.1 Albumin/Globulin Ratio 1.2 Lipase 72 Urine Color Urine Clarity Urine pH Ur Specific [place] Urine Protein Urine Glucose (UA) Urine Ketones Urine Blood Urine Nitrate Urine Bilirubin Urine Urobilinogen Ur Leukocyte Esterase Urine RBC (Auto) Urine Microscopic WBC Ur Squamous Epith Cells Urine Bacteria 01/15/18 01:20 WBC RBC Hgb Hct MCV MCH MCHC RDW Plt Count MPV Neut % (Auto) Lymph % (Auto) [place] % (Auto) Eos % (Auto) Baso % (Auto) Neut # (Auto) Lymph # (Auto) [place] # (Auto) Eos # (Auto) Baso # (Auto) Sodium Potassium Chloride Carbon Dioxide Anion Gap BUN Creatinine Est GFR ( Amer) Est GFR (Non-Af Amer) Random Glucose Lactic Acid Calcium Total Bilirubin AST ALT Alkaline Phosphatase Total Protein Albumin Globulin Albumin/Globulin Ratio Lipase Urine Color Yellow Urine Clarity Slighty-cloudy Urine pH 5.0 Ur Specific [place] 1.025 Urine Protein Negative Urine Glucose (UA) Neg Urine Ketones Negative Urine Blood Negative Urine Nitrate Negative Urine Bilirubin Negative Urine Urobilinogen 2.0 H Ur Leukocyte Esterase Trace Urine RBC (Auto) 5 H Urine Microscopic WBC 8 H Ur Squamous Epith Cells 5 Urine Bacteria Rare
[2018-01-15] MEDS ORDERED: Pantoprazole 40 mg EC Tab PO SCH (09:30)
--- NOTE | 2018-01-15 11:26 | CT ---
Date of service: 01/15/2018 PROCEDURE: CT Abdomen and Pelvis without intravenous contrast HISTORY: Abdominal pain. Relevant clinical history includes umbilical hernia. COMPARISON: 12/04/2017 TECHNIQUE: Unenhanced study. Neither oral nor intravenous contrast administered. Radiation dose: Total exam DLP = 576.54. MGy-cm. This CT exam was performed using one or more of the following dose reduction techniques: Automated exposure control, adjustment of the mA and/or kV according to patient size, and/or use of iterative reconstruction technique. FINDINGS: LOWER THORAX: Unremarkable. LIVER: Unremarkable. No gross lesion or ductal dilatation. GALLBLADDER AND BILE DUCTS: Unremarkable. PANCREAS: Unremarkable. No gross lesion or ductal dilatation. SPLEEN: Unremarkable. ADRENALS: Unremarkable. No mass. KIDNEYS AND URETERS: Unremarkable. No hydronephrosis. No solid mass. VASCULATURE: Unremarkable. No aortic aneurysm. BOWEL: Diverticulosis without an acute inflammatory component or other associated pathologic process. APPENDIX: Unremarkable. Normal appendix. PERITONEUM: Unremarkable. No free fluid. No free air. LYMPH NODES: Unremarkable. No enlarged lymph nodes. BLADDER: Unremarkable. REPRODUCTIVE: Status post hysterectomy. BONES: No acute fracture. OTHER FINDINGS: Stable fat containing periumbilical hernia. Rectus diastases at this level measures 2.1 cm. IMPRESSION: No acute findings related to/accounting for the clinical presentation. No significant interval change compared to the prior examination(s). Additional benign and/or incidental findings described above. Concordant results (preliminary interpretation) provided by ePrep. Procedure Completed: :07. Preliminary (vRad) Report: Dictated and Authenticated: 02:17. Final Interpretation: 07:30 appear
[2018-01-15] MEDS: Albuterol-Ipratrop 3 mg / 0.5 (3 ml) UD INH SCH ×3 (12:31→19:43)
[2018-01-15] MEDS: Oxycodone/Acetaminophen 5/325 mg Tab PO PRN ×2 (13:10→20:53)
--- NOTE | 2018-01-15 14:01 | RAD ---
Date of service: 01/15/2018 HISTORY: Admission, pre-op COMPARISON: 12/07/2017 FINDINGS: LUNGS: No active pulmonary disease. PLEURA: No significant pleural effusion identified, no pneumothorax apparent. CARDIOVASCULAR: No radiographic findings to suggest acute or significant cardiovascular disease. OSSEOUS STRUCTURES: No significant abnormalities. VISUALIZED UPPER ABDOMEN: Normal. OTHER FINDINGS: None. IMPRESSION: No active disease. No significant interval change compared to the prior examination(s).
--- NOTE | 2018-01-15 18:50 | CP.PCM.HP ---
History of Present Illness - History of Present Illness History of Present Illness: CC: Abdominal pain. 77 y/o F, Hx COPD, HTN, O/A Umbilical Hernia, came to ER [facility], [place] to be evaluated for increased abdominal pain x 2 days [employer] associated to a chronic, and now prominent umbilical hernia that she is having for about a year, pain described as continue, aching, cramping, severe intensity 8:10, non radiated, associated to nausea, headache. Pt using Percocet at home with no relief. Patient was AD 12-04-17 [facility] Dx R Temporal Arteritis and Incarcerated Umbilical Hernia , Patient had Temporal Artery Bx , treated with Steroids, the treatment of Incarcerated Umblical hernia was defered to have f/u elective Surgery. ECHO 12-06-17 LV systolic function normal, LVEF 65-70%. Patient was AD [facility] Apr 2017 with AFib RVR , Patient had an episode that eventually subsided. Worsening symptoms: Difficulty walking 2nd to increased pain, Irritability, Pt states she cannot support that pain anymore. Aggravating factor: Movements/exercise. Pt denied: Fever, chills, vomiting, diarrhea, urinary symptoms, CP, palpitations, SOB, cough, sick contact, recent travel out of [facility]. Abd/Pelv CT shows: Diverticulosis, no Diverticulitis. Fat containing Periumbilical Hernia, otherwise unremarkable. CXR: No active disease. Present on Admission - Present on Admission Any Indicators Present on Admission: No Review of Systems - Constitutional Constitutional: Headache - EENT Eyes: Requires Corrective Lenses Ears: Other (negative) Nose/Mouth/Throat: Other (negative) - Cardiovascular Cardiovascular: Other (negative) - Respiratory Respiratory: Other (negative) - Gastrointestinal Gastrointestinal: Abdominal Pain (2nd to umbilical hernia), Cramping, Nausea - Genitourinary Genitourinary: Other (negative) - Musculoskeletal Musculoskeletal: Arthralgias - Integumentary Integumentary: Other (negative) - Neurological Neurological: Headaches - Psychiatric Psychiatric: Anxiety - Endocrine Endocrine: Other (negative) - Hematologic/Lymphatic Hematologic: Other (negative) Past Patient History - Infectious Disease Hx of Infectious Diseases: None - Past Medical History & Family History Past Medical History?: Yes Pertinent Family History: Unknown - Past Social History Smoking Status: Never Smoked Alcohol: None Drugs: Denies Home Situation {Lives}: With Family - CARDIAC Hx Cardiac Disorders: Yes Hx Atrial Fibrillation: Yes Hx Hypercholesterolemia: Yes Hx Hypertension: Yes - PULMONARY Hx Respiratory Disorders: Yes Hx Bronchitis: Yes Hx Chronic Obstructive Pulmonary Disease (COPD): Yes - NEUROLOGICAL Hx Neurological Disorder: No - HEENT Hx HEENT Problems: Yes (eyeglasses) - RENAL Hx Chronic Kidney Disease: No - ENDOCRINE/METABOLIC Hx Endocrine Disorders: No - HEMATOLOGICAL/ONCOLOGICAL Hx Blood Disorders: No Hx Human Immunodeficiency Virus (HIV): No - INTEGUMENTARY Hx Dermatological Problems: No - MUSCULOSKELETAL/RHEUMATOLOGICAL Hx Musculoskeletal Disorders: Yes Hx Arthritis: Yes Other/Comment: Temporal Arteritis - GASTROINTESTINAL Hx Gastrointestinal Disorders: Yes Hx Gastritis: Yes Hx Pancreatitis: Yes - GENITOURINARY/GYNECOLOGICAL Hx Genitourinary Disorders: No - PSYCHIATRIC Hx Psychophysiologic Disorder: Yes Hx Anxiety: Yes Hx Substance Use: No - SURGICAL HISTORY Hx Surgeries: Yes Hx Appendectomy: Yes - ANESTHESIA Hx Anesthesia: Yes Hx Anesthesia Reactions: No Hx Malignant Hyperthermia: No Meds Allergies/Adverse Reactions: Allergies Allergy/AdvReac Type Severity Reaction Status Date / Time Iodinated Contrast- Oral and Allergy SHORTNESS Verified 01/15/18 00:36 IV Dye OF BREATH shrimp Allergy RASH Verified 01/15/18 00:36 seafood Allergy RASH Uncoded 01/15/18 00:36 Physical Exam - Constitutional Appears: No Acute Distress - Head Exam Head Exam: NORMAL INSPECTION - Eye Exam Eye Exam: PERRL - ENT Exam ENT Exam: Normal Exam - Neck Exam Neck exam: Positive for: Normal Inspection - Respiratory Exam Respiratory Exam: Clear to Auscultation Bilateral - Cardiovascular Exam Cardiovascular Exam: REGULAR RHYTHM - GI/Abdominal Exam GI & Abdominal Exam: Hernia (umbilical incarcerated, non reducible.), Soft, Tenderness (mild umbilical area on palpation.). absent: Distended - Extremities Exam Extremities exam: Positive for: normal inspection - Back Exam Back exam: NORMAL INSPECTION - Neurological Exam Neurological exam: Alert, Oriented x3 Additional comments: No motor/sensory deficit. - Psychiatric Exam Psychiatric exam: Normal Mood - Skin Skin Exam: Normal Color, Warm Results - Vital Signs Recent Vital Signs: Last Vital Signs Temp 98.1 F 01/15/18 16:27 Pulse 80 01/15/18 16:27 Resp 20 01/15/18 16:27 BP 125/80 01/15/18 16:27 Pulse Ox 99 01/15/18 16:27 reviewed J.P. - Labs Result Diagrams: 01/17/18 05:30 01/17/18 05:30 Labs: Laboratory Results - last 24 hr 01/15/18 01/15/18 01/15/18 01:15 01:15 01:15 WBC 7.0 RBC 4.33 Hgb 12.6 Hct 37.0 MCV 85.4 MCH 29.0 MCHC 34.0 RDW 17.4 H Plt Count 387 MPV 7.7 Neut % (Auto) 62.3 Lymph % (Auto) 22.0 [place] % (Auto) 12.3 H Eos % (Auto) 2.0 Baso % (Auto) 1.4 Neut # (Auto) 4.3 Lymph # (Auto) 1.5 [place] # (Auto) 0.9 H Eos # (Auto) 0.1 Baso # (Auto) 0.1 Sodium 139 Potassium 4.0 Chloride 102 Carbon Dioxide 27 Anion Gap 14 BUN 13 Creatinine 0.8 Est GFR ( Amer) > 60 Est GFR (Non-Af Amer) > 60 Random Glucose 142 H Lactic Acid 1.2 Calcium 9.3 Total Bilirubin 0.4 AST 31 ALT 32 Alkaline Phosphatase 80 Total Protein 6.9 Albumin 3.9 Globulin 3.1 Albumin/Globulin Ratio 1.2 Lipase 72 Urine Color Urine Clarity Urine pH Ur Specific [place] Urine Protein Urine Glucose (UA) Urine Ketones Urine Blood Urine Nitrate Urine Bilirubin Urine Urobilinogen Ur Leukocyte Esterase Urine RBC (Auto) Urine Microscopic WBC Ur Squamous Epith Cells Urine Bacteria 01/15/18 01:20 WBC RBC Hgb Hct MCV MCH MCHC RDW Plt Count MPV Neut % (Auto) Lymph % (Auto) [place] % (Auto) Eos % (Auto) Baso % (Auto) Neut # (Auto) Lymph # (Auto) [place] # (Auto) Eos # (Auto) Baso # (Auto) Sodium Potassium Chloride Carbon Dioxide Anion Gap BUN Creatinine Est GFR ( Amer) Est GFR (Non-Af Amer) Random Glucose Lactic Acid Calcium Total Bilirubin AST ALT Alkaline Phosphatase Total Protein Albumin Globulin Albumin/Globulin Ratio Lipase Urine Color Yellow Urine Clarity Slighty-cloudy Urine pH 5.0 Ur Specific [place] 1.025 Urine Protein Negative Urine Glucose (UA) Neg Urine Ketones Negative Urine Blood Negative Urine Nitrate Negative Urine Bilirubin Negative Urine Urobilinogen 2.0 H Ur Leukocyte Esterase Trace Urine RBC (Auto) 5 H Urine Microscopic WBC 8 H Ur Squamous Epith Cells 5 Urine Bacteria Rare reviewed J.P. - Imaging and Cardiology CT scan - abdomen Status: Report reviewed by me (Cindy) CT scan - pelvis Status: Report reviewed by me (Cindy) Chest x-ray Status: Report reviewed by me (Cindy) Assessment & Plan (1) Abdominal pain Status: Acute Priority: High (2) Umbilical hernia Status: Chronic Priority: High (3) Headache Status: Acute Priority: Medium (4) COPD (chronic obstructive pulmonary disease) Status: Chronic Priority: Medium (5) HTN (hypertension) Status: Chronic Priority: Medium (6) History of atrial fibrillation Status: Chronic Priority: Medium (7) OA (osteoarthritis) Status: Chronic Priority: Medium - Assessment and Plan (Free Text) Plan: Keep in NPO, planning for OR next Monday, continue Percocet, Morphine, Protonix, Duoneb and rest of Tx. Surgery consult appreciated, f/u Cardiac clearance for Surgery - Date & Time Date: 01/15/18 Time: 13:30
[2018-01-16] MEDS: Dextrose 5%/0.45% NS 1,000 ML IV SCH ×2 (00:40→12:43)
[2018-01-16] MEDS: Piperacillin/Tazobact 3.375 GM in Sodium Chloride 0.9% 100 ML IVPB SCH ×4 (00:43→18:09)
[2018-01-16 00:52] LABS: HEMOGLOBIN 13.9 g/dL (12.0-16.0); MEAN CELL VOLUME 85.9 fl (81.0-99.0); MEAN CORPUSCULAR HEMOGLOBIN 28.9 pg (27.0-31.0); MEAN CORPUSCULAR HGB CONC 33.6 g/dL (33.0-37.0); RBC 4.83 Mil/uL (3.80-5.20); RED CELL DISTRIBUTION WIDTH 17.3 % (11.5-14.5); WHITE BLOOD COUNT 10.1 K/uL (4.8-10.8)
[2018-01-16 01:01] LABS: BLOOD UREA NITROGEN 6 mg/dl (7-17); CALCIUM 9.2 mg/dL (8.4-10.2); GFR AFRICAN-AMERICAN > 60; GFR NON-AFRICAN AMERICAN > 60
[2018-01-16 01:57] LABS: URINE BILIRUBIN NEGATIVE (NEGATIVE); URINE BLOOD SMALL (NEGATIVE); URINE CLARITY CLEAR (Clear); URINE COLOR YELLOW (YELLOW); URINE GLUCOSE (UA) NEG (Normal); URINE LEUKOCYTE ESTERASE NEG Leu/uL (Negative); URINE PROTEIN NEGATIVE (NEGATIVE); URINE UROBILINOGEN 0.2-1.0 mg/dL (0.2-1.0)
[2018-01-16 06:40] LABS: BASO # 0.1 K/uL (0.0-0.2); BASO % 1.1 % (0.0-2.0); EOS # 0.1 K/uL (0.0-0.7); EOS % 1.1 % (0.0-4.0); HEMOGLOBIN 12.7 g/dL (12.0-16.0); LYMPH # 1.4 K/uL (1.0-4.3); LYMPH % 16.1 % (20.0-40.0); MEAN CELL VOLUME 84.6 fl (81.0-99.0); MEAN CORPUSCULAR HEMOGLOBIN 28.6 pg (27.0-31.0); MEAN CORPUSCULAR HGB CONC 33.8 g/dL (33.0-37.0); MEAN PLATELET VOLUME 8.2 fl (7.2-11.7); MONO # 0.8 K/uL (0.0-0.8); MONO % 9.1 % (0.0-10.0); NEUT # 6.4 K/uL (1.8-7.0); NEUT % 72.6 % (50.0-75.0); RBC 4.45 Mil/uL (3.80-5.20); RED CELL DISTRIBUTION WIDTH 17.8 % (11.5-14.5); WHITE BLOOD COUNT 8.8 K/uL (4.8-10.8)
[2018-01-16 06:49] LABS: ALB/GLOB RATIO 1.2 (1.0-2.1); ALBUMIN 3.6 g/dL (3.5-5.0); ALT/SGPT 28 U/L (9-52); AST/SGOT 27 U/L (14-36); BLOOD UREA NITROGEN 6 mg/dl (7-17); CALCIUM 8.8 mg/dL (8.4-10.2); GFR AFRICAN-AMERICAN > 60; GFR NON-AFRICAN AMERICAN > 60
[2018-01-16 06:53] LABS: INR 1.1 (0.9-1.2); PARTIAL THROMBOPLASTIN TIME 43.1 Seconds (25.6-37.1); PROTHROMBIN TIME 12.1 Seconds (9.8-13.1)
[2018-01-16] MEDS ORDERED: Phenol 1.4% Throat Spray MT PRN (07:39)
[2018-01-16] MEDS: Albuterol-Ipratrop 3 mg / 0.5 (3 ml) UD INH SCH ×4 (07:46→19:34)
--- NOTE | 2018-01-16 07:47 | CP.PCM.PN ---
Subjective - Date & Time of Evaluation Date of Evaluation: 01/16/18 Time of Evaluation: 07:45 - Subjective Subjective: General Surgery - Dr Saab Pt S&E. Febrile to 102.4 overnight around 11pm. Pt complaining of throat pain and periumbilical abdominal pain at the site of her umbilical hernia, unchanged from yesterday. She complains of mild nausea, no vomiting. No SOB or chest pain. Objective - Vital Signs/Intake and Output Vital Signs (last 24 hours): Temp Pulse Resp BP Pulse Ox 98.8 F 84 18 111/63 95 01/16/18 07:44 01/16/18 07:44 01/16/18 07:44 01/16/18 07:44 01/16/18 07:44 - Medications Medications: Current Medications Acetaminophen (Tylenol 650 Mg Supp) 650 mg MS Q4 PRN PRN Reason: temp <101 Last Admin: 01/16/18 00:46 Dose: 650 mg Albuterol/Ipratropium (Duoneb 3 Mg/0.5 Mg (3 Ml) Ud) 3 ml INH RQID [facility] Last Admin: 01/15/18 19:43 Dose: 3 ml Docusate Sodium (Colace) 200 mg PO DAILY [facility] Vancomycin HCl 1 gm/ Sodium (Chloride) 250 mls @ 166.667 mls/hr IVPB Q12H [facility] PRN Reason: Protocol Last Admin: 01/16/18 01:49 Dose: 166.667 mls/hr Piperacillin Sod/Tazobactam (Sod 3.375 gm/ Sodium Chloride) 100 mls @ 100 mls/ hr IVPB Q6H [facility] PRN Reason: Protocol Last Admin: 01/16/18 06:29 Dose: 100 mls/hr Dextrose/Sodium Chloride (Dextrose 5%/0.45% Ns 1000 Ml) 1,000 mls @ 80 mls/hr IV .[id number] [facility] Stop: 01/16/18 23:50 Last Admin: 01/16/18 00:40 Dose: 80 mls/hr Morphine Sulfate (Morphine) 4 mg IVP Q4 PRN PRN Reason: Pain, severe (8-10) Last Admin: 01/16/18 00:54 Dose: 4 mg Pantoprazole Sodium (Protonix Inj) 40 mg IVP DAILY [facility] Phenol/Menthol (Phenaseptic 1.4% Throat [place]) 1 spry MT Q2 PRN PRN Reason: Sore Throat - Labs Labs: 01/16/18 05:30 01/16/18 05:30 PT 12.1 Seconds (9.8-13.1) 01/16/18 05:30 INR 1.1 (0.9-1.2) 01/16/18 05:30 APTT 43.1 Seconds (25.6-37.1) H 01/16/18 05:30 - Constitutional Appears: Well, No Acute Distress - Head Exam Head Exam: ATRAUMATIC, NORMAL INSPECTION, NORMOCEPHALIC - Respiratory Exam Respiratory Exam: NORMAL BREATHING PATTERN. absent: Respiratory Distress - Cardiovascular Exam Cardiovascular Exam: REGULAR RHYTHM - GI/Abdominal Exam GI & Abdominal Exam: Guarding, Soft, Tenderness (periumbilical), Hernia ( incarcerated umbilical hernia). absent: Distended, Rigid - Neurological Exam Neurological Exam: Alert, Oriented x3 - Psychiatric Exam Psychiatric exam: Normal Affect, Normal Mood - Skin Skin Exam: Dry, Intact Assessment and Plan - Assessment and Plan (Free Text) Assessment: 77 F w/ incarcerated umbilical hernia - Continue NPO, IVF - OR tomorrow for hernia repair - Request medical clearance prior to OR DW Dr Kaiser Roper PGY4
--- NOTE | 2018-01-16 09:20 | CARD ---
APPROVED REPORT Date of service: 01/15/2018 EKG Measurement Heart [id number] [id number] <Conclusion> Normal sinus rhythm Low voltage QRS Inferior infarct, age undetermined Abnormal ECG
--- NOTE | 2018-01-16 09:53 | CP.PCM.PN ---
Subjective - Date & Time of Evaluation Date of Evaluation: 01/16/18 Time of Evaluation: 09:49 - Subjective Subjective: General Surgery Pt seen and examined this AM. She spiked a fever last night, Tmax 102.7. Pt is c/o of throat pain that started yesterday. She reports her abdominal pain is slightly improved after she put an ice pack on it. Labs and Vitals noted PE Gen: Pt asleep, easily arousable Skin: warm and dry HEENT: (+) exudates on right tonsils, (+) erythema of posterior pharynx, (+) halitosis, (-) cervical lymphadenopathy Cardio: s1s2 RRR Lungs: CTA bilaterally Abd: Soft, with mild tenderness of the umbilicus, (+) umbilical hernia, not reducible Extr: (-) calf tenderness bilaterally A/P Incarcerated fat containing umbilical hernia Pt for OR tomorrow, needs medical clearance Clear liquid diet now NPO after midnight Pharyngitis Medicine made aware, they will order strep test. Objective - Vital Signs/Intake and Output Vital Signs (last 24 hours): Temp Pulse Resp BP Pulse Ox 98.8 F 84 18 111/63 95 01/16/18 07:44 01/16/18 07:44 01/16/18 07:44 01/16/18 07:44 01/16/18 07:44 - Medications Medications: Current Medications Acetaminophen (Tylenol 650 Mg Supp) 650 mg [place] Q4 PRN PRN Reason: temp <101 Last Admin: 01/16/18 00:46 Dose: 650 mg Albuterol/Ipratropium (Duoneb 3 Mg/0.5 Mg (3 Ml) Ud) 3 ml INH RQID [facility] Last Admin: 01/16/18 07:46 Dose: 3 ml Docusate Sodium (Colace) 200 mg PO DAILY [facility] Last Admin: 01/16/18 08:52 Dose: Not Given Vancomycin HCl 1 gm/ Sodium (Chloride) 250 mls @ 166.667 mls/hr IVPB Q12H [facility] PRN Reason: Protocol Last Admin: 01/16/18 01:49 Dose: 166.667 mls/hr Piperacillin Sod/Tazobactam (Sod 3.375 gm/ Sodium Chloride) 100 mls @ 100 mls/ hr IVPB Q6H [facility] PRN Reason: Protocol Last Admin: 01/16/18 06:29 Dose: 100 mls/hr Dextrose/Sodium Chloride (Dextrose 5%/0.45% Ns 1000 Ml) 1,000 mls @ 80 mls/hr IV .[id number] [facility] Stop: 01/16/18 23:50 Last Admin: 01/16/18 00:40 Dose: 80 mls/hr Morphine Sulfate (Morphine) 4 mg IVP Q4 PRN PRN Reason: Pain, severe (8-10) Last Admin: 01/16/18 00:54 Dose: 4 mg Pantoprazole Sodium (Protonix Inj) 40 mg IVP DAILY [facility] Last Admin: 01/16/18 08:53 Dose: 40 mg Phenol/Menthol (Phenaseptic 1.4% Throat [place]) 1 spry MT Q2 PRN PRN Reason: Sore Throat - Labs Labs: 01/16/18 05:30 01/16/18 05:30 PT 12.1 Seconds (9.8-13.1) 01/16/18 05:30 INR 1.1 (0.9-1.2) 01/16/18 05:30 APTT 43.1 Seconds (25.6-37.1) H 01/16/18 05:30
--- NOTE | 2018-01-16 15:25 | CP.PCM.PN ---
Subjective - Date & Time of Evaluation Date of Evaluation: 01/16/18 Time of Evaluation: 13:10 - Subjective Subjective: F/U Abdominal pain/Umbilical Hernia. R sore throat, mild umbilical hernia pain, T 99.4 Objective - Vital Signs/Intake and Output Vital Signs (last 24 hours): Temp Pulse Resp BP Pulse Ox 101.1 F H 84 18 111/63 95 01/16/18 14:12 01/16/18 07:44 01/16/18 07:44 01/16/18 07:44 01/16/18 07:44 - Medications Medications: Current Medications Acetaminophen (Tylenol 650 Mg Supp) 650 mg [place] Q4 PRN PRN Reason: temp <101 Last Admin: 01/16/18 00:46 Dose: 650 mg Acetaminophen (Tylenol 325mg Tab) 650 mg PO Q4 PRN PRN Reason: Fever >100.4 F Last Admin: 01/16/18 14:12 Dose: 650 mg Albuterol/Ipratropium (Duoneb 3 Mg/0.5 Mg (3 Ml) Ud) 3 ml INH RQID [facility] Last Admin: 01/16/18 15:18 Dose: 3 ml Benzocaine/Menthol (Cepacol Sore Throat) 1 brittney PO Q2 PRN PRN Reason: Sore Throat Docusate Sodium (Colace) 200 mg PO DAILY [facility] Last Admin: 01/16/18 08:52 Dose: Not Given Vancomycin HCl 1 gm/ Sodium (Chloride) 250 mls @ 166.667 mls/hr IVPB Q12H [facility] PRN Reason: Protocol Last Admin: 01/16/18 12:39 Dose: 166.667 mls/hr Piperacillin Sod/Tazobactam (Sod 3.375 gm/ Sodium Chloride) 100 mls @ 100 mls/ hr IVPB Q6H [facility] PRN Reason: Protocol Last Admin: 01/16/18 12:40 Dose: 100 mls/hr Dextrose/Sodium Chloride (Dextrose 5%/0.45% Ns 1000 Ml) 1,000 mls @ 80 mls/hr IV .[id number] [facility] Stop: 01/16/18 23:50 Last Admin: 01/16/18 12:43 Dose: Not Given Morphine Sulfate (Morphine) 4 mg IVP Q4 PRN PRN Reason: Pain, severe (8-10) Last Admin: 01/16/18 00:54 Dose: 4 mg Pantoprazole Sodium (Protonix Inj) 40 mg IVP DAILY [facility] Last Admin: 01/16/18 08:53 Dose: 40 mg - Labs Labs: 01/16/18 05:30 01/16/18 05:30 PT 12.1 Seconds (9.8-13.1) 01/16/18 05:30 INR 1.1 (0.9-1.2) 01/16/18 05:30 APTT 43.3 Seconds 01/16/18 10:45 - Constitutional Appears: No Acute Distress - Head Exam Head Exam: NORMAL INSPECTION - Eye Exam Eye Exam: PERRL - ENT Exam Additional comments: redness, R tonsil enlarged, exudate - Neck Exam Neck Exam: Normal Inspection - Respiratory Exam Respiratory Exam: Clear to Ausculation Bilateral - Cardiovascular Exam Cardiovascular Exam: REGULAR RHYTHM - GI/Abdominal Exam GI & Abdominal Exam: Soft, Tenderness (mild umbilical hernia area on palpation) , Hernia (umbilical, mild tenderness, not reducible), Normal Bowel Sounds Additional comments: Umbilical hernia non reducible. - Extremities Exam Extremities Exam: Normal Inspection - Back Exam Back Exam: NORMAL INSPECTION - Neurological Exam Neurological Exam: Alert, Oriented x3. absent: Motor Sensory Deficit - Psychiatric Exam Psychiatric exam: Normal Mood - Skin Skin Exam: Warm Assessment and Plan (1) Abdominal pain Status: Acute (2) Umbilical hernia Status: Chronic (3) Acute tonsillitis Status: Acute (4) Headache Status: Acute (5) COPD (chronic obstructive pulmonary disease) Status: Chronic (6) HTN (hypertension) Status: Chronic (7) History of atrial fibrillation Status: Chronic (8) OA (osteoarthritis) Status: Chronic - Assessment and Plan (Free Text) Plan: Patient is not medically cleared for Surgery due to active infection, fever, continue Zosyn, Vanco, f/u Throat C-S , continue rest of treatment
--- NOTE | 2018-01-16 17:39 | CP.PCM.CON ---
History of Present Illness - History of Present Illness History of Present Illness: Consultation for evalution of preoperative cardiovascular risk stratification HPI: Review of Systems - Review of Systems Systems not reviewed;Unavailable: Acuity of Condition - Constitutional Constitutional: As Per HPI - EENT Eyes: As Per HPI Ears: As Per HPI Nose/Mouth/Throat: As Per HPI - Breasts Breasts: As Per HPI - Cardiovascular Cardiovascular: As Per HPI - Respiratory Respiratory: As Per HPI - Gastrointestinal Gastrointestinal: As Per HPI - Genitourinary Genitourinary: As Per HPI - Reproductive: Female Reproductive:Female: As Per HPI - Menstruation Menstruation: As Per HPI - Musculoskeletal Musculoskeletal: As Per HPI - Integumentary Integumentary: As Per HPI - Neurological Neurological: As Per HPI - Psychiatric Psychiatric: As Per HPI - Endocrine Endocrine: As Per HPI - Hematologic/Lymphatic Hematologic: As Per HPI Past Patient History - Infectious Disease Hx of Infectious Diseases: None - Past Medical History & Family History Past Medical History?: Yes - Past Social History Smoking Status: Never Smoked Alcohol: None Drugs: Denies Home Situation {Lives}: With Family - CARDIAC Hx Cardiac Disorders: Yes Hx Atrial Fibrillation: Yes Hx Hypercholesterolemia: Yes Hx Hypertension: Yes - PULMONARY Hx Respiratory Disorders: Yes Hx Bronchitis: Yes Hx Chronic Obstructive Pulmonary Disease (COPD): Yes - NEUROLOGICAL Hx Neurological Disorder: No - HEENT Hx HEENT Problems: Yes (eyeglasses) - RENAL Hx Chronic Kidney Disease: No - ENDOCRINE/METABOLIC Hx Endocrine Disorders: No - HEMATOLOGICAL/ONCOLOGICAL Hx Blood Disorders: No Hx Human Immunodeficiency Virus (HIV): No - INTEGUMENTARY Hx Dermatological Problems: No - MUSCULOSKELETAL/RHEUMATOLOGICAL Hx Musculoskeletal Disorders: Yes Hx Arthritis: Yes Other/Comment: Temporal Arteritis - GASTROINTESTINAL Hx Gastrointestinal Disorders: Yes Hx Gastritis: Yes Hx Pancreatitis: Yes - GENITOURINARY/GYNECOLOGICAL Hx Genitourinary Disorders: No - PSYCHIATRIC Hx Psychophysiologic Disorder: Yes Hx Anxiety: Yes Hx Substance Use: No - SURGICAL HISTORY Hx Surgeries: Yes Hx Appendectomy: Yes - ANESTHESIA Hx Anesthesia: Yes Hx Anesthesia Reactions: No Hx Malignant Hyperthermia: No Meds Allergies/Adverse Reactions: Allergies Allergy/AdvReac Type Severity Reaction Status Date / Time Iodinated Contrast- Oral and Allergy SHORTNESS Verified 01/15/18 00:36 IV Dye OF BREATH shrimp Allergy RASH Verified 01/15/18 00:36 seafood Allergy RASH Uncoded 01/15/18 00:36 - Medications Medications: Current Medications Acetaminophen (Tylenol 650 Mg Supp) 650 mg [place] Q4 PRN PRN Reason: temp <101 Last Admin: 01/16/18 00:46 Dose: 650 mg Acetaminophen (Tylenol 325mg Tab) 650 mg PO Q4 PRN PRN Reason: Fever >100.4 F Last Admin: 01/16/18 14:12 Dose: 650 mg Albuterol/Ipratropium (Duoneb 3 Mg/0.5 Mg (3 Ml) Ud) 3 ml INH RQID [facility] Last Admin: 01/16/18 15:18 Dose: 3 ml Benzocaine/Menthol (Cepacol Sore Throat) 1 brittney PO Q2 PRN PRN Reason: Sore Throat Docusate Sodium (Colace) 200 mg PO DAILY [facility] Last Admin: 01/16/18 08:52 Dose: Not Given Vancomycin HCl 1 gm/ Sodium (Chloride) 250 mls @ 166.667 mls/hr IVPB Q12H [facility] PRN Reason: Protocol Last Admin: 01/16/18 12:39 Dose: 166.667 mls/hr Piperacillin Sod/Tazobactam (Sod 3.375 gm/ Sodium Chloride) 100 mls @ 100 mls/ hr IVPB Q6H [facility] PRN Reason: Protocol Last Admin: 01/16/18 12:40 Dose: 100 mls/hr Dextrose/Sodium Chloride (Dextrose 5%/0.45% Ns 1000 Ml) 1,000 mls @ 80 mls/hr IV .[id number] [facility] Stop: 01/16/18 23:50 Last Admin: 01/16/18 12:43 Dose: Not Given Morphine Sulfate (Morphine) 4 mg IVP Q4 PRN PRN Reason: Pain, severe (8-10) Last Admin: 01/16/18 00:54 Dose: 4 mg Pantoprazole Sodium (Protonix Inj) 40 mg IVP DAILY [facility] Last Admin: 01/16/18 08:53 Dose: 40 mg Physical Exam - Constitutional Appears: Well - Head Exam Head Exam: ATRAUMATIC, NORMAL INSPECTION, NORMOCEPHALIC - Eye Exam Eye Exam: EOMI, Normal appearance, PERRL Pupil Exam: NORMAL ACCOMODATION, PERRL - ENT Exam ENT Exam: Mucous Membranes Moist, Normal Exam - Neck Exam Neck exam: Positive for: Normal Inspection - Respiratory Exam Respiratory Exam: Clear to Auscultation Bilateral, NORMAL BREATHING PATTERN - Cardiovascular Exam Cardiovascular Exam: REGULAR RHYTHM, RRR, Systolic Murmur - GI/Abdominal Exam GI & Abdominal Exam: Normal Bowel Sounds, Soft. absent: Tenderness - Extremities Exam Extremities exam: Positive for: normal inspection - Back Exam Back exam: NORMAL INSPECTION - Neurological Exam Neurological exam: Alert, CN II-XII Intact, Normal Gait, Oriented x3, Reflexes Normal - Psychiatric Exam Psychiatric exam: Normal Affect, Normal Mood - Skin Skin Exam: Dry, Intact, Normal Color, Warm Results - Vital Signs Recent Vital Signs: Last Vital Signs Temp 99.3 F 01/16/18 15:54 Pulse 83 01/16/18 15:54 Resp 20 01/16/18 15:54 BP 117/72 01/16/18 15:54 Pulse Ox 98 01/16/18 15:54 - Labs Result Diagrams: 01/16/18 05:30 01/16/18 05:30 Labs: Laboratory Results - last 24 hr 01/16/18 01/16/18 01/16/18 00:40 00:40 01:45 WBC 10.1 RBC 4.83 Hgb 13.9 Hct 41.5 MCV 85.9 MCH 28.9 MCHC 33.6 RDW 17.3 H Plt Count 319 MPV Neut % (Auto) Lymph % (Auto) Carter % (Auto) Eos % (Auto) Baso % (Auto) Neut # (Auto) Lymph # (Auto) Carter # (Auto) Eos # (Auto) Baso # (Auto) PT INR APTT Sodium 137 Potassium 4.6 Chloride 101 Carbon Dioxide 25 Anion Gap 16 BUN 6 L Creatinine 0.7 Est GFR ( Amer) > 60 Est GFR (Non-Af Amer) > 60 Random Glucose 96 Calcium 9.2 Total Bilirubin AST ALT Alkaline Phosphatase Total Protein Albumin Globulin Albumin/Globulin Ratio Urine Color Yellow Urine Clarity Clear Urine pH 6.0 Ur Specific [place] 1.009 Urine Protein Negative Urine Glucose (UA) Neg Urine Ketones Negative Urine Blood Small Urine Nitrate Negative Urine Bilirubin Negative Urine Urobilinogen 0.2-1.0 Ur Leukocyte Esterase Neg Urine RBC (Auto) 2 Urine Microscopic WBC < 1 Grp A Beta Strep Ag Blood Type Antibody Screen BBK History Checked 07/31/18 07/31/18 07/31/18 05:30 05:30 05:30 WBC 8.8 RBC 4.45 Hgb 12.7 Hct 37.6 MCV 84.6 MCH 28.6 MCHC 33.8 RDW 17.8 H Plt Count 406 H MPV 8.2 Neut % (Auto) 72.6 Lymph % (Auto) 16.1 L Carter % (Auto) 9.1 Eos % (Auto) 1.1 Baso % (Auto) 1.1 Neut # (Auto) 6.4 Lymph # (Auto) 1.4 Carter # (Auto) 0.8 Eos # (Auto) 0.1 Baso # (Auto) 0.1 PT 12.1 INR 1.1 APTT 43.1 H Sodium 139 Potassium 4.2 Chloride 105 Carbon Dioxide 24 Anion Gap 14 BUN 6 L Creatinine 0.8 Est GFR ( Amer) > 60 Est GFR (Non-Af Amer) > 60 Random Glucose 120 H Calcium 8.8 Total Bilirubin 0.7 AST 27 ALT 28 Alkaline Phosphatase 72 Total Protein 6.5 Albumin 3.6 Globulin 3.0 Albumin/Globulin Ratio 1.2 Urine Color Urine Clarity Urine pH Ur Specific [place] Urine Protein Urine Glucose (UA) Urine Ketones Urine Blood Urine Nitrate Urine Bilirubin Urine Urobilinogen Ur Leukocyte Esterase Urine RBC (Auto) Urine Microscopic WBC Grp A Beta Strep Ag Blood Type Antibody Screen BBK History Checked 01/16/18 01/16/18 01/16/18 10:45 10:45 14:00 WBC RBC Hgb Hct MCV MCH MCHC RDW Plt Count MPV Neut % (Auto) Lymph % (Auto) Carter % (Auto) Eos % (Auto) Baso % (Auto) Neut # (Auto) Lymph # (Auto) Carter # (Auto) Eos # (Auto) Baso # (Auto) PT INR APTT 43.3 Sodium Potassium Chloride Carbon Dioxide Anion Gap BUN Creatinine Est GFR ( Amer) Est GFR (Non-Af Amer) Random Glucose Calcium Total Bilirubin AST ALT Alkaline Phosphatase Total Protein Albumin Globulin Albumin/Globulin Ratio Urine Color Urine Clarity Urine pH Ur Specific [place] Urine Protein Urine Glucose (UA) Urine Ketones Urine Blood Urine Nitrate Urine Bilirubin Urine Urobilinogen Ur Leukocyte Esterase Urine RBC (Auto) Urine Microscopic WBC Grp A Beta Strep Ag Negative Blood Type O POSITIVE Antibody Screen Negative BBK History Checked Patient has bt Assessment & Plan (1) Preop cardiovascular exam Assessment and Plan: As per ACC/AHA guidelines she can proceed with planned surgery with low to intermediate risk for perioperative cardiac event Status: Acute (2) Umbilical hernia Status: Chronic Priority: High (3) History of atrial fibrillation Status: Chronic Priority: Medium (4) History of hypertension Status: Chronic Priority: Medium (5) Abdominal pain Status: Resolved Priority: High
[2018-01-17] MEDS: Piperacillin/Tazobact 3.375 GM in Sodium Chloride 0.9% 100 ML IVPB SCH ×5 (01:13→21:55)
[2018-01-17 06:28] LABS: HEMOGLOBIN 12.4 g/dL (12.0-16.0); MEAN CORPUSCULAR HEMOGLOBIN 28.5 pg (27.0-31.0); MEAN CORPUSCULAR HGB CONC 33.6 g/dL (33.0-37.0); RBC 4.34 Mil/uL (3.80-5.20); RED CELL DISTRIBUTION WIDTH 18.1 % (11.5-14.5); WHITE BLOOD COUNT 9.5 K/uL (4.8-10.8)
[2018-01-17 06:59] LABS: ALB/GLOB RATIO 1.2 (1.0-2.1); ALBUMIN 3.5 g/dL (3.5-5.0); ALT/SGPT 30 U/L (9-52); AST/SGOT 34 U/L (14-36); BLOOD UREA NITROGEN 5 mg/dl (7-17); CALCIUM 8.7 mg/dL (8.4-10.2); GFR AFRICAN-AMERICAN > 60; GFR NON-AFRICAN AMERICAN > 60
[2018-01-17] MEDS: Albuterol-Ipratrop 3 mg / 0.5 (3 ml) UD INH SCH ×4 (07:47→19:12)
[2018-01-17] MEDS: Benzocaine/Menthol (Cepacol) Lozenge PO PRN (09:13)
--- NOTE | 2018-01-17 10:03 | CP.PCM.PN ---
Subjective - Date & Time of Evaluation Date of Evaluation: 01/17/18 Time of Evaluation: 09:58 - Subjective Subjective: General Surgery Pt seen and examined this AM. She continues to have throat pain and some abdominal pain. She reports having a fever last night. Tmax 102.2 last night. Labs and vitals noted. Strep swab negative PE Gen: Pt laying in bed in NAD Skin: warm and clammy HEENT: (+) erythema of the posterior pharynx, (+) Exudates of right tonsil, (+ ) tender anterior cervical chain lymph nodes Cardio: s1s2 rrr Lungs: CTA bilaterally Abd: Soft, ND, (+) tenderness at umbilicus, (-) reducible Extr:(-) calf tenderness bilaterally A/P Fat containing incarcerated umbilical hernia Surgery canceled as pt has been febrile from pharyngitis Continue heart healthy diet Pt to follow up in the office for elective surgery Surgery will follow Objective - Vital Signs/Intake and Output Vital Signs (last 24 hours): Temp Pulse Resp BP Pulse Ox 97.9 F 83 19 119/72 96 01/17/18 07:47 01/17/18 07:47 01/17/18 07:47 01/17/18 07:47 01/17/18 07:47 - Medications Medications: Current Medications Acetaminophen (Tylenol 650 Mg Supp) 650 mg [place] Q4 PRN PRN Reason: temp <101 Last Admin: 01/16/18 00:46 Dose: 650 mg Acetaminophen (Tylenol 325mg Tab) 650 mg PO Q4 PRN PRN Reason: Fever >100.4 F Last Admin: 01/17/18 03:29 Dose: 650 mg Albuterol/Ipratropium (Duoneb 3 Mg/0.5 Mg (3 Ml) Ud) 3 ml INH RQID [facility] Last Admin: 01/17/18 07:47 Dose: 3 ml Benzocaine/Menthol (Cepacol Sore Throat) 1 brittney PO Q2 PRN PRN Reason: Sore Throat Last Admin: 01/17/18 09:13 Dose: 1 brittney Docusate Sodium (Colace) 200 mg PO DAILY [facility] Last Admin: 01/17/18 09:05 Dose: 200 mg Enoxaparin Sodium (Lovenox) 40 mg SC DAILY [facility] PRN Reason: Protocol Vancomycin HCl 1 gm/ Sodium (Chloride) 250 mls @ 166.667 mls/hr IVPB Q12H [facility] PRN Reason: Protocol Last Admin: 01/16/18 23:32 Dose: 166.667 mls/hr Piperacillin Sod/Tazobactam (Sod 3.375 gm/ Sodium Chloride) 100 mls @ 100 mls/ hr IVPB Q6H [facility] PRN Reason: Protocol Last Admin: 01/17/18 09:05 Dose: 100 mls/hr Morphine Sulfate (Morphine) 4 mg IVP Q4 PRN PRN Reason: Pain, severe (8-10) Last Admin: 01/16/18 22:06 Dose: 4 mg Pantoprazole Sodium (Protonix Inj) 40 mg IVP DAILY [facility] Last Admin: 01/17/18 09:05 Dose: 40 mg - Labs Labs: 01/17/18 05:30 01/17/18 05:30 PT 12.1 Seconds (9.8-13.1) 01/16/18 05:30 INR 1.1 (0.9-1.2) 01/16/18 05:30 APTT 43.3 Seconds 01/16/18 10:45
[2018-01-17] MEDS: Enoxaparin 40 mg Syringe SC SCH (12:41)
--- NOTE | 2018-01-17 14:00 | CP.PCM.PN ---
Subjective - Date & Time of Evaluation Date of Evaluation: 01/17/18 Time of Evaluation: 13:59 - Subjective Subjective: c/o throat pain and abdominal pain Objective - Vital Signs/Intake and Output Vital Signs (last 24 hours): Temp Pulse Resp BP Pulse Ox 97.9 F 83 19 119/72 96 01/17/18 07:47 01/17/18 07:47 01/17/18 07:47 01/17/18 07:47 01/17/18 07:47 - Medications Medications: Current Medications Acetaminophen (Tylenol 650 Mg Supp) 650 mg [place] Q4 PRN PRN Reason: temp <101 Last Admin: 01/16/18 00:46 Dose: 650 mg Acetaminophen (Tylenol 325mg Tab) 650 mg PO Q4 PRN PRN Reason: Fever >100.4 F Last Admin: 01/17/18 12:49 Dose: 650 mg Albuterol/Ipratropium (Duoneb 3 Mg/0.5 Mg (3 Ml) Ud) 3 ml INH RQID [facility] Last Admin: 01/17/18 11:01 Dose: 3 ml Benzocaine/Menthol (Cepacol Sore Throat) 1 brittney PO Q2 PRN PRN Reason: Sore Throat Last Admin: 01/17/18 09:13 Dose: 1 brittney Docusate Sodium (Colace) 200 mg PO DAILY [facility] Last Admin: 01/17/18 09:05 Dose: 200 mg Enoxaparin Sodium (Lovenox) 40 mg SC DAILY [facility] PRN Reason: Protocol Last Admin: 01/17/18 12:41 Dose: 40 mg Vancomycin HCl 1 gm/ Sodium (Chloride) 250 mls @ 166.667 mls/hr IVPB Q12H [facility] PRN Reason: Protocol Last Admin: 01/17/18 12:41 Dose: 166.667 mls/hr Piperacillin Sod/Tazobactam (Sod 3.375 gm/ Sodium Chloride) 100 mls @ 100 mls/ hr IVPB 0300,0900,1500,2200 [facility] PRN Reason: Protocol Morphine Sulfate (Morphine) 4 mg IVP Q4 PRN PRN Reason: Pain, severe (8-10) Last Admin: 01/16/18 22:06 Dose: 4 mg Pantoprazole Sodium (Protonix Inj) 40 mg IVP DAILY [facility] Last Admin: 01/17/18 09:05 Dose: 40 mg - Labs Labs: 01/17/18 05:30 01/17/18 05:30 PT 12.1 Seconds (9.8-13.1) 01/16/18 05:30 INR 1.1 (0.9-1.2) 01/16/18 05:30 APTT 43.3 Seconds 01/16/18 10:45 - Constitutional Appears: Well - Head Exam Head Exam: ATRAUMATIC, NORMAL INSPECTION, NORMOCEPHALIC - Eye Exam Eye Exam: EOMI, Normal appearance, PERRL Pupil Exam: NORMAL ACCOMODATION, PERRL - ENT Exam ENT Exam: Mucous Membranes Moist, Normal Exam - Neck Exam Neck Exam: Full ROM, Normal Inspection. absent: Lymphadenopathy - Respiratory Exam Respiratory Exam: Clear to Ausculation Bilateral, NORMAL BREATHING PATTERN - Cardiovascular Exam Cardiovascular Exam: REGULAR RHYTHM, +S1, +S2. absent: Murmur - GI/Abdominal Exam GI & Abdominal Exam: Soft, Normal Bowel Sounds. absent: Tenderness - Extremities Exam Extremities Exam: Full ROM, Normal Capillary Refill, Normal Inspection. absent : Joint Swelling, Pedal Edema - Back Exam Back Exam: NORMAL INSPECTION - Neurological Exam Neurological Exam: Alert, Awake, CN II-XII Intact, Normal Gait, Oriented x3 - Psychiatric Exam Psychiatric exam: Normal Affect, Normal Mood - Skin Skin Exam: Dry, Intact, Normal Color, Warm Assessment and Plan (1) Preop cardiovascular exam Status: Acute (2) Umbilical hernia Status: Chronic (3) History of atrial fibrillation Status: Chronic (4) History of hypertension Status: Chronic (5) Abdominal pain Status: Resolved
--- NOTE | 2018-01-17 15:15 | CP.PCM.PN ---
Subjective - Date & Time of Evaluation Date of Evaluation: 01/17/18 Time of Evaluation: 10:15 - Subjective Subjective: F/U Abdominal pain/Incarcerated umbilical hernia. R sore throat, umbilical hernia mild pain Objective - Vital Signs/Intake and Output Vital Signs (last 24 hours): Temp Pulse Resp BP Pulse Ox 97.9 F 83 19 119/72 96 01/17/18 07:47 01/17/18 07:47 01/17/18 07:47 01/17/18 07:47 01/17/18 07:47 - Medications Medications: Current Medications Acetaminophen (Tylenol 650 Mg Supp) 650 mg [place] Q4 PRN PRN Reason: temp <101 Last Admin: 01/16/18 00:46 Dose: 650 mg Acetaminophen (Tylenol 325mg Tab) 650 mg PO Q4 PRN PRN Reason: Fever >100.4 F Last Admin: 01/17/18 12:49 Dose: 650 mg Albuterol/Ipratropium (Duoneb 3 Mg/0.5 Mg (3 Ml) Ud) 3 ml INH RQID [facility] Last Admin: 01/17/18 11:01 Dose: 3 ml Benzocaine/Menthol (Cepacol Sore Throat) 1 brittney PO Q2 PRN PRN Reason: Sore Throat Last Admin: 01/17/18 09:13 Dose: 1 brittney Docusate Sodium (Colace) 200 mg PO DAILY [facility] Last Admin: 01/17/18 09:05 Dose: 200 mg Enoxaparin Sodium (Lovenox) 40 mg SC DAILY [facility] PRN Reason: Protocol Last Admin: 01/17/18 12:41 Dose: 40 mg Vancomycin HCl 1 gm/ Sodium (Chloride) 250 mls @ 166.667 mls/hr IVPB Q12H [facility] PRN Reason: Protocol Last Admin: 01/17/18 12:41 Dose: 166.667 mls/hr Piperacillin Sod/Tazobactam (Sod 3.375 gm/ Sodium Chloride) 100 mls @ 100 mls/ hr IVPB 0300,0900,1500,2200 [facility] PRN Reason: Protocol Morphine Sulfate (Morphine) 4 mg IVP Q4 PRN PRN Reason: Pain, severe (8-10) Last Admin: 01/16/18 22:06 Dose: 4 mg Pantoprazole Sodium (Protonix Inj) 40 mg IVP DAILY [facility] Last Admin: 01/17/18 09:05 Dose: 40 mg - Labs Labs: 01/17/18 05:30 01/17/18 05:30 PT 12.1 Seconds (9.8-13.1) 01/16/18 05:30 INR 1.1 (0.9-1.2) 01/16/18 05:30 APTT 43.3 Seconds 01/16/18 10:45 - Constitutional Appears: No Acute Distress - Head Exam Head Exam: NORMAL INSPECTION - Eye Exam Eye Exam: PERRL - ENT Exam Additional comments: Redness, R Tonsil enlarged, exudate - Neck Exam Neck Exam: Normal Inspection - Respiratory Exam Respiratory Exam: Clear to Ausculation Bilateral - Cardiovascular Exam Cardiovascular Exam: REGULAR RHYTHM - GI/Abdominal Exam GI & Abdominal Exam: Tenderness (mild on palpation on umbilical hernia area), Hernia (umbilical non reducible.), Normal Bowel Sounds - Extremities Exam Extremities Exam: Normal Inspection - Back Exam Back Exam: NORMAL INSPECTION - Neurological Exam Neurological Exam: Alert, Oriented x3. absent: Motor Sensory Deficit - Psychiatric Exam Psychiatric exam: Normal Mood - Skin Skin Exam: Warm Assessment and Plan (1) Abdominal pain Status: Acute (2) Umbilical hernia Status: Chronic (3) Acute tonsillitis Status: Acute (4) Headache Status: Acute (5) COPD (chronic obstructive pulmonary disease) Status: Chronic (6) HTN (hypertension) Status: Chronic (7) History of atrial fibrillation Status: Chronic (8) OA (osteoarthritis) Status: Chronic - Assessment and Plan (Free Text) Plan: T max 102.1 yesterday, Group A B Strep Ag (neg), Throat C-S normal daniel (neg) for B Strep, blood C-S x 2 (neg), U C-S neg, f/u CT Neck and Chest
[2018-01-17] MEDS ORDERED: Phenol 1.4% Throat Spray MT PRN (15:23)
--- NOTE | 2018-01-17 16:21 | CT ---
Date of service: 01/17/2018 PROCEDURE: CT Neck, Chest, Abdomen and Pelvis with contrast HISTORY: Tonsillitis, fevers COMPARISON: None available. TECHNIQUE: Unenhanced study. Intravenous contrast was not administered substantially diminishing the sensitivity for infectious/inflammatory process ease in the neck. Radiation dose: Total exam DLP = 801.44 mGy-cm. This CT exam was performed using one or more of the following dose reduction techniques: Automated exposure control, adjustment of the mA and/or kV according to patient size, and/or use of iterative reconstruction technique. FINDINGS: CT OF THE NECK: PHARYNX: Nasopharynx: Unremarkable. Oropharnx: Unremarkable. Hypopharynx: Unremarkable. LYMPH NODES: Unremarkable. VASCULATURE: Unremarkable. GLANDS: Unremarkable. CERVICAL SPINE: Multilevel degenerative changes primarily affecting mid and lower thoracic spine. CT OF THE CHEST: LUNGS: Dependent atelectasis affecting the lower lobes. No suspicious pulmonary nodules, masses or infiltrates. MEDIASTINUM: Unremarkable thoracic aorta. No aneurysm or dissection. Normal sized heart. Pulmonary arterial truck unremarkable. No vascular congestion. No lymphadenopathy. PLEURA: No pleural fluid. No pneumothorax. BONES: No fracture. No destructive lesion. Other findings: Cystic nodule inferior aspect left thyroid lobe. Elective thyroid ultrasound recommended for further evaluation. IMPRESSION: No significant or acute findings to account for/ related to the clinical presentation. Limitations of the current examination: Absence of intravenous contrast particularly in the assessment of the pharynx/tonsillar region. Additional benign and/or incidental findings described above.
[2018-01-17] MEDS ORDERED: Alum-Mag Hydrox-Simethicone Susp (30 mL) PO PRN (21:00)
[2018-01-18] MEDS: Piperacillin/Tazobact 3.375 GM in Sodium Chloride 0.9% 100 ML IVPB SCH ×3 (03:05→15:27)
--- NOTE | 2018-01-18 07:25 | CP.PCM.PN ---
Subjective - Date & Time of Evaluation Date of Evaluation: 01/18/18 Time of Evaluation: 07:23 - Subjective Subjective: General Surgery Dr. Caraballo Pt S&E @bedside. NAEO. pt reports improved pharyngitis. abd pain unchanged. denies F/C, N/V. tolerating diet. (+)BM/flatus. Objective - Vital Signs/Intake and Output Vital Signs (last 24 hours): Temp Pulse Resp BP Pulse Ox 98.7 F 79 18 133/76 95 01/18/18 00:14 01/18/18 00:14 01/18/18 00:14 01/18/18 00:14 01/18/18 00:14 - Medications Medications: Current Medications Acetaminophen (Tylenol 650 Mg Supp) 650 mg [place] Q4 PRN PRN Reason: temp <101 Last Admin: 01/16/18 00:46 Dose: 650 mg Acetaminophen (Tylenol 325mg Tab) 650 mg PO Q4 PRN PRN Reason: Fever >100.4 F Last Admin: 01/17/18 12:49 Dose: 650 mg Acetaminophen (Tylenol 325mg Tab) 650 mg PO Q4 PRN PRN Reason: Headache Last Admin: 01/17/18 20:52 Dose: 650 mg Al Hydrox/Mg Hydrox/Simethicone (Maalox Plus 30 Ml) 30 ml PO Q4 PRN PRN Reason: Indigestion / Heartburn Last Admin: 01/17/18 21:55 Dose: 30 ml Albuterol/Ipratropium (Duoneb 3 Mg/0.5 Mg (3 Ml) Ud) 3 ml INH RQID [facility] Last Admin: 01/17/18 19:12 Dose: 3 ml Benzocaine/Menthol (Cepacol Sore Throat) 1 brittney PO Q2 PRN PRN Reason: Sore Throat Last Admin: 01/17/18 09:13 Dose: 1 brittney Docusate Sodium (Colace) 200 mg PO DAILY [facility] Last Admin: 01/17/18 09:05 Dose: 200 mg Enoxaparin Sodium (Lovenox) 40 mg SC DAILY [facility] PRN Reason: Protocol Last Admin: 01/17/18 12:41 Dose: 40 mg Vancomycin HCl 1 gm/ Sodium (Chloride) 250 mls @ 166.667 mls/hr IVPB Q12H [facility] PRN Reason: Protocol Last Admin: 01/17/18 23:16 Dose: 166.667 mls/hr Piperacillin Sod/Tazobactam (Sod 3.375 gm/ Sodium Chloride) 100 mls @ 100 mls/ hr IVPB 0300,0900,1500,2200 [facility] PRN Reason: Protocol Last Admin: 01/18/18 03:05 Dose: 100 mls/hr Morphine Sulfate (Morphine) 4 mg IVP Q4 PRN PRN Reason: Pain, severe (8-10) Last Admin: 01/16/18 22:06 Dose: 4 mg Pantoprazole Sodium (Protonix Inj) 40 mg IVP DAILY [facility] Last Admin: 01/17/18 09:05 Dose: 40 mg Phenol/Menthol (Phenaseptic 1.4% Throat [place]) 1 spry [place] Q2 PRN PRN Reason: mouth/throat pain - Labs Labs: 01/17/18 05:30 01/17/18 05:30 PT 12.1 Seconds (9.8-13.1) 01/16/18 05:30 INR 1.1 (0.9-1.2) 01/16/18 05:30 APTT 43.3 Seconds 01/16/18 10:45 - Constitutional Appears: Non-toxic, No Acute Distress - Head Exam Head Exam: NORMAL INSPECTION - Eye Exam Eye Exam: Normal appearance - ENT Exam ENT Exam: Mucous Membranes Moist - Respiratory Exam Respiratory Exam: NORMAL BREATHING PATTERN. absent: Accessory Muscle Use, Respiratory Distress - Cardiovascular Exam Cardiovascular Exam: REGULAR RHYTHM. absent: Bradycardia, Tachycardia - GI/Abdominal Exam GI & Abdominal Exam: Soft, Tenderness (benigno-umbilical TTP), Hernia ( incarcerated umbilical hernia). absent: Distended, Guarding - Extremities Exam Extremities Exam: Normal Inspection - Neurological Exam Neurological Exam: Alert, Awake - Psychiatric Exam Psychiatric exam: Normal Affect, Normal Mood - Skin Skin Exam: Dry, Intact, Normal Color, Warm Assessment and Plan - Assessment and Plan (Free Text) Assessment: 77 y/o F w/ incarcerated umbilical hernia, currently being treated for pharyngitis - ADAT - cont Abx - cont pain management - Pt to follow up in the office for elective surgery - cont medical management Pt discussed w/ Dr. Ilya Gonzalez DO PGY3
[2018-01-18 07:31] LABS: HEMOGLOBIN 13.1 g/dL (12.0-16.0); MEAN CELL VOLUME 84.4 fl (81.0-99.0); MEAN CORPUSCULAR HEMOGLOBIN 28.7 pg (27.0-31.0); MEAN CORPUSCULAR HGB CONC 33.9 g/dL (33.0-37.0); RBC 4.57 Mil/uL (3.80-5.20); RED CELL DISTRIBUTION WIDTH 17.8 % (11.5-14.5); WHITE BLOOD COUNT 7.6 K/uL (4.8-10.8)
[2018-01-18 07:45] LABS: ALB/GLOB RATIO 1.2 (1.0-2.1); ALBUMIN 3.7 g/dL (3.5-5.0); ALT/SGPT 28 U/L (9-52); AST/SGOT 35 U/L (14-36); BLOOD UREA NITROGEN 5 mg/dl (7-17); GFR AFRICAN-AMERICAN > 60; GFR NON-AFRICAN AMERICAN > 60
[2018-01-18] MEDS: Albuterol-Ipratrop 3 mg / 0.5 (3 ml) UD INH SCH ×3 (07:48→15:50)
[2018-01-18] MEDS: Enoxaparin 40 mg Syringe SC SCH (08:09)
[2018-01-18] MEDS: Benzocaine/Menthol (Cepacol) Lozenge PO PRN (09:33)
--- NOTE | 2018-01-18 13:25 | CP.PCM.PN ---
Subjective - Date & Time of Evaluation Date of Evaluation: 01/18/18 Time of Evaluation: 13:21 - Subjective Subjective: Pt seen and examined this afternoon. Reports her throat feels better, still has some abdominal pain. Tolerating diet. Afebrile. Vitals and labs noted. PE: Geb: Pt sitting up in bed eating in NAD Skin: warm and dry HEENT: (-) exudates of right tonsil, which improved from yesterday, (+) mild erythema of posterior pharynx, (-) tender cervical lymphadenopathy Cardio: s1s2 rrr Lungs: CTA bilaterally Abd: Soft, (+) tenderness at umbilicus, (+) incarcerated hernia Extr: (-) calf tenderness bilaterally A/P Incarcerated fat containing hernia Pt for outpt repair secondary to pharyngitis and recent fevers in hospital. Pt aware of this plan. Continue medical management Continue diet Surgery will follow Objective - Vital Signs/Intake and Output Vital Signs (last 24 hours): Temp Pulse Resp BP Pulse Ox 98.7 F 92 H 20 150/72 94 L 01/18/18 08:25 01/18/18 08:25 01/18/18 08:25 01/18/18 08:25 01/18/18 08:25 - Medications Medications: Current Medications Acetaminophen (Tylenol 650 Mg Supp) 650 mg ND Q4 PRN PRN Reason: temp <101 Last Admin: 01/16/18 00:46 Dose: 650 mg Acetaminophen (Tylenol 325mg Tab) 650 mg PO Q4 PRN PRN Reason: Fever >100.4 F Last Admin: 01/17/18 12:49 Dose: 650 mg Acetaminophen (Tylenol 325mg Tab) 650 mg PO Q4 PRN PRN Reason: Headache Last Admin: 01/17/18 20:52 Dose: 650 mg Al Hydrox/Mg Hydrox/Simethicone (Maalox Plus 30 Ml) 30 ml PO Q4 PRN PRN Reason: Indigestion / Heartburn Last Admin: 01/17/18 21:55 Dose: 30 ml Albuterol/Ipratropium (Duoneb 3 Mg/0.5 Mg (3 Ml) Ud) 3 ml INH RQID YOJANA Last Admin: 01/18/18 11:33 Dose: 3 ml Benzocaine/Menthol (Cepacol Sore Throat) 1 brittney PO Q2 PRN PRN Reason: Sore Throat Last Admin: 01/18/18 09:33 Dose: 1 brittney Docusate Sodium (Colace) 200 mg PO DAILY [facility] Last Admin: 01/18/18 08:08 Dose: 200 mg Enoxaparin Sodium (Lovenox) 40 mg SC DAILY YOJANA PRN Reason: Protocol Last Admin: 01/18/18 08:09 Dose: 40 mg Vancomycin HCl 1 gm/ Sodium (Chloride) 250 mls @ 166.667 mls/hr IVPB Q12H YOJANA PRN Reason: Protocol Last Admin: 01/18/18 11:32 Dose: 166.667 mls/hr Piperacillin Sod/Tazobactam (Sod 3.375 gm/ Sodium Chloride) 100 mls @ 100 mls/ hr IVPB 0300,0900,1500,2200 YOJANA PRN Reason: Protocol Last Admin: 01/18/18 09:17 Dose: 100 mls/hr Morphine Sulfate (Morphine) 4 mg IVP Q4 PRN PRN Reason: Pain, severe (8-10) Last Admin: 01/16/18 22:06 Dose: 4 mg Pantoprazole Sodium (Protonix Inj) 40 mg IVP DAILY [facility] Last Admin: 01/18/18 08:07 Dose: 40 mg Phenol/Menthol (Phenaseptic 1.4% Throat [place]) 1 spry MT Q2 PRN PRN Reason: mouth/throat pain - Labs Labs: 01/18/18 06:55 01/18/18 06:55 PT 12.1 Seconds (9.8-13.1) 01/16/18 05:30 INR 1.1 (0.9-1.2) 01/16/18 05:30 APTT 43.3 Seconds 01/16/18 10:45
--- NOTE | 2018-01-18 16:23 | CP.PCM.DIS ---
Provider - Provider Date of Admission: 01/15/18 05:44 Attending physician: Aric Cazares MD Primary care physician: Aric Cazares MD Diagnosis - Discharge Diagnosis (1) Abdominal pain Status: Acute Priority: High (2) Umbilical hernia Status: Chronic Priority: High (3) Acute tonsillitis Status: Acute (4) Headache Status: Acute Priority: Medium (5) COPD (chronic obstructive pulmonary disease) Status: Chronic Priority: Medium (6) HTN (hypertension) Status: Chronic Priority: Medium (7) History of atrial fibrillation Status: Chronic Priority: Medium (8) OA (osteoarthritis) Status: Chronic Priority: Medium Hospital Course - Lab Results Lab Results: Micro Results 01/16/18 00:40 Blood Blood Culture - Preliminary NO GROWTH AFTER 48 HOURS 01/16/18 00:20 Blood Blood Culture - Preliminary NO GROWTH AFTER 48 HOURS 01/16/18 01:45 Urine,Catheterized Urine Culture - Final No Growth (<1,000 CFU/ML) 01/16/18 14:00 Throat Group A Strep Throat Culture - Final NORMAL SAPROPHYTIC AUNG. CULTURE NEGATIVE FOR BETA STREP GROUP A. Most Recent Lab Values WBC 7.6 K/uL (4.8-10.8) 01/18/18 06:55 RBC 4.57 Mil/uL (3.80-5.20) 01/18/18 06:55 Hgb 13.1 g/dL (12.0-16.0) 01/18/18 06:55 Hct 38.6 % (34.0-47.0) 01/18/18 06:55 MCV 84.4 fl (81.0-99.0) 01/18/18 06:55 MCH 28.7 pg (27.0-31.0) 01/18/18 06:55 MCHC 33.9 g/dL (33.0-37.0) 01/18/18 06:55 RDW 17.8 % (11.5-14.5) H 01/18/18 06:55 Plt Count 400 K/uL (130-400) 01/18/18 06:55 MPV 8.2 fl (7.2-11.7) 01/16/18 05:30 Neut % (Auto) 72.6 % (50.0-75.0) 01/16/18 05:30 Lymph % (Auto) 16.1 % (20.0-40.0) L 01/16/18 05:30 [place] % (Auto) 9.1 % (0.0-10.0) 01/16/18 05:30 Eos % (Auto) 1.1 % (0.0-4.0) 01/16/18 05:30 Baso % (Auto) 1.1 % (0.0-2.0) 01/16/18 05:30 Neut # (Auto) 6.4 K/uL (1.8-7.0) 01/16/18 05:30 Lymph # (Auto) 1.4 K/uL (1.0-4.3) 01/16/18 05:30 [place] # (Auto) 0.8 K/uL (0.0-0.8) 01/16/18 05:30 Eos # (Auto) 0.1 K/uL (0.0-0.7) 01/16/18 05:30 Baso # (Auto) 0.1 K/uL (0.0-0.2) 01/16/18 05:30 PT 12.1 Seconds (9.8-13.1) 01/16/18 05:30 INR 1.1 (0.9-1.2) 01/16/18 05:30 APTT 43.3 Seconds 01/16/18 10:45 Sodium 140 mmol/l (132-148) 01/18/18 06:55 Potassium 4.1 MMOL/L (3.6-5.0) 01/18/18 06:55 Chloride 103 mmol/L (98-107) 01/18/18 06:55 Carbon Dioxide 31 mmol/L (22-30) H 01/18/18 06:55 Anion Gap 10 (10-20) 01/18/18 06:55 BUN 5 mg/dl (7-17) L 01/18/18 06:55 Creatinine 0.8 mg/dl (0.7-1.2) 01/18/18 06:55 Est GFR ( Amer) > 60 01/18/18 06:55 Est GFR (Non-Af Amer) > 60 01/18/18 06:55 Random Glucose 124 mg/dL (65-105) H 01/18/18 06:55 Lactic Acid 1.2 MMOL/L (0.7-2.1) 01/15/18 01:15 Calcium 9.0 mg/dL (8.4-10.2) 01/18/18 06:55 Total Bilirubin 0.6 mg/dl (0.2-1.3) 01/18/18 06:55 AST 35 U/L (14-36) 01/18/18 06:55 ALT 28 U/L (9-52) 01/18/18 06:55 Alkaline Phosphatase 80 U/L (38-126) 01/18/18 06:55 Total Protein 6.8 G/DL (6.3-8.2) 01/18/18 06:55 Albumin 3.7 g/dL (3.5-5.0) 01/18/18 06:55 Globulin 3.1 gm/dL (2.2-3.9) 01/18/18 06:55 Albumin/Globulin Ratio 1.2 (1.0-2.1) 01/18/18 06:55 Lipase 72 U/L (23-300) 01/15/18 01:15 Urine Color Yellow (YELLOW) 01/16/18 01:45 Urine Clarity Clear (Clear) 01/16/18 01:45 Urine pH 6.0 (5.0-8.0) 01/16/18 01:45 Ur Specific [place] 1.009 (1.003-1.030) 01/16/18 01:45 Urine Protein Negative mg/dL (NEGATIVE) 01/16/18 01:45 Urine Glucose (UA) Neg mg/dL (Normal) 01/16/18 01:45 Urine Ketones Negative mg/dL (NEGATIVE) 01/16/18 01:45 Urine Blood Small (NEGATIVE) 01/16/18 01:45 Urine Nitrate Negative (NEGATIVE) 01/16/18 01:45 Urine Bilirubin Negative (NEGATIVE) 01/16/18 01:45 Urine Urobilinogen 0.2-1.0 mg/dL (0.2-1.0) 01/16/18 01:45 Ur Leukocyte Esterase Neg [place]iela/uL (Negative) 01/16/18 01:45 Urine RBC (Auto) 2 /hpf (0-3) 01/16/18 01:45 Urine Microscopic WBC < 1 /hpf (0-5) 01/16/18 01:45 Ur Squamous Epith Cells 5 /hpf (0-5) 01/15/18 01:20 Urine Bacteria Rare (<OCC) 01/15/18 01:20 Vancomycin Trough 10.6 ug/mL (5.0-10.0) H 01/17/18 23:00 Grp A Beta Strep Ag Negative (NEGATIVE) 01/16/18 14:00 Blood Type O POSITIVE 01/16/18 10:45 Antibody Screen Negative 01/16/18 10:45 BBK History Checked Patient has bt 01/16/18 10:45 Discharge Exam - Head Exam Head Exam: NORMAL INSPECTION Discharge Plan - Discharge Medications Prescriptions: Amoxicillin/Clavulanate [Augmentin 875 MG-125 MG] 1 tab PO BID #14 tab - Follow Up Plan Condition: FAIR Disposition: HOME/ ROUTINE Instructions: Abdominal Hernia (DC) Additional Instructions: follow up with primary MD 1 week Referrals: Jair Caraballo MD [Staff Provider] - Aric Cazares MD [Primary Care Provider] -
[2018-01-18 16:37] VITALS: BP 104/55; PULSE 80; RESP 18; TEMP 98.3; O2SAT 97
== END 2018-01-18 19:35 | disposition home or self-care (01) | DRG 395 ==
LOC: H.ER 23:53 → H.ERHOLD 01-15 05:44 → H.MEDSURG1 01-15 08:13
PROVIDERS: ADMIT Internal Medicine Pulmonary Disease; ATTEND Internal Medicine Pulmonary Disease
DX: K42.0 Umbilical hernia with obstruction, without gangrene (principal); I48.2 Chronic atrial fibrillation; J02.9 Acute pharyngitis, unspecified; I10 Essential (primary) hypertension; E78.5 Hyperlipidemia, unspecified; Z53.9 Procedure and treatment not carried out, unspecified reason; E78.00 Pure hypercholesterolemia, unspecified; J44.9 Chronic obstructive pulmonary disease, unspecified; M19.90 Unspecified osteoarthritis, unspecified site; F41.9 Anxiety disorder, unspecified; K29.70 Gastritis, unspecified, without bleeding; Z91.041 Radiographic dye allergy status; Z87.11 Personal history of peptic ulcer disease; Z91.013 Allergy to seafood

== ENCOUNTER 2018-03-30 22:53 | Emergency (ER) | payer MEDICARE ==
[2018-03-30 22:53] VITALS: BMI 30.5
[2018-03-30 23:05] VITALS: BP 145/76; PULSE 71; RESP 18; TEMP 98.8; O2SAT 100
--- NOTE | 2018-03-31 03:06 | ED PDOC ---
HPI: Female Pain Time Seen by Provider: 03/31/18 00:28 Chief Complaint (Nursing): Female Genitourinary Chief Complaint (Provider): Female Genitourinary History Per: Patient History/Exam Limitations: no limitations Onset/Duration Of Symptoms: Days (x5) Current Symptoms Are (Timing): Still Present Quality Of Discomfort: Burning Associated Symptoms: Urinary Symptoms. denies: Fever, Chills, Nausea, Vomiting, Diarrhea, Loss Of Appetite, Back Pain, Chest Pain Additional Complaint(s): 77 year old female presents to the ED for burning sensation with urination and frequency for the past 5 days. Patient also reports vaginal discharge and pain, but denies abdominal pain, back pain, vomiting or fever. PMD: Debora Abnormal Vaginal Bleeding: Yes Past Medical History Reviewed: Historical Data, Nursing Documentation, Vital Signs Vital Signs: Last Vital Signs Temp 98.8 F 03/30/18 23:03 Pulse 71 03/30/18 23:03 Resp 18 03/30/18 23:03 BP 145/76 03/30/18 23:03 Pulse Ox 100 03/30/18 23:03 - Medical History PMH: Anxiety, Arthritis, Atrial Fibrillation, Bronchitis, COPD, Gastritis, Gastrointestinal Ulcer, HTN, Hypercholesterolemia, Pancreatitis Denies: HIV, Chronic Kidney Disease - Surgical History Surgical History: Appendectomy, Hernia Repair Other surgeries: foot surgery - Family History Family History: States: Unknown Family Hx, Hypertension - Home Medications Home Medications: Ambulatory Orders Medication Instructions Recorded RX: Ibuprofen [Motrin Tab] 600 mg PO Q6H PRN #20 tab 10/02/17 RX: Pantoprazole [Protonix EC Tab] 40 mg PO DAILY #14 ect 12/09/17 Amoxicillin/Clavulanate [Augmentin 1 tab PO BID #14 tab 01/18/18 875 MG-125 MG] RX: Acetaminophen [Tylenol 325mg 650 mg PO Q6 tab 01/18/18 tab] Fluconazole [Diflucan] 200 mg PO ONCE #1 tab 03/31/18 Nitrofurantoin Macrocrystals 100 mg PO BID #14 cap 03/31/18 [Macrobid] - Allergies Allergies/Adverse Reactions: Allergies Allergy/AdvReac Type Severity Reaction Status Date / Time Iodinated Contrast- Oral and Allergy SHORTNESS Verified 03/30/18 23:03 IV Dye OF BREATH shrimp Allergy RASH Verified 03/30/18 23:03 seafood Allergy RASH Uncoded 03/30/18 23:03 Review of Systems ROS Statement: Except As Marked, All Systems Reviewed And Found Negative Constitutional: Negative for: Fever, Chills Gastrointestinal: Negative for: Abdominal Pain Genitourinary Female: Positive for: Dysuria, Frequency, Vaginal Discharge (and pain ) Musculoskeletal: Negative for: Back Pain Physical Exam - Reviewed Nursing Documentation Reviewed: Yes Vital Signs Reviewed: Yes - Physical Exam Appears: Positive for: Non-toxic, No Acute Distress Head Exam: Positive for: ATRAUMATIC, NORMOCEPHALIC Skin: Positive for: Normal Color, Warm, Dry Eye Exam: Positive for: Normal appearance Cardiovascular/Chest: Positive for: Regular Rate, Rhythm. Negative for: Murmur Respiratory: Positive for: Normal Breath Sounds. Negative for: Respiratory Distress Gastrointestinal/Abdominal: Positive for: Normal Exam, Soft. Negative for: Tenderness Extremity: Positive for: Normal ROM (upper and lower). Negative for: Pedal Edema, Deformity Neurologic/Psych: Positive for: Alert, Oriented (x3). Negative for: Motor/Sensory Deficits - ECG O2 Sat by Pulse Oximetry: 100 (RA) Pulse Ox Interpretation: Normal Medical Decision Making Medical Decision Making: Time: 0039 Initial Impression: Dysuria and vaginal discharge Differentials diagnoses include but are not limited to: UTI and vaginitis possibly fungal Initial Plan: --Dipstick --Macrobid 100 mg PO --Urine C&S Scribe Attestation: Documented by Aisha Mane, acting as a scribe for Sierra Taylor MD Provider Scribe Attestation: All medical record entries made by the Scribe were at my direction and personally dictated by me. I have reviewed the chart and agree that the record accurately reflects my personal performance of the history, physical exam, medical decision making, and the department course for this patient. I have also personally directed, reviewed, and agree with the discharge instructions and disposition. Disposition - Clinical Impression Clinical Impression: Female genitourinary symptoms, Urinary tract infection - Patient ED Disposition Is Patient to be Admitted: No Doctor Will See Patient In The: Office Counseled Patient/Family Regarding: Studies Performed, Diagnosis, Need For Followup - Disposition Referrals: [facility] [Outside] Disposition: Routine/Home Disposition Time: 02:00 Condition: GOOD Additional Instructions: MADDY SOLORIO, thank you for letting us take care of you today. Your provider was Sierra Taylor MD and you were treated for UNABLE TO URINATE. The emergency medical care you received today was directed at your acute symptoms. If you were prescribed any medication, please fill it and take as directed. It may take several days for your symptoms to resolve. Return to the Emergency Department if your symptoms worsen, do not improve, or if you have any other problems. Please contact your doctor or call one of the physicians/clinics you have been referred to that are listed on the Patient Visit Information form that is included in your discharge packet. Bring any paperwork you were given at discharge with you along with any medications you are taking to your follow up visit. Our treatment cannot replace ongoing medical care by a primary care provider outside of the emergency department. Thank you for allowing the Critical access hospital team to be part of your care today. If you had an X-Ray or CT scan: A Radiologist will review the ED reading if any change in treatment is needed we will contact you. If you had a blood, urine, or wound culture: It will take several days for the results, if any change in treatment is needed we will contact you. If you had an STI test: It will take 48 hours for the results. Please call after 1 week if you have not heard back. Prescriptions: Fluconazole [Diflucan] 200 mg PO ONCE #1 tab Nitrofurantoin Macrocrystals [Macrobid] 100 mg PO BID #14 cap Instructions: Urinary Tract Infection, Adult (DC) Print Language: QATARI
== END 2018-03-31 03:01 | disposition home or self-care (01) ==
LOC: H.ER 22:53
DX: N39.0 Urinary tract infection, site not specified (principal)

== ENCOUNTER 2018-07-12 21:11 | Emergency (ER) | payer MEDICARE ==
[2018-07-12 21:11] VITALS: BMI 30.5
[2018-07-12] MEDS ORDERED: Albuterol-Ipratrop 3 mg / 0.5 (3 ml) UD IH STA ×2 (22:11→22:12)
--- NOTE | 2018-07-12 22:16 | ED PDOC ---
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 Patient reports headache, nasal drainage, sore throat, productive cough, and shortness of breath. Patient was evaluated by her primary doctor 3 days ago for same and prescribed Zpak, Robitussin, and Ibuprofen which patient states has provided little relief thus far. Denies fever, nausea/vomiting, chest pain, palpitations, abdominal pain, leg pain/swelling, recent travel, sick contacts. Past Medical History Reviewed: Historical Data, Nursing Documentation, Vital Signs Vital Signs: Last Vital Signs Temp 99.1 F 07/12/18 21:26 Pulse 93 H 07/12/18 21:26 Resp 17 07/12/18 21:26 BP 159/94 H 07/12/18 21:26 Pulse Ox 97 07/12/18 21:26 - Medical History PMH: Anxiety, Arthritis, Atrial Fibrillation, Bronchitis, COPD, Gastritis, G astrointestinal Ulcer, HTN, Hypercholesterolemia, Pancreatitis Denies: HIV, Chronic Kidney Disease - Surgical History Surgical History: Appendectomy, Hernia Repair - Family History Family History: States: Unknown Family Hx, Hypertension - Home Medications Home Medications: Ambulatory Orders Medication Instructions Recorded Ibuprofen [Motrin Tab] 600 mg PO Q6H PRN #20 tab 10/02/17 Pantoprazole [Protonix EC Tab] 40 mg PO DAILY #14 ect 12/09/17 Acetaminophen [Tylenol 325mg tab] 650 mg PO Q6 tab 01/18/18 Amoxicillin/Clavulanate [Augmentin 1 tab PO BID #14 tab 01/18/18 875 MG-125 MG] Fluconazole [Diflucan] 200 mg PO ONCE #1 tab 03/31/18 Nitrofurantoin Macrocrystals 100 mg PO BID #14 cap 03/31/18 [Macrobid] Fluticasone Nasal [Flonase] 1 spray NS BID #1 bottle 07/13/18 Prednisone 50 mg PO DAILY #4 tablet 07/13/18 - Allergies Allergies/Adverse Reactions: Allergies Allergy/AdvReac Type Severity Reaction Status Date / Time Iodinated Contrast- Oral and Allergy SHORTNESS Verified 03/30/18 23:03 IV Dye OF BREATH shrimp Allergy RASH Verified 03/30/18 23:03 seafood Allergy RASH Uncoded 03/30/18 23:03 Review of Systems ROS Statement: Except As Marked, All Systems Reviewed And Found Negative Constitutional: Positive for: Weakness ENT: Positive for: Nose Discharge, Throat Pain Respiratory: Positive for: Cough, Shortness of Breath Neurological: Positive for: Headache Physical Exam - Reviewed Nursing Documentation Reviewed: Yes Vital Signs Reviewed: Yes - Physical Exam Appears: Positive for: Well, Non-toxic, Uncomfortable (actively coughing) Head Exam: Positive for: ATRAUMATIC, NORMAL INSPECTION, NORMOCEPHALIC Skin: Positive for: Normal Color Eye Exam: Positive for: Normal appearance ENT: Positive for: TM Is/Are (clear bilaterally), Nasal Congestion, Pharyngeal Erythema. Negative for: Tonsillar Exudate, Tonsillar Swelling Cardiovascular/Chest: Positive for: Regular Rate, Rhythm Respiratory: Positive for: Wheezing (scattered expiratory wheezing in bilateral lower lobes noted). Negative for: Crackles, Respiratory Distress Gastrointestinal/Abdominal: Positive for: Normal Exam Back: Positive for: Normal Inspection Extremity: Positive for: Normal ROM Neurologic/Psych: Positive for: Alert, Oriented (x3) - Laboratory Results Result Diagrams: 07/12/18 22:47 07/12/18 22:47 - ECG ECG: Positive for: Viewed By Me (reviewed by ED attending) ECG Rhythm: Positive for: Sinus Rhythm O2 Sat by Pulse Oximetry: 97 - Radiology X-Ray: Viewed By Me X-Ray Interpretation: No Acute Disease - Progress ED Course And Treament: -cbc -cmp -lactic acid -influenza -rapid strep -cxr -ekg -IV solumedrtol -duoneb x2 On re-eval, patient states she is feeling better. Patient educated on findings, discharged with rx Prednisone, Flonase Advised to continue Zpak and cough syrup Take Ibuprofen/Tylenol PRN pain Return precautions given Disposition - Clinical Impression Clinical Impression: Bronchitis - Patient ED Disposition Is Patient to be Admitted: No Counseled Patient/Family Regarding: Studies Performed, Diagnosis, Need For Followup, Rx Given - Disposition Disposition: Routine/Home Disposition Time: 00:45 Condition: IMPROVED Prescriptions: Fluticasone Nasal [Flonase] 1 spray NS BID #1 bottle Prednisone 50 mg PO DAILY #4 tablet Instructions: Acute Bronchitis Forms: [facility] (Urdu) Print Language: KOREAN
[2018-07-12] MEDS ORDERED: Sodium Chloride 0.9% 250 ML IV STA (22:18)
[2018-07-12] MEDS ORDERED: Albuterol-Ipratrop 3 mg / 0.5 (3 ml) UD ONE (22:22)
[2018-07-12 23:08] LABS: BASO % 0.7 % (0.0-2.0); EOS # 0.3 K/uL (0.0-0.7); EOS % 4.5 % (0.0-4.0); HEMOGLOBIN 12.6 g/dL (12.0-16.0); LYMPH # 0.9 K/uL (1.0-4.3); LYMPH % 14.6 % (20.0-40.0); MEAN CELL VOLUME 81.8 fl (81.0-99.0); MEAN CORPUSCULAR HEMOGLOBIN 26.7 pg (27.0-31.0); MEAN CORPUSCULAR HGB CONC 32.6 g/dL (33.0-37.0); MEAN PLATELET VOLUME 8.9 fl (7.2-11.7); MONO # 0.5 K/uL (0.0-0.8); MONO % 8.4 % (0.0-10.0); NEUT # 4.5 K/uL (1.8-7.0); NEUT % 71.8 % (50.0-75.0); NRBC % 0.1 % (0.0-0.0); RBC 4.73 Mil/uL (3.80-5.20); RED CELL DISTRIBUTION WIDTH 15.6 % (11.5-14.5); WHITE BLOOD COUNT 6.3 K/uL (4.8-10.8)
[2018-07-12 23:43] LABS: ALB/GLOB RATIO 1.2 (1.0-2.1); ALT/SGPT 23 U/L (9-52); AST/SGOT 31 U/L (14-36); B-TYPE NATRIURETIC PEPTIDE 348 pg/ml (0-900); BLOOD UREA NITROGEN 10 mg/dl (7-17); GFR NON-AFRICAN AMERICAN > 60
[2018-07-13 00:42] VITALS: RESP 18
[2018-07-13 01:17] VITALS: BP 116/68; PULSE 76; TEMP 98.5; O2SAT 99
--- NOTE | 2018-07-13 11:00 | RAD ---
Date of service: 07/12/2018 HISTORY: Cough, SOB. COMPARISON: Comparison made with prior chest radiograph dated the 01/15/2018 TECHNIQUE: Chest PA and lateral FINDINGS: LUNGS: Poor inspiration with low lung volumes, with minor crowded bronchovascular markings/bibasilar atelectasis. PLEURA: No significant pleural effusion identified. No pneumothorax apparent. CARDIOVASCULAR: Mild aortic atherosclerotic calcification present. Cardiomegaly no pulmonary vascular congestion. OSSEOUS STRUCTURES: Multilevel degenerative spondylosis of the thoracic spine comparison. Minor chronic anterior wedge deformities of several upper/midthoracic segments. VISUALIZED UPPER ABDOMEN: Normal. OTHER FINDINGS: None. IMPRESSION: Poor inspiration with low lung volumes, with minor crowded bronchovascular markings/bibasilar atelectasis.
== END 2018-07-13 01:10 | disposition home or self-care (01) ==
LOC: H.ER 21:11
DX: J40 Bronchitis, not specified as acute or chronic (principal); E78.00 Pure hypercholesterolemia, unspecified; I10 Essential (primary) hypertension; Z88.8 Allergy status to other drugs, medicaments and biological substances; F41.9 Anxiety disorder, unspecified; I48.91 Unspecified atrial fibrillation; J44.9 Chronic obstructive pulmonary disease, unspecified
CPT/HCPCS: 71046; 80053; 83605; 83880; 84484; 85025; 87070; 87430; 87804; 94640; 96374; 99284; J2930; J7040

== ENCOUNTER 2018-09-23 13:18 | Observation (INO) | payer MEDICARE ==
[2018-09-23 13:18] VITALS: BMI 30.5
[2018-09-23] MEDS ORDERED: Sodium Chloride 0.9% 1,000 ML IV STA (14:54)
[2018-09-23] MEDS ORDERED: Iohexol 240 (50 ml) PO STA (14:56)
[2018-09-23 15:29] LABS: BASO % 0.3 % (0.0-2.0); EOS # 0.1 K/uL (0.0-0.7); EOS % 1.1 % (0.0-4.0); LYMPH # 0.5 K/uL (1.0-4.3); LYMPH % 4.8 % (20.0-40.0); MEAN CELL VOLUME 81.8 fl (81.0-99.0); MEAN CORPUSCULAR HEMOGLOBIN 27.1 pg (27.0-31.0); MEAN CORPUSCULAR HGB CONC 33.1 g/dL (33.0-37.0); MEAN PLATELET VOLUME 9.4 fl (7.2-11.7); MONO # 0.3 K/uL (0.0-0.8); MONO % 2.9 % (0.0-10.0); NEUT # 9.2 K/uL (1.8-7.0); NEUT % 90.9 % (50.0-75.0); NRBC % 0.1 % (0.0-0.0); PLATELET COUNT 254 K/uL (130-400); RBC 5.16 Mil/uL (3.80-5.20); RED CELL DISTRIBUTION WIDTH 15.6 % (11.5-14.5); WHITE BLOOD COUNT 10.1 K/uL (4.8-10.8)
[2018-09-23 15:36] LABS: BLOOD UREA NITROGEN 17 mg/dl (7-17); CALCIUM 9.1 mg/dL (8.4-10.2); GFR NON-AFRICAN AMERICAN > 60; LIPASE 77 U/L (23-300)
[2018-09-23 15:37] LABS: SQUAMOUS EPITHIAL 1 /hpf (0-5); URINE BILIRUBIN NEGATIVE (NEGATIVE); URINE BLOOD SMALL (NEGATIVE); URINE CLARITY CLEAR (Clear); URINE COLOR YELLOW (YELLOW); URINE GLUCOSE (UA) NEG (NEGATIVE); URINE LEUKOCYTE ESTERASE NEG Leu/uL (Negative); URINE PROTEIN NEGATIVE (NEGATIVE); URINE UROBILINOGEN 0.2-1.0 mg/dL (0.2-1.0)
[2018-09-23 15:41] LABS: ALB/GLOB RATIO 1.2 (1.0-2.1); ALBUMIN 4.4 g/dL (3.5-5.0); ALT/SGPT 36 U/L (9-52); AST/SGOT 68 U/L (14-36)
--- NOTE | 2018-09-23 16:41 | ED PDOC ---
HPI: Abdomen Time Seen by Provider: 09/23/18 14:45 Chief Complaint (Nursing): Abdominal Pain Chief Complaint (Provider): ABD PAIN History Per: Patient History/Exam Limitations: no limitations Onset/Duration Of Symptoms: Days Outside of [place] travel?: No Current Symptoms Are (Timing): Still Present Severity: Severe Pain Scale Rating Of: 9 Location Of Pain/Discomfort: LLQ Quality Of Discomfort: "Pain" Associated Symptoms: Fever, Chills, Nausea, Vomiting, Diarrhea (WATERY STOOL) Exacerbating Factors: Food (STARTED AFTER EATING AN AVOCADO ) Alleviating Factors: None Last Bowel Movement: Today Additional History Per: Patient Additional Complaint(s): 77 Y/O FEMALE PRESENTS TO THE ED C/O BODYACHES, NAUSEA, VOMITING AND LOWER ABD PAIN, DIARRHEA SINCE YESTERDAY MORNING AFTER EATING AND AVOCADO. PATIENT STATES SHE HAS HAD SEVERAL EPISODES OF DIARRHEA AND VOMITING WITH ASSOCIATED CHILLS AND GENERAL MALAISE. PATIENT STATES SHE TOOK ADVIL LASTNIGHT WITH MINIMAL RELIEF. PT DENIES CHEST PAIN, SOB. Abnormal Vaginal Bleeding: No Past Medical History Reviewed: Historical Data, Nursing Documentation, Vital Signs Vital Signs: Last Vital Signs Temp 98.7 F 09/23/18 13:24 Pulse 109 H 09/23/18 13:24 Resp 16 09/23/18 13:24 BP 148/89 09/23/18 13:24 Pulse Ox 100 09/23/18 13:24 - Medical History PMH: Anxiety, Arthritis, Atrial Fibrillation, Bronchitis, COPD, Gastritis, Gastrointestinal Ulcer, HTN, Hypercholesterolemia, Pancreatitis Denies: HIV, Chronic Kidney Disease - Surgical History Surgical History: Appendectomy, Hernia Repair - Family History Family History: States: Unknown Family Hx, Hypertension - Living Arrangements Living Arrangements: Alone - Social History Alcohol: None Drugs: Denies - Home Medications Home Medications: Ambulatory Orders Medication Instructions Recorded Ibuprofen [Motrin Tab] 600 mg PO Q6H PRN #20 tab 10/02/17 Pantoprazole [Protonix EC Tab] 40 mg PO DAILY #14 ect 12/09/17 Acetaminophen [Tylenol 325mg tab] 650 mg PO Q6 tab 01/18/18 Amoxicillin/Clavulanate [Augmentin 1 tab PO BID #14 tab 01/18/18 875 MG-125 MG] Fluconazole [Diflucan] 200 mg PO ONCE #1 tab 03/31/18 Nitrofurantoin Macrocrystals 100 mg PO BID #14 cap 03/31/18 [Macrobid] Fluticasone Nasal [Flonase] 1 spray NS BID #1 bottle 07/13/18 Prednisone 50 mg PO DAILY #4 tablet 07/13/18 - Allergies Allergies/Adverse Reactions: Allergies Allergy/AdvReac Type Severity Reaction Status Date / Time Iodinated Contrast- Oral and Allergy SHORTNESS Verified 03/30/18 23:03 IV Dye OF BREATH shrimp Allergy RASH Verified 03/30/18 23:03 seafood Allergy RASH Uncoded 03/30/18 23:03 Review of Systems ROS Statement: Except As Marked, All Systems Reviewed And Found Negative Constitutional: Positive for: Fever, Chills, Malaise Cardiovascular: Negative for: Chest Pain, Palpitations Respiratory: Negative for: Shortness of Breath, SOB with Exertion, Wheezing Gastrointestinal: Positive for: Nausea, Vomiting, Abdominal Pain, Diarrhea Genitourinary Female: Negative for: Dysuria Neurological: Negative for: Weakness, Numbness, Dizziness Physical Exam - Reviewed Nursing Documentation Reviewed: Yes Vital Signs Reviewed: Yes - Physical Exam Appears: Positive for: No Acute Distress Head Exam: Positive for: ATRAUMATIC, NORMAL INSPECTION, NORMOCEPHALIC Skin: Positive for: Normal Color, Warm, DRY Eye Exam: Positive for: Normal appearance, PERRL ENT: Positive for: Normal ENT Inspection Neck: Positive for: Normal, Painless ROM, Supple Cardiovascular/Chest: Positive for: Regular Rate, Rhythm Respiratory: Positive for: CNT, Normal Breath Sounds Pulses-Femoral (L): 2+ Pulses-Femoral (R): 2+ Gastrointestinal/Abdominal: Positive for: Normal Exam, Bowel Sounds (hyperactive ), Soft, Tenderness (LLQ). Negative for: Mass, Distended, Guarding Back: Positive for: Normal Inspection. Negative for: L CVA Tenderness, R CVA Tenderness Extremity: Positive for: Normal ROM Neurological/Psych: Positive for: Awake, Alert, Normal Tone, Oriented - Laboratory Results Result Diagrams: 09/23/18 15:00 09/23/18 15:00 Lab Results: Troponin I < 0.0120 ng/mL (0.00-0.120) 09/23/18 15:00 Total Bilirubin 0.9 mg/dl (0.2-1.3) 09/23/18 15:00 AST 68 U/L (14-36) H D 09/23/18 15:00 ALT 36 U/L (9-52) 09/23/18 15:00 Alkaline Phosphatase 101 U/L (38-126) 09/23/18 15:00 Total Protein 8.2 G/DL (6.3-8.2) 09/23/18 15:00 Albumin 4.4 g/dL (3.5-5.0) 09/23/18 15:00 Globulin 3.8 gm/dL (2.2-3.9) 09/23/18 15:00 Albumin/Globulin Ratio 1.2 (1.0-2.1) 09/23/18 15:00 Lipase 77 U/L (23-300) 09/23/18 15:00 Urine Color Yellow (YELLOW) 09/23/18 15:20 Urine Clarity Clear (Clear) 09/23/18 15:20 Urine pH 5.0 (5.0-8.0) 09/23/18 15:20 Ur Specific Berkley 1.019 (1.003-1.030) 09/23/18 15:20 Urine Protein Negative mg/dL (NEGATIVE) 09/23/18 15:20 Urine Glucose (UA) Neg mg/dL (NEGATIVE) 09/23/18 15:20 Urine Ketones Negative mg/dL (NEGATIVE) 09/23/18 15:20 Urine Blood Small (NEGATIVE) 09/23/18 15:20 Urine Nitrate Negative (NEGATIVE) 09/23/18 15:20 Urine Bilirubin Negative (NEGATIVE) 09/23/18 15:20 Urine Urobilinogen 0.2-1.0 mg/dL (0.2-1.0) 09/23/18 15:20 Ur Leukocyte Esterase Neg Shiela/uL (Negative) 09/23/18 15:20 Urine Microscopic WBC < 1 /hpf (0-5) 09/23/18 15:20 Ur Squamous Epith Cells 1 /hpf (0-5) 09/23/18 15:20 - ECG O2 Sat by Pulse Oximetry: 100 Medical Decision Making Medical Decision Making: CBC CMP TROPONIN LIPASE OVUM PARASITE OCCULT BLOOD STOOL CULTURE TORADOL ZOFRAN PEPCID IV SALINE LOCK 0.9NS [address] ABD/PELVIS CXR 1726: PATIENT HAS DOCUMENTED IV CONTRAST ALLERGY. CT SCAN CHANGED TO PO ONLY. CT FINDINGS: LUNG BASES: The lung bases appear clear. No pleural effusions are seen. LIVER: Unremarkable. GALLBLADDER AND BILE DUCTS: The gallbladder appears within normal limits. No radioopaque gallstones are seen. No biliary ductal dilatation is evident. PANCREAS: Unremarkable. SPLEEN: Unremarkable. ADRENAL GLANDS: Unremarkable. KIDNEYS, URETERS, AND BLADDER: The kidneys appear within normal limits. There is no hydronephrosis or hydroureter. No urinary calculi are seen. STOMACH AND BOWEL: Unremarkable appearance of the stomach and bowel. No evidence of bowel obstruction. No evidence suggesting enteritis or colitis. Diverticular changes present sigmoid colon. Small periumbilical hernia containing fat. APPENDIX: No evidence of acute appendicitis on CT examination. PERITONEUM: No free fluid. No free air. LYMPH NODES: No lymphadenopathy is evident. REPRODUCTIVE: Unremarkable as visualized. VASCULATURE: No evidence of abdominal aortic aneurysm. BONES: No aggressive appearing osseous lesion. No acute osseous pathology evident. IMPRESSION: No acute intra-abdominal or pelvic abnormality. Diverticular changes sigmoid colon. Small periumbilical hernia containing fat. 19:30: Patient re-evaluated at this time, patient continues to have abdominal pain and states she continued to feel "achy" flu negative, patient is afebrile. Ct scan (neg) for acute disease progess, clinical impression: gastroenterisis. Spoke to Dr. Cazares, patient to be admitted to OBS/ Med/surg. Patient aware and agrees with plan. added bentyl, lactic acid and tylenol to course of treatment. Disposition - Clinical Impression Clinical Impression: Gastroenteritis - Patient ED Disposition Is Patient to be Admitted: Yes Discussed With : Aric Cazares Doctor Will See Patient In The: Hospital Counseled Patient/Family Regarding: Diagnosis - Disposition Disposition Time: 19:30 Condition: FAIR - Pt Status Changed To: Hospital Disposition Of: Observation - POA Present On Arrival: None
[2018-09-23 17:26] LABS: ANISOCYTOSIS SLIGHT; BANDS 1 % (0-2); EOSINOPHIL 1 % (0-7); LYMPHOCYTE 4 % (20-50); MONOCYTE 2 % (0-10); NEUTROPHIL 92 % (42-75); PLATELET ESTIMATE NORMAL (NORMAL); TOTAL CELLS COUNTED 100
--- NOTE | 2018-09-23 18:48 | RAD ---
Date of service: 09/23/2018 HISTORY: epigastric pain COMPARISON: Chest radiographs 07/12/2018. TECHNIQUE: Chest PA and lateral views FINDINGS: LUNGS: No active pulmonary disease. PLEURA: No significant pleural effusion identified. No pneumothorax apparent. CARDIOVASCULAR: Calcific atherosclerotic changes are seen related to the thoracic aorta. Normal cardiac size. No pulmonary vascular congestion. OSSEOUS STRUCTURES: No significant abnormalities. VISUALIZED UPPER ABDOMEN: Normal. OTHER FINDINGS: None. IMPRESSION: No interval acute cardiopulmonary disease appreciated.
--- NOTE | 2018-09-23 20:49 | CARD ---
APPROVED REPORT Date of service: 09/23/2018 EKG Measurement Heart [id number] <Conclusion> Normal sinus rhythm Left axis deviation Possible Inferior infarct, age undetermined Cannot rule out Anterior infarct, age undetermined- poor R wave progression across the precordial leads Abnormal ECG
[2018-09-23] MEDS: Sodium Chloride 0.9% 1,000 ML IV SCH (23:00)
[2018-09-24] MEDS: Sodium Chloride 0.9% 1,000 ML IV SCH ×3 (05:20→18:03)
--- NOTE | 2018-09-24 08:27 | CT ---
Date of service: 09/23/2018 PROCEDURE: CT Abdomen and Pelvis with contrast HISTORY: Abdominal pain COMPARISON: 01/15/2018. TECHNIQUE: CT scan of the abdomen and pelvis was performed after administration of intravenous contrast. Oral contrast was administered. Coronal and sagittal reformatted images were obtained. Radiation dose: Total exam DLP = 776.37 mGy-cm. This CT exam was performed using one or more of the following dose reduction techniques: Automated exposure control, adjustment of the mA and/or kV according to patient size, and/or use of iterative reconstruction technique. FINDINGS: LOWER THORAX: The visualized lungs are clear. LIVER: Normal in size. No gross lesion or ductal dilatation. GALLBLADDER AND BILE DUCTS: Well distended. No calcified gallstones, wall thickening or pericholecystic fluid. PANCREAS: Normal in size. No gross lesion or ductal dilatation. SPLEEN: Normal in size. ADRENALS: No discrete nodule. KIDNEYS AND URETERS: Normal in size. No hydronephrosis. No solid mass. VASCULATURE: No aortic aneurysm. There are aortic atherosclerotic calcifications present. BOWEL: The small bowel loops are normal in caliber. There is left colonic diverticulosis without CT evidence for acute diverticulitis. No bowel wall thickening or obstruction. APPENDIX: Normal appendix. PERITONEUM: No free fluid. No free air. LYMPH NODES: No enlarged lymph nodes. BLADDER: Partially distended and normal in appearance. REPRODUCTIVE: The uterus is surgically absent. BONES: No acute fracture. There is diffuse bone demineralization and multilevel degenerative changes in the spine. OTHER FINDINGS: There is a stable fat containing periumbilical hernia. IMPRESSION: No acute abdominal or pelvic abnormality. Left colonic diverticulosis without CT evidence for acute diverticulitis. A preliminary report was provided by Flynn.
[2018-09-24] MEDS: Enoxaparin 40 mg Syringe SC SCH (14:07)
--- NOTE | 2018-09-24 16:31 | CP.PCM.HP ---
History of Present Illness - History of Present Illness History of Present Illness: CC: Abdominal pain. 77 y/o F, wtm multiple chronic medical conditions, including Pancreatitis, Ventral Hernia repair, A Fib, HTN, COPD, O/A. 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 Worsening symptoms: As per PT, fever, tactile while at home (In the ER 99.4 F), chills, Weakness, malaise. Aggravated factor: Food, ADL's. Pt denied: Urinary symptoms, CP, palpitations, syncope, dizziness, SOB, cough, sick contact, recent travel out of [facility]. CXR: No active disease. Abd/Pelv CT: No acute abnormalities, L colonic diverticulosis. EKG: Normal sinus rhythm. L axis deviation, possible inferior infarct, age und etermined. cannot rule out anterior infarct, age undetermined. Present on Admission - Present on Admission Any Indicators Present on Admission: No Review of Systems - Constitutional Constitutional: Chills, Fever, Malaise, Weakness - EENT Eyes: Requires Corrective Lenses Ears: Other (negative) Nose/Mouth/Throat: Other (negative) - Cardiovascular Cardiovascular: Other (negative) - Respiratory Respiratory: Other (negative) - Gastrointestinal Gastrointestinal: Abdominal Pain, Loose Stools, Nausea, Vomiting - Genitourinary Genitourinary: Other (negative) - Musculoskeletal Musculoskeletal: Arthralgias - Integumentary Integumentary: Other (negative) - Neurological Neurological: Headaches - Psychiatric Psychiatric: Other (negative) - Endocrine Endocrine: Other (negative) - Hematologic/Lymphatic Hematologic: Other (negative) Past Patient History - Infectious Disease Hx of Infectious Diseases: None - Past Medical History & Family History Past Medical History?: Yes Pertinent Family History: Unknown - Past Social History Smoking Status: Never Smoked Alcohol: None Drugs: Denies Home Situation {Lives}: Alone - CARDIAC Hx Cardiac Disorders: Yes Hx Atrial Fibrillation: Yes Hx Hypercholesterolemia: Yes Hx Hypertension: Yes - PULMONARY Hx Respiratory Disorders: Yes Hx Bronchitis: Yes Hx Chronic Obstructive Pulmonary Disease (COPD): Yes - NEUROLOGICAL Hx Neurological Disorder: No - HEENT Hx HEENT Problems: Yes (eyeglasses) - RENAL Hx Chronic Kidney Disease: No - ENDOCRINE/METABOLIC Hx Endocrine Disorders: No - HEMATOLOGICAL/ONCOLOGICAL Hx Human Immunodeficiency Virus (HIV): No - INTEGUMENTARY Hx Dermatological Problems: No - MUSCULOSKELETAL/RHEUMATOLOGICAL Hx Musculoskeletal Disorders: Yes Hx Arthritis: Yes Hx Falls: Yes - GASTROINTESTINAL Hx Gastrointestinal Disorders: Yes Hx Gastritis: Yes Hx Pancreatitis: Yes - GENITOURINARY/GYNECOLOGICAL Hx Genitourinary Disorders: No - PSYCHIATRIC Hx Psychophysiologic Disorder: Yes Hx Anxiety: Yes Hx Substance Use: No - SURGICAL HISTORY Hx Surgeries: Yes Hx Appendectomy: Yes - ANESTHESIA Hx Anesthesia: Yes Hx Anesthesia Reactions: No Hx Malignant Hyperthermia: No Meds Allergies/Adverse Reactions: Allergies Allergy/AdvReac Type Severity Reaction Status Date / Time Iodinated Contrast- Oral and Allergy SHORTNESS Verified 03/30/18 23:03 IV Dye OF BREATH shrimp Allergy RASH Verified 03/30/18 23:03 seafood Allergy RASH Uncoded 03/30/18 23:03 Physical Exam - Constitutional Appears: No Acute Distress - Head Exam Head Exam: NORMAL INSPECTION - Eye Exam Eye Exam: PERRL - ENT Exam ENT Exam: Normal Exam - Neck Exam Neck exam: Positive for: Normal Inspection - Respiratory Exam Respiratory Exam: NORMAL BREATHING PATTERN - Cardiovascular Exam Cardiovascular Exam: REGULAR RHYTHM - GI/Abdominal Exam GI & Abdominal Exam: Normal Bowel Sounds, Soft. absent: Distended, Tenderness Additional comments: umbilical hernia reducible. - Extremities Exam Extremities exam: Positive for: normal inspection - Back Exam Back exam: NORMAL INSPECTION - Neurological Exam Neurological exam: Alert, Oriented x3 - Psychiatric Exam Psychiatric exam: Normal Mood - Skin Skin Exam: Normal Color, Warm Results - Vital Signs Recent Vital Signs: Last Vital Signs Temp 98.1 F 09/24/18 15:57 Pulse 70 09/24/18 15:57 Resp 20 09/24/18 15:57 BP 119/73 09/24/18 15:57 Pulse Ox 97 09/24/18 15:57 reviewed Cindy - Labs Result Diagrams: 09/23/18 15:00 09/23/18 15:00 Labs: Laboratory Results - last 24 hr 09/23/18 09/23/18 09/24/18 15:00 18:28 05:57 Neutrophils % (Manual) 92 H Band Neutrophils % 1 Lymphocytes % (Manual) 4 L Monocytes % (Manual) 2 Eosinophils % (Manual) 1 Platelet Estimate Normal Anisocytosis (manual) Slight Lactic Acid 0.8 Influenza Typ A,B (EIA) Negative for flu a/b reviewed J.P. - Impressions Impression: reviewed J.P. - Imaging and Cardiology CT scan - abdomen Status: Report reviewed by me (GabrielP.) CT scan - pelvis Status: Report reviewed by me (Mike.P.) Chest x-ray Status: Report reviewed by me (J.P.) Assessment & Plan (1) Abdominal pain Status: Acute Priority: High (2) Gastroenteritis Status: Acute Priority: High (3) ASHD (arteriosclerotic heart disease) Status: Acute (4) Hx of atrial fibrillation, no current medication Status: Acute (5) HTN (hypertension) Status: Acute (6) COPD (chronic obstructive pulmonary disease) Status: Acute (7) OA (osteoarthritis) Status: Chronic Priority: Medium - Assessment and Plan (Free Text) Plan: F/U Stool C-S, Ova & Parasite, Continue with Zofran, Lovenox, Protonix, Tylenol and rest of Tx, full liquid diet - Date & Time Date: 09/24/18 Time: 12:00
[2018-09-25] MEDS: Enoxaparin 40 mg Syringe SC SCH (08:35)
[2018-09-25 12:12] LABS: ALB/GLOB RATIO 1.2 (1.0-2.1); ALBUMIN 4.1 g/dL (3.5-5.0); ALT/SGPT 39 U/L (9-52); AST/SGOT 43 U/L (14-36); BLOOD UREA NITROGEN 6 mg/dl (7-17); CALCIUM 8.7 mg/dL (8.4-10.2); GFR NON-AFRICAN AMERICAN > 60
[2018-09-25 12:15] LABS: HEMOGLOBIN 13.1 g/dL (12.0-16.0); MEAN CELL VOLUME 82.3 fl (81.0-99.0); MEAN CORPUSCULAR HEMOGLOBIN 26.6 pg (27.0-31.0); MEAN CORPUSCULAR HGB CONC 32.3 g/dL (33.0-37.0); RBC 4.9 Mil/uL (3.80-5.20); RED CELL DISTRIBUTION WIDTH 15.3 % (11.5-14.5); WHITE BLOOD COUNT 3.4 K/uL (4.8-10.8)
--- NOTE | 2018-09-25 12:45 | CP.PCM.CON ---
History of Present Illness - History of Present Illness History of Present Illness: Consultation for HTN and abnormal EKG HPI: Va is a pleasant 77-year-old female admitted with abdominal gastroenteritis after eating avocado with both nausea vomiting and diarrhea cardiac history is significant for hypertension with questionable atrial fibrillation as documented in prior records patient was evaluated by me back in January for preoperative cardiac sclerae stratification at which time she was having discomfort secondary to her ventral hernia. Some concern about underlying CAD with abnormal EKG for which cardiology was consulted. No active ischemic sx. Review of Systems - Review of Systems Systems not reviewed;Unavailable: Acuity of Condition - Constitutional Constitutional: As Per HPI - EENT Eyes: As Per HPI Ears: As Per HPI Nose/Mouth/Throat: As Per HPI - Breasts Breasts: As Per HPI - Cardiovascular Cardiovascular: As Per HPI - Respiratory Respiratory: As Per HPI - Gastrointestinal Gastrointestinal: As Per HPI - Genitourinary Genitourinary: As Per HPI - Reproductive: Female Reproductive:Female: As Per HPI - Menstruation Menstruation: As Per HPI - Musculoskeletal Musculoskeletal: As Per HPI - Integumentary Integumentary: As Per HPI - Neurological Neurological: As Per HPI - Psychiatric Psychiatric: As Per HPI - Endocrine Endocrine: As Per HPI - Hematologic/Lymphatic Hematologic: As Per HPI Past Patient History - Infectious Disease Hx of Infectious Diseases: None - Past Medical History & Family History Past Medical History?: Yes - Past Social History Smoking Status: Never Smoked Alcohol: None Drugs: Denies Home Situation {Lives}: Alone - CARDIAC Hx Cardiac Disorders: Yes Hx Atrial Fibrillation: Yes Hx Hypercholesterolemia: Yes Hx Hypertension: Yes - PULMONARY Hx Respiratory Disorders: Yes Hx Bronchitis: Yes Hx Chronic Obstructive Pulmonary Disease (COPD): Yes - NEUROLOGICAL Hx Neurological Disorder: No - HEENT Hx HEENT Problems: Yes (eyeglasses) - RENAL Hx Chronic Kidney Disease: No - ENDOCRINE/METABOLIC Hx Endocrine Disorders: No - HEMATOLOGICAL/ONCOLOGICAL Hx Human Immunodeficiency Virus (HIV): No - INTEGUMENTARY Hx Dermatological Problems: No - MUSCULOSKELETAL/RHEUMATOLOGICAL Hx Musculoskeletal Disorders: Yes Hx Arthritis: Yes Hx Falls: Yes - GASTROINTESTINAL Hx Gastrointestinal Disorders: Yes Hx Gastritis: Yes Hx Pancreatitis: Yes - GENITOURINARY/GYNECOLOGICAL Hx Genitourinary Disorders: No - PSYCHIATRIC Hx Psychophysiologic Disorder: Yes Hx Anxiety: Yes Hx Substance Use: No - SURGICAL HISTORY Hx Surgeries: Yes Hx Appendectomy: Yes - ANESTHESIA Hx Anesthesia: Yes Hx Anesthesia Reactions: No Hx Malignant Hyperthermia: No Meds Allergies/Adverse Reactions: Allergies Allergy/AdvReac Type Severity Reaction Status Date / Time Iodinated Contrast- Oral and Allergy SHORTNESS Verified 03/30/18 23:03 IV Dye OF BREATH shrimp Allergy RASH Verified 03/30/18 23:03 seafood Allergy RASH Uncoded 03/30/18 23:03 - Medications Medications: Current Medications Acetaminophen (Tylenol 325mg Tab) 650 mg PO Q4 PRN PRN Reason: Pain, moderate (4-7) Last Admin: 09/24/18 22:50 Dose: 650 mg Enoxaparin Sodium (Lovenox) 40 mg SC DAILY [facility]; Protocol Last Admin: 09/25/18 08:35 Dose: 40 mg Ondansetron HCl (Zofran Inj) 4 mg IVP Q6H PRN PRN Reason: Nausea/Vomiting Pantoprazole Sodium (Protonix Inj) 40 mg IVP DAILY [facility] Last Admin: 09/25/18 08:35 Dose: 40 mg Physical Exam - Constitutional Appears: Well - Head Exam Head Exam: ATRAUMATIC, NORMAL INSPECTION, NORMOCEPHALIC - Eye Exam Eye Exam: EOMI, Normal appearance, PERRL Pupil Exam: NORMAL ACCOMODATION, PERRL - ENT Exam ENT Exam: Mucous Membranes Moist, Normal Exam - Neck Exam Neck exam: Positive for: Normal Inspection - Respiratory Exam Respiratory Exam: Clear to Auscultation Bilateral, NORMAL BREATHING PATTERN - Cardiovascular Exam Cardiovascular Exam: REGULAR RHYTHM - GI/Abdominal Exam GI & Abdominal Exam: Normal Bowel Sounds, Soft. absent: Tenderness - Extremities Exam Extremities exam: Positive for: normal inspection - Back Exam Back exam: NORMAL INSPECTION - Neurological Exam Neurological exam: Alert, CN II-XII Intact, Normal Gait, Oriented x3, Reflexes Normal - Psychiatric Exam Psychiatric exam: Normal Affect, Normal Mood - Skin Skin Exam: Dry, Intact, Normal Color, Warm Results - Vital Signs Recent Vital Signs: Last Vital Signs Temp 98.6 F 09/25/18 07:38 Pulse 70 09/25/18 07:38 Resp 19 09/25/18 07:38 BP 148/84 09/25/18 07:38 Pulse Ox 95 09/25/18 07:38 - Labs Result Diagrams: 09/25/18 11:40 09/25/18 11:40 Labs: Laboratory Results - last 24 hr 09/24/18 09/25/18 09/25/18 23:30 11:40 11:40 WBC 3.4 L D RBC 4.90 Hgb 13.1 Hct 40.4 MCV 82.3 MCH 26.6 L MCHC 32.3 L RDW 15.3 H Plt Count 229 Sodium 139 Potassium 3.8 Chloride 104 Carbon Dioxide 26 Anion Gap 13 BUN 6 L Creatinine 0.7 Est GFR ( Amer) > 60 Est GFR (Non-Af Amer) > 60 Random Glucose 100 Calcium 8.7 Phosphorus 3.7 Magnesium 2.1 Total Bilirubin 0.3 AST 43 H D ALT 39 Alkaline Phosphatase 96 Total Protein 7.5 Albumin 4.1 Globulin 3.3 Albumin/Globulin Ratio 1.2 Stool Occult Blood Negative Assessment & Plan (1) ASHD (arteriosclerotic heart disease) Assessment and Plan: clinically stable outpt w/u Status: Acute (2) Gastroenteritis Assessment and Plan: meds per primary team hydration Status: Acute Priority: High (3) HTN (hypertension) Status: Acute (4) Hx of atrial fibrillation, no current medication Status: Acute (5) Abdominal pain Status: Acute Priority: High
[2018-09-25 16:26] VITALS: BP 144/79; PULSE 67; RESP 20; TEMP 97.8; O2SAT 96
--- NOTE | 2018-09-25 16:57 | CP.PCM.PN ---
Subjective - Date & Time of Evaluation Date of Evaluation: 09/25/18 Time of Evaluation: 11:20 - Subjective Subjective: F/U GE No A/D, no abdominal pain, less diarrhea. Objective - Vital Signs/Intake and Output Vital Signs (last 24 hours): Temp Pulse Resp BP Pulse Ox 97.8 F 67 20 144/79 96 09/25/18 16:25 09/25/18 16:25 09/25/18 16:25 09/25/18 16:25 09/25/18 16:25 - Medications Medications: Current Medications Acetaminophen (Tylenol 325mg Tab) 650 mg PO Q4 PRN PRN Reason: Pain, moderate (4-7) Last Admin: 09/24/18 22:50 Dose: 650 mg Enoxaparin Sodium (Lovenox) 40 mg SC DAILY [facility]; Protocol Last Admin: 09/25/18 08:35 Dose: 40 mg Ondansetron HCl (Zofran Inj) 4 mg IVP Q6H PRN PRN Reason: Nausea/Vomiting Pantoprazole Sodium (Protonix Inj) 40 mg IVP DAILY [facility] Last Admin: 09/25/18 08:35 Dose: 40 mg - Labs Labs: 09/25/18 11:40 09/25/18 11:40 - Constitutional Appears: No Acute Distress - Head Exam Head Exam: NORMAL INSPECTION - Eye Exam Eye Exam: PERRL - ENT Exam ENT Exam: Normal Exam - Neck Exam Neck Exam: Normal Inspection - Respiratory Exam Respiratory Exam: NORMAL BREATHING PATTERN - Cardiovascular Exam Cardiovascular Exam: REGULAR RHYTHM - GI/Abdominal Exam GI & Abdominal Exam: Soft, Normal Bowel Sounds Additional comments: Umbilical hernia, reducible - Extremities Exam Extremities Exam: Normal Inspection - Back Exam Back Exam: NORMAL INSPECTION - Neurological Exam Neurological Exam: Alert, Oriented x3. absent: Motor Sensory Deficit - Psychiatric Exam Psychiatric exam: Normal Mood - Skin Skin Exam: Normal Color, Warm Assessment and Plan (1) Abdominal pain Status: Acute (2) Gastroenteritis Status: Acute (3) ASHD (arteriosclerotic heart disease) Status: Acute (4) Hx of atrial fibrillation, no current medication Status: Acute (5) HTN (hypertension) Status: Acute (6) COPD (chronic obstructive pulmonary disease) Status: Acute (7) OA (osteoarthritis) Status: Chronic - Assessment and Plan (Free Text) Plan: Regular diet, Pt improved and stable to be discharged today, see instruction medication sheet, f/u in my office in a week.
--- NOTE | 2018-09-25 19:20 | CARD ---
APPROVED REPORT Date of service: 09/25/2018 EXAM: Two-dimensional and M-mode echocardiogram with Doppler and color Doppler. Other Information Quality : GoodRhythm : NSR INDICATION Abnormal EKG/Arrhythmia 2D DIMENSIONS IVSd0.87 (0.7-1.1cm)LVDd4.65 (3.9-5.9cm) LVOT Diameter1.97 (1.8-2.4cm)PWd0.81 (0.7-1.1cm) IVSs1.04 (0.8-1.2cm)LVDs3.93 (2.5-4.0cm) FS (%) 15.6 %PWs0.96 (0.8-1.2cm) M-Mode DIMENSIONS Left Atrium (MM)3.50 (2.5-4.0cm)IVSd1.06 (0.7-1.1cm) Aortic Root3.56 (2.2-3.7cm)LVDd6.21 (4.0-5.6cm) Aortic Cusp Exc.1.91 (1.5-2.0cm)PWd1.03 (0.7-1.1cm) IVSs1.47 cmFS (%) 36 % LVDs4.00 (2.0-3.8cm)PWs1.26 cm Aortic Valve AoV Peak Lgssturx695.7cm/sAoV VTI37.6cmAO Peak GR.14mmHg LVOT Peak Phayjnfg916.9cm/sLVOT VTI31.34cmAO Mean GR.8mmHg MARYANNE (VMAX)1.42sr4EUB (VTI)1.06iy7GE P 1/2 Caru024dp Mitral Valve MV E Amyvyaha67.6cm/sMV DECEL [id number] A Wzqmfwps125.6cm/s MV CSJ00fdF/A ratio0.6MVA (PHT)2.41cm2 TDI Lateral E' Peak V9.45cm/sMedial E' Peak V6.36cm/sE/Lateral E'7.6 E/Medial E'11.3 Tricuspid Valve TR Peak Whloicck653cl/sRAP QUQVCQRH52mrNyPR Peak Gr.21mmHg ITHQ02vzCl LEFT VENTRICLE The left ventricle is normal size. There is normal left ventricular wall thickness. The left ventricular systolic function is normal. The estimated ejection fraction is 55-60% No regional wall motion abnormalities noted.. Transmitral Doppler flow pattern is Grade I-abnormal relaxation pattern. No left ventricle thrombus noted on this study. There is no ventricular septal defect visualized. There is no left ventricular aneurysm. There is no mass noted in the left ventricle. RIGHT VENTRICLE The right ventricle is normal size. There is normal right ventricular wall thickness. The right ventricular systolic function is normal. ATRIA The left atrium size is normal. The right atrium size is normal. The interatrial septum is intact with no evidence for an atrial septal defect. AORTIC VALVE The aortic valve is normal in structure. Mildly calcified leaflets. Mild to moderate aortic regurgitation is present. There is no aortic valvular stenosis. There is no aortic valvular vegetation. MITRAL VALVE The mitral valve is normal in structure. There is no evidence of mitral valve prolapse. There is no mitral valve stenosis. There is trace mitral valve regurgitation noted. TRICUSPID VALVE The tricuspid valve is normal in structure. There is mild tricuspid valve regurgitation noted. RVSP is calculated at 27 mm Hg. There is no tricuspid valve prolapse or vegetation. There is no tricuspid valve stenosis. PULMONIC VALVE The pulmonary valve is normal in structure. There is no pulmonic valvular regurgitation. There is no pulmonic valvular stenosis. GREAT VESSELS The aortic root is normal in size. The ascending aorta is normal in size. The pulmonary artery is normal. The IVC is normal in size and collapses >50% with inspiration. PERICARDIAL EFFUSION There is no pericardial effusion. There is no pleural effusion. <Conclusion> The estimated ejection fraction is 55-60% Transmitral Doppler flow pattern is Grade I-abnormal relaxation pattern. The left atrium size is normal. Mild to moderate aortic regurgitation is present. There is trace mitral valve regurgitation noted. There is mild tricuspid valve regurgitation noted. RVSP is calculated at 27 mm Hg.
--- NOTE | 2018-09-26 09:02 | CP.PCM.DIS ---
Provider - Provider Date of Admission: 09/23/18 19:52 Attending physician: Aric Cazares MD Consults: 09/24/18 23:35 Cardiology Consult Routine Comment: Consulting Provider: Michael Duncan Consulting Physician: Michael Duncan Reason for Consult: abnormal EKG, HTN Diagnosis - Discharge Diagnosis (1) Abdominal pain Status: Acute Priority: High (2) Gastroenteritis Status: Acute Priority: High (3) ASHD (arteriosclerotic heart disease) Status: Acute (4) Hx of atrial fibrillation, no current medication Status: Acute (5) HTN (hypertension) Status: Acute (6) COPD (chronic obstructive pulmonary disease) Status: Acute (7) OA (osteoarthritis) Status: Chronic Priority: Medium Hospital Course - Lab Results Lab Results: Most Recent Lab Values WBC 3.4 K/uL (4.8-10.8) L D 09/25/18 11:40 RBC 4.90 Mil/uL (3.80-5.20) 09/25/18 11:40 Hgb 13.1 g/dL (12.0-16.0) 09/25/18 11:40 Hct 40.4 % (34.0-47.0) 09/25/18 11:40 MCV 82.3 fl (81.0-99.0) 09/25/18 11:40 MCH 26.6 pg (27.0-31.0) L 09/25/18 11:40 MCHC 32.3 g/dL (33.0-37.0) L 09/25/18 11:40 RDW 15.3 % (11.5-14.5) H 09/25/18 11:40 Plt Count 229 K/uL (130-400) 09/25/18 11:40 MPV 9.4 fl (7.2-11.7) 09/23/18 15:00 Neut % (Auto) 90.9 % (50.0-75.0) H 09/23/18 15:00 Lymph % (Auto) 4.8 % (20.0-40.0) L 09/23/18 15:00 [place] % (Auto) 2.9 % (0.0-10.0) 09/23/18 15:00 Eos % (Auto) 1.1 % (0.0-4.0) 09/23/18 15:00 Baso % (Auto) 0.3 % (0.0-2.0) 09/23/18 15:00 Neut # (Auto) 9.2 K/uL (1.8-7.0) H 09/23/18 15:00 Lymph # (Auto) 0.5 K/uL (1.0-4.3) L 09/23/18 15:00 [place] # (Auto) 0.3 K/uL (0.0-0.8) 09/23/18 15:00 Eos # (Auto) 0.1 K/uL (0.0-0.7) 09/23/18 15:00 Baso # (Auto) 0.0 K/uL (0.0-0.2) 09/23/18 15:00 Neutrophils % (Manual) 92 % (42-75) H 09/23/18 15:00 Band Neutrophils % 1 % (0-2) 09/23/18 15:00 Lymphocytes % (Manual) 4 % (20-50) L 09/23/18 15:00 Monocytes % (Manual) 2 % (0-10) 09/23/18 15:00 Eosinophils % (Manual) 1 % (0-7) 09/23/18 15:00 Platelet Estimate Normal (NORMAL) 09/23/18 15:00 Anisocytosis (manual) Slight 09/23/18 15:00 Sodium 139 mmol/l (132-148) 09/25/18 11:40 Potassium 3.8 MMOL/L (3.6-5.0) 09/25/18 11:40 Chloride 104 mmol/L (98-107) 09/25/18 11:40 Carbon Dioxide 26 mmol/L (22-30) 09/25/18 11:40 Anion Gap 13 (10-20) 09/25/18 11:40 BUN 6 mg/dl (7-17) L 09/25/18 11:40 Creatinine 0.7 mg/dl (0.7-1.2) 09/25/18 11:40 Est GFR ( Amer) > 60 09/25/18 11:40 Est GFR (Non-Af Amer) > 60 09/25/18 11:40 Random Glucose 100 mg/dL (65-105) 09/25/18 11:40 Lactic Acid 0.8 mmol/L (0.7-2.1) 09/24/18 05:57 Calcium 8.7 mg/dL (8.4-10.2) 09/25/18 11:40 Phosphorus 3.7 mg/dl (2.5-4.5) 09/25/18 11:40 Magnesium 2.1 MG/DL (1.6-2.3) 09/25/18 11:40 Total Bilirubin 0.3 mg/dl (0.2-1.3) 09/25/18 11:40 AST 43 U/L (14-36) H D 09/25/18 11:40 ALT 39 U/L (9-52) 09/25/18 11:40 Alkaline Phosphatase 96 U/L (38-126) 09/25/18 11:40 Troponin I < 0.0120 ng/mL (0.00-0.120) 09/23/18 15:00 Total Protein 7.5 G/DL (6.3-8.2) 09/25/18 11:40 Albumin 4.1 g/dL (3.5-5.0) 09/25/18 11:40 Globulin 3.3 gm/dL (2.2-3.9) 09/25/18 11:40 Albumin/Globulin Ratio 1.2 (1.0-2.1) 09/25/18 11:40 Lipase 77 U/L (23-300) 09/23/18 15:00 Urine Color Yellow (YELLOW) 09/23/18 15:20 Urine Clarity Clear (Clear) 09/23/18 15:20 Urine pH 5.0 (5.0-8.0) 09/23/18 15:20 Ur Specific [place] 1.019 (1.003-1.030) 09/23/18 15:20 Urine Protein Negative mg/dL (NEGATIVE) 09/23/18 15:20 Urine Glucose (UA) Neg mg/dL (NEGATIVE) 09/23/18 15:20 Urine Ketones Negative mg/dL (NEGATIVE) 09/23/18 15:20 Urine Blood Small (NEGATIVE) 09/23/18 15:20 Urine Nitrate Negative (NEGATIVE) 09/23/18 15:20 Urine Bilirubin Negative (NEGATIVE) 09/23/18 15:20 Urine Urobilinogen 0.2-1.0 mg/dL (0.2-1.0) 09/23/18 15:20 Ur Leukocyte Esterase Neg Shiela/uL (Negative) 09/23/18 15:20 Urine Microscopic WBC < 1 /hpf (0-5) 09/23/18 15:20 Ur Squamous Epith Cells 1 /hpf (0-5) 09/23/18 15:20 Stool Occult Blood Negative (NEGATIVE) 09/24/18 23:30 Influenza Typ A,B (EIA) Negative for flu a/b (NEGATIVE) 09/23/18 18:28 Discharge Exam - Head Exam Head Exam: NORMAL INSPECTION Discharge Plan - Follow Up Plan Condition: FAIR Disposition: HOME/ ROUTINE Instructions: Colitis (DC)
== END 2018-09-25 17:55 | disposition home or self-care (01) ==
LOC: H.ER 13:18 → H.ERHOLD 19:52 → H.MEDSURG1 09-24 12:18
PROVIDERS: ADMIT Internal Medicine Pulmonary Disease; ATTEND Internal Medicine Pulmonary Disease
DX: R10.9 Unspecified abdominal pain (principal); I25.10 Atherosclerotic heart disease of native coronary artery without angina pectoris; K52.9 Noninfective gastroenteritis and colitis, unspecified; I10 Essential (primary) hypertension; K42.9 Umbilical hernia without obstruction or gangrene; J44.9 Chronic obstructive pulmonary disease, unspecified; M19.90 Unspecified osteoarthritis, unspecified site; Z91.041 Radiographic dye allergy status; Z91.013 Allergy to seafood; F41.9 Anxiety disorder, unspecified; K29.70 Gastritis, unspecified, without bleeding; E78.00 Pure hypercholesterolemia, unspecified
CPT/HCPCS: 36415; 71046; 74176; 80053; 81003; 83605; 83690; 83735; 84100; 84484; 85025; 85027; 87045; 87177; 87209; 87804; 93005; 93306; 96372; 96374; 96375; 96376; 99285; C9113; G0328; G0378; J1650; J1885; J2405; J7030; Q9966